=== PATIENT | male | born 1955 | race Caucasian/White ===

== ENCOUNTER 2020-10-09 08:16 | Outpatient (REF) | payer OTHER, SELFPAY ==
[2020-10-09 09:28] LABS: MANUAL DIFF FLAG NO
[2020-10-09 09:31] LABS: Basophils Absolute Auto 0.1 X10*3/uL (0.0-0.2); Eosinophils Absolute Auto 0.4 X10*3/uL (0.0-0.4); Eosinophils Percent Auto 4.5 % (0-4); Hematocrit 44.2 % (42-52); Hemoglobin 13.9 g/dl (14.0-18.0); Imm Gran Abs Auto 0.02 X10*3/uL (0.00-0.03); Imm Gran Pct Auto 0.2 % (0.0-0.4); Lymphocytes Absolute Auto 3.8 X10*3/uL (1.2-4.9); Lymphocytes Percent Auto 44.3 % (20-40); Mean Corpuscular HGB Conc 31.4 g/dl (31.0-36.0); Mean Corpuscular Hemoglobin 28.8 pg (27.0-33.0); Mean Corpuscular Volume 91.5 fL (80-98); Mean Platelet Volume 11.7 fL (9.4-12.4); Monocytes Absolute Auto 1.1 X10*3/uL (0.1-1.2); Monocytes Percent Auto 12.2 % (2-11); Neutrophils Absolute Auto 3.3 X10*3/uL (2.0-8.3); Neutrophils Percent Auto 37.8 % (45-73); Platelet Count 219 X10*3/uL (160-400); Red Blood Count 4.83 X10*6/uL (4.60-5.80); Red Cell Distribution Width 13.2 % (11.0-16.0); White Blood Count 8.7 X10*3/uL (4.8-10.8)
[2020-10-09 09:54] LABS: Anion Gap 13 (12-20); Blood Urea Nitrogen 15 mg/dL (9-16); Calcium 9.2 mg/dL (8.4-10.2); Carbon Dioxide 29 mmol/L (22-29); Chloride 103 mmol/L (96-108); Cholesterol 170 mg/dL; Estimated Glomerular Filt Rate > 60; Glucose Fasting 128 mg/dL (60-99); HDL Cholesterol 32 mg/dL; LDL Cholesterol Calculated 105 mg/dl; Potassium 4.3 mmol/l (3.3-5.1); Sodium 141 mmol/L (135-145); Triglycerides 168 mg/dL
== END 2020-10-09 08:17 | disposition home or self-care (01) ==
LOC: HO.LAB 08:16
PROVIDERS: PCP Nurse Practitioner Family; Visit Provider Nurse Practitioner Family
DX: I15.8 Other secondary hypertension (principal); E11.9 Type 2 diabetes mellitus without complications
CPT/HCPCS: 36415; 80048; 80061; 85025

== ENCOUNTER 2020-11-26 08:52 | Outpatient (REF) | payer OTHER, SELFPAY | END 2020-11-26 08:53 | disposition home or self-care (01) | LOC: HO.LAB 08:52 | PROVIDERS: Visit Provider Internal Medicine | DX: Z20.822 Contact with and (suspected) exposure to COVID-19 (principal) | CPT/HCPCS: 36415; C9803; U0003 ==

== ENCOUNTER → 2020-12-21 13:01 | Outpatient (BNVA) | payer OTHER, SELFPAY | PROVIDERS: PCP Nurse Practitioner Family; Visit Provider Internal Medicine Pulmonary Disease | DX: R06.00 Dyspnea, unspecified (principal); Z87.828 Personal history of other (healed) physical injury and trauma | CPT/HCPCS: 99202 ==

== ENCOUNTER 2020-12-21 14:05 | Outpatient (REF) | payer OTHER, SELFPAY ==
--- NOTE | 2020-12-21 16:07 | PFT_ITS ---
INDICATION: Dyspnea. SPIROMETRY: The FEV1 to FVC of 89% with an FEV1 of 1.77 L, which is 70% predicted and an FVC of 2.01 L, which is 60% predicted. No significant response to bronchodilators noted. Maximum voluntary ventilation only 40% predicted. LUNG VOLUMES: Total lung capacity 62% predicted with an expiratory reserve volume of 22% predicted. DIFFUSION CAPACITY: DLCO 68% predicted. COMPARISONS: None. NOTE: The patient did have a hard time performing the maneuvers, therefore that also has to be kept in consideration. INTERPRETATION: No obstructive ventilatory defect. No significant response to bronchodilators noted. There is severe decrease in maximum voluntary ventilation, likely secondary to deconditioning, although neuromuscular conditions cannot be ruled out. The patient does have a moderate restrictive ventilatory defect of unclear etiology. Again, parenchymal lung conditions and/or neuromuscular conditions should be considered. There is also a mild diffusion impairment secondary to the above. Clinical correlation warranted. MD JOSETTE Stokes/MODL / [id number]
== END 2020-12-21 14:06 | disposition home or self-care (01) ==
LOC: HO.RESP 14:05
PROVIDERS: PCP Nurse Practitioner Family; Visit Provider Internal Medicine Pulmonary Disease
DX: R06.00 Dyspnea, unspecified (principal)
CPT/HCPCS: 94060; 94727; 94729

== ENCOUNTER → 2021-01-09 09:52 | Outpatient (BNVA) | payer OTHER, SELFPAY | PROVIDERS: PCP Nurse Practitioner Family; Visit Provider Urology | DX: N40.1 Benign prostatic hyperplasia with lower urinary tract symptoms (principal); N13.8 Other obstructive and reflux uropathy; R33.9 Retention of urine, unspecified; R35.1 Nocturia | CPT/HCPCS: 51798; 81002; 99202 ==

== ENCOUNTER 2021-02-11 11:39 | Outpatient (REF) | payer OTHER, SELFPAY ==
--- NOTE | ~2021-02-11 | CT_ITS ---
EXAMINATION: CT CHEST WITHOUT CONTRAST CLINICAL INFORMATION: Dyspnea COMPARISON: None TECHNIQUE: Multidetector volumetric CT imaging of the chest was done. Axial MIP volume rendering provided. Sagittal and coronal reformatted images were obtained. This CT examination was performed using dose optimization techniques as appropriate, variously including the following: *Automated exposure control *Adjustment of mA and/or kV according to patient size (this includes techniques or standardized protocols for targeted exams where dose is matched to indication/reason for exam; i.e. extremities or head) *Use of iterative reconstruction technique DLP: 258 mGy-cm FINDINGS: LUNGS: The central airways are patent. Mild bronchial wall thickening noted. Faint groundglass opacities seen throughout the lungs with no dense consolidation. No pneumothorax. MEDIASTINUM: Normal heart size. Mild coronary artery calcification. No pericardial effusion. No mediastinal lymphadenopathy. Calcified lymph node in the AP window. PLEURA: There is no pleural effusion. No pleural mass or thickening. AXILLA: No lymphadenopathy. UPPER ABDOMEN: Low-attenuation of the liver suggestive of steatosis. No acute abnormality of the visualized upper abdomen. OSSEOUS STRUCTURES: No acute or suspicious osseous abnormality. Multilevel degenerative change of the spine. DISH. CT/CT chest wo con IMPRESSION: Faint groundglass appearance of the lung parenchyma may be secondary to hypoexpansion. Infectious or inflammatory process is possible. In the setting of bronchial wall thickening, asthma is also a consideration. No dense consolidation.
== END 2021-02-11 11:40 | disposition home or self-care (01) ==
LOC: HO.CT 11:39
PROVIDERS: Visit Provider Internal Medicine Pulmonary Disease
DX: R06.00 Dyspnea, unspecified (principal)
CPT/HCPCS: 71250

== ENCOUNTER → 2021-02-12 13:39 | Outpatient (BNVA) | payer OTHER, SELFPAY | PROVIDERS: PCP Nurse Practitioner Family; Visit Provider Internal Medicine Pulmonary Disease | DX: J45.40 Moderate persistent asthma, uncomplicated (principal) | CPT/HCPCS: 99212 ==

== ENCOUNTER → 2021-02-22 09:42 | Outpatient (BNVA) | payer OTHER, SELFPAY | PROVIDERS: PCP Nurse Practitioner Family; Visit Provider Urology | DX: N40.1 Benign prostatic hyperplasia with lower urinary tract symptoms (principal); N13.8 Other obstructive and reflux uropathy; R35.1 Nocturia | CPT/HCPCS: 99212 ==

== ENCOUNTER 2021-04-04 13:39 | Outpatient (REF) | payer OTHER, SELFPAY ==
--- NOTE | ~2021-04-04 | XR_ITS ---
EXAMINATION: XR CHEST 2 VIEWS CLINICAL INFORMATION: Asthma. COMPARISON: None. TECHNIQUE: Frontal and lateral views of the chest were obtained. FINDINGS: The heart, great vessels, pulmonary vasculature and mediastinum are normal. Lung volumes are low, with crowding of bronchovascular and pulmonary parenchymal markings. There is mild elevation of the right hemidiaphragm. The lungs show no focal infiltrate, effusion or pneumothorax. There is mild bronchiolar wall thickening. There is no acute osseous abnormality. There is multi-level thoracolumbar spondylosis, with an appearance suggesting possible DISH (diffuse idiopathic skeletal hyperostosis). XR/XR chest 2V IMPRESSION: 1. Lung volumes are low, with crowding of bronchovascular and pulmonary parenchymal markings. 2. No focal infiltrate or congestive heart failure is seen. 3. There is mild bronchiolar wall thickening, consistent with the provided history of asthma.
--- NOTE | ~2021-04-04 | XR_ITS ---
EXAMINATION: XR THORACIC SPINE CLINICAL INFORMATION: Pain in thoracic spine COMPARISON: None TECHNIQUE: 2 views of the thoracic spine were obtained. FINDINGS: There is normal thoracic kyphosis with moderate calcification of anterior longitudinal ligament no visible acute fracture, dislocation or lytic process seen. The paravertebral soft tissues are normal XR/XR thoracic spine 3V IMPRESSION: Moderate calcification of anterior longitudinal ligament suggestive of DISH. No acute fracture or lytic process seen.
== END 2021-04-04 13:40 | disposition home or self-care (01) ==
LOC: HO.XRAY 13:39
PROVIDERS: PCP Internal Medicine; Visit Provider Physician Assistant
DX: M54.6 Pain in thoracic spine (principal); J45.40 Moderate persistent asthma, uncomplicated
CPT/HCPCS: 71046; 72072

== ENCOUNTER → 2021-04-18 13:16 | Outpatient (BNVA) | payer OTHER, SELFPAY | PROVIDERS: PCP Internal Medicine; Visit Provider Internal Medicine Pulmonary Disease | DX: J45.42 Moderate persistent asthma with status asthmaticus (principal) | CPT/HCPCS: 99212 ==

== ENCOUNTER 2021-05-27 12:14 | Outpatient (REF) | payer OTHER, SELFPAY ==
--- NOTE | ~2021-05-27 | XR_ITS ---
EXAMINATION: XR CERVICAL SPINE CLINICAL INFORMATION: Cervical pain. COMPARISON: None. TECHNIQUE: 3 views of the cervical spine were obtained. FINDINGS: There is mild straightening of cervical lordosis. The vertebral heights and alignment is normal. There is loss of C6-C7 and C7-S2 disc heights with moderate ventral spondylosis at C4-C5, C5-C6, C6-C7 and C7-T1 disc levels. No visible acute fracture, dislocation or lytic process seen. The prevertebral soft tissues are normal. There is nuchal calcification posterior to C5 and C6 spinous process. XR/XR cervical spine 3V IMPRESSION: Degenerative disc changes C6-C7 and C7-T1 disc levels with ventral spondylosis. No acute fracture or dislocation seen.
== END 2021-05-27 12:15 | disposition home or self-care (01) ==
LOC: HO.XRAY 12:14
PROVIDERS: PCP Internal Medicine; Visit Provider Internal Medicine
DX: M54.2 Cervicalgia (principal)
CPT/HCPCS: 72040

== ENCOUNTER 2021-06-07 08:44 | Outpatient (REF) | payer OTHER, SELFPAY ==
[2021-06-07 10:33] LABS: Creatinine Urine 102.91 mg/dL; Microalbum/Creatinine Ratio Ur 20.4 ug/mg cr
[2021-06-07 10:47] LABS: Alanine Aminotransferase 57 U/L (0-40); Albumin Level 3.9 g/dL (3.5-5.0); Alkaline Phosphatase 113 U/L (39-117); Anion Gap 15 (12-20); Aspartate Amino Transferase 43 U/L (5-37); Bilirubin Total 0.6 mg/dL (0.0-1.0); Blood Urea Nitrogen 19 mg/dL (9-16); Calcium 8.9 mg/dL (8.4-10.2); Carbon Dioxide 23 mmol/L (22-29); Chloride 106 mmol/L (96-108); Cholesterol 173 mg/dL; Estimated Glomerular Filt Rate > 60; Glucose Fasting 128 mg/dL (60-99); HDL Cholesterol 30 mg/dL; LDL Cholesterol Calculated 105 mg/dl; Potassium 4.3 mmol/L (3.3-5.1); Sodium 140 mmol/L (135-145); Total Protein 7.3 g/dL (6.5-8.0); Triglycerides 192 mg/dL
[2021-06-12 19:06] LABS: Vitamin D 25-OH, D2 5 ng/mL; Vitamin D 25-OH, D3 31 ng/mL; Vitamin D 25-OH, Total 36 ng/mL (30-100)
== END 2021-06-07 08:45 | disposition home or self-care (01) ==
LOC: HO.LAB 08:44
PROVIDERS: PCP Internal Medicine; Visit Provider Internal Medicine
DX: E11.9 Type 2 diabetes mellitus without complications (principal); E55.9 Vitamin D deficiency, unspecified; E78.5 Hyperlipidemia, unspecified; M54.2 Cervicalgia
CPT/HCPCS: 36415; 80053; 80061; 82043; 82306

== ENCOUNTER 2021-08-09 14:00 | Outpatient (RCR) | payer OTHER, SELFPAY ==
--- NOTE | 2021-07-12 08:56 | MHC.PT.EP ---
[facility] [place] Office [place] Office [place] Office [address] [place] [address] [phone] F: [phone] F: [phone] F: [phone] F: [phone] Physical Therapy Plan of Care Date of Evaluation: Date of Surgery: N/A Diagnosis: Cervicalgia Assessment: Pt is a 66yo M who presents to PT with R pec and neck pain that has been ongoing since end october when he was D/C from a hospital. He presents today with current impairments in pain, limited ROM throughout cervical spine, soft tissue restrictions, and posture. He is limited functionally by turning his head, ADLs, general mobility, and sleeping. He is a good candidate for skilled PT services to address current impairments and facilitate return to PLOF. Frequency and Duration: The patient will be seen 2x/week for 4 weeks Short Term Goals: Pt will be I with HEP to promote self management of symptoms Pt will improve cervical flexion and ext by at least 5 degrees Cargo Operations Agent Goals: Pt will demonstrate full ROM all planes throughout cervical spine Pt will perform ADLs with pain < 5 /10 Treatment Plan: Modalities to reduce pain, spasms and effusion. Manual therapy to restore motion and function. Therapeutic exercise to improve strength and flexibility. Neuromuscular re-education for posture and balance. Therapeutic activities to return to functional activities of daily living. Electronically signed by: Xochilt Chiu, PT, DPT Please sign and return to therapist. Thank you for your referral.
--- NOTE | 2021-08-09 15:32 | MHC.PT.DC ---
[facility] [place] Office [place] Office [place] Office [address] [place] [address] [phone] F: [phone] F: [phone] F: [phone] F: [phone] Physical Therapy Discharge Report Diagnosis: Cervicalgia Date of Surgery: N/A Date of Evaluation: 07/11/21 Date of Discharge: Treatments to Date: 8 Cancellations to Date: No Shows to Date: Discharge Status: Improved Function Independent with HEP Discharge Summary: Pt has made good progress since SOC. He has reached STGs and has made good progress toward LTGs. He has improved cervical ROM throughout all planes and has had a decrease in pain. Pt has reached functional plateau with skilled PT services and is being D/C from PT at this time. Provided pt with updated, printed copy of HEP in Frisian and provided pt with RTB for HEP. Pt reports no further questions or concerns for PT at this time. Electronically signed by: Xochilt Chiu, PT, DPT Please sign and return to therapist. Thank you for your referral.
== END 2021-08-09 15:32 | disposition home or self-care (01) ==
LOC: HO.PT 14:00
PROVIDERS: PCP Internal Medicine; Visit Provider Internal Medicine
DX: M54.2 Cervicalgia (principal)
CPT/HCPCS: 97110; 97150; 97162; 97530

== ENCOUNTER → 2021-08-21 13:10 | Outpatient (BNVA) | payer OTHER, SELFPAY | PROVIDERS: PCP Internal Medicine; Visit Provider Internal Medicine Pulmonary Disease | DX: J45.42 Moderate persistent asthma with status asthmaticus (principal) | CPT/HCPCS: 99212 ==

== ENCOUNTER 2021-09-23 10:57 | Outpatient (REF) | payer OTHER, SELFPAY ==
--- NOTE | ~2021-09-23 | US_ITS ---
EXAMINATION: US PELVIS LIMITED (BLADDER) CLINICAL INFORMATION: Poor urinary stream. COMPARISON: None TECHNIQUE: Real-time imaging of the bladder. FINDINGS: BLADDER: Well distended and normal. Right ureteral jet is demonstrated; left is not. Prevoid bladder volume is 310 mL. Postvoid bladder volume is 54.6 mL. PROSTATE: The prostate gland is not seen. US/US bladder IMPRESSION: Small postvoid residual volume of 55 ml. Right ureteral jet seen. Prostate gland is not visualized.
== END 2021-09-23 10:58 | disposition home or self-care (01) ==
LOC: HO.US 10:57
PROVIDERS: PCP Internal Medicine; Visit Provider Urology
DX: R39.12 Poor urinary stream (principal); R33.9 Retention of urine, unspecified; N40.1 Benign prostatic hyperplasia with lower urinary tract symptoms
CPT/HCPCS: 76857

== ENCOUNTER → 2021-10-22 15:35 | Outpatient (BNVA) | payer OTHER, SELFPAY | PROVIDERS: PCP Internal Medicine; Visit Provider Urology ==

== ENCOUNTER → 2021-11-20 14:51 | Outpatient (BNVA) | payer OTHER, SELFPAY | PROVIDERS: PCP Internal Medicine; Referring Provider Internal Medicine; Visit Provider Internal Medicine | DX: R07.2 Precordial pain (principal); R06.02 Shortness of breath; E11.9 Type 2 diabetes mellitus without complications; I10 Essential (primary) hypertension | CPT/HCPCS: 93005; 99202 ==

== ENCOUNTER 2021-12-24 09:58 | Outpatient (REF) | payer OTHER, SELFPAY ==
[2021-12-24 11:52] LABS: Creatinine Urine 80.04 mg/dL; Microalbum/Creatinine Ratio Ur 53.7 ug/mg cr
[2021-12-24 11:54] LABS: Alanine Aminotransferase 64 U/L (0-40); Albumin Level 4.2 g/dL (3.5-5.0); Alkaline Phosphatase 138 U/L (39-117); Anion Gap 13 (12-20); Aspartate Amino Transferase 39 U/L (5-37); Bilirubin Total 0.4 mg/dL (0.0-1.0); Blood Urea Nitrogen 18 mg/dL (9-16); Calcium 10.1 mg/dL (8.4-10.2); Carbon Dioxide 31 mmol/L (22-29); Chloride 102 mmol/L (96-108); Cholesterol 210 mg/dL; Estimated Glomerular Filt Rate > 60; Glucose Fasting 216 mg/dL (60-99); HDL Cholesterol 31 mg/dL; LDL Cholesterol Calculated 124 mg/dl; Potassium 4.6 mmol/L (3.3-5.1); Sodium 141 mmol/L (135-145); Total Protein 7.9 g/dL (6.5-8.0); Triglycerides 278 mg/dL
[2021-12-24 12:14] LABS: Prostate Specific Antigen 0.86 ng/mL (<0.05-4.0)
== END 2021-12-24 09:59 | disposition home or self-care (01) ==
LOC: HO.LAB 09:58
PROVIDERS: Urology; PCP Internal Medicine; Visit Provider Internal Medicine
DX: E11.9 Type 2 diabetes mellitus without complications (principal); N40.1 Benign prostatic hyperplasia with lower urinary tract symptoms; N13.8 Other obstructive and reflux uropathy; R35.1 Nocturia; E78.5 Hyperlipidemia, unspecified; J45.42 Moderate persistent asthma with status asthmaticus
CPT/HCPCS: 36415; 80053; 80061; 82043; 84153

== ENCOUNTER → 2022-01-01 08:09 | Outpatient (REF) | payer OTHER, SELFPAY ==
--- NOTE | ~2022-01-01 | NM_ITS ---
Myocardial perfusion study Indication: Chest pain to evaluate for myocardial ischemia Technique: The patient was brought in for a Lexiscan perfusion study on 01/01/2022. Patient performed low-level exercise and was injected 0.4 mg of Lexiscan intravenously. Within a minute of injection, 30 mCi of sestamibi was given intravenously. Images were obtained using the SPECT gamma camera interlaced with the gating device. Images were obtained in supine position. Resting perfusion study was performed on 01/02/2022. Patient was administered 30 mCi of sestamibi intravenously at rest. Images were then obtained in supine position. Images obtained with and without CT attenuation. Total DLP 105 mGy-cm. Images were processed with the software and compared side to side in short axis, horizontal long axis and vertical long axis views. Findings: The stress perfusion study showed non attenuated images show mildly reduced uptake in the distal anterior and apex of the LV myocardium. Remainder of the LV myocardium is normally perfused. Attenuation corrected images show moderately reduced uptake in the distal anterior, apex of the LV myocardium.. The gated study shows normal LV systolic function with calculated LVEF of 68%. LV cavity is normal size. The gated study shows normal systolic wall thickening and contraction of segments. Resting study shows improved uptake in the distal anterior and apex of the LV myocardium on non attenuated as well as attenuated corrected images. Gating at rest reveals normal systolic wall motion with visually estimated ejection fraction at greater than 60 %. The findings are consistent with distal anterior and apical reversible defect consistent with ischemia in distal LAD territory.. NM/NM cardiolite stress test Impression: 1. Myocardial perfusion imaging study shows mild to moderate intensity distal anterior and apical ischemia 2. Gated LVEF is 68% 3. Transient ischemic dilatation not present EKG nondiagnostic for ischemia
--- NOTE | 2022-01-01 08:14 | CA_ITS ---
Acquisition Time: 2022-01-01 09:44:45 Total Exercise Time: 00:02:00 Test Indications: Dyspnea Medications: SEE H Protocol: LEXISCAN Max HR: 104 BPM 66% of Pred: 156 BPM Max BP: 124/072 mmHG Max Work Load: 1.0 METS Pharmacological stress test with Lexiscan injection, while sitting and kicking his legs, without anginal symptoms, with isolated PACs, with normotensive response to injection, with nondiagnostic EKG for ischemia. Nuclear images pending. Test reviewed with Dr Lloyd. Referred By: Raymon Lloyd Overread By: GLORIA CORLEY
== END ==
LOC: HO.CARD 08:09
PROVIDERS: PCP Internal Medicine; Visit Provider Internal Medicine
DX: R07.9 Chest pain, unspecified (principal); I20.9 Angina pectoris, unspecified
CPT/HCPCS: 78452; 93017; A9500; J0280; J2785

== ENCOUNTER → 2022-01-03 12:54 | Outpatient (REF) | payer OTHER, SELFPAY ==
--- NOTE | 2022-01-03 13:07 | CA_ITS ---
Transthoracic Echocardiogram Patient (Last, First, Middle): Raoul Garcia A Gender: Male Date of : 1955 Age: 66 Procedure Date: 01/03/2022 Procedure Type: Transthoracic Echocardiogram Location: OP Height: 157.48 cm Weight: 81.65 kg BSA: 1.83 m2 Heart Rate: bpm BP: 122 / 75 mmHg Link And Link Knitting Machine Operator: MYCHAL Referring MD: Raymon Lloyd MD Symptoms: R07.9 - Chest pain, unspecified Study Quality: Fair ECG Rhythm: Sinus Conclusions: - The left ventricular systolic function is normal. The calculated ejection fraction is 60% by biplane method. - There is evidence of regional wall motion abnormalities. - Mildly increased right ventricular cavity size. - No obvious valvular pathology seen on this study. Findings Left Ventricle Normal left ventricular cavity size. There is mildly increased left ventricular wall thickness. The left ventricular systolic function is normal. The calculated ejection fraction is 60% by biplane method. There is evidence of regional wall motion abnormalities. E/E prime ratio is between 8 and 15 consistent with indeterminate filling pressures. Evidence suggests grade I (mild) diastolic dysfunction. Wall Motion Rest Echo Findings The basal inferior segment is hypokinetic. The basal inferoseptal segment is akinetic. Right Ventricle Mildly increased right ventricular cavity size. There is normal right ventricular systolic function. Atria Both atria are normal in size. Aortic Valve There is a normal trileaflet aortic valve. There is no aortic valve stenosis. There is no aortic valve regurgitation. Mitral Valve The mitral valve appears normal. There is no mitral valve regurgitation. There is no mitral valve stenosis. Pulmonic Valve The pulmonic valve was not well visualized. Tricuspid Valve Normal tricuspid valve structure. There is trace tricuspid valve regurgitation. The pulmonary artery systolic pressure is normal. Great Vessels Top normal ascending aortic size at 3.7 cm. Venous The inferior vena cava was not well visualized. Pericardium/Pleural There is no evidence of pericardial effusion. Prior Study Comparison No prior study available for comparison. Recommendations, Care & Conclusions No obvious valvular pathology seen on this study. Measurements 2D Linear Measurements IVSd: 1.12 0.6-0.9/0.6-1.0 cm LVIDd: 4.62 3.9-5.3/4.2-5.9 cm LVIDd Index: 2.52 2.4-3.2/2.2-3.1 cm/m2 LVIDs: 3.59 2.0-3.6 cm LVPWd: 1.05 0.7-1.1 cm Ao Root: 4.00 2.1-3.5 cm LA Diam: 2.40 2.7-3.8/3.0-4.0 cm LAIDs Index: 1.31 1.5-2.3 cm/m2 LV Mass: 223.01 67-162/88-224 g LV Mass Index: 121.87 43-95/49-115 g/m2 LVOT Diam: 2.00 3.0+(-)1.3 cm 2D Systolic Function EF 4C: 64.90 >55% EF 2C: 60.50 >55% EF BiP: 59.70 >55% Mitral Valve MV Pk E: 0.71 MV PK A: 0.63 MV Decel Time: 226.00 E/A: 1.10 E'Lateral: 5.11 E'Medial: 4.90 E/E' Med: 14.40 E/E' Lat: 13.80 PHT: 66.00 MVA PHT: 3.33 Decel Hettinger: 3.13 Aortic Valve AoV Pk Troy: 1.13 AoV Mn Troy: 0.81 AoV VTI: 0.20 AoV Pk Grad: 5.00 Aov Mn Grad: 3.00 PRISCILA Cont.VTI: 2.66 LVOT LVOT Pk Troy: 0.91 LVOT Mn Troy: 0.65 LVOT VTI: 0.17 LVOT Pk Grad: 3.00 LVOT Mn Grad: 2.00 LVOT Diam: 2.00 LVOT Area: 3.14 Diastolic Function MV Pk E: 0.71 MV Pk A: 0.63 E/A: 1.10 E'Medial: 4.90 E/E' Med: 14.40 E' Laterial: 5.11 E/E' Lat: 13.80 Right Ventricle TAPSE (mm): 22.80 TVS' Troy: 14.40 Tricuspid Valve TR Pk Troy: 1.91 TR Pk Grad: 15.00 Great Vessels Aorta Ao Root-2D: 4.00 2.0-3.7 cm Ao Asc: 3.70 2.1-3.4 cm Ao Arch: 3.00 Updated in Other Vendor System with Status of Final Raymon Lloyd MD electronically signed on 01/05/2022 12:42:26 PM with status of Final
== END ==
LOC: HO.CARD 12:54
PROVIDERS: PCP Internal Medicine; Visit Provider Internal Medicine
DX: R07.9 Chest pain, unspecified (principal)
CPT/HCPCS: 93306

== ENCOUNTER → 2022-01-08 13:09 | Outpatient (BNVA) | payer MEDICARE, MEDICAID, SELFPAY | PROVIDERS: PCP Internal Medicine; Referring Provider Internal Medicine; Visit Provider Nurse Practitioner Family | DX: I15.8 Other secondary hypertension (principal); R94.39 Abnormal result of other cardiovascular function study; R93.1 Abnormal findings on diagnostic imaging of heart and coronary circulation; R07.2 Precordial pain; E78.5 Hyperlipidemia, unspecified; E11.9 Type 2 diabetes mellitus without complications | CPT/HCPCS: 99212 ==

== ENCOUNTER 2022-01-29 12:31 | Outpatient (REF) | payer MEDICARE, MEDICAID, SELFPAY ==
[2022-01-29 12:54] LABS: MANUAL DIFF FLAG NO
[2022-01-29 12:59] LABS: Basophils Absolute Auto 0.1 X10*3/uL (0.0-0.2); Basophils Percent Auto 1.1 % (0-2); Eosinophils Absolute Auto 0.3 X10*3/uL (0.0-0.4); Eosinophils Percent Auto 2.9 % (0-4); Hematocrit 44.4 % (42.0-52.0); Imm Gran Abs Auto 0.02 X10*3/uL (0.00-0.03); Imm Gran Pct Auto 0.2 % (0.0-0.4); Lymphocytes Absolute Auto 3.9 X10*3/uL (1.2-4.9); Lymphocytes Percent Auto 43.4 % (20-40); Mean Corpuscular HGB Conc 31.5 g/dl (31.0-36.0); Mean Corpuscular Hemoglobin 28.3 pg (27.0-33.0); Mean Corpuscular Volume 89.9 fL (80.0-98.0); Mean Platelet Volume 11.6 fL (9.4-12.4); Monocytes Absolute Auto 1.1 X10*3/uL (0.1-1.2); Neutrophils Absolute Auto 3.6 x10*3/uL (2.0-8.3); Neutrophils Percent Auto 40.4 % (45-73); Platelet Count 219 X10*3/uL (160-400); Red Blood Count 4.94 X10*6/uL (4.60-5.80); Red Cell Distribution Width 13.4 % (11.0-16.0); White Blood Count 8.9 X10*3/uL (4.8-10.8)
[2022-01-29 13:18] LABS: INTERNATIONAL NORM RATIO 1.3 (0.9-1.1); Prothrombin Time 15.1 SEC (9.9-13.0)
[2022-01-29 13:37] LABS: Anion Gap 15 (12-20); Blood Urea Nitrogen 19 mg/dL (9-16); Calcium 9.8 mg/dL (8.4-10.2); Carbon Dioxide 22 mmol/L (22-29); Chloride 108 mmol/L (96-108); Estimated Glomerular Filt Rate > 60; Glucose Random 115 mg/dL (60-115); Potassium 4.2 mmol/L (3.3-5.1); Sodium 141 mmol/L (135-145)
== END 2022-01-29 12:32 | disposition home or self-care (01) ==
LOC: HO.LAB 12:31
PROVIDERS: PCP Internal Medicine; Visit Provider Nurse Practitioner Family
DX: R07.9 Chest pain, unspecified (principal); R93.1 Abnormal findings on diagnostic imaging of heart and coronary circulation; R94.39 Abnormal result of other cardiovascular function study
CPT/HCPCS: 36415; 80048; 85025; 85610

== ENCOUNTER → 2022-02-19 12:37 | Outpatient (BNVA) | payer OTHER, SELFPAY | PROVIDERS: PCP Internal Medicine; Referring Provider Internal Medicine; Visit Provider Nurse Practitioner Family | DX: R94.39 Abnormal result of other cardiovascular function study (principal); R07.2 Precordial pain; R93.1 Abnormal findings on diagnostic imaging of heart and coronary circulation; I15.8 Other secondary hypertension; E78.5 Hyperlipidemia, unspecified; E11.9 Type 2 diabetes mellitus without complications; Z95.820 Peripheral vascular angioplasty status with implants and grafts; Z98.890 Other specified postprocedural states | CPT/HCPCS: 99212 ==

== ENCOUNTER → 2022-02-26 13:30 | Outpatient (BNVA) | payer MEDICARE, SELFPAY | PROVIDERS: PCP Internal Medicine; Visit Provider Internal Medicine Pulmonary Disease | DX: J45.42 Moderate persistent asthma with status asthmaticus (principal); Z79.899 Other long term (current) drug therapy | CPT/HCPCS: 99212 ==

== ENCOUNTER → 2022-04-08 14:41 | Outpatient (BNVA) | payer OTHER, SELFPAY | PROVIDERS: PCP Internal Medicine; Referring Provider Internal Medicine; Visit Provider Internal Medicine | DX: I25.10 Atherosclerotic heart disease of native coronary artery without angina pectoris (principal); I10 Essential (primary) hypertension; E11.8 Type 2 diabetes mellitus with unspecified complications | CPT/HCPCS: 99212 ==

== ENCOUNTER 2022-04-24 09:50 | Outpatient (REF) | payer OTHER, SELFPAY ==
[2022-04-24 10:51] LABS: Microalbum/Creatinine Ratio Ur 13.2 ug/mg cr
[2022-04-24 10:53] LABS: Alanine Aminotransferase 52 U/L (0-40); Alkaline Phosphatase 100 U/L (39-117); Anion Gap 13 (12-20); Aspartate Amino Transferase 34 U/L (5-37); Bilirubin Total 0.6 mg/dL (0.0-1.0); Blood Urea Nitrogen 17 mg/dL (9-16); Calcium 9.5 mg/dL (8.4-10.2); Carbon Dioxide 27 mmol/L (22-29); Chloride 104 mmol/L (96-108); Cholesterol 116 mg/dL; Estimated Glomerular Filt Rate > 60; Glucose Fasting 124 mg/dL (60-99); HDL Cholesterol 33 mg/dL; LDL Cholesterol Calculated 56 mg/dl; Potassium 4.3 mmol/L (3.3-5.1); Sodium 140 mmol/L (135-145); Total Protein 7.5 g/dL (6.5-8.0); Triglycerides 136 mg/dL
[2022-04-24 11:12] LABS: Prostate Specific Antigen 0.86 ng/mL (<0.05-4.0)
== END 2022-04-24 09:51 | disposition home or self-care (01) ==
LOC: HO.LAB 09:50
PROVIDERS: Urology; PCP Internal Medicine; Visit Provider Nurse Practitioner Family
DX: E11.8 Type 2 diabetes mellitus with unspecified complications (principal); E78.5 Hyperlipidemia, unspecified; N40.1 Benign prostatic hyperplasia with lower urinary tract symptoms; N13.8 Other obstructive and reflux uropathy; Z12.5 Encounter for screening for malignant neoplasm of prostate
CPT/HCPCS: 36415; 80053; 80061; 82043; 84153

== ENCOUNTER → 2022-04-25 13:01 | Outpatient (BNVA) | payer OTHER, SELFPAY | PROVIDERS: PCP Internal Medicine; Visit Provider Urology | DX: N40.1 Benign prostatic hyperplasia with lower urinary tract symptoms (principal); R33.8 Other retention of urine; R35.1 Nocturia; Z79.899 Other long term (current) drug therapy | CPT/HCPCS: Q3014 ==

== ENCOUNTER → 2022-07-22 12:49 | Outpatient (BNVA) | payer OTHER, SELFPAY | PROVIDERS: PCP Internal Medicine; Referring Provider Internal Medicine; Visit Provider Internal Medicine | DX: I25.10 Atherosclerotic heart disease of native coronary artery without angina pectoris (principal); E11.8 Type 2 diabetes mellitus with unspecified complications; I10 Essential (primary) hypertension; R21 Rash and other nonspecific skin eruption; Z79.84 Long term (current) use of oral hypoglycemic drugs; Z79.899 Other long term (current) drug therapy | CPT/HCPCS: 99212 ==

== ENCOUNTER → 2022-08-07 13:28 | Outpatient (BNVA) | payer OTHER, SELFPAY | PROVIDERS: PCP Internal Medicine; Referring Provider Internal Medicine; Visit Provider Internal Medicine | DX: I25.10 Atherosclerotic heart disease of native coronary artery without angina pectoris (principal); I10 Essential (primary) hypertension; E11.8 Type 2 diabetes mellitus with unspecified complications | CPT/HCPCS: 99212 ==

== ENCOUNTER → 2022-08-20 13:35 | Outpatient (BNVA) | payer OTHER, SELFPAY | PROVIDERS: PCP Internal Medicine; Visit Provider Internal Medicine Pulmonary Disease | DX: J45.42 Moderate persistent asthma with status asthmaticus (principal) | CPT/HCPCS: 99212 ==

== ENCOUNTER → 2023-02-17 13:41 | Outpatient (BNVA) | payer OTHER, SELFPAY | PROVIDERS: PCP Internal Medicine; Referring Provider Internal Medicine; Visit Provider Internal Medicine | DX: I25.10 Atherosclerotic heart disease of native coronary artery without angina pectoris (principal); I10 Essential (primary) hypertension; E11.8 Type 2 diabetes mellitus with unspecified complications | CPT/HCPCS: 93005; 99212 ==

== ENCOUNTER → 2023-05-01 10:46 | Outpatient (BNVA) | payer OTHER, SELFPAY | PROVIDERS: PCP Internal Medicine; Visit Provider Urology | DX: N40.1 Benign prostatic hyperplasia with lower urinary tract symptoms (principal); N13.8 Other obstructive and reflux uropathy | CPT/HCPCS: 51798; 99212 ==

== ENCOUNTER 2023-06-10 13:19 | Outpatient (AMB) | payer OTHER, SELFPAY ==
--- NOTE | 2023-06-10 13:29 | MHC.PC.OV ---
Vital Signs 06/10/23 13:33 06/10/23 14:25 Height 5 ft 2 in Weight 194 lb BMI 35.5 BP 146/98 H 140/80 H Blood Pressure Location Lt brachial Lt brachial Position Sitting Sitting Intake Visit Reasons: dm Intake Note: Patient here for a follow up DM Telecommunication Operator Required: No Accompanied by: Self / Same As Patient Allergies Penicillins Allergy (Verified 06/10/23 14:06) Hives Medication List - Last Reconciled 06/10/23 by Myriam Paulson MD albuterol sulfate 90 mcg/actuation (ProAir HFA) 1 puff PO QID PRN 30 days blood sugar diagnostic (CapsoVisionuch Ultra Test strips) test once daily blood-glucose meter (CapsoVisionuch Ultra2 Meter) test once daily calcium carbonate-vitamin D3 500 mg-5 mcg (200 unit) (Os-Yosef 500 + D3) 1 tab PO DAILY 60 days ciclopirox 0.77% 1 appl topical BID dapagliflozin propanediol (Farxiga) 10 mg PO DAILY 3 months dulaglutide (Trulicity) 1.5 mg (0.5 mL) subcut QWEEK 3 months fluticasone propionate 220 mcg/actuation (Flovent HFA) 2 puffs inhalation BID hydroxyzine HCl 10 mg PO TID PRN ketoconazole 200 mg PO DAILY lancets (Eqiancheng.comTouch UltraSoft 2 Lancet) test once daily metformin 850 mg PO BID 90 days montelukast 10 mg PO BEDTIME 90 days nystatin-triamcinolone appl topical nystatin-triamcinolone 100,000-0.1 unit/g-% 1 appl topical DAILY 30 days prednisone 40 mg (2 x 20 mg) PO DAILY ticagrelor 90 mg PO BID Tobacco use date assessed: 02/02/23 Fall risk assessment: No Falls in past year Last assessed Fall Risk: 06/10/23 Dental Screening Dental Screen Date: 06/10/23 Did you have a dental visit in the last 12 months?: No Did you have a dental problem in the last 6 months where you did not have access to dental care?: No Was dental information given to patient?: No HPI HPI Comments History of Present Illness Details This is a 68-year-old male that comes accompanied by [employer] BURNER for follow-up on his diabetes mellitus and asthma. A1c not on goal and he admits not been compliant with medications. Was prescribed metformin twice a day and only has half of a tablet once a day. I recommend to have 1 tablet twice a day. He does not want to increase Trulicity. Blood pressure stable. Lipid panel will be order and his LDL goal should be less than 70. He use rescue inhaler once a month. Has a right leg deformity in which the leg it is deviated outwards. Will be referred to Ortho. No chest pain or shortness of breath. 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 Father No problems noted. Social History Housing: Apartment Alcohol intake: former Patient Tobacco Use Status: Former Tobacco user Quit Date: 1994 e-Cigarette/Vaping Use: Never Used Second Hand Smoke Exposure: No service: No Current occupational status: disabled Cognitive needs: No (cane) Hearing needs: Yes Vision needs: Yes (glasses) Questionnaire Thrive Questionnaire Date Thrive assessed: 02/02/23 FLASH-7 AMB Questionnaire FLASH-7 Date FLASH - 7 assessed: 02/02/23 Source: Developed by Drs. Wali Theodore, Larissa Reeves, Don Campbell and colleagues, with an educational romel from [employer]. Review of Systems Const All systems reviewed & are unremarkable except as noted in HPI and below Eyes Reports no additional complaints, Denies change in vision and Denies other visual disturbances Card Denies chest pain at rest, Denies chest pain with activity, Denies edema, Denies irregular heart rhythm, Denies claudication, Denies dyspnea, Denies dyspnea on exertion, Denies orthopnea, Denies paroxysmal nocturnal dyspnea and Denies slow heart rate Resp Denies cough, Denies dyspnea and Denies dyspnea on exertion GI Denies abdominal pain, Denies change in bowel habits, Denies excessive flatus, Denies nausea and Denies vomiting Denies urinary hesitancy, Denies urinary incontinence and Denies urinary urgency Musc Denies abnormal gait, Denies atrophy, Denies deformity and Denies limited range of motion Skin/Breast Denies bleeding lesions, Denies changing lesions and Denies rash Neuro Denies abnormal gait and Denies lack of coordination Physical exam (Primary Care) Vital Signs: Last Vital Signs BP 140/80 H 06/10/23 14:25 BMI result Body Mass Index 35.5 Tobacco/Smoking Status: Tobacco use Status Tobacco use date assessed 02/02/23 06/10/23 13:31 Patient Tobacco Use Status Former Tobacco user 06/10/23 13:31 e-Cigarette/Vaping Use Never Used 06/10/23 13:31 Thrive Assessment: Date of Thrive Assessment Date Thrive assessed 02/02/23 06/10/23 13:31 Eyes General: appearance normal, both eyes and all related structures Eyelids: Yes eyelids normal Conjunctivae: conjunctivae normal Neck Neck: Yes normal visual inspection and Yes supple Resp Effort & Inspection: normal respiratory effort Auscultation: clear to auscultation bilaterally Cardio Jugular venous distension: no JVD Rate: regular rate Rhythm: regular rhythm Heart sounds: S1 normal heart sound present and S2 normal heart sound present Extrem General: Yes full ROM Results AMB Hemoglobin A1c AMB Hemoglobin A1c 10.2 % Last Edit by JODY Porter on 06/10/23 13:53 Results Reviewed Results Reviewed: Laboratory Last Values Hgb A1c (Clinic) 10.2 % (4.0-6.0) H 06/10/23 13:28 Assessment and Plan Assessment & Plan (1) Type 2 diabetes mellitus with unspecified complications: Code(s): E11.8 - Type 2 diabetes mellitus with unspecified complications Plan: Start been compliant with metformin and Trulicity. A1c goal is equal or less than 7%. (2) Deformity of right lower extremity: Code(s): M21.951 - Unspecified acquired deformity of right thigh Plan: Referred to Ortho (3) Asthma: Code(s): J45.909 - Unspecified asthma, uncomplicated Plan: Continue Flovent. Use rescue inhaler as needed. Orders: Orders Comprehensive [place]. Panel Fast Today E78.5 - Hyperlipidemia, unspecified Lipid Panel Today E78.5 - Hyperlipidemia, unspecified Vitamin D 25-OH Total Today E55.9 - Vitamin D deficiency, unspecified Microalbumin, Random (w Creat) Today E11.9 - Type 2 diabetes mellitus without complications XR tibia fibula RT 2V Today M21.951 - Unspecified acquired deformity of right thigh AMB Hemoglobin A1c Today E11.8 - Type 2 diabetes mellitus with unspecified complications Referrals Orthopedics Referral M21.951 - Unspecified acquired deformity of right thigh Medications: Refilled metformin 850 mg PO BID 90 days 180 tabs 1RF E11.8 - Type 2 diabetes mellitus with unspecified complications Discontinued prednisone Discontinued Reason: Patient Completed Course 40 mg (2 x 20 mg) PO DAILY 10 tabs 0RF R21 - Rash and other nonspecific skin eruption Coding Level of Care Code Est Pt Level 3 (49388) Diagnoses Type 2 diabetes mellitus with unspecified complications E11.8 Deformity of right lower extremity M21.951 Asthma J45.909 Time Spent (min) 19
[2023-06-10 13:33] VITALS: BP 146/98; BMI 35.5
[2023-06-10 14:25] VITALS: BP 140/80
== END 2023-06-10 14:25 | disposition home or self-care (01) ==
PROVIDERS: Visit Provider Internal Medicine
DX: E11.8 Type 2 diabetes mellitus with unspecified complications (principal); M21.951 Unspecified acquired deformity of right thigh; J45.909 Unspecified asthma, uncomplicated
CPT/HCPCS: 83036; 99213

== ENCOUNTER 2023-07-09 12:49 | Outpatient (AMB) | payer OTHER, SELFPAY ==
[2023-07-09 12:59] VITALS: BMI 35.5
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
== END 2023-07-09 14:50 | disposition home or self-care (01) ==
PROVIDERS: PCP Internal Medicine; Visit Provider Physician Assistant
DX: M21.6X1 Other acquired deformities of right foot (principal); M77.31 Calcaneal spur, right foot
CPT/HCPCS: 99203

== ENCOUNTER 2023-07-09 12:49 | Outpatient (REF) | payer OTHER, SELFPAY ==
--- NOTE | ~2023-07-09 | XR_ITS ---
EXAMINATION: XR FOOT, RIGHT CLINICAL INFORMATION: Pain and unspecified foot COMPARISON: None available. TECHNIQUE: AP, lateral, and oblique views of the right foot. FINDINGS: Mineralization is normal. There is no fracture or dislocation. The joint spaces are preserved. There is a plantar calcaneal spur. No focal soft tissue swelling is seen. XR/XR foot RT min 3V IMPRESSION: Plantar calcaneal spur. No acute abnormality.
== END 2023-07-09 12:50 | disposition home or self-care (01) ==
LOC: HO.HOSX 12:49
PROVIDERS: PCP Internal Medicine; Visit Provider Physician Assistant
DX: M21.6X1 Other acquired deformities of right foot (principal)
CPT/HCPCS: 73630; 99202

== ENCOUNTER 2023-08-20 13:37 | Outpatient (AMB) | payer OTHER, SELFPAY ==
[2023-08-20 13:45] VITALS: BP 104/62; PULSE 85; O2SAT 96; BMI 35.5
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
== END 2023-08-20 14:06 | disposition home or self-care (01) ==
PROVIDERS: PCP Internal Medicine; Visit Provider Internal Medicine Pulmonary Disease
DX: J45.909 Unspecified asthma, uncomplicated (principal)
CPT/HCPCS: 99213

== ENCOUNTER → 2023-08-20 13:37 | Outpatient (BNVA) | payer OTHER, SELFPAY | PROVIDERS: Visit Provider Internal Medicine Pulmonary Disease | DX: J45.909 Unspecified asthma, uncomplicated (principal); Z79.899 Other long term (current) drug therapy | CPT/HCPCS: 99212 ==

== ENCOUNTER 2023-09-23 14:13 | Outpatient (AMB) | payer OTHER, SELFPAY ==
[2023-09-23 14:22] VITALS: BP 122/74; PULSE 81; O2SAT 99; BMI 34.9
--- NOTE | 2023-09-23 14:22 | A.OFFPC_ITS ---
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: Estonian Allergies Penicillins Allergy (Verified 09/23/23 14:49) Hives Medication List - Last Reconciled 09/23/23 by RAGINI Waldrop amlodipine 5 mg PO DAILY 90 days atorvastatin 20 mg PO BEDTIME 90 days blood sugar diagnostic (Mesosphere Ultra Test strips) test once daily blood-glucose meter (Vinnyuch Ultra2 Meter) test once daily calcium carbonate-vitamin D3 500 mg-5 mcg (200 unit) (Os-Yosef 500 + D3) 1 tab PO DAILY 60 days ciclopirox 0.77% 1 appl topical BID 2 weeks [custome molded shoe inserts As directed] dapagliflozin propanediol (Farxiga) 10 mg PO DAILY 3 months dulaglutide (Trulicity) 1.5 mg (0.5 mL) subcut QWEEK 3 months hydroxyzine HCl 10 mg PO TID PRN ketoconazole 200 mg PO DAILY lancets (WebEventsTouch UltraSoft 2 Lancet) test once daily metformin 850 mg PO BID 90 days montelukast 10 mg PO BEDTIME 90 days nystatin-triamcinolone appl topical nystatin-triamcinolone 100,000-0.1 unit/g-% 1 appl topical DAILY 30 days Symbicort 160-4.5 mcg/actuation (budesonide-formoterol) 2 puffs inhalation BID 3 0 days NS tamsulosin 0.4 mg PO BEDTIME 90 days ticagrelor 90 mg PO BID Ventolin HFA 90 mcg/actuation (albuterol sulfate) 2 puffs inhalation Q6H PRN 30 days NS Tobacco use date assessed: 09/23/23 Fall risk assessment: No Falls in past year Last assessed Fall Risk: 09/23/23 HPI Rash HPI Details Patient is a 68-year-old male who presents today for an office visit due to ongoing rash on his body for very long time now. Patient of Dr. Marshall. He reports that rash is itchy, reports using 3 different creams at home with no much improvement. Denies changes in shampoo, body wash, new detergent, new medications. He has referral to see Dermatology-will follow-up on this. Also he reports cough with green sputum production for the past 1 week, denies shortness of breath or wheezing, reports using inhalers as prescribed with minimal improvement, has also asthma and diabetes. No fever or chills. Reports using NyQuil with no much improvement. Patient is a Estonian-speaking and SHA Gonzalez was helping with interpretation. COUNTS INCLUDE 234 BEDS AT THE [facility] Medical History Skin rash Microalbuminuria FLASH (generalized anxiety disorder) Hearing loss Dyslipidemia Chest pain Neck pain Enlarged prostate Respiration disorder [id number] syndrome Hypertension Diabetes Surgical History History of coronary angioplasty with insertion of stent Status post cardiac catheterization S/P angioplasty with stent Family History Mother No problems noted. Father No problems noted. Social History Housing: Apartment Alcohol intake: former Patient Tobacco Use Status: Former Tobacco user Quit Date: 1994 e-Cigarette/Vaping Use: Never Used Second Hand Smoke Exposure: No service: No Current occupational status: disabled Cognitive needs: No (cane) Hearing needs: Yes Vision needs: Yes (glasses) Questionnaire Thrive Questionnaire Date Thrive assessed: 02/02/23 AUDIT C Alcohol Use Questionnaire (AUDIT-C) 1. How often do you have a drink containing alcohol?: Never Total Score: 0 Score Reviewed/Action Taken: No FLASH-7 AMB Questionnaire FLASH-7 Date FLASH - 7 assessed: 02/02/23 Source: Developed by Drs. Wali Theodore, Larissa Reeves, Don Campbell and colleagues, with an educational romel from [employer]. Review of Systems Const Denies body aches, Denies chills, Denies fever(s) and Denies headache(s) ENT Denies dizziness, Denies otalgia, Denies headache(s), Denies nasal discharge, Denies sinus pain and Denies sore throat Card Denies chest pain, Denies edema, Denies lightheadedness and Denies dyspnea Resp Reports cough, Denies dyspnea and Denies wheezing GI Denies abdominal pain Denies dysuria Musc Denies myalgias Skin/Breast Reports rash Neuro Denies dizziness and Denies headache(s) Aller/Immun Denies wheezing Physical exam (Primary Care) Vital Signs: Last Vital Signs Pulse 81 09/23/23 14:22 BP 122/74 09/23/23 14:22 Pulse Ox 99 09/23/23 14:22 Oxygen Delivery Method Room Air 09/23/23 14:22 BMI result Body Mass Index 34.9 Tobacco/Smoking Status: Tobacco use Status Tobacco use date assessed 09/23/23 09/23/23 14:23 Patient Tobacco Use Status Former Tobacco user 09/23/23 14:23 e-Cigarette/Vaping Use Never Used 09/23/23 14:23 Thrive Assessment: Date of Thrive Assessment Date Thrive assessed 02/02/23 09/23/23 14:23 Const General: cooperative and no acute distress Orientation/consciousness: patient oriented x3 HENMT Head: Yes normocephalic and Yes atraumatic Mouth: oropharynx normal and moist mucous membranes Throat: Yes posterior oropharynx normal Eyes General: appearance normal, both eyes and all related structures Neck Neck: Yes normal visual inspection and Yes full ROM Resp Effort & Inspection: normal respiratory effort, able to speak in complete sentences and Actively coughing Quality: wet Auscultation: clear to auscultation bilaterally, no crackles, no rales, no rhonchi and no wheezes Cardio Rate: regular rate Rhythm: regular rhythm Heart sounds: S1 normal heart sound present and S2 normal heart sound present GI Auscultation: normal bowel sounds Skin Other: Bilateral arms, chest, back with increased pigmentation areas, no signs of infection noted, patient reports pruritus Neuro General: patient oriented x3 Gait exam (Neuro): Normal gait present Extrem General: Yes full ROM and No edema Assessment and Plan Assessment & Plan (1) Skin rash: Code(s): R21 - Rash and other nonspecific skin eruption Plan: Bilateral arms, chest, back with increased pigmentation areas, no signs of infection noted, patient reports pruritus Continue nystatin-triamcinolone cream as prescribed Will follow-up on dermatology referral (2) Moderate persistent asthma: Code(s): J45.40 - Moderate persistent asthma, uncomplicated Qualifiers: Asthma complication type: with status asthmaticus Qualified Code(s): J45.42 - Moderate persistent asthma with status asthmaticus Plan: Continue current inhalers as prescribed Start doxycycline b.i.d. for 5 days Notify office if no improvement after finishing antibiotic Medications: New doxycycline hyclate 100 mg PO BID 5 days 10 tabs 0RF J45.40 - Moderate persistent asthma, uncomplicated Refilled nystatin-triamcinolone 100,000-0.1 unit/g-% 1 appl topical DAILY 30 days 30 grams 1RF Coding Level of Care Code Est Pt Level 3 (62858) Diagnoses Skin rash R21 Moderate persistent asthma with status asthmaticus J45.42 Asthma complication type: with status asthmaticus
== END 2023-09-23 15:02 | disposition home or self-care (01) ==
PROVIDERS: PCP Internal Medicine; Visit Provider Nurse Practitioner Family
DX: R21 Rash and other nonspecific skin eruption (principal); J45.42 Moderate persistent asthma with status asthmaticus
CPT/HCPCS: 99213

== ENCOUNTER 2023-12-09 10:09 | Outpatient (AMB) | payer OTHER, SELFPAY ==
--- NOTE | 2023-12-09 10:22 | MHC.PC.OV ---
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 Accompanied by: Self / Same As Patient Allergies Penicillins Allergy (Verified 12/09/23 10:38) Hives Medication List - Last Reconciled 12/09/23 by Myriam Paulson MD albuterol sulfate 90 mcg/actuation (Ventolin HFA) 2 puffs inhalation Q6H PRN 30 days amlodipine 5 mg PO DAILY 90 days aspirin 81 mg PO DAILY 90 days atorvastatin 20 mg PO BEDTIME 90 days blood sugar diagnostic ([employer] Ultra Test strips) test once daily blood-glucose meter ([employer] Ultra2 Meter) test once daily calcium carbonate-vitamin D3 500 mg-5 mcg (200 unit) (Os-Yosef 500 + D3) 1 tab PO DAILY 60 days ciclopirox 0.77% 1 appl topical BID 2 weeks [custome molded shoe inserts As directed] dapagliflozin propanediol (Farxiga) 10 mg PO DAILY 3 months dulaglutide (Trulicity) 1.5 mg (0.5 mL) subcut QWEEK 3 months hydroxyzine HCl 10 mg PO TID PRN ketoconazole 200 mg PO DAILY lancets ([employer] UltraSoft 2 Lancet) test once daily losartan 25 mg PO DAILY 90 days metformin 850 mg PO BID 90 days montelukast 10 mg PO BEDTIME 90 days nystatin-triamcinolone 100,000-0.1 unit/g-% 1 appl topical DAILY 30 days sertraline 25 mg PO DAILY 90 days Symbicort 160-4.5 mcg/actuation (budesonide-formoterol) 2 puffs inhalation BID 30 days NS tamsulosin 0.4 mg PO BEDTIME 90 days ticagrelor 90 mg PO BID Tobacco use date assessed: 12/09/23 Fall risk assessment: No Falls in past year Last assessed Fall Risk: 12/09/23 Dental Screening Dental Screen Date: 12/09/23 Did you have a dental visit in the last 12 months?: No Did you have a dental problem in the last 6 months where you did not have access to dental care?: No Was dental information given to patient?: Patient declined HPI HPI Comments History of Present Illness Details This is a 68-year-old male with diabetes mellitus type 2 not control, hyperlipidemia, hypertension and anxiety that comes today for follow-up on his conditions. A1c elevated but he said he takes metformin once a day and he cuts it in half. I have explained multiple times that he has to take 1 tablet twice a day. He told me that that damage the kidneys and that he thinks is too much for him. I explained that uncontrolled diabetes mellitus can cause microvascular and macrovascular complications that could lead to heart attack, blindness, end-stage renal disease and . Blood pressure stable. Lipid panel has been ordered multiple times and he just done to his labs. Lipid panel will be reorder once again. His LDL goal should be less than 70. Anxiety has been stable with SSRIs. Complains of right foot pronation and needs assistance in placing his shoe and will benefit from shoe inserts. 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 Father No problems noted. Social History Housing: Apartment Alcohol intake: former Patient Tobacco Use Status: Former Tobacco user Quit Date: 1994 e-Cigarette/Vaping Use: Never Used Second Hand Smoke Exposure: No service: No Current occupational status: disabled Cognitive needs: No (cane) Hearing needs: Yes Vision needs: Yes (glasses) Questionnaire PHQ-9 Over the last 2 weeks, how often have you been bothered by any of the following problems? 1. Little interest or pleasure in doing things: not at all 2. Feeling down, depressed, or hopeless: not at all 3. Trouble falling or staying asleep, or sleeping too much: not at all 4. Feeling tired or having little energy: not at all 5. Poor appetite or overeating: not at all 6. Feeling bad about yourself - or that you are a failure or have let yourself or your family down: not at all 7. Trouble concentrating on things, such as reading the newspaper or watching television: not at all 8. Moving or speaking so slowly that other people could have noticed. Or the opposite - being so fidgety or restless that you have been moving around a lot more than usual: not at all 9. Thoughts that you would be better off or of hurting yourself in some way: not at all Total score: 0 Depression Screening Interpretation: Negative Depression Screening Done: Yes 47044 - PHQ-9 Billing: Yes Source: Developed by Drs. Wali Theodore, Larissa Reeves, Don Campbell and colleagues, with an educational romel from [employer]. Thrive Questionnaire Date Thrive assessed: 12/09/23 I am a: Patient What is your living situation today?: I have a steady place to live Within the past 12 months, did the food you bought not last and you didn't have the money to get more?: Never true Within the past 12 months, did you worry whether your food would run out before you got money to buy more?: Never true Do you have trouble paying for medicines?: No Do you have trouble getting transportation to medical appointments?: No Do you have trouble paying your heating and electricity bill?: No Do you have trouble taking care of your child, family member or friend?: No Do you have trouble with day-to-day activities such as bathing, preparing meals, shopping, managing finances, etc.?: No Are you currently unemployed and looking for a job?: No Are you interested in more education?: No Please select the resources that you would like help with: None Currently or been in a relationship where the following occur: no concerns reported THRIVE Score: 0 AUDIT C Alcohol Use Questionnaire (AUDIT-C) 1. How often do you have a drink containing alcohol?: Never Total Score: 0 FLASH-7 AMB Questionnaire FLASH-7 Date FLASH - 7 assessed: 12/09/23 Feeling nervous, anxious, or on edge: 0 = Not at all Not being able to stop or control worryin = Not at all Worrying too much about different things: 0 = Not at all Trouble relaxin = Not at all Being so restless that it is hard to sit still: 0 = Not at all Becoming easily annoyed or irritable: 0 = Not at all Feeling afraid as if something awful might happen: 0 = Not at all Total FLASH-7 score (0-4 normal; 5-9 mild; 10-14 moderate; 15-21 severe): 0 Source: Developed by Drs. Wali Theodore, Larissa Reeves, Don Campbell and colleagues, with an educational romel from [employer]. FLASH-7 Assessment Billing FLASH-7 Assessment Tool: FLASH-7 Assessment 86243 Review of Systems Const All systems reviewed & are unremarkable except as noted in HPI and below Eyes Reports no additional complaints, Denies change in vision and Denies other visual disturbances Card Denies chest pain at rest, Denies chest pain with activity, Denies edema, Denies irregular heart rhythm, Denies claudication, Denies dyspnea, Denies dyspnea on exertion, Denies orthopnea, Denies paroxysmal nocturnal dyspnea and Denies slow heart rate Resp Denies cough, Denies dyspnea and Denies dyspnea on exertion GI Denies abdominal pain, Denies change in bowel habits, Denies excessive flatus, Denies nausea and Denies vomiting Denies urinary hesitancy, Denies urinary incontinence and Denies urinary urgency Musc Denies abnormal gait, Denies atrophy, Denies deformity and Denies limited range of motion Skin/Breast Denies bleeding lesions, Denies changing lesions and Denies rash Neuro Denies abnormal gait, Denies behavioral changes and Denies lack of coordination Psych Denies behavioral changes Physical exam (Primary Care) Vital Signs: Last Vital Signs BP 120/70 12/09/23 10:26 BMI result Body Mass Index 34.9 Tobacco/Smoking Status: Tobacco use Status Tobacco use date assessed 12/09/23 12/09/23 10:30 Patient Tobacco Use Status Former Tobacco user 12/09/23 10:24 e-Cigarette/Vaping Use Never Used 12/09/23 10:24 PHQ-9: PHQ-9 Score PHQ-9: Total score 0 12/09/23 10:50 Depression Screening Interpretation: Negative Thrive Assessment: Date of Thrive Assessment Date Thrive assessed 12/09/23 12/09/23 10:24 Currently or been in a relationship where the following occur: no concerns reported Eyes General: appearance normal, both eyes and all related structures Eyelids: Yes eyelids normal Conjunctivae: conjunctivae normal Neck Neck: Yes normal visual inspection and Yes supple Resp Effort & Inspection: normal respiratory effort Auscultation: clear to auscultation bilaterally Cardio Jugular venous distension: no JVD Rate: regular rate Rhythm: regular rhythm Heart sounds: S1 normal heart sound present and S2 normal heart sound present Results AMB Hemoglobin A1c AMB Hemoglobin A1c 10.1 % Last Edit by JODY Porter on 12/09/23 10:33 Results Reviewed Results Reviewed: Laboratory Last Values Hgb A1c (Clinic) 10.1 % (4.0-6.0) H 12/09/23 10:21 Assessment and Plan Assessment & Plan (1) Type 2 diabetes mellitus with unspecified complications: Code(s): E11.8 - Type 2 diabetes mellitus with unspecified complications Plan: Be compliant with medications and please use done as instructed. Metformin should be 850 mg twice a day. Trulicity once a week. Farxiga once a day. A1c goal is equal or less than 7%. Patient declines insulin. (2) Essential hypertension: Code(s): I10 - Essential (primary) hypertension Plan: Continue amlodipine and losartan. Blood pressure goal is equal or less than 130/80. (3) FLASH (generalized anxiety disorder): Code(s): F41.1 - Generalized anxiety disorder Plan: Continue SSRIs. (4) Hyperlipidemia LDL goal <70: Code(s): E78.5 - Hyperlipidemia, unspecified Plan: Continue statins as prescribed. LDL goal is less than 70. Repeat lipid panel. Orders: Orders AMB Hemoglobin A1c Today E11.8 - Type 2 diabetes mellitus with unspecified complications Vitamin D 25-OH Total Today E55.9 - Vitamin D deficiency, unspecified Lipid Panel Today E78.5 - Hyperlipidemia, unspecified Microalbumin, Random (w Creat) Today E11.9 - Type 2 diabetes mellitus without complications Comprehensive [place]. Panel Fast Today E11.8 - Type 2 diabetes mellitus with unspecified complications Medications: Refilled dapagliflozin propanediol (Farxiga) 10 mg PO DAILY 3 months 90 tabs 0RF [custome molded shoe inserts] As directed 1 ea 0RF right foot pronation dulaglutide (Trulicity) 1.5 mg (0.5 mL) subcut QWEEK 3 months 6.5 mL 3RF Coding Level of Care Code Est Pt Level 4 (58972) Diagnoses Type 2 diabetes mellitus with unspecified complications E11.8 Essential hypertension I10 FLASH (generalized anxiety disorder) F41.1 Hyperlipidemia LDL goal <70 E78.5 Additional Codes FLASH-7 Assessment Billing - FLASH-7 Assessment Tool: FLASH-7 Assessment 20018 ([id number]) Time Spent (min) 25
[2023-12-09 10:26] VITALS: BP 120/70; BMI 34.9
== END 2023-12-09 11:08 | disposition home or self-care (01) ==
PROVIDERS: PCP Internal Medicine; Visit Provider Internal Medicine
DX: E11.69 Type 2 diabetes mellitus with other specified complication (principal); I10 Essential (primary) hypertension; F41.1 Generalized anxiety disorder; E78.5 Hyperlipidemia, unspecified
CPT/HCPCS: 83036; 99214

== ENCOUNTER 2024-03-18 13:35 | Outpatient (AMB) | payer OTHER, SELFPAY ==
[2024-03-18 13:52] VITALS: BP 122/68; PULSE 71; O2SAT 97; BMI 35.1
--- NOTE | 2024-03-18 13:52 | A.OFFVIS_ITS ---
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 Required: Yes Glass Lathe Operator Name: JOSE C [id number] Allergies Penicillins Allergy (Verified 03/18/24 14:09) Hives Medication List - Last Reconciled 03/18/24 by Kassandra Johnson NP albuterol sulfate 90 mcg/actuation (Ventolin HFA) 2 puffs inhalation Q6H PRN 30 days amlodipine 5 mg PO DAILY 90 days aspirin 81 mg PO DAILY 90 days atorvastatin 20 mg PO BEDTIME 90 days blood sugar diagnostic ([employer] Ultra Test strips) test once daily blood-glucose meter (Constant [employer] Ultra2 Meter) test once daily calcium carbonate-vitamin D3 500 mg-5 mcg (200 unit) (Os-Yosef 500 + D3) 1 tab PO DAILY 60 days ciclopirox 0.77% 1 appl topical BID 2 weeks [custome molded shoe inserts As directed] dapagliflozin propanediol (Farxiga) 10 mg PO DAILY 3 months dulaglutide (Trulicity) 1.5 mg (0.5 mL) subcut QWEEK 3 months hydroxyzine HCl 10 mg PO TID PRN ketoconazole 200 mg PO DAILY lancets (Constant Therapyuch UltraSoft 2 Lancet) test once daily linagliptin (Tradjenta) 5 mg PO DAILY 90 days losartan 25 mg PO DAILY 90 days metformin 850 mg PO BID 90 days montelukast 10 mg PO BEDTIME 90 days nystatin-triamcinolone 100,000-0.1 unit/g-% 1 appl topical DAILY 30 days sertraline 25 mg PO DAILY 90 days Symbicort 160-4.5 mcg/actuation (budesonide-formoterol) 2 puffs inhalation BID 30 days NS tamsulosin 0.4 mg PO BEDTIME 90 days HPI Comments Details: 69-year-old male with coronary artery disease, diabetes mellitus type 2, hyperlipidemia, hypertension and anxiety presents for a follow-up. Patient reports he has been doing well since last visit. He denies chest pains, shortness of breath, palpitations, or orthopnea. [facility] Medical History Skin rash Microalbuminuria FLASH (generalized anxiety disorder) Hearing loss Dyslipidemia Chest pain Neck pain Enlarged prostate Respiration disorder [id number] syndrome Hypertension Diabetes Surgical History History of coronary angioplasty with insertion of stent Status post cardiac catheterization S/P angioplasty with stent Family History Mother No problems noted. Father No problems noted. Social History Housing: Apartment Alcohol intake: former Patient Tobacco Use Status: Former Tobacco user Quit Date: 1994 e-Cigarette/Vaping Use: Never Used Second Hand Smoke Exposure: No service: No Current occupational status: disabled Cognitive needs: No (cane) Hearing needs: Yes Vision needs: Yes (glasses) Review of Systems Const Denies weakness ENT Denies dizziness Card Denies chest pain, Denies chest pain with activity, Denies syncope, Denies rapid heart rate, Denies pedal edema, Denies edema, Denies leg edema, Denies lightheadedness, Denies palpitations, Denies dyspnea, Denies dyspnea on exertion and Denies orthopnea Resp Denies cough, Denies dyspnea and Denies dyspnea on exertion GI Denies hematochezia and Denies change in stool character Musc Denies abnormal gait, Denies muscle cramps, Denies muscle weakness, Denies numbness, Denies radiating pain into limb and Denies tingling Neuro Denies abnormal gait, Denies dizziness, Denies syncope, Denies numbness, Denies tingling and Denies weakness Endo Denies palpitations Physical Exam Vital Signs: Last Vital Signs Pulse 71 03/18/24 13:52 BP 122/68 03/18/24 13:52 Pulse Ox 97 03/18/24 13:52 Oxygen Delivery Method Room Air 03/18/24 13:52 BMI result Body Mass Index 35.1 Office Procedures EKG Details: EKG today. Normal sinus rhythm. Rate 71 bpm. QRS 76ms. QTc 423 ms. VA 150 ms. [id number], Complete Assessment & Plan Assessment & Plan (1) Atherosclerotic cardiovascular disease: Code(s): I25.10 - Atherosclerotic heart disease of [place] coronary artery without angina pectoris Category: Medical Plan: Prior LAD stenting. No anginal symptoms. On ASA 81mg, Atorvastatin 20mg. Will recheck lipids. (2) Essential hypertension: Code(s): I10 - Essential (primary) hypertension Category: Medical Plan: Blood pressure within range today. On losartan 25mg daily and amlodipine 5mg daily. Orders: Orders Comprehensive [place]. Panel Fast 06/10/23 E78.5 - Hyperlipidemia, unspecified Lipid Panel 12/09/23 E78.5 - Hyperlipidemia, unspecified Coding Level of Care Code Est Pt Level 3 (37150) Diagnoses Atherosclerotic cardiovascular disease I25.10 Essential hypertension I10 CPT Codes EKG - CPT: 64104-[id number], Complete ([id number])
== END 2024-03-18 14:28 | disposition home or self-care (01) ==
PROVIDERS: PCP Internal Medicine; Visit Provider Nurse Practitioner
DX: I25.10 Atherosclerotic heart disease of native coronary artery without angina pectoris (principal); I10 Essential (primary) hypertension
CPT/HCPCS: 93010; 99213

== ENCOUNTER → 2024-03-18 13:35 | Outpatient (BNVA) | payer OTHER, SELFPAY | PROVIDERS: PCP Internal Medicine; Visit Provider Nurse Practitioner | DX: I25.10 Atherosclerotic heart disease of native coronary artery without angina pectoris (principal); I10 Essential (primary) hypertension; Z79.82 Long term (current) use of aspirin; Z79.899 Other long term (current) drug therapy | CPT/HCPCS: 93005; 99212 ==

== ENCOUNTER 2024-03-30 08:38 | Outpatient (REF) | payer OTHER, SELFPAY ==
[2024-03-30 09:46] LABS: Alanine Aminotransferase 60 U/L (0-40); Albumin Level 4.3 g/dL (3.5-5.0); Alkaline Phosphatase 96 U/L (39-117); Anion Gap 16 (12-20); Aspartate Amino Transferase 45 U/L (5-37); Bilirubin Total 0.5 mg/dL (0.0-1.0); Blood Urea Nitrogen 13 mg/dL (9-16); Carbon Dioxide 29 mmol/L (22-29); Chloride 103 mmol/L (96-108); Cholesterol 120 mg/dL (<200); Estimated Glomerular Filt Rate > 60; Glucose Fasting 131 mg/dL (60-99); HDL Cholesterol 32 mg/dL (>40); LDL Cholesterol Calculated 59 mg/dL (<100); Sodium 144 mmol/L (135-145); Triglycerides 149 mg/dL (<150)
[2024-03-30 10:03] LABS: Vitamin D 25-OH Total 40.7 ng/mL (>30)
[2024-03-30 10:14] LABS: Creatinine Urine 169.71 mg/dL; Microalbum/Creatinine Ratio Ur 27.6 ug/mg cr (<30)
== END 2024-03-30 08:39 | disposition home or self-care (01) ==
LOC: HO.LAB 08:38
PROVIDERS: PCP Internal Medicine; Visit Provider Internal Medicine
DX: E55.9 Vitamin D deficiency, unspecified (principal); E11.8 Type 2 diabetes mellitus with unspecified complications; E78.5 Hyperlipidemia, unspecified
CPT/HCPCS: 36415; 80053; 80061; 82043; 82306; 82570

== ENCOUNTER 2024-03-30 09:14 | Outpatient (AMB) | payer OTHER, SELFPAY ==
--- NOTE | 2024-03-30 09:24 | MHC.PC.OV ---
Vital Signs 03/30/24 09:25 Height 5 ft 2 in Weight 188 lb BMI 34.4 BP 120/70 Blood Pressure Location Lt brachial Position Sitting Intake Visit Reasons: PE Intake Note: Patient here for a physical exam Gum Mixer Required: No Accompanied by: Self / Same As Patient Allergies Penicillins Allergy (Verified 03/30/24 09:38) Hives Medication List - Last Reconciled 03/30/24 by Myriam Paulson MD albuterol sulfate 90 mcg/actuation (Ventolin HFA) 2 puffs inhalation Q6H PRN 30 days amlodipine 5 mg PO DAILY 90 days aspirin 81 mg PO DAILY 90 days atorvastatin 20 mg PO BEDTIME 90 days blood sugar diagnostic ([employer] Ultra Test strips) test once daily blood-glucose meter ([employer] Ultra2 Meter) test once daily calcium carbonate-vitamin D3 500 mg-5 mcg (200 unit) (Os-Yosef 500 + D3) 1 tab PO DAILY 60 days ciclopirox 0.77% 1 appl topical BID 2 weeks [custome molded shoe inserts As directed] dapagliflozin propanediol (Farxiga) 10 mg PO DAILY 3 months dulaglutide (Trulicity) 1.5 mg (0.5 mL) subcut QWEEK 3 months hydroxyzine HCl 10 mg PO TID PRN ketoconazole 200 mg PO DAILY lancets ([employer] UltraSoft 2 Lancet) test once daily linagliptin (Tradjenta) 5 mg PO DAILY 90 days losartan 25 mg PO DAILY 90 days metformin 850 mg PO BID 90 days montelukast 10 mg PO BEDTIME 90 days nystatin-triamcinolone 100,000-0.1 unit/g-% 1 appl topical DAILY 30 days sertraline 25 mg PO DAILY 90 days Symbicort 160-4.5 mcg/actuation (budesonide-formoterol) 2 puffs inhalation BID 30 days NS tamsulosin 0.4 mg PO BEDTIME 90 days Tobacco use date assessed: 12/09/23 Fall risk assessment: No Falls in past year Last assessed Fall Risk: 03/30/24 Dental Screening Dental Screen Date: 12/09/23 HPI HPI Comments History of Present Illness Details This is a 69-year-old male with diabetes mellitus type 2 that comes for his physical exam. A1c not on goal and this is because VNA place Trulicity but he has not had 1 since he came from [place] few months ago. I will do a VNA referral for Trulicity placement because he is afraid of needles and would not be able to do it. Last diabetic eye exam was about a year ago. He had colonoscopy less than 10 years ago and said that he was normal. Labs are still pending. Walks with a cane for gait stability due to chronic low back pain. No chest pain or shortness of breath. [facility] Medical History (Updated 03/30/24 @ 10:23 by Myriam Paulson MD) Type 2 diabetes mellitus with unspecified complications Skin rash Microalbuminuria FLASH (generalized anxiety disorder) Hearing loss Dyslipidemia Chest pain Neck pain Enlarged prostate Respiration disorder Thef-[id number] syndrome Hypertension Diabetes Surgical History (Updated 03/30/24 @ 10:25 by Myriam Paulson MD) History of lumbar surgery History of coronary angioplasty with insertion of stent Status post cardiac catheterization S/P angioplasty with stent Family History Mother No problems noted. Father No problems noted. Social History Housing: Apartment Alcohol intake: former Patient Tobacco Use Status: Former Tobacco user Quit Date: 1994 e-Cigarette/Vaping Use: Never Used Second Hand Smoke Exposure: No service: No Current occupational status: disabled Cognitive needs: No (cane) Hearing needs: Yes Vision needs: Yes (glasses) Questionnaire Thrive Questionnaire Date Thrive assessed: 12/09/23 FLASH-7 AMB Questionnaire FLASH-7 Date FLASH - 7 assessed: 12/09/23 Source: Developed by Drs. Wali Theodore, Larissa Reeves, Don Campbell and colleagues, with an educational romel from [employer]. Review of Systems Const All systems reviewed & are unremarkable except as noted in HPI and below Eyes Reports no additional complaints, Denies change in vision and Denies other visual disturbances Card Denies chest pain at rest, Denies chest pain with activity, Denies edema, Denies irregular heart rhythm, Denies claudication, Denies dyspnea, Denies dyspnea on exertion, Denies orthopnea, Denies paroxysmal nocturnal dyspnea and Denies slow heart rate Resp Denies cough, Denies dyspnea and Denies dyspnea on exertion GI Denies abdominal pain, Denies change in bowel habits, Denies excessive flatus, Denies nausea and Denies vomiting Denies urinary hesitancy, Denies urinary incontinence and Denies urinary urgency Physical exam (Primary Care) Vital Signs: Last Vital Signs BP 120/70 03/30/24 09:25 BMI result Body Mass Index 34.4 Tobacco/Smoking Status: Tobacco use Status Tobacco use date assessed 12/09/23 03/30/24 09:26 Patient Tobacco Use Status Former Tobacco user 03/30/24 09:26 e-Cigarette/Vaping Use Never Used 03/30/24 09:26 Thrive Assessment: Date of Thrive Assessment Date Thrive assessed 12/09/23 03/30/24 09:26 Const Orientation/consciousness: patient oriented x3 Eyes General: appearance normal, both eyes and all related structures Eyelids: Yes eyelids normal Conjunctivae: conjunctivae normal Neck Neck: Yes normal visual inspection and Yes supple Resp Effort & Inspection: normal respiratory effort Auscultation: clear to auscultation bilaterally Cardio Jugular venous distension: no JVD Rate: regular rate Rhythm: regular rhythm Heart sounds: S1 normal heart sound present and S2 normal heart sound present GI Inspection: Yes normal to inspection Palpation (GI): Soft to palpation and nontender Auscultation: normal bowel sounds Skin General skin exam: no rashes or lesions noted Neuro General: patient oriented x3 and no focal motor deficits Extrem General: Yes full ROM Results AMB Hemoglobin A1c AMB Hemoglobin A1c 9.5 % Last Edit by JODY Porter on 03/30/24 09:36 Results Reviewed Results Reviewed: Laboratory Last Values Hgb A1c (Clinic) 9.5 % (4.0-6.0) H 03/30/24 09:26 Assessment and Plan Assessment & Plan (1) Physical exam: Code(s): Z00.00 - Encounter for general adult medical examination without abnormal findings Plan: Repeat in a year. (2) Type 2 diabetes mellitus, without long-term current use of insulin: Code(s): E11.9 - Type 2 diabetes mellitus without complications Plan: Continue metformin. VNA referral for Trulicity placement. A1c goal is equal or less than 7%. 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
[2024-03-30 09:25] VITALS: BP 120/70; BMI 34.4
== END 2024-03-30 09:53 | disposition home or self-care (01) ==
PROVIDERS: PCP Internal Medicine; Visit Provider Internal Medicine
DX: Z00.00 Encounter for general adult medical examination without abnormal findings (principal); E11.9 Type 2 diabetes mellitus without complications; E11.8 Type 2 diabetes mellitus with unspecified complications
CPT/HCPCS: 83036; 99397

== ENCOUNTER 2024-04-07 11:52 | Outpatient (REF) | payer OTHER, SELFPAY ==
--- NOTE | ~2024-04-07 | US_ITS ---
EXAMINATION: US RETROPERITONEAL LIMITED (AORTA) CLINICAL INFORMATION: Personal history of nicotine dependence. COMPARISON: None available. TECHNIQUE: Freeman-scale, color Doppler and spectral Doppler evaluation of the abdominal aorta. Technically limited study secondary to body habitus. FINDINGS: There is atherosclerotic disease. The measurements of the aorta in maximum AP and transverse dimensions respectively are as follows: Proximal: 2.8 x 2.5 cm. Mid: 2.0 x 2.4 cm. Distal: 1.8 x 1.7 cm. PSV: 72.2 cm/s. The measurements of the common iliac arteries in maximum AP and TRV dimensions are as follows: Right Common Iliac Artery: 0.96 x 0.87 cm. Left Common Iliac Artery: 1.1 x 1.3 cm. US/US abdominal aortic aneurysm IMPRESSION: No abdominal aortic or iliac artery aneurysm.
== END 2024-04-07 11:53 | disposition home or self-care (01) ==
LOC: HO.HMGCX 11:52
PROVIDERS: PCP Internal Medicine; Visit Provider Internal Medicine
DX: Z13.6 Encounter for screening for cardiovascular disorders (principal); Z87.891 Personal history of nicotine dependence
CPT/HCPCS: 76706

== ENCOUNTER → 2024-04-11 23:59 | Outpatient (BNV) | payer OTHER, SELFPAY | PROVIDERS: PCP Internal Medicine; Visit Provider Internal Medicine | DX: E11.9 Type 2 diabetes mellitus without complications (principal); Z87.820 Personal history of traumatic brain injury | CPT/HCPCS: G0180 ==

== ENCOUNTER 2024-07-12 09:34 | Outpatient (AMB) | payer OTHER, SELFPAY ==
--- NOTE | 2024-07-12 10:04 | A.OFFVIS_ITS ---
Vital Signs 07/12/24 10:07 Height 5 ft 2 in Weight 193 lb 12.581 oz BMI 35.4 BP 132/62 Blood Pressure Location Lt brachial Position Sitting Pulse 86 Pulse Source Pulse Oximeter Intake Visit Reasons: DM/CONFIRMED Intake Note: New patient present today for Diabetes Mellitus Management. Last Diabetic Eye exam: More than 1 year ago Last Podiatry Visit: Patient is seen every 3 months Random Glucose: 136 mg/dl HgA1C: 8.3% Spun Paste Machine Operator Required: Yes Spun Paste Machine Operator Language: Disability Aide Name: Edwar [email or web address] Information Interpreted: non-clinical & clinical Accompanied by: Self / Same As Patient Allergies Penicillins Allergy (Verified 07/12/24 10:09) Hives HPI Comments Details: This is a 69-year-old male with a past medical history of type 2 diabetes, former smoker, CAD, anxiety, hypertension and asthma presenting for initial endocrinology consult for diabetic management. He was diagnosed with diabetes several years ago. He last saw his PCP on 03/30/2024. It is documented in that note that his A1c was not at goal because he was in vacation in [place], and he did not have VNA to administer Trulicity. He does not administer due to needle phobia. BG checked before eating every morning. Highest: 147 Lowest: unknown, but he denies readings under 70 He does not have the glucometer with him today or a log of BG. Hemoglobin a1c 8.3% today. POC 136. Current medication regimen: Tradjenta 5 mg daily, metformin 1000 mg twice daily, Farxiga 10 mg daily, Trulicity 1.5 mg weekly. Diet: Breakfast-bread, ham, cheese, eggs, regular coke Lunch-water, food varies, a lot of salad, tomato, corn Dinner-salad, similar to lunch, avocado, fish Snacks/desserts: no Hypoglycemia symptoms: none Hyperglycemia symptoms: none Eye exam: last year and no retinopathy per patient Microvascular complications: neuropathy, nephropathy (microalbumin noted in chart though not on recent labs) Macrovascular complications: CAD Hypertension: treated with amlodipine 5 mg daily and losartan 25 mg daily. Hyperlipidemia: treated with atorvastatin 20 mg daily. LDL at goal <100. ROS: Constitutional: No unexplained weight loss, fever, chills, fatigue or night sweats. Respiratory: No shortness of breath Cardiovascular: No chest pain Gastrointestinal: No anorexia, nausea, vomiting or diarrhea. No abdominal pain Neurologic: No headache, dizziness, syncope Endocrine: No cold or heat intolerance. No polyuria or polydipsia. Physical exam: Constitutional: Alert, in no distress. Eyes: Pupils are equal, round and reactive to light. Extraocular muscles intact. Neck: Supple, Full range of motion. No lymphadenopathy. No palpable thyroid masses. Respiratory: Clear to auscultation. Cardiovascular: S1 S2 regular. No murmurs. No carotid bruits. Gastrointestinal: Abdomen soft, non-tender, non-distended. Normal bowel sounds. No palpable masses. Right foot: Warm and well perfused. No clubbing, cyanosis or edema. Decreased vibratory sensation. Intact sensation to monofilament. No open wounds. Left foot: Warm and well perfused. No clubbing, cyanosis or edema. Decreased vibratory sensation. Intact sensation to monofilament. No open wounds. 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 Father No problems noted. Social History Housing: Apartment Alcohol intake: former Patient Tobacco Use Status: Former Tobacco user e-Cigarette/Vaping Use: Never Used Second Hand Smoke Exposure: No service: No Current occupational status: disabled Cognitive needs: No (cane) Hearing needs: Yes Vision needs: Yes (glasses) Physical Exam Vital Signs: Last Vital Signs Pulse 86 07/12/24 10:07 BP 132/62 07/12/24 10:07 BMI result Body Mass Index 35.4 Results AMB Hemoglobin A1c AMB Hemoglobin A1c 8.3 % Last Edit by JODY Martinez on 07/12/24 10:25 Results Reviewed Results Reviewed: Laboratory Last Values Glucose (Clinic) 136 mg/dL (60-115) H 07/12/24 10:15 Hgb A1c (Clinic) 8.3 % (4.0-6.0) H 07/12/24 10:21 Laboratory Tests 02/02/23 06/10/23 12/09/23 13:36 13:28 10:21 Creatinine Estimated GFR Hgb A1c (Clinic) 9.2 H 10.2 H 10.1 H AST ALT Alkaline Phosphatase Triglycerides Cholesterol LDL Cholesterol, Calc HDL Cholesterol Urine Creatinine Urine Microalbumin Microalb/Creat Ratio 03/30/24 03/30/24 03/30/24 08:48 09:04 09:26 Creatinine 0.99 Estimated GFR > 60 Hgb A1c (Clinic) 9.5 H AST 45 H ALT 60 H Alkaline Phosphatase 96 Triglycerides 149 Cholesterol 120 LDL Cholesterol, Calc 59 HDL Cholesterol 32 L Urine Creatinine 169.71 Urine Microalbumin 47.0 Microalb/Creat Ratio 27.6 Assessment & Plan Assessment & Plan (1) Type 2 diabetes mellitus, without long-term current use of insulin: Code(s): E11.9 - Type 2 diabetes mellitus without complications Category: Medical Plan In summary this is a 69-year-old male with suboptimally controlled type 2 diabetes presenting for initial endocrinology consult. Discussed pathophysiology of Type II Diabetes Mellitus with the patient in detail.? I explained the fci risks and complications associated with uncontrolled diabetes including nephropathy, neuropathy, peripheral vascular disease, retinopathy, increased risk of heart disease and stroke.? Discussed lifestyle modification with the patient. Recommended 30 minutes of moderately vigorous exercise 5 days per week to promote weight loss. Patient advised to schedule his eye exam. Referred to dietitian. Patient is needle phobic and strongly dislikes Trulicity injections and wants to switch to something else. Advised him to continue Trulicity for now increased to 3 mg once weekly to target A1c goal 7% or less.. Side effects reviewed. I will send a Ericbelsus to see if insurance covers this. If insurance covers it he can stop Trulicity and start Rybelsus 3 mg once daily a week after stopping Trulicity. Side effects administration reviewed. Discussed need for titration based on tolerability and response. Continue other diabetic medications. Patient declined CGM. He will continue to monitor with a fingerstick glucometer. Review treatment of hypo/hyperglycemia. Follow-up in 3 months for type 2 diabetes. Orders: Orders AMB Hemoglobin A1c Today E11.9 - Type 2 diabetes mellitus without complications Referrals Generator Switchboard Operator Nutrition Referral E11.9 - Type 2 diabetes mellitus without complications Medications: New dulaglutide (Trulicity) Replaces Trulicity 1.5 mg. 3 mg (0.5 mL) subcut QWEEK 2 mL 5RF semaglutide (Rybelsus) If insurance approves Rybelsus stop taking Trulicity and after 1 week start Rybelsus 1 tablet PO daily. Administer on an empty stomach, =30 minutes before the first food, beverage, or other oral medications of the day with =4 oz of plain water only. 3 mg PO DAILY 30 days 30 tabs 0RF Discontinued dulaglutide (Trulicity) Discontinued Reason: Doctor's Order 1.5 mg (0.5 mL) subcut QWEEK 3 months 6.5 mL 3RF Coding Level of Care Code New Pt Level 4 (18291) Complex EM visit Add On G2211 Diagnoses Type 2 diabetes mellitus, without long-term current use of insulin E11.9
[2024-07-12 10:07] VITALS: BP 132/62; PULSE 86; BMI 35.4
[2024-07-12 10:24] LABS: Glucose, Whole Blood 136 mg/dL (60-115)
== END 2024-07-12 10:58 | disposition home or self-care (01) ==
PROVIDERS: PCP Internal Medicine; Visit Provider Physician Assistant Medical
DX: E11.9 Type 2 diabetes mellitus without complications (principal)
CPT/HCPCS: 99204; G2211

== ENCOUNTER → 2024-07-12 09:34 | Outpatient (BNVA) | payer OTHER, SELFPAY | PROVIDERS: PCP Internal Medicine; Visit Provider Physician Assistant Medical | DX: E11.9 Type 2 diabetes mellitus without complications (principal); Z79.85 Long-term (current) use of injectable non-insulin antidiabetic drugs | CPT/HCPCS: 82947; 83036; 99202 ==

== ENCOUNTER 2024-12-30 08:39 | Outpatient (AMB) | payer OTHER, SELFPAY ==
--- OUTSIDE RECORDS SUMMARY | 2024-12-30 08:57 | XMS_ITS | Data Portability ---
Author Organization [employer] [facility], [place] - [facility] Address [address] [place] [phone] Care Team Providers Care Zipper Setter Lockstitch Name Role Phone HIM CCA OTHER Assessment Encounter Date Assessment Date Assessment LastModified by Organization Details LastModified Time 02/29/2024 02/29/2024 I provided real -time medical direction via phone for this encounter, and was available for additional phone based assistance as needed. I have reviewed and agree with the Assessment and Plan as documented by the Audio Visual Design Engineer. We discussed the diagnostic uncertainty of home visits and the risk associated with this. The patient given the opportunity to ask questions via psychiatric attendant Advised if develops CP/severe SOB/turning blue/uncontrolle d n/v/d or black/bloody emesis or stool/ AMS/ syncope/ hi fever unresponsive to APAP to call 911- verbalized understanding of instruction [email or web address] Not available 02/29/2024 11:53:36 Plan of Treatment Reminders Order Date Submit Date Provider Last Modified By Organization Details Last Modified Time Details Appointments None recorded. Lab rapid SARS CoV 2 Ag, QL IA, respiratory specimen 2023 024 [email or web address], [phone], 11:56:42 rapid flu (A+B) 2023 024 [email or web address] 0 [facility], [address] [place] [address], [phone], 11:56:45 Referral None recorded. Procedures None recorded. Surgeries None recorded. Imaging None recorded. Medication Orders azithromyci n 250 mg tablet 2023 024 [email or web address] 0 Not available 04/22/202 4 11:56:37 azithromyci n 250 mg tablet 2023 024 [facility], [address] [place] [address], [id number], 4 11:58:39 albuterol sulfate 2.5 mg/3 mL (0.083 %) solution for nebulizatio n 2023 024 [facility], [address] [place] [address], [id number], 4 11:58:39 Patient TargetsNo targets recorded. Patient InstructionsNo instructions recorded. Reason for Referral None Reported. Results Created Date Observation Date Name Description Value Unit Range Abnormal Flag Note LastModifiedBy Organization Detail LastModifiedTime 02/29/20 24 02/29/2024 rapid flu (A+B) Flu negati ve Not Available [facility] ed [address] [place] [address], [phone], 02/29/2024 11:53:45 02/29/20 24 02/29/2024 rapid SARS CoV 2 Ag, QL IA, respi rator y speci men rapid SARS CoV 2 Ag, QL IA, respiratory specimen negati ve Not Available [facility] ed [address] [place] [address], [phone], 02/29/2024 11:53:44 Result Notes None recorded. Medical Equipment None Reported. Allergies Allergen ID Allergen Name Allergen Category Reaction Reaction Severity Criticality Documentation Date Start Date Code Code System Note Provider Name and Address Organization Details Recorded Time 4958 Product containin g penicilli n (product) medicatio n Not available Not available Not available 02/29/2024 68169 8001 SNOMED Not Available [facility] - production 03:48:48 Medications Name Sig Start Date Stop Date Status Note LastModified by Organization Details LastModified Time metformin 500 mg tablet TAKE 1 TABLET BY MOUTH EVERY DAY FOR 90 DAYS active Not Available Not Available No t Available atorvastatin 20 mg tablet TAKE 1 TABLET BY MOUTH EVERYDAY AT BEDTIME active Not Available Not Available No t Available albuterol sulfate 2.5 mg/3 mL (0.083 %) solution for nebulization Inhale 3 mL 4 times a day by nebulizatio n route as needed. active Not Available Not Available No t Available azithromycin 250 mg tablet TAKE 1 TABLET (250 MG) BY ORAL ROUTE ONCE DAILY FOR 4 DAYS with food- to start 03/01/24 active Not Available Not Available No t Available prednisone 20 mg tablet active Not Available Not Available Not Available metformin 850 mg tablet active Not Available Not Available Not Available amlodipine 5 mg tablet TAKE 1 TABLET BY MOUTH EVERY DAY active Not Available Not Available No t Available aspirin 81 mg tablet,delay ed release TAKE 1 TABLET BY MOUTH EVERY DAY active Not Available Not Available No t Available doxycycline monohydrate 100 mg tablet active Not Available Not Available Not Available tamsulosin 0.4 mg capsule TOME 1 C PSULA POR V A ORAL AL ACOSTARSE active Not Available Not Available No t Available OneTouch Ultra Test strips USE 1 TEST STRIP ONCE A DAY active Not Available Not Available No t Available metformin 1,000 mg tablet TAKE 1 TABLET BY MOUTH EVERY DAY FOR 90 DAYS active Not Available Not Available No t Available losartan 25 mg tablet TAKE 1 TABLET BY MOUTH EVERY DAY active Not Available Not Available No t Available nystatin-tri amcinolone 100,000 unit/g-0.1 % topical cream APPLY TOPICALLY DAILY FOR 30 DAYS active Not Available Not Available No t Available sertraline 25 mg tablet TAKE 1 TABLET BY MOUTH EVERY DAY FOR 90 DAYS active Not Available Not Available No t Available montelukast 10 mg tablet TAKE 1 TABLET BY MOUTH AT BEDTIME FOR 90 DAYS active Not Available Not Available No t Available ammonium lactate 12 % topical cream APPLY THIN LAYER TO PLANTAR SURFACE OF FEET DAILY active Not Available Not Available N ot Available metoprolol succinate ER 25 mg tablet,exten ded release 24 hr TAKE 1 TABLET BY MOUTH EVERY DAY active Not Available Not Available No t Available albuterol sulfate HFA 90 mcg/actuatio n aerosol inhaler active Not Available Not Available Not Available hydroxyzine HCl 10 mg tablet active Not Available Not Available Not Available Oyster Shell Calcium-Brooklynn min D3 500 mg-5 mcg (200 unit) tablet TOME GRAYSON TABLETA TODOS LOS D PARA 60 WATERS active Not Available Not Available No t Available ciclopirox 0.77 % topical cream active Not Available Not Available Not Available Flovent HFA 220 mcg/actuatio n aerosol inhaler active Not Available Not Available Not Available Symbicort 160 mcg-4.5 mcg/actuatio n HFA aerosol inhaler INHALE 2 PUFFS BY MOUTH TWICE A DAY FOR 30 DAYS active Not Available Not Available No t Available Tradjenta 5 mg tablet active Not Available Not Available No t Available Brilinta 90 mg tablet TAKE 1 TABLET BY MOUTH TWICE A DAY active Not Available Not Available No t Available Farxiga 10 mg tablet TAKE 1 TABLET BY MOUTH EVERY DAY FOR 3 MONTHS active Not Available Not Available No t Available Trulicity 1.5 mg/0.5 mL subcutaneous pen injector INJECT 0.5ML SUBCUTANEOU SLY EVERY WEEK active Not Available Not Available No t Available OneTouch Ultra2 Meter active Not Available Not Available Not Available Pure Comfort Safety Lancets 30 gauge active Not Available Not Available Not Available Vitals Date Recorded Body height Heart rate Respiratory rate Oxygen saturation Oxygen saturation in Arterial blood by Pulse oximetry Body weight Body temperature Systolic blood pressure Diastolic blood pressure Provider Name and Address Organization Details Last Updated DateTime 4 157.48 cm 80 /min 18 /min 97 % 97 % 96271.4 96 g 98.1 [degF] 131 mm[Hg] 81 mm[Hg] Not Available [facility] - production 4 11:49:48 Date Recorded Respiratory rate Oxygen saturation Oxygen saturation in Arterial blood by Pulse oximetry Body temperature Body weight Heart rate Systolic blood pressure Diastolic blood pressure Provider Name and Address Organization Details Last Updated DateTime 2 12 /min 97 % 97 % 98 [degF] 11250.4 g 84 /min 131 mm[Hg] 81 mm[Hg] Not Available [facility] - production 2 13:17:16 Social History None recorded. Functional Status None recorded. Mental Status None recorded. Family History Nothing Reported. Medical History No medical history recorded. Past Encounters Encounter ID Performer Location Encounter Start Date Encounter Closed Date Diagnosis/Indication Diagnosis SNOMED-CT Code Diagnosis ICD10 Code Diagnosis Note [id number] Yoon Paulson MD Main - [address] [phone] 10/14/2022 13:17:12 10/16/2022 11:41:28 Viral upper respiratory tract infection 153162501 J06.9 67 year old male being evaluated for a week of cough in the setting of recent COVID exposure. Patient without difficulty breathing, or taking PO. Exam notable for normal vital signs, POC COVID negative. Reassuranc e offered, no further interventi on indicated. [id number] Joan Barnes MD Main - [facility] [address] [place] [address] 02/29/2024 11:49:45 02/29/2024 17:25:55 Upper respiratory infection 39045018 J06.9 medic left him his tubing for nebulizer- patient requested new rx-sent to pharmacy but is aware that the pharmacy may not be able to fill it in which case he will have to ask his PCP for his specialty pharmacy prescripti on-Unable to do through this service as we cannot do prior authorizat ions.Advis ed the need to use his MDI 4 times a day and his nebulizer 4 times a day. Due to thick sputum and duration of cough will also cover him with azithromyc in. Patient has no wheezing? s teroids or not indicated. He may continue the OTC Coricidin HBP-as it will not cause hypertensi on, his blood pressure is controlled and the guaifenesi n will help loosen the phlegmAdvi sed need to stay well-hydra elton and to follow-up with his PCP as soon as possible to see if he can move up his appointmen t which is next month. He verbalized understand ing of same Medic was able to speak with the pharmacist and his Tradjenta /losartan/ baby aspirin and calcium and vitamin D all have refills patient made aware of this Health Concerns Section Related Observation LastModified by Organization Detai ls LastModified Time None Recorded Concern Status LastModified by Organization Details LastModified Time None Recorded Advance Directives Directive None Recorded Payers Encounter Date Sequence Insurance Name Policy Number Policy Mcmahon Covered Member ID Mcmahon Member ID Guarantor Name 10/14/2022 1 [facility] - DOS PRIOR TO 2023 - DUAL ELIGIBLE (MEDICARE REPLACEMENT/AD VANTAGE - HMO) Raoul Rick [id number] Raoul Rick 02/29/2024 1 [facility] - DOS ON OR AFTER 2023 - DUAL ELIGIBLE - FDC OPTIONS AND ONE CARE (MEDICARE REPLACEMENT/AD VANTAGE - HMO) Raoul Rick [id number] Raoul Rick Notes Date Note Type Note Provider Name and Address Organization Details Recorded Time 10/14/2022 text/html HPI: Neighbor reports 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 Reports productive cough, sneezing, itchy throat, afebrile. Would like to be assessed and tested for viral panel. No home pulse ox. ..................... ..................... ..................... ..................... ..................... ..................... ............... CRC Nursing Assessment: Comments: CRC RN DID NOT NEED FURTHER INFO ..................... ..................... ..................... ..................... ..................... ..................... ............... Audio Visual Design Engineer Note: Dispatch to home of 67-year-old male patient complaining of a cough times one week. Neighbor is here who speaks Brazilian and can interpret. Patient states he has a non productive cough when asked . Patient also relates that his pcp tested positive with Covid yesterday. Lungs present equal and clear in all otero vitals are as noted. Spi2 on room air is 97% . patient is afebrile. Both Covid and flu tests are performed and present negative. I will [place] [facility] [place]. Paulson further instructions. Dr. Paulson agrees that just supportive care at this time plenty of fluids and Robitussin DM. Should the patient developed for the symptoms were not get better he should contact his PCP. ..................... ..................... ..................... ..................... ..................... ..................... ............... Disposition: Fulfilled Yoon Paulson MD [address] [place] [address],[address], [place], [address], [employer] 10/14/2022 13:19:56 02/29/2024 text/html HPI: Call transferred to [facility] from august Cardenas's [place]/ friend calling in to report member not feeling well since Sunday 02/25, c/o bad cold , asthma, productive cough, congestion, chest pains with sx worsening yesterday and today. Radhika reports member using inhalers as prescribed- flovent BID and albuterol PRN and OTC cold medication w/o effect, productive cough of green phlegm, SOB with exertion and lying flat, chest pain since Thursday AM that comes/goes worse with coughing. Denies fever/chills or known exposure to illness. Denies current SOB at time of call, though reports member is SOB with any exertion. Member refused going to the ED and requests for home visit. Advised [facility] referral can be submitted. Member is Chadian speaking. HANDY Garrido speaks Brazilian but will not be at mbr's home for visit. PMH includes but not limited to: DM2, asthma, HLD, Atherosclerotic heart disease of [place] coronary artery without angina pectoris, Presence of coronary, angioplasty implant and graft, anxiety, depression, unsteadiness, BPH,incontinence, h/o TBI, h/o fall, fatty liver, scoliosis,HTN ..................... ..................... ..................... ..................... ..................... ..................... ............... CRC Nurse Triage Notes (Tiffany Mcclure): Comments: CRC RN DID NOT NEED FURTHER INFO ..................... ..................... ..................... ..................... ..................... ..................... ............... Audio Visual Design Engineer Note [facility] Steven Tate[facility] Arrived to home where pt answered the door and was ambulating without difficulty. Pt is Chadian speaking only so office spec services were utilized. Pt reports for the past month has had cough with phlegm production and feeling as if symptoms are not responding to his inhalers and otc coriceden. Triage nurse had noted green colored phlegm and chest pains, however patient denies chest pain and clarifies that his phlegm has been cream colored. Pt also states that he has been without his medications tradjenta and losartan for the past month while he was travelling in [place] and visiting family. V/S taken and WNL. Pt afebrile. Pt does take daily tylenol as well as it being ingredient in coriceden so fever was not ruled out completely and covid and flu swabs were taken, and both negative. Lung sounds were clear. Reviewed patients medication regimen and he was unaware that his albuterol inhaler could be taken 4 times a day as written on prescription label instead of 2 times a day as he has been doing. Pt did state he has a nebulizer but doesn't use it and pulled out albuterol bullets that were miscolored in addition to having 13 years ago. Consulted with [facility] Dr. Barnes who prescribed azithromycin for suspected infection, in addition to sending script for albuterol nebs to pharmacy. Pt educated on how to use nebulizer since he had forgotten how to connect hoses and fill chamber. Reviewed red flags for ED. Patient education provided. [facility] Lab Orders: rapid SARS CoV 2 Ag, QL IA, respiratory specimen: Performed rapid flu (A+B): Performed ..................... ..................... ..................... ..................... ..................... ..................... ............... Disposition: FulfilledSEGMD: As above -Via office spec patient denies any known fevers, chills or sweats however he takes 1 dose of Tylenol daily for chronic pain plus his Coricidin HBP has 325 mg of Tylenol. Patient states FLORES is improved with his MDI. He denies orthopnea other than he coughs when lying flat Joan Barnes MD [address] [facility],[address], [place], [address], [employer] 02/29/2024 15:26:55
--- OUTSIDE RECORDS SUMMARY | 2024-12-30 08:57 | XMS_ITS | Clinical Summary ---
Author Organization Unknown Care Team Providers Care Research Clerk Name Role Phone PJ JUNG MD, ROGE Unavailable Unavailable CESARIO DAN, CARMITA Unavailable Unavailable Payers Payer Name Policy Type Policy Number Effective Date Expira tion Date [facility] [id number] MEDICAID [facility] [id number] MEDICARE - [place] - PD [id number] Problems Condition Name Condition Details Condition Category Status Onset Date Resolution Date Last Treatment Date Treating Clinician Comments TYPE 2 DIABETES MELLITUS WITHOUT COMPLICATION S Active 03-25 00:00: 00 PERSONAL HISTORY OF TRAUMATIC BRAIN INJURY Active 03-29 00:00: 00 GENERALIZED ANXIETY DISORDER Active 03-29 00:00: 00 ESSENTIAL (PRIMARY) HYPERTENSION Active 03-29 00:00: 00 Allergies, Adverse Reactions, Alerts Allergy Name Allergy Type Status Severity Reaction(s) Onset Date Inactive Date Treating Clinician Comments NKA Propensity to adverse reactions Active 2024-03 17:44:4 7 Medications Ordered Medication Name Filled Medication Name Start Date Stop Date Current Medication? Ordering Clinician Indication Dosage Frequency Signature (SIG) Comments Components Calcium 600 with Vitamin D3 600 mg (1,500 mg)-500 unit capsule 03-31 00:00: 00 11-18 23:59 :00 No [id number] 1 capsule 2 TIMES DAILY 1 capsule 2 TIMES DAILY (route: oral) Med Classific ation: Electroly te Balance-N utritiona l Products Farxiga 10 mg tablet 12-22 00:00: 00 07-19 23:59 :00 No [id number] 1 tablet QD 1 tablet QD (route: oral) Alternate Route: PO. Med Classific ation: Endocrine Flovent HFA 220 mcg/actuati on aerosol inhaler -14 00:00: 00 11-18 23:59 :00 No [id number] 2 puff BID EACH DAY 2 puff BID EACH DAY (route: inhalation ) Alternate Route: BY MOUTH. Med Classific ation: Respirato ry Therapy Agents lisinopril 5 mg tablet 03-31 00:00: 00 12-12 23:59 :00 No [id number] 1 tablet DAILY 1 tablet DAILY (route: oral) Med Classific ation: Cardiovas cular Therapy Agents metformin 1,000 mg tablet 03-31 00:00: 00 11-18 23:59 :00 No [id number] 1 tablet DAILY 1 tablet DAILY (route: oral) Med Classific ation: Endocrine montelukast 10 mg tablet 03-31 00:00: 00 Yes [id number] 1 tablet DAILY 1 tablet DAILY (route: oral) Med Classific ation: Respirato ry Therapy Agents nystatin 100,000 unit/gram topical cream 03-31 00:00: 00 07-17 23:59 :00 No [id number] Per instruc tions 3 TIMES DAILY Per instructio ns 3 TIMES DAILY (route: topical) Med Classific ation: Dermatolo gical terbinafine HCl 250 mg tablet 02-07 00:00: 00 05-23 23:59 :00 No [id number] 1 tablet DAILY 1 tablet DAILY (route: oral) Med Classific ation: Anti-Infe ctive Agents dulaglutide 1.5 mg/0.5 mL subcutaneou s pen injector 12-17 00:00: 00 03-31 23:59 :00 No [id number] 0.5 mL Q WEEK 0.5 mL Q WEEK (route: subcutaneo us) Alternate Route: 1 SYRINGE UNDER THE SKIN. Med Classific ation: Endocrine Farxiga 10 mg tablet 08-01 00:00: 00 11-18 23:59 :00 No [id number] 1 tablet DAILY 1 tablet DAILY (route: oral) Med Classific ation: Endocrine Advair HFA 230 mcg-21 mcg/actuati on aerosol inhaler 11-20 00:00: 00 05-21 23:59 :00 No [id number] 2 puff DAILY 2 puff DAILY (route: inhalation ) Med Classific ation: Respirato ry Therapy Agents atorvastati n 10 mg tablet 11-20 00:00: 00 07-17 23:59 :00 No [id number] 1 tablet BEDTIME 1 tablet BEDTIME (route: oral) Med Classific ation: Cardiovas cular Therapy Agents Calcium 600 mg calcium (1,500 mg) tablet 11-20 00:00: 00 11-13 00:00 :00 No [id number] 1 tablet DAILY 1 tablet DAILY (route: oral) Med Classific ation: Electroly te Balance-N utritiona l Products fluticasone prop.50 mcg spray,suspe n-sod.chlor fede 0.9% nasal spray kit 11-20 00:00: 00 05-21 23:59 :00 No [id number] 2 spray DAILY 2 spray DAILY (route: nasal) Med Classific ation: Respirato ry Therapy Agents melatonin 5 mg tablet 11-20 00:00: 00 07-17 23:59 :00 No [id number] 1 tablet BEDTIME 1 tablet BEDTIME (route: oral) Med Classific ation: Central Nervous System Agents metformin 500 mg tablet 11-20 00:00: 00 09-21 23:59 :00 No [id number] 1 tablet DAILY 1 tablet DAILY (route: oral) Med Classific ation: Endocrine ProAir RespiClick 90 mcg/actuati on breath activated 11-20 00:00: 00 Yes [id number] 2 puff EVERY 4 HOURS 2 puff EVERY 4 HOURS (route: inhalation ) Med Classific ation: Respirato ry Therapy Agents amlodipine 5 mg tablet 2-03 00:00: 00 Yes [id number] 1 tablet DAILY 1 tablet DAILY (route: oral) Med Classific ation: Cardiovas cular Therapy Agents Farxiga 10 mg tablet 2-03 00:00: 00 Yes [id number] 1 tablet DAILY 1 tablet DAILY (route: oral) Med Classific ation: Endocrine tamsulosin 0.4 mg capsule 3-17 00:00: 00 Yes [id number] 1 capsule BEDTIME 1 capsule BEDTIME (route: oral) Med Classific ation: Genitouri nary Therapy Oyster Shell Calcium-Vit mccarty D3 500 mg (1,250 mg)-200 unit tablet 11-15 00:00: 00 09-21 23:59 :00 No [id number] 1 tablet DAILY 1 tablet DAILY (route: oral) Med Classific ation: Electroly te Balance-N utritiona l Products cinnamon bark-chromi um picolinate- ALA 500 mg-100 mcg-150 mg capsule 12-04 00:00: 00 09-21 23:59 :00 No [id number] 1000 mg DAILY 1000 mg DAILY (route: oral) Med Classific ation: Alternati ve Therapy multivitami n tablet 12-04 00:00: 00 Yes [id number] 1 tablet DAILY 1 tablet DAILY (route: oral) Med Classific ation: Electroly te Balance-N utritiona l Products Vitamin C 500 mg tablet 12-04 00:00: 00 09-21 23:59 :00 No [id number] 1 tablet DAILY 1 tablet DAILY (route: oral) Med Classific ation: Electroly te Balance-N utritiona l Products Aspirin Low Dose 81 mg tablet,[place] yed release 01-21 00:00: 00 11-23 23:59 :00 No [id number] 1 tablet DAILY 1 tablet DAILY (route: oral) Med Classific ation: Hematolog ical Agents metoprolol succinate ER 25 mg tablet,exte nded release 24 hr 15 00:00: 00 Yes [id number] 1 tablet DAILY 1 tablet DAILY (route: oral) Med Classific ation: Cardiovas cular Therapy Agents atorvastati n 20 mg tablet 05-21 00:00: 00 Yes [id number] 1 tablet BEDTIME 1 tablet BEDTIME (route: oral) Med Classific ation: Cardiovas cular Therapy Agents losartan 25 mg tablet 05-21 00:00: 00 Yes [id number] 1 tablet DAILY 1 tablet DAILY (route: oral) Med Classific ation: Cardiovas cular Therapy Agents Symbicort 160 mcg-4.5 mcg/actuati on HFA aerosol inhaler 05-21 00:00: 00 Yes [id number] 2 puff 2 TIMES DAILY 2 puff 2 TIMES DAILY (route: inhalation ) Med Classific ation: Respirato ry Therapy Agents Brilinta 90 mg tablet 05-21 00:00: 00 03-25 23:59 :00 No [id number] 1 tablet 2 TIMES DAILY 1 tablet 2 TIMES DAILY (route: oral) Med Classific ation: Hematolog ical Agents Brilinta 90 mg tablet 07-30 00:00: 00 03-25 23:59 :00 No [id number] 90 mg 2 TIMES DAILY 90 mg 2 TIMES DAILY (route: oral) Med Classific ation: Hematolog ical Agents sertraline 25 mg tablet 2021-11 00:00: 00 09-21 23:59 :00 No [id number] 1 tablet DAILY 1 tablet DAILY (route: oral) Med Classific ation: Central Nervous System Agents hydroxyzine HCl 10 mg tablet 05-13 00:00: 00 05-17 23:59 :00 No 1 tablet 3 TIMES DAILY 1 tablet 3 TIMES DAILY (route: oral) Med Classific ation: Central Nervous System Agents prednisone 20 mg tablet 05-13 00:00: 00 05-17 23:59 :00 No 2 tablet DAILY 2 tablet DAILY (route: oral) Med Classific ation: Endocrine ciclopirox 0.77 % topical cream 07-15 00:00: 00 09-21 23:59 :00 No 1 inch 2 TIMES DAILY 1 inch 2 TIMES DAILY (route: topical) Med Classific ation: Dermatolo gical nystatin-tr iamcinolone 100,000 unit/g-0.1 % topical cream 07-15 00:00: 00 09-21 23:59 :00 No 1 cm DAILY 1 cm DAILY (route: topical) Med Classific ation: Dermatolo gical [place] 3-6-9 1,200 mg capsule 2022-11 0- 00:00: 00 09-21 23:59 :00 No 1 capsule DAILY 1 capsule DAILY (route: oral) Med Classific ation: Cardiovas cular Therapy Agents doxycycline hyclate 100 mg capsule 2022-11 00:00: 00 10-07 23:59 :00 No 1 capsule 2 TIMES DAILY 1 capsule 2 TIMES DAILY (route: oral) Med Classific ation: Anti-Infe ctive Agents ciclopirox 0.77 % topical cream 2-07 00:00: 00 12-30 23:59 :00 No Per instruc tions 2 TIMES DAILY Per instructio ns 2 TIMES DAILY (route: topical) Med Classific ation: Dermatolo gical Tradjenta 5 mg tablet 3-06 00:00: 00 03-31 23:59 :00 No 1 tablet DAILY 1 tablet DAILY (route: oral) Med Classific ation: Endocrine Trulicity 1.5 mg/0.5 mL subcutaneou s pen injector 03-31 00:00: 00 07-27 23:59 :00 No Per instruc tions WEEKLY Per instructio ns WEEKLY (route: subcutaneo us) Med Classific ation: Endocrine Trulicity 3 mg/0.5 mL subcutaneou s pen injector 18 00:00: 00 09-21 23:59 :00 No 3 mg WEEKLY 3 mg WEEKLY (route: subcutaneo us) Med Classific ation: Endocrine metformin 1,000 mg tablet 2023-11 00:00: 00 Yes 1 tablet 2 TIMES DAILY 1 tablet 2 TIMES DAILY (route: oral) Med Classific ation: Endocrine Rybelsus 7 mg tablet 2023-11 00:00: 00 Yes 1 tablet DAILY 1 tablet DAILY (route: oral) Med Classific ation: Endocrine sertraline 50 mg tablet 2023-11 00:00: 00 Yes 1 tablet DAILY 1 tablet DAILY (route: oral) Med Classific ation: Central Nervous System Agents Vital Signs Vital Name Observation Time Observation Value Commen ts Temperature 2024-12-28 11:20:00.000 98 [degF] Temperature 2024-12-21 11:03:00.000 97.6 [degF] Temperature 2024-12-14 09:29:00.000 97.6 [degF] Temperature 2024-12-07 09:04:00.000 97.8 [degF] Temperature 2024-11-30 09:21:00.000 97.9 [degF] Pulse 2024-12-28 11:20:00.000 78 /min Pulse 2024-12-21 11:03:00.000 74 /min Pulse 2024-12-14 09:29:00.000 78 /min Pulse 2024-12-07 09:04:00.000 78 /min Pulse 2024-11-30 09:21:00.000 78 /min O2 Saturation (%) 2024-12-21 11:04:00.000 97 % O2 Saturation (%) 2024-12-14 09:29:00.000 97 % O2 Saturation (%) 2024-12-07 09:04:00.000 97 % Respirations 2024-12-28 11:20:00.000 20 /min Respirations 2024-12-21 11:03:00.000 20 /min Respirations 2024-12-14 09:29:00.000 18 /min Respirations 2024-12-07 09:04:00.000 20 /min Respirations 2024-11-30 09:21:00.000 22 /min Systolic Blood Pressure 2024-12-28 11:20:00.000 136 mm [Hg] Systolic Blood Pressure 2024-12-21 11:03:00.000 128 mm [Hg] Systolic Blood Pressure 2024-12-14 09:29:00.000 134 mm [Hg] Systolic Blood Pressure 2024-12-07 09:04:00.000 124 mm [Hg] Systolic Blood Pressure 2024-11-30 09:21:00.000 134 mm [Hg] Diastolic Blood Pressure 2024-12-28 11:20:00.000 78 mm [Hg] Diastolic Blood Pressure 2024-12-21 11:03:00.000 74 mm [Hg] Diastolic Blood Pressure 2024-12-14 09:29:00.000 81 mm [Hg] Diastolic Blood Pressure 2024-12-07 09:04:00.000 75 mm [Hg] Diastolic Blood Pressure 2024-11-30 09:21:00.000 79 mm [Hg] Plan of Treatment Planned Activity Planned Date Details Comments Future Scheduled Test SKILLED NU RSE TO EVALUATE PATIENT, IDENTIFY PRIMARY AND CO-MORBID CONDITIONS CODED PER CODING GUIDELINES, AND DEVELOP PATIENT SPECIFIC PLAN OF CARE THAT INCLUDES PATIENT GOAL FOR HOME HEALTH. [code = SKILLED NURSE TO EVALUATE PATIENT, IDENTIFY PRIMARY AND CO-MORBID CONDITIONS CODED PER CODING GUIDELINES, AND DEVELOP PATIENT SPECIFIC PLAN OF CARE THAT INCLUDES PATIENT GOAL FOR HOME HEALTH.] Future Scheduled Test SKILLED NU RSE TO O/A OF PATIENTS MENTAL/BEHAVIORAL STATUS, ASSESS VITAL SIGNS EVERY VISIT ALLOW 2 PRNS FOR MEDICATION MANAGEMENT. [code = SKILLED NURSE TO O/A OF PATIENTS MENTAL/BEHAVIORAL STATUS, ASSESS VITAL SIGNS EVERY VISIT ALLOW 2 PRNS FOR MEDICATION MANAGEMENT.] Future Scheduled Test SKILLED NU RSE WILL MAINTAIN SITUATIONAL AWARENESS FOR SAFETY AND WILL NOTIFY CLINICAL HEAD CHARGER AND PHYSICIAN/PROVIDER WITH ANY CHANGE IN CONDITION. [code = SKILLED NURSE WILL MAINTAIN SITUATIONAL AWARENESS FOR SAFETY AND WILL NOTIFY CLINICAL HEAD CHARGER AND PHYSICIAN/PROVIDER WITH ANY CHANGE IN CONDITION.] Future Scheduled Test SKILLED NU RSE TO PRE-POUR MEDICATION PER MEDICATION LIST (FREQUENCY). [code = SKILLED NURSE TO PRE-POUR MEDICATION PER MEDICATION LIST (FREQUENCY).] Future Scheduled Test SKILLED NU RSE FOR O/A AND SKILLED TEACHING RELATED TO MANAGEMENT OF DEPRESSIVE SYMPTOMS AND/OR DEPRESSION. SN TO REPORT SIGNIFICANT CHANGE IN DEPRESSIVE SYMPTOMS TO CLINICAL PROVIDER FOR EARLY INTERVENTION. [code = SKILLED NURSE FOR O/A AND SKILLED TEACHING RELATED TO MANAGEMENT OF DEPRESSIVE SYMPTOMS AND/OR DEPRESSION. SN TO REPORT SIGNIFICANT CHANGE IN DEPRESSIVE SYMPTOMS TO CLINICAL PROVIDER FOR EARLY INTERVENTION.] Future Scheduled Test SKILLED NU RSE FOR O/A AND SKILLED TEACHING OF COPING SKILLS TO MANAGE ANXIETY AND MAINTAIN SAFETY. [code = SKILLED NURSE FOR O/A AND SKILLED TEACHING OF COPING SKILLS TO MANAGE ANXIETY AND MAINTAIN SAFETY.] Future Scheduled Test SKILLED NU RSE TO ASSESS PATIENTS PSYCHOSOCIAL STATUS TO IDENTIFY POTENTIAL ISSUES THAT MAY COMPLICATE THE PROVISION OF THE PLAN OF CARE INCLUDING THE PATIENTS ABILITY TO ACCESS COMMUNITY RESOURCES AND PSYCHOSOCIAL SUPPORT SERVICES. [code = SKILLED NURSE TO ASSESS PATIENTS PSYCHOSOCIAL STATUS TO IDENTIFY POTENTIAL ISSUES THAT MAY COMPLICATE THE PROVISION OF THE PLAN OF CARE INCLUDING THE PATIENTS ABILITY TO ACCESS COMMUNITY RESOURCES AND PSYCHOSOCIAL SUPPORT SERVICES.] Future Scheduled Test SKILLED NU RSE FOR O/A OF CLIENT'S CURRENT DEGREE OF HOPELESSNESS AND PROVIDE THERAPEUTIC INTERVENTIONS AND TEACHING DESIGNED TO ENHANCE THE CLIENT'S WELL BEING. [code = SKILLED NURSE FOR O/A OF CLIENT'S CURRENT DEGREE OF HOPELESSNESS AND PROVIDE THERAPEUTIC INTERVENTIONS AND TEACHING DESIGNED TO ENHANCE THE CLIENT'S WELL BEING.] Future Scheduled Test SKILLED NU RSE FOR O/A OF RESPIRATORY SYSTEM TO IDENTIFY CHANGES ASSOCIATED WITH EXACERBATION AND TO PROVIDE SKILLED TEACHING ON MANAGEMENT OFRESPIRATORY DISEASE PROCESS. [code = SKILLED NURSE FOR O/A OF RESPIRATORY SYSTEM TO IDENTIFY CHANGES ASSOCIATED WITH EXACERBATION AND TO PROVIDE SKILLED TEACHING ON MANAGEMENT OFRESPIRATORY DISEASE PROCESS.] Future Scheduled Test SKILLED NU RSE FOR O/A TO IDENTIFY CHANGES ASSOCIATED WITH (SPECIFY NEURO DEFICIT) AND PROVIDE INSTRUCTION RELATED TO SAFETY MEASURES TO PREVENT INJURY SECONDARY TO IMPAIRED NEUROLOGICAL STATUS. SKILLED NURSE TO REPORT SIGNIFICANT CHANGES OF NEUROLOGIC STATUS TO PHYSICIAN FOR EARLY INTERVENTION. [code = SKILLED NURSE FOR O/A TO IDENTIFY CHANGES ASSOCIATED WITH (SPECIFY NEURO DEFICIT) AND PROVIDE INSTRUCTION RELATED TO SAFETY MEASURES TO PREVENT INJURY SECONDARY TO IMPAIRED NEUROLOGICAL STATUS. SKILLED NURSE TO REPORT SIGNIFICANT CHANGES OF NEUROLOGIC STATUS TO PHYSICIAN FOR EARLY INTERVENTION.] Future Scheduled Test SKILLED NU RSE TO PERFORM AND RECORD BLOOD SUGAR READING, AND PRN FOR SIGNS AND SYMPTOMS OF HYPO/HYPERGLYCEMIA. [code = SKILLED NURSE TO PERFORM AND RECORD BLOOD SUGAR READING, AND PRN FOR SIGNS AND SYMPTOMS OF HYPO/HYPERGLYCEMIA.] Goal 2024-05-25 Patient Goal - I MPROVE MEDICATION COMPLIANCE Goal 2024-07-26 Patient Goal - I MPROVE MEDICATION COMPLIANCE Goal 2024-09-21 Patient Goal - I MPROVE MEDICATION COMPLIANCE Goal 2024-11-23 Patient Goal - I MPROVE MEDICATION COMPLIANCE Goal Patient Goal - I MPROVE MEDICATION COMPLIANCE Goal Provider Goal - A PLAN OF CARE WILL BE ESTABLISHED THAT MEETS PATIENT'S ALF NEEDS AND INCLUDES PATIENT GOAL FOR HOME HEALTH. Goal Provider Goal - ALTERED MENTAL/BEHAVIORAL STATUS WILL BE IDENTIFIED PROMPTLY AND INTERVENTION INITIATED QUICKLY TO MINIMIZE ASSOCIATED RISKS THROUGHOUT CERTIFICATION PERIOD. Goal Provider Goal - PATIENT WILL REMAIN SAFE IN THE COMMUNITY AND WILL BE FREE OF DANGER TO SELF AND OTHERS THROUGHOUT THE CERTIFICATION PERIOD. Goal Provider Goal - PATIENT WILL COMPLY WITH MEDICATION WHEN SKILLED NURSE PRE-POURS MEDICATION THROUGHOUT CERTIFICATION PERIOD. Goal Provider Goal - PATIENT WILL REMAIN SAFE WITHOUT DECOMPENSATION IN DEPRESSIVE CONDITION, WHILE MAINTAINING OPTIMAL LEVEL OF MENTAL HEALTH AND WELL BEING THROUGHOUT CERTIFICATION PERIOD. Goal Provider Goal - PATIENT WILL BE ABLE TO PERFORM DAILY FUNCTIONS AND HAVE OPTIMAL IMPROVEMENT IN LEVEL OF ANXIETY THROUGHOUT CERTIFICATION PERIOD. Goal Provider Goal - PSYCHOSOCIAL NEEDS WILL BE IDENTIFIED AND PLAN IMPLEMENTED TO MINIMIZE RISK THROUGHOUT CERTIFICATION PERIOD. Goal Provider Goal - PATIENT WILL VERBALIZE OWN ASSOCIATION OF FEELINGS OF HOPELESSNESS, AND 3 THERAPEUTIC TECHNIQUES TO DECREASE THESE FEELINGS BY THE END OF THIS CERTIFICATION. Goal Provider Goal - PATIENT/CAREGIVER WILL VERBALIZE/DEMONSTRATE MANAGEMENT OF RESPIRATORY DISEASE PROCESS. CHANGES IN RESPIRATORY STATUS WILL BE IDENTIFIED AND REPORTED TO PHYSICIAN FOR PROMPT INTERVENTION THROUGHOUT THE CERTIFICATION PERIOD. Goal Provider Goal - CHANGES IN NEUROLOGIC STATUS WILL BE IDENTIFIED AND REPORTED TO THE PHYSICIAN FOR PROMPT INTERVENTION OF ASSOCIATED RISK. PATIENT/CAREGIVER WILL VERBALIZE/DEMONSTRATE APPROPRIATE SAFETY MEASURES TO PREVENT INJURY BY THE END OF THE CERTIFICATION PERIOD. Goal Provider Goal - BLOOD SUGAR READING WILL BE OBTAINED ORDERED THROUGHOUT CERTIFICATION PERIOD. Encounters Start Date/Time End Date/Time Encounter Type Admission Type Attending [facility] Care Department Encounter ID Discharge Date Discharge Status Discharge Condition Discharge Reason Percent Goals Met 2024-03-29 00:00:00 2025-01-22 00:00:00 Outpatient RECERTIFIC CARMITA MÉNDEZ [facility] [id number] 35.00
--- OUTSIDE RECORDS SUMMARY | 2024-12-30 08:57 | XMS_ITS | Clinical Summary ---
Author Organization [facility] Address [address] [place] [phone] Phone Care Team Providers Care Title Processor Name Role Phone Myriam Paulson MD Primary Care Provider [phone] Allergies Active Allergy Reactions Criticality Noted Date Comments Penicillins Other 10/07/2024 Medications No known medications Active Problems No known active problems Encounters Date Type Department Care Team Description 10/19/2024 7:49 AM EST - 10/19/2024 10:29 AM EST [facility] Emergency [address] [place] [phone] Jayme Asencio DO Epistaxis (Primary Dx); Neck pain Discharge Disposition: Home or Self Care 10/07/2024 9:55 AM EST - 10/07/2024 1:25 PM [facility] Emergency [address] [place] [phone] Escobar Valenzuela MD Epistaxis (Primary Dx) Discharge Disposition: Home or Self Care from Last 3 Months Medical History Medical History Date Comments Diabetes mellitus (CMS/HCC) Hypertension HLD (hyperlipidemia) Anxiety Asthma Social History Tobacco Use Types Packs/Day Years Used Date Smoking Tobacco: Never Assessed Sex and Gender Information Value Date Recorded Sex Assigned at Not on file Legal Sex Male 4:18 AM EST Gender Identity Not on file Sexual Orientation Not on file Obstetrics History Last Filed Vital Signs Vital Sign Reading Time Taken Comments Blood Pressure 142/91 10/19/2024 10:04 AM EST Pulse 93 10/19/2024 10:04 AM EST Temperature 36.7 ??C (98.1 ??F) 10/19/2024 7:55 AM ES T Respiratory Rate 18 10/19/2024 10:04 AM EST Oxygen Saturation 96% 10/19/2024 10:04 AM EST Inhaled Oxygen Concentration - - Weight - - Height 157.5 cm (5' 2 ) 10/19/2024 7:55 AM EST Body Mass Index - - Plan of Treatment Health Maintenance Due Date Last Done Comments Diabetes: Annual GFR (Glomerular Filtration Rate) 1957 Diabetes: Annual Foot Exam 1967 Diabetes: Annual Retina Eye Exam 1967 DTaP,Tdap,and Td Vaccines (1 - Tdap) 01/18/1976 Zoster Vaccines (1 of 2) 2007 Hepatitis B Vaccines (2 of 3 - 19+ 3-dose series) 05/27/2010 04/29/2010 Pneumococcal Vaccine: 50+ Years (2 of 2 - PPSV23) 10/12/2015 08/17/2015 RSV Immunization Patients 60 + Years Old (1 - Risk 60-74 years 1-dose series) 2017 COVID-19 Vaccine (2 - 2023-2 5 season) 2024 10/18/2021 Influenza Vaccine (#1) 2024 , 07/31/2020 Abdominal Aortic Aneurysm (AAA) Screen 10/07/2024 Cholesterol Screening (Lipid Panel) 10/07/2024 Colorectal Cancer Screening: Colonoscopy 10/07/2024 Depression Screening 10/07/2024 Diabetes: Annual Urine Albumin-Creatinine Ratio (uACR) 10/07/2024 04/22/2023 Diabetes: Blood Sugar Contro l Test (HGBA1C) 10/07/2024 04/22/2023 Falls Risk Assessment 10/07/2024 Hepatitis C Screening 10/07/2024 Hypertension/CHF/CAD Annual BMP Blood Test 10/07/2024 Medicare Annual Wellness Visit 10/07/2024 Social Influencers of Health Screening 10/07/2024 HIB Vaccines Aged Out No longer eligi ble based on patient's age to complete this topic HPV Vaccines Aged Out No longer eligi ble based on patient's age to complete this topic Hepatitis A Vaccines Aged Out No long er eligible based on patient's age to complete this topic IPV Vaccines Aged Out No longer eligi ble based on patient's age to complete this topic MMR Vaccines Aged Out No longer eligi ble based on patient's age to complete this topic Meningococcal ACWY Vaccine Aged Out N o longer eligible based on patient's age to complete this topic Meningococcal B Vacine Aged Out No lo nger eligible based on patient's age to complete this topic RSV Immunization Patients Under 20 months Aged Out No longer eligible b ased on patient's age to complete this topic Varicella Vaccines Aged Out No longer eligible based on patient's age to complete this topic Procedures Procedure Name Priority Date/Time Associated Diagnosis Comments ECG OUTSIDE 10/19/2024 from Last 3 Months Results * ECG-Outside (10/19/2024) us Provider Onbase ECG ORDERABLES Final Result from Last 3 Months Insurance [employer] MEDICARE Member Subscriber Plan / Payer (Ef fective 2024-Present) Name:Raoul Garcia Relation to Subscriber:Self Name:Raoul Garcia Payer ID:[id number] Group ID:[id number] Type:Not on file Address: [place] [address] [address] [phone] Care Teams Title Processor Relationship Specialty Start Date End Date Myriam Paulson MD [address] [place] [address] , [address] [facility] SHA Sawant PCP - General Internal Medicine 10/19/24
--- OUTSIDE RECORDS SUMMARY | 2024-12-30 08:57 | XMS_ITS | Clinical Summary ---
Author Organization [facility] Address [address] [place] [address] Care Team Providers Care Blaster Helper Name Role Phone Unavailable Primary Care Provider Unavailabl e Source Comments PLEASE NOTE, if this patient is a minor, it may be UNLAWFUL to discuss sensitive information that is contained in these records (such as FAMILY PLANNING, MENTAL HEALTH or SUBSTANCE ABUSE) with the minor patient's parent or other person without the patient's specific authorization.[facility] Allergies Active Allergy Reactions Criticality Noted Date Comments Penicillins Rash 05/15/2022 Medications calcium carbonate/tay min D3 (CALCIUM 600 WITH VITAMIN D3 ORAL) Take by mouth Active dapagliflozin 10 mg tab Take by mouth Active fluticasone propionate (FLOVENT HFA) 220 mcg/actuation inhaler Inhale 1 Puff into the lungs 2 (two) times daily Active metFORMIN (GLUCOPHAGE) 500 mg tablet Take 500 mg by mouth 2 (two) times daily with a meal Active montelukast (SINGULAIR) 10 mg tablet Take 10 mg by mouth nightly at bedtime Active dulaglutide (TRULICITY SUBQ) Inject into the skin Active ketoconazole (NIZORAL) 200 mg tablet Take 200 mg by mouth once daily Active NYSTATIN, BULK, MISC by miscellaneous route Active albuterol sulfate (PROAIR DIGIHALER INHL) Inhale into the lungs Active ticagrelor (BRILINTA ORAL) Take by mouth Active Active Problems Problem Noted Date Diagnosed Date H/O heart artery stent 05/15/2022 Overview (05/15/2022): Was done 01/30/22 Diabetes ([facility]) 05/15/2022 High blood pressure 05/15/2022 Abnormal cholesterol test 05/15/2022 Asthma 05/15/2022 Social History Tobacco Use Types Packs/Day Years Used Date Smoking Tobacco: Never Assessed Social Connections Answer Date Recorded Connectedness 0 07/27/2024 Financial Resource Strain Answer Date R ecorded Financial Resource Strain 0 2021 Stress Answer Date Recorded Stress 0 05/15/2022 Physical Activity Answer Date Recorded Physical Activity 0 05/15/2022 Food Insecurity Answer Date Recorded Food 0 08/04/2024 Transportation Needs Answer Date Record ed Transportation 0 05/15/2022 Housing Stability Answer Date Recorded Housing 0 05/15/2022 Safety and Environment Answer Date Ramses rded Safety 0 05/15/2022 Utilities Answer Date Recorded Utilities 0 05/15/2022 Employment Answer Date Recorded Stress 0 07/27/2024 Sex and Gender Information Value Date Recorded Sex Assigned at Not on file Legal Sex Male 11:36 AM PDT Gender Identity Not on file Sexual Orientation Not on file Last Filed Vital Signs Vital Sign Reading Time Taken Comments Blood Pressure 140/78 05/15/2022 3:11 PM EDT Pulse 87 05/15/2022 3:11 PM EDT Temperature - - Respiratory Rate - - Oxygen Saturation - - Inhaled Oxygen Concentration - - Weight - - Height - - Body Mass Index - - Plan of Treatment Health Maintenance Due Date Last Done Comments Diabetes Foot Exam 1957 Diabetes HbA1c 1957 Diabetes Microalbumin (w/Creatinine) 1957 Hepatitis C Screening 1957 Lipid Screening 1957 Serum Creatinine 1957 Tobacco Screening 1957 Retinopathy Screening 1970 Medicare Annual Wellness Visit 1975 Imm-DTaP/Tdap/Td (1 - Tdap) 01/18/1976 Imm-Pneumococcal 65+ (1 of 2 - PCV) 01/18/1976 CT Colonography 2002 Colonoscopy 2002 Colorectal Cancer Screening 2002 FIT/gFOBT 2002 Fecal DNA 2002 Flexible Sigmoidoscopy 2002 Imm-Zoster, Recombinant (1 of 2) 2007 Abdominal Aortic Aneurysm Screening 2022 Falls Prevention 2022 Dental Examination 05/17/2023 05/15/2022 [id number] ( season) 2024 Imm-Influenza (#1) 2024 Alcohol and Drug Screen 11/09/2024 Depression Annual Screen 11/09/2024 Dental FMX/Pano 05/17/2027 05/15/2022 Procedures Procedure Name Priority Date/Time Associated Diagnosis Comments PANORAMIC RADIOGRAPHIC IMAGE Routine 05/15/2022 10:20 AM EDT Encounter for dental examination Full COMP ORAL EVALUATION - NEW/ESTABLISHED PATIENT Routine 05/15/2022 10:20 AM EDT Encounter for dental examination from Last 3 Months or Most Recently Relevant to Health Maintenance Insurance [facility] D[facility] MEDICAID Member Subscriber Plan / Payer (Ef fective 2022-Present) Name:Raoul Rojo Relation to Subscriber:Self Name:Raoul Rojo Payer ID:[id number] Group ID:Not on file Type:Medicaid Address: [facility] [id number] [place] [id number] [place]ICARE - [place] [facility] - DENTAL
--- OUTSIDE RECORDS SUMMARY | 2024-12-30 08:57 | XMS_ITS | Clinical Summary ---
Author Organization [facility] Facility Address [address] [address] Care Team Providers Care Director Supply Chain Name Role Phone Myriam Fernández MD Primary Care Provider [phone] Allergies No known active allergies Medications ciclopirox (LOPROX) 0.77 % cream Apply topically 2 Active Dulaglutide 1.5 MG/0.5ML solution pen-injector Inject 1.5 mg under the skin 1 Active montelukast (SINGULAIR) 10 MG tablet Take 10 mg by mouth 6 Active nystatin-triamci nolone (MYCOLOG II) ointment Apply topically 2 Active metFORMIN (GLUCOPHAGE) 500 MG tablet Take 500 mg by mouth in the morning and 500 mg in the evening. Take with meals. Active calcium citrate-vitamin D (CITRACAL+D) 315-200 MG-UNIT per tablet Take by mouth 1 (one) time each day Active Dapagliflozin Propanediol (Farxiga) 10 MG tablet Take by mouth Active nystatin (MYCOSTATIN) cream Apply topically 2 (two) times a day Active ticagrelor (BRILINTA) 90 MG tablet Take 90 mg by mouth in the morning and 90 mg in the evening. Active ketoconazole (NIZORAL) 200 MG tablet Take 200 mg by mouth 1 (one) time each day Active fluticasone HFA (FLOVENT HFA) 220 MCG/ACT inhaler Inhale 1 puff 2 (two) times a day Rinse mouth with water after use to reduce aftertaste and incidence of candidiasis. Do not swallow. Active albuterol HFA (PROVENTIL HFA;VENTOLIN HFA) 108 (90 Base) MCG/ACT inhaler Inhale 2 puffs every 6 (six) hours if needed for wheezing Active Active Problems Problem Noted Date Diagnosed Date Stage 1 chronic kidney disease 04/17/2022 Type 2 diabetes mellitus wit h diabetic chronic kidney disease 04/17/2022 Allergic rhinitis 04/14/2022 Asthma 04/14/2022 Depressive disorder 04/14/2022 Hypertensive disorder 04/14/2022 Literacy problems 04/14/2022 Liver enzymes outside reference range 04/14/2022 Obese class II 04/14/2022 Traumatic brain injury 04/14/2022 Type 2 diabetes mellitus 11/09/2020 Social History Tobacco Use Types Packs/Day Years Used Date Smoking Tobacco: Never Smokeless Tobacco: Never Tobacco Cessation:Counseling Given: Not Answered Sex and Gender Information Value Date Recorded Sex Assigned at Not on file Legal Sex Male 9:11 AM EDT Gender Identity Not on file Sexual Orientation Not on file Last Filed Vital Signs Vital Sign Reading Time Taken Comments Blood Pressure 115/60 04/22/2023 8:53 AM EDT Pulse 80 04/22/2023 8:53 AM EDT Temperature - - Respiratory Rate - - Oxygen Saturation 96% 04/17/2022 2:54 PM EDT Inhaled Oxygen Concentration - - Weight 88.3 kg (194 lb 9.6 oz) 04/22/2023 8:53 A M EDT Height - - Body Mass Index - - Plan of Treatment Health Maintenance Due Date Last Done Comments Pneumococcal Vaccine: 65+ Ye ars (1 of 2 - PCV) 1963 Colorectal Cancer Screening: Annual FOBT 2006 Colorectal Cancer Screening: Colonoscopy 2006 Colorectal Cancer Screening: Sigmoidoscopy 2006 Diabetes: Ophthalmology Exam 03/06/2022 Diabetes: Pedal Pulse Checked 03/06/2022 Diabetes: Sensory Foot Exam 03/06/2022 Diabetes: Visual Foot Exam 03/06/2022 Diabetes: Hemoglobin A1C 07/23/2023 04/22/2023 Influenza Vaccine (#1) 2024 Hepatitis B Vaccine Aged Out No longe r eligible based on patient's age to complete this topic Procedures Procedure Name Priority Date/Time Associated Diagnosis Comments HEMOGLOBIN A1C Routine 04/22/2023 9:23 AM EDT from Last 3 Months or Most Recently Relevant to Health Maintenance Results * (ABNORMAL) Hemoglobin A1c (04/22/2023 9:23 AM EDT) Hemoglobin A1C 9.3(H) (4.0-5.6) % [facility] Comment: MONITORING: In known diabetic patients, hemoglobin A1c targets should be discussed with health care provider. DIAGNOSTIC USE: ??The [place] Diabetes Association (ADA) and the World Health Organization (WHO) recommend the use of HbA1c to diagnose diabetes using a threshold of 6.5%. Patients who have an HbA1c between 5.7% and 6.4% are considered at increased risk for developing diabetes in the future. CAUTION: Falsely low HbA1c results may be observed in patients with hemolytic anemia, homozygous forms of abnormal hemoglobin (e.g. SS, CC, SC), , recent blood loss or hemoglobin F greater than 7%. Fructosamine may be used as an alternate test in these cases. REFERENCE: ADA: Standards of Medical Care in Diabetes 2020, The Journal of Clinical and Applied Research and Education Volume 43, Supplement 1 Testing performed or reported by [facility], a Service of [facility], [address] [place] [address] Kristian Gerber MD, Injection Molding Machine Tender [facility]# [id number] 04/22/2023 9:23 AM EDT 04/22/2023 9:28 AM EDT us Kristofer Hurt MD LAB BLOOD ORDERABLES Final Re sult [facility] from Last 3 Months or Most Recently Relevant to Health Maintenance Insurance ([id number]) [facility] ([id number]) Care Teams Director Supply Chain Relationship Specialty Start Date End Date Myriam Fernández MD [address] [place], [place] PCP - General Internal Medicine 03/04/22
--- OUTSIDE RECORDS SUMMARY | 2024-12-30 08:57 | XMS_ITS | Data Portability ---
Author Organization [place] - [facility], Allergy Address [address] [facility] [address] [place] [address] Care Team Providers Care Broaching Machine Set Up Operator Name Role Phone ROGE DAUGHERTY Primary Care Provider [phone] Assessment Encounter Date Assessment Date Assessment LastModified by Organization Details LastModified Time 11/03/2024 11/03/2024 Patient with history of asthma and diabetes seen with his friend/neighbor Radhika for an opinion regarding intermittent epistaxis for the last several weeks. He was seen in the emergency room 2 weeks ago and his last episode of bleeding was 5 days ago. He was on aspirin and Brilinta. They have been stopped. There is a septal deviation to the left side with crusting along the left anterior septum. We discussed the need to use saline solution 4 times daily K-Y jelly twice daily and use oxymetazoline on a cottonball if any acute bleeding. Procedure was able to interpret all the instructions for the patient and he was able to articulate things back to me pipe Not available 11/03/2024 14:09:24 Plan of Treatment Reminders Order Date Submit Date Provider Last Modified By Organization Details Last Modified Time Details Appointments None record ed. Lab None record ed. Referral None record ed. Procedures None record ed. Surgeries None record ed. Imaging None record ed. Medication Orders None record ed. Patient TargetsNo targets recorded. Patient Instructions Encounter Date Encounter Id Patient Instructions Last Modified By Organization Details Last Modified Time 11/03/2024 [id number] nosebleed information jschreibstein Not available 11/03/2024 14:10:14 Reason for Referral None Reported. Problems Name Problem SNOMED Code Status Onset Date Resolution Date Notes Provider Name and Address Organization Details Recorded Time Impacted cerumen of bilateral ears 55492116482 46437 Active 2021 Impacted cerumen, bilateral ; Note: Date Diagnosed : 04/03/2022 11:47 AM (H61.23) Not Available [facility] 4 03:10:57 Disorder of right Eustachia n tube 36742714684 18519 Active 2015 Other specified disorders of Eustachia n tube, right ear; Note: Date Diagnosed : 05/07/2016 1:05 PM (H69.81) Not Available [facility] 4 03:10:58 Allergic rhinitis 16457116 Active 2015 Allergic rhinitis, unspecifi ed; Note: Date Diagnosed : 05/07/2016 1:05 PM (J30.9) Not Available [facility] 4 03:10:58 Mixed conductiv e and sensorine ural hearing loss of right ear 96181222094 105 Active 2015 Mixed conductiv e and sensorine ural hearing loss, unilatera l, right ear, with unrestric elton hearing on the contralat eral side; Note: Date Diagnosed : 05/07/2016 1:05 PM (H90.71) Not Available [facility] 4 03:10:59 Sensorine ural hearing loss of bilateral ears 156641381 Active 2021 Sensorine ural hearing loss, bilateral ; Note: Date Diagnosed : 04/03/2022 12:23 PM (H90.3) Not Available [facility] 4 03:10:58 Sensorine ural hearing loss 40746541 Active 2015 Sensorine ural hearing loss, unilatera l, left ear, with unrestric elton hearing on the contralat eral side; Note: Date Diagnosed : 05/07/2016 1:05 PM (H90.42) Not Available [facility] 4 03:10:57 Bleeding from nose 332452523 Active 2023 NAVEEN GOLDEN MD [address] [place] [address], [place], [address] , [facility] - [facility] 4 14:10:01 Deviated nasal septum 842512422 Active 2023 NAVEEN GOLDEN MD [address] [address], [facility] [place], [address] , [facility] - [facility] 4 14:10:07 Problem Notes None recorded. Medical Equipment None Reported. Allergies Allergen ID Allergen Name Allergen Category Reaction Reaction Severity Criticality Documentation Date Start Date Code Code System Note Provider Name and Address Organization Details Recorded Time 393716 aspirin medicatio n other Not available Not available 03/22/2024 1191 RxNorm React ion: Unkno wn; Not Available [facility] 4 01:22:01 006389 penicilli n V potassium medicatio n other Not available Not available 03/22/202428215 5 RxNorm React ion: unkno wn, unspe ionfiraymon d;; Not Available [facility] 4 01:22:02 Medications Name Sig Start Date Stop Date Status Note LastModified by Organization Details LastModified Time metformin 500 mg tablet 04/03 completed Medication ID: [id number] Dur ation Value: 30 Brand Name: metformin Send Method: E-Prescrib ed Subs Allowed: subs OK Special Instructio n: TK 1 T PO BID WITH MORNING AND EVENING MEALS Medi cationGene ricName: metformin Not Available Not Available Not Available atorvastati n 20 mg tablet active Not Available Not Available Not Available albuterol sulfate 2.5 mg/3 mL (0.083 %) solution for nebulizatio n active Not Available Not Available Not Available atorvastati n 10 mg tablet 04/03 completed Medication ID: [id number] Dur ation Value: 30 Brand Name: atorvastat in Send Method: E-Prescrib ed Subs Allowed: subs OK Special Instructio n: TK 1 T PO QD Medicat ionGeneric Name: atorvastat in Not Available Not Available Not Available azithromyci n 250 mg tablet active Not Available Not Available Not Available FreeStyle Lancets 28 gauge 04/03 completed Medication ID: [id number] Dur ation Value: 30 Brand Name: FreeStyle Lancets Se nd Method: E-Prescrib ed Subs Allowed: subs OK Special Instructio n: USE BID Medica tionGeneri cName: FreeStyle Lancets Not Available Not Available Not Available metformin 850 mg tablet active Not Available Not Available Not Available amlodipine 5 mg tablet active Not Available Not Available Not Available aspirin 81 mg tablet,chilango yed release active Not Available Not Available Not Available triamcinolo ne acetonide 0.1 % topical cream 04/03 completed Medication ID: [id number] Dur ation Value: 15 Brand Name: triamcinol one acetonide Send Method: E-Prescrib ed Subs Allowed: subs OK Special Instructio n: FRED EXT AA BID FOR 14 DAYS PRN Medica tionGeshantel cName: triamcinol one acetonide Not Available Not Available Not Available tamsulosin 0.4 mg capsule active Not Available Not Available Not Available OneTouch Ultra Test strips active Not Available Not Available Not Available metformin 1,000 mg tablet active Not Available Not Available Not Available losartan 25 mg tablet active Not Available Not Available No t Available glucose 4 gram chewable tablet active Not Available Not Available Not Available sertraline 25 mg tablet active Not Available Not Available Not Available montelukast 10 mg tablet active Not Available Not Available Not Available lisinopril 5 mg tablet 04/03 completed Medication ID: [id number] Dur ation Value: 30 Brand Name: lisinopril Send Method: E-Prescrib ed Subs Allowed: subs OK Special Instructio n: TK 1 T PO D Medicati onGenericN xander: lisinopril Not Available Not Available Not Available metoprolol succinate ER 25 mg tablet,exte nded release 24 hr active Medication ID: [id number] Bra nd Name: metoprolol succinate Send Method: E-Prescrib ed Subs Allowed: subs OK Special Instructio n: TAKE 1 TABLET BY MOUTH EVERY DAY Medica tiMarco cName: metoprolol succinate Not Available Not Available Not Available albuterol sulfate HFA 90 mcg/actuati on aerosol inhaler active Not Available Not Available Not Available sertraline 50 mg tablet active Not Available Not Available Not Available ciclopirox 0.77 % topical cream active Not Available Not Available Not Available Calcium 500 + D 500 mg-5 mcg (200 unit) tablet active Not Available Not Available Not Available Flovent HFA 220 mcg/actuati on aerosol inhaler active Not Available Not Available Not Available Advair HFA 115 mcg-21 mcg/actuati on aerosol inhaler 04/03 completed Medication ID: [id number] Dur ation Value: 30 Brand Name: Advair HFA Send Method: E-Prescrib ed Subs Allowed: subs OK Special Instructio n: INHALE 2 PUFFS PO BID. BRUSH TEETH AFTER USE Medica tionGeneri cName: Advair HFA Not Available Not Available Not Available budesonide- formoterol HFA 160 mcg-4.5 mcg/actuati on aerosol inhaler active Not Available Not Available Not Available calcium 500 mg (as carbonate)- vitamin D3 3.125 mcg (125 unit) tablet active Not Available Not Available Not Available Calcium 600 + D(3) 600 mg-10 mcg (400 unit) tablet 04/03 completed Medication ID: [id number] Dur ation Value: 30 Brand Name: Calcium 600 + D(3) Send Method: E-Prescrib ed Subs Allowed: subs OK Special Instructio n: TK 1 T PO ONCE D Medicati onGenericN xander: Calcium 600 + D(3) Not Available Not Available Not Available Tradjenta 5 mg tablet active Not Available Not Available No t Available Brilinta 90 mg tablet 11/03 completed Medication ID: [id number] Bra nd Name: Brilinta S end Method: E-Prescrib ed Subs Allowed: subs OK Special Instructio n: TAKE 1 TABLET BY MOUTH TWO TIMES A DAY Medica tionGeneri cName: Brilinta Not Available Not Available Not Available Farxiga 10 mg tablet active Not Available Not Available No t Available Trulicity 1.5 mg/0.5 mL subcutaneou s pen injector active Not Available Not Available Not Available selenium sulfide 2.5 % lotion 04/03 completed Medication ID: [id number] Dur ation Value: 30 Brand Name: selenium sulfide Se nd Method: E-Prescrib ed Subs Allowed: subs OK Special Instructio n: FRED TOPICALLY BID FOR 20 MINUTES THEN RINSE Medi cationGene ricName: selenium sulfide Not Available Not Available Not Available Rybelsus 7 mg tablet active Not Available Not Available No t Available Rybelsus 3 mg tablet active Not Available Not Available No t Available Trulicity 3 mg/0.5 mL subcutaneou s pen injector active Not Available Not Available Not Available Comfort Touch Plus Pressure Activated Safety Lancets 30 gauge active Not Available Not Available Not Available Vitals Date Recorded Body height Body mass index (BMI) Body weight Provider Name and Address Organization Details Last Updated DateTime 11/03/2024 152.4 cm 32.2 kg/m2 33461.74 g Mike Alvarado [place] - [facility] 11/03/2024 13:47:41 Social History None recorded. Functional Status None recorded. Mental Status None recorded. Family History Nothing Reported. Medical History Condition Response Allergies/Hayfever Y Diabetes Y Asthma Y Past Encounters Encounter ID Performer Location Encounter Start Date Encounter Closed Date Diagnosis/Indication Diagnosis SNOMED-CT Code Diagnosis ICD10 Code Diagnosis Note [id number] NAVEEN GOLDEN MD [facility] [address] [address] 11/03/2024 13:06:20 11/03/2024 14:16:11 Bleeding from nose 717134440 R04.0 Long-term current use of antiplatelet drug 3124130577 07186 Z79.02 Deviated nasal septum 12 0286964 J34.2 Health Concerns Section Related Observation LastModified by Organization Detai ls LastModified Time None Recorded Concern Status LastModified by Organization Details LastModified Time None Recorded Advance Directives Directive None Recorded Payers Encounter Date Sequence Insurance Name Policy Number Policy Mcmahon Covered Member ID Mcmahon Member ID Guarantor Name 11/03/2024 1 [facility] - DOS ON OR AFTER 2023 - ONE [employer] (MEDICARE REPLACEMENT/AD VANTAGE - HMO) Raoul Rick [id number] Raoul Rick Notes Date Note Type Note Provider Name and Address Organization Details Recorded Time 11/03/2024 text/html Patient with history of asthma and diabetes seen with his friend/neighbor Radhika for an opinion regarding intermittent epistaxis for the last several weeks. He was seen in the emergency room 2 weeks ago and his last episode of bleeding was 5 days ago. He was on aspirin and Brilinta. They have been stopped. NAVEEN VALLE MD [address] [place] [address], [address], [place] - [facility] 11/03/2024 14:11:35
[2024-12-30 09:28] VITALS: BP 99/60; PULSE 81; O2SAT 95; BMI 34.2
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
== END 2024-12-30 11:02 | disposition home or self-care (01) ==
PROVIDERS: PCP Internal Medicine; Visit Provider Internal Medicine Pulmonary Disease
DX: J45.909 Unspecified asthma, uncomplicated (principal)
CPT/HCPCS: 99213

== ENCOUNTER → 2024-12-30 08:39 | Outpatient (BNVA) | payer OTHER, SELFPAY | PROVIDERS: PCP Internal Medicine; Visit Provider Internal Medicine Pulmonary Disease | DX: E11.9 Type 2 diabetes mellitus without complications (principal); J45.909 Unspecified asthma, uncomplicated; Z79.84 Long term (current) use of oral hypoglycemic drugs | CPT/HCPCS: 82947; 99212 ==

== ENCOUNTER 2024-12-30 10:27 | Outpatient (AMB) | payer OTHER, SELFPAY ==
--- NOTE | 2024-12-30 10:56 | MHC.OFFVIS ---
Vital Signs 12/30/24 10:59 Height 5 ft 2 in Weight 190 lb 11.198 oz BMI 34.9 BP 108/62 Blood Pressure Location Rt brachial Position Sitting Pulse 79 Pulse Source Pulse Oximeter Pulse Oximetry (%) 96 Oxygen Delivery Method Room Air Intake Visit Reasons: diabetes follow up Intake Note: Patient present today to follow up on Type 2 Diabetes Mellitus. Last Diabetic Eye exam: approx 4 months ago Last Podiatry Visit: November 2024 Random Glucose: 123 mg/dl HgA1C: 8.0% 12/29/2024, [facility] Chip Silo Tender Required: Yes Chip Silo Tender Language: Trolley Car Mechanic Services: Chip Silo Tender Offered & Declined Chip Silo Tender Name: Chip Silo Tender present with pt. Accompanied by: Other Relationship Allergies Penicillins Allergy (Verified 12/30/24 11:03) Hives HPI Comments Details: This is a 69-year-old male with a past medical history of type 2 diabetes, former smoker, CAD, anxiety, hypertension and asthma presenting for diabetic management. He declined clerk funeral detail. He is here today with his home health aide who is a retired nurse. She interpreted. He was diagnosed with diabetes several years ago. He does not have the glucometer with him today or a log of BG. They are only able to report on fasting sugars which are between 120-160. Hemoglobin a1cis 8.0% today down from 8.3%. Current medication regimen: Tradjenta 5 mg daily, metformin 1000 mg twice daily, Farxiga 10 mg daily, Rybelsus 7 mg. VNA comes once per week. Compliance issues: He is only taking metformin once per day. He does not want to increase the dose because he read it can cause problems with his kidneys. Past medication: Trulicity discontinued because he did not want to continue injections. Diet: He has cut back on soda, but he is still drinking it. His home health aide is trying to help with his diet and has advised his ex- to stop buying him so much sugary food. Patient is not interested in making changes to his diet or seeing the dietitian. Hypoglycemia symptoms: none Hyperglycemia symptoms: none Eye exam: Up-to-date. He saw his purchasing coordinator in November. Microvascular complications: neuropathy, nephropathy (microalbumin noted in chart) Macrovascular complications: CAD Hypertension: treated with amlodipine 5 mg daily and losartan 25 mg daily. Hyperlipidemia: treated with atorvastatin 20 mg daily. LDL at goal <100. ROS: Constitutional: No unexplained weight loss, fever, chills, fatigue or night sweats. Respiratory: No shortness of breath Cardiovascular: No chest pain Gastrointestinal: No anorexia, nausea, vomiting or diarrhea. No abdominal pain Neurologic: No headache, dizziness, syncope Endocrine: No cold or heat intolerance. No polyuria or polydipsia. Physical exam: Constitutional: Alert, in no distress. Eyes: Pupils are equal, round and reactive to light. Extraocular muscles intact. Neck: Supple, Full range of motion. No lymphadenopathy. No palpable thyroid masses. Respiratory: Clear to auscultation. Cardiovascular: S1 S2 regular. No murmurs. [facility] Medical History (Updated 03/30/24 @ 10:23 by Myriam Paulson MD) Type 2 diabetes mellitus with unspecified complications Skin rash Microalbuminuria FLASH (generalized anxiety disorder) Hearing loss Dyslipidemia Chest pain Neck pain Enlarged prostate Respiration disorder [id number] syndrome Hypertension Diabetes Surgical History History of lumbar surgery History of coronary angioplasty with insertion of stent Status post cardiac catheterization S/P angioplasty with stent Family History Mother No problems noted. Father No problems noted. Social History Housing: Apartment Alcohol intake: former Patient Tobacco Use Status: Former Tobacco user e-Cigarette/Vaping Use: Never Used Second Hand Smoke Exposure: No service: No Current occupational status: disabled Cognitive needs: No (cane) Hearing needs: Yes Vision needs: Yes (glasses) Physical Exam Vital Signs: Last Vital Signs Pulse 79 12/30/24 10:59 BP 108/62 12/30/24 10:59 Pulse Ox 96 12/30/24 10:59 Oxygen Delivery Method Room Air 12/30/24 10:59 BMI result Body Mass Index 34.9 Results Reviewed Results Reviewed: Laboratory Last Values Glucose (Clinic) 123 mg/dL (60-115) H 12/30/24 11:31 Laboratory Tests 02/02/23 06/10/23 12/09/23 13:36 13:28 10:21 Creatinine Estimated GFR Hgb A1c (Clinic) 9.2 H 10.2 H 10.1 H AST ALT Alkaline Phosphatase Triglycerides Cholesterol LDL Cholesterol, Calc HDL Cholesterol Urine Creatinine Urine Microalbumin Microalb/Creat Ratio 03/30/24 03/30/24 03/30/24 08:48 09:04 09:26 Creatinine 0.99 Estimated GFR > 60 Hgb A1c (Clinic) 9.5 H AST 45 H ALT 60 H Alkaline Phosphatase 96 Triglycerides 149 Cholesterol 120 LDL Cholesterol, Calc 59 HDL Cholesterol 32 L Urine Creatinine 169.71 Urine Microalbumin 47.0 Microalb/Creat Ratio 27.6 Fib4 value 1.49 External lab report 12/29/2024: AST 45 ALT 59 Platelets 264 Creatinine 1.07 GFR 76 LDL 52 Assessment & Plan Assessment & Plan (1) Type 2 diabetes mellitus, without long-term current use of insulin: Code(s): E11.9 - Type 2 diabetes mellitus without complications Category: Medical Plan In summary this is a 69-year-old male with suboptimally controlled type 2 diabetes. Discussed pathophysiology of Type II Diabetes Mellitus with the patient in detail.? I explained the residential risks and complications associated with uncontrolled diabetes including nephropathy, neuropathy, peripheral vascular disease, retinopathy, increased risk of heart disease and stroke.? Discussed lifestyle modification with the patient. Recommended 30 minutes of moderately vigorous exercise 5 days per week to promote weight loss. Declines referral to aircraft general repair mechanic and dietitian. He requested a CGM, but [facility] does not cover this unless a patient takes 3 or more insulin injections per day. He preferred the freestyle glucometer. I will submit this to the pharmacy with supplies. Advised patient to check his sugars in the morning and 1-2 hours after eating. He declines an increase in metformin today so I have changed it to an extended release formula so he can take a 1000 mg once daily. Increase Rybelsus to 14 mg daily. Side effects reviewed with the patient. Continue Tradjenta 5 mg and Farxiga 10 mg daily. Owing to diabetes and elevated LFTs check liver ultrasound with elastography for evaluation of hepatic steatosis. Help health aide confirms he has glucose tablets at home. Reviewed treatment of hypoglycemia. Follow up in 1 month for type 2 diabetes. Orders: Orders US abdomen lehman w elastography Today E11.9 - Type 2 diabetes mellitus without complications Medications: New semaglutide (Rybelsus) Replaces Rybelsus 7 mg. 14 mg PO DAILY 90 tabs 1RF metformin ER 1,000 mg (2 x 500 mg) PO DAILY 180 tabs 1RF Discontinued semaglutide (Rybelsus) Discontinued Reason: Doctor's Order 7 mg PO DAILY 90 tabs 0RF metformin Discontinued Reason: Doctor's Order 1,000 mg PO BID 90 days 180 tabs 0RF Patient Instructions: If you experience low blood sugar, treat this by eating a chewable fruit candy like skittles or jelly beans (about 8 pieces), 4 ounces (1/2 cup) of fruit juice (not diet), 1 tablespoon of honey or 4 glucose tablets. If your blood sugar is under 55, take double the amount of one of the above. Recheck your blood sugar in 15 minutes. Change to Metformin extended release 500 mg 2 tablets once daily. Increase Rybelsus to 14 mg daily. Continue Tradjenta 5 mg daily. Continue Farxiga 10 mg daily. Bring glucometer to next visit. Coding Level of Care Code Tele Est Pt Level 4 (61313) Complex EM visit Add On G2211 Diagnoses Type 2 diabetes mellitus, without long-term current use of insulin E11.9
[2024-12-30 10:59] VITALS: BP 108/62; PULSE 79; O2SAT 96; BMI 34.9
--- OUTSIDE RECORDS SUMMARY | 2024-12-30 11:23 | XMS_ITS | Clinical Summary ---
Author Organization Unknown Care Team Providers Care Apprentice Lineman Third Step Name Role Phone PJ JUNG MD, ROGE Unavailable Unavailable CESARIO DAN, CARMITA Unavailable Unavailable Payers Payer Name Policy Type Policy Number Effective Date Expira tion Date [facility] [id number] MEDICAID [facility] [id number] MEDICARE - [place] [id number] Problems Condition Name Condition Details Condition Category [...] 03-31 00:00: 00 11-18 23:59 :00 No [id number] 1 capsule 2 TIMES DAILY 1 capsule 2 TIMES DAILY (route: oral) Med Classific ation: Electroly te Balance-N utritiona l Products Farxiga 10 mg tablet 12-22 00:00: 00 07-19 23:59 :00 No [id number] 1 tablet QD 1 tablet QD (route: oral) Alternate Route: PO. Med Classific ation: Endocrine Flovent HFA 220 mcg/actuati on aerosol inhaler -14 00:00: 00 11-18 23:59 :00 No [id number] 2 puff BID EACH DAY 2 puff BID EACH DAY (route: inhalation ) Alternate Route: BY MOUTH. Med Classific ation: Respirato ry Therapy Agents lisinopril 5 mg tablet 03-31 00:00: 00 12-12 23:59 :00 No [id number] 1 tablet DAILY 1 tablet DAILY (route: oral) Med Classific ation: Cardiovas cular Therapy Agents metformin 1,000 mg tablet 03-31 00:00: 00 11-18 23:59 :00 No [id number] 1 tablet DAILY 1 tablet DAILY (route: oral) Med Classific ation: Endocrine montelukast 10 mg tablet 03-31 00:00: 00 Yes [id number] 1 tablet DAILY 1 tablet DAILY (route: oral) Med Classific ation: Respirato ry Therapy Agents nystatin 100,000 unit/gram topical cream 03-31 00:00: 00 07-17 23:59 :00 No [id number] Per instruc tions 3 TIMES DAILY Per instructio ns 3 TIMES DAILY (route: topical) Med Classific ation: Dermatolo gical terbinafine HCl 250 mg tablet 02-07 00:00: 00 05-23 23:59 :00 No [id number] 1 tablet DAILY 1 tablet DAILY (route: oral) Med Classific ation: Anti-Infe ctive Agents dulaglutide 1.5 mg/0.5 mL subcutaneou s pen injector 12-17 00:00: 00 03-31 23:59 :00 No [id number] 0.5 mL Q WEEK 0.5 mL Q WEEK (route: subcutaneo us) Alternate Route: 1 SYRINGE UNDER THE SKIN. Med Classific ation: Endocrine Farxiga 10 mg tablet 08-01 00:00: 00 11-18 23:59 :00 No [id number] 1 tablet DAILY 1 tablet DAILY (route: oral) Med Classific ation: Endocrine Advair HFA 230 mcg-21 mcg/actuati on aerosol inhaler 11-20 00:00: 00 05-21 23:59 :00 No [id number] 2 puff DAILY 2 puff DAILY (route: inhalation ) Med Classific ation: Respirato ry Therapy Agents atorvastati n 10 mg tablet 11-20 00:00: 00 07-17 23:59 :00 No [id number] 1 tablet BEDTIME 1 tablet BEDTIME (route: oral) Med Classific ation: Cardiovas cular Therapy Agents Calcium 600 mg calcium (1,500 mg) tablet 11-20 00:00: 00 11-13 00:00 :00 No [id number] 1 tablet DAILY 1 tablet DAILY (route: oral) Med Classific ation: Electroly te Balance-N utritiona l Products fluticasone prop.50 mcg spray,suspe n-sod.chlor fede 0.9% nasal spray kit 11-20 00:00: 00 05-21 23:59 :00 No [id number] 2 spray DAILY 2 spray DAILY (route: nasal) Med Classific ation: Respirato ry Therapy Agents melatonin 5 mg tablet 11-20 00:00: 00 07-17 23:59 :00 No [id number] 1 tablet BEDTIME 1 tablet BEDTIME (route: oral) Med Classific ation: Central Nervous System Agents metformin 500 mg tablet 11-20 00:00: 00 09-21 23:59 :00 No [id number] 1 tablet DAILY 1 tablet DAILY (route: oral) Med Classific ation: Endocrine ProAir RespiClick 90 mcg/actuati on breath activated 11-20 00:00: 00 Yes [id number] 2 puff EVERY 4 HOURS 2 puff EVERY 4 HOURS (route: inhalation ) Med Classific ation: Respirato ry Therapy Agents amlodipine 5 mg tablet 2-03 00:00: 00 Yes [id number] 1 tablet DAILY 1 tablet DAILY (route: oral) Med Classific ation: Cardiovas cular Therapy Agents Farxiga 10 mg tablet 2-03 00:00: 00 Yes [id number] 1 tablet DAILY 1 tablet DAILY (route: oral) Med Classific ation: Endocrine tamsulosin 0.4 mg capsule 3-17 00:00: 00 Yes [id number] 1 capsule BEDTIME 1 capsule BEDTIME (route: oral) Med Classific ation: Genitouri nary Therapy Oyster Shell Calcium-Vit mccarty D3 500 mg (1,250 mg)-200 unit tablet 11-15 00:00: 00 09-21 23:59 :00 No [id number] 1 tablet DAILY 1 tablet DAILY (route: oral) Med Classific ation: Electroly te Balance-N utritiona l Products cinnamon bark-chromi um picolinate- ALA 500 mg-100 mcg-150 mg capsule 12-04 00:00: 00 09-21 23:59 :00 No [id number] 1000 mg DAILY 1000 mg DAILY (route: oral) Med Classific ation: Alternati ve Therapy multivitami n tablet 12-04 00:00: 00 Yes [id number] 1 tablet DAILY 1 tablet DAILY (route: oral) Med Classific ation: Electroly te Balance-N utritiona l Products Vitamin C 500 mg tablet 12-04 00:00: 00 09-21 23:59 :00 No [id number] 1 tablet DAILY 1 tablet DAILY (route: oral) Med Classific ation: Electroly te Balance-N utritiona l Products Aspirin Low Dose 81 mg tablet,[place] yed release 01-21 00:00: 00 11-23 23:59 :00 No [id number] 1 tablet DAILY 1 tablet DAILY (route: oral) Med Classific ation: Hematolog ical Agents metoprolol succinate ER 25 mg tablet,exte nded release 24 hr 15 00:00: 00 Yes [id number] 1 tablet DAILY 1 tablet DAILY (route: oral) Med Classific ation: Cardiovas cular Therapy Agents atorvastati n 20 mg tablet 05-21 00:00: 00 Yes [id number] 1 tablet BEDTIME 1 tablet BEDTIME (route: oral) Med Classific ation: Cardiovas cular Therapy Agents losartan 25 mg tablet 05-21 00:00: 00 Yes [id number] 1 tablet DAILY 1 tablet DAILY (route: oral) Med Classific ation: Cardiovas cular Therapy Agents Symbicort 160 mcg-4.5 mcg/actuati on HFA aerosol inhaler 05-21 00:00: 00 Yes [id number] 2 puff 2 TIMES DAILY 2 puff 2 TIMES DAILY (route: inhalation ) Med Classific ation: Respirato ry Therapy Agents Brilinta 90 mg tablet 05-21 00:00: 00 03-25 23:59 :00 No [id number] 1 tablet 2 TIMES DAILY 1 tablet 2 TIMES DAILY (route: oral) Med Classific ation: Hematolog ical Agents Brilinta 90 mg tablet 07-30 00:00: 00 03-25 23:59 :00 No [id number] 90 mg 2 TIMES DAILY 90 mg 2 TIMES DAILY (route: oral) Med Classific ation: Hematolog ical Agents sertraline 25 mg tablet 2021-11 00:00: 00 09-21 23:59 :00 No [id number] 1 tablet DAILY 1 tablet DAILY (route: [...] (route: topical) Med Classific ation: Dermatolo gical [place] 3-6-9 1,200 mg capsule 2022-11 0- 00:00: [...] AWARENESS FOR SAFETY AND WILL NOTIFY CLINICAL PRICING ACTUARY AND PHYSICIAN/PROVIDER WITH ANY CHANGE IN CONDITION. [code = SKILLED NURSE WILL MAINTAIN SITUATIONAL AWARENESS FOR SAFETY AND WILL NOTIFY CLINICAL PRICING ACTUARY AND PHYSICIAN/PROVIDER WITH ANY CHANGE IN CONDITION.] [...] CARE WILL BE ESTABLISHED THAT MEETS PATIENT'S SHELTER NEEDS AND INCLUDES PATIENT GOAL FOR HOME [...] Date/Time Encounter Type Admission Type Attending [facility] Care Department Encounter ID Discharge Date Discharge Status Discharge Condition Discharge Reason Percent Goals Met 2024-03-29 00:00:00 2025-01-22 00:00:00 Outpatient RECERTIFIC CARMITA M[facility]Z [facility] [id number] 35.00
--- OUTSIDE RECORDS SUMMARY | 2024-12-30 11:23 | XMS_ITS | Clinical Summary ---
Author Organization Unknown Care Team Providers Care Steward/Stewardess Second Name Role Phone PJ JUNG MD, ROGE Unavailable Unavailable CESARIO DAN, CARMITA Unavailable Unavailable Payers Payer Name Policy Type Policy Number Effective Date Expira tion Date [facility] [place] [id number] MEDICAID [facility] [id number] MEDICARE - [place] [id number] Problems Condition Name Condition Details Condition Category [...] 03-31 00:00: 00 11-18 23:59 :00 No [id number] 1 capsule 2 TIMES DAILY 1 capsule 2 TIMES DAILY (route: oral) Med Classific ation: Electroly te Balance-N utritiona l Products Farxiga 10 mg tablet 12-22 00:00: 00 07-19 23:59 :00 No [id number] 1 tablet QD 1 tablet QD (route: oral) Alternate Route: PO. Med Classific ation: Endocrine Flovent HFA 220 mcg/actuati on aerosol inhaler -14 00:00: 00 11-18 23:59 :00 No [id number] 2 puff BID EACH DAY 2 puff BID EACH DAY (route: inhalation ) Alternate Route: BY MOUTH. Med Classific ation: Respirato ry Therapy Agents lisinopril 5 mg tablet 03-31 00:00: 00 12-12 23:59 :00 No [id number] 1 tablet DAILY 1 tablet DAILY (route: oral) Med Classific ation: Cardiovas cular Therapy Agents metformin 1,000 mg tablet 03-31 00:00: 00 11-18 23:59 :00 No [id number] 1 tablet DAILY 1 tablet DAILY (route: oral) Med Classific ation: Endocrine montelukast 10 mg tablet 03-31 00:00: 00 Yes [id number] 1 tablet DAILY 1 tablet DAILY (route: oral) Med Classific ation: Respirato ry Therapy Agents nystatin 100,000 unit/gram topical cream 03-31 00:00: 00 07-17 23:59 :00 No [id number] Per instruc tions 3 TIMES DAILY Per instructio ns 3 TIMES DAILY (route: topical) Med Classific ation: Dermatolo gical terbinafine HCl 250 mg tablet 02-07 00:00: 00 05-23 23:59 :00 No [id number] 1 tablet DAILY 1 tablet DAILY (route: oral) Med Classific ation: Anti-Infe ctive Agents dulaglutide 1.5 mg/0.5 mL subcutaneou s pen injector 12-17 00:00: 00 03-31 23:59 :00 No [id number] 0.5 mL Q WEEK 0.5 mL Q WEEK (route: subcutaneo us) Alternate Route: 1 SYRINGE UNDER THE SKIN. Med Classific ation: Endocrine Farxiga 10 mg tablet 08-01 00:00: 00 11-18 23:59 :00 No [id number] 1 tablet DAILY 1 tablet DAILY (route: oral) Med Classific ation: Endocrine Advair HFA 230 mcg-21 mcg/actuati on aerosol inhaler 11-20 00:00: 00 05-21 23:59 :00 No [id number] 2 puff DAILY 2 puff DAILY (route: inhalation ) Med Classific ation: Respirato ry Therapy Agents atorvastati n 10 mg tablet 11-20 00:00: 00 07-17 23:59 :00 No [id number] 1 tablet BEDTIME 1 tablet BEDTIME (route: oral) Med Classific ation: Cardiovas cular Therapy Agents Calcium 600 mg calcium (1,500 mg) tablet 11-20 00:00: 00 11-13 00:00 :00 No [id number] 1 tablet DAILY 1 tablet DAILY (route: oral) Med Classific ation: Electroly te Balance-N utritiona l Products fluticasone prop.50 mcg spray,suspe n-sod.chlor fede 0.9% nasal spray kit 11-20 00:00: 00 05-21 23:59 :00 No [id number] 2 spray DAILY 2 spray DAILY (route: nasal) Med Classific ation: Respirato ry Therapy Agents melatonin 5 mg tablet 11-20 00:00: 00 07-17 23:59 :00 No [id number] 1 tablet BEDTIME 1 tablet BEDTIME (route: oral) Med Classific ation: Central Nervous System Agents metformin 500 mg tablet 11-20 00:00: 00 09-21 23:59 :00 No [id number] 1 tablet DAILY 1 tablet DAILY (route: oral) Med Classific ation: Endocrine ProAir RespiClick 90 mcg/actuati on breath activated 11-20 00:00: 00 Yes [id number] 2 puff EVERY 4 HOURS 2 puff EVERY 4 HOURS (route: inhalation ) Med Classific ation: Respirato ry Therapy Agents amlodipine 5 mg tablet 2-03 00:00: 00 Yes [id number] 1 tablet DAILY 1 tablet DAILY (route: oral) Med Classific ation: Cardiovas cular Therapy Agents Farxiga 10 mg tablet 2-03 00:00: 00 Yes [id number] 1 tablet DAILY 1 tablet DAILY (route: oral) Med Classific ation: Endocrine tamsulosin 0.4 mg capsule 3-17 00:00: 00 Yes [id number] 1 capsule BEDTIME 1 capsule BEDTIME (route: oral) Med Classific ation: Genitouri nary Therapy Oyster Shell Calcium-Vit mccarty D3 500 mg (1,250 mg)-200 unit tablet 11-15 00:00: 00 09-21 23:59 :00 No [id number] 1 tablet DAILY 1 tablet DAILY (route: oral) Med Classific ation: Electroly te Balance-N utritiona l Products cinnamon bark-chromi um picolinate- ALA 500 mg-100 mcg-150 mg capsule 12-04 00:00: 00 09-21 23:59 :00 No [id number] 1000 mg DAILY 1000 mg DAILY (route: oral) Med Classific ation: Alternati ve Therapy multivitami n tablet 12-04 00:00: 00 Yes [id number] 1 tablet DAILY 1 tablet DAILY (route: oral) Med Classific ation: Electroly te Balance-N utritiona l Products Vitamin C 500 mg tablet 12-04 00:00: 00 09-21 23:59 :00 No [id number] 1 tablet DAILY 1 tablet DAILY (route: oral) Med Classific ation: Electroly te Balance-N utritiona l Products Aspirin Low Dose 81 mg tablet,chilango yed release 01-21 00:00: 00 11-23 23:59 :00 No [id number] 1 tablet DAILY 1 tablet DAILY (route: oral) Med Classific ation: Hematolog ical Agents metoprolol succinate ER 25 mg tablet,exte nded release 24 hr 15 00:00: 00 Yes [id number] 1 tablet DAILY 1 tablet DAILY (route: oral) Med Classific ation: Cardiovas cular Therapy Agents atorvastati n 20 mg tablet 05-21 00:00: 00 Yes [id number] 1 tablet BEDTIME 1 tablet BEDTIME (route: oral) Med Classific ation: Cardiovas cular Therapy Agents losartan 25 mg tablet 05-21 00:00: 00 Yes [id number] 1 tablet DAILY 1 tablet DAILY (route: oral) Med Classific ation: Cardiovas cular Therapy Agents Symbicort 160 mcg-4.5 mcg/actuati on HFA aerosol inhaler 05-21 00:00: 00 Yes [id number] 2 puff 2 TIMES DAILY 2 puff 2 TIMES DAILY (route: inhalation ) Med Classific ation: Respirato ry Therapy Agents Brilinta 90 mg tablet 05-21 00:00: 00 03-25 23:59 :00 No [id number] 1 tablet 2 TIMES DAILY 1 tablet 2 TIMES DAILY (route: oral) Med Classific ation: Hematolog ical Agents Brilinta 90 mg tablet 07-30 00:00: 00 03-25 23:59 :00 No [id number] 90 mg 2 TIMES DAILY 90 mg 2 TIMES DAILY (route: oral) Med Classific ation: Hematolog ical Agents sertraline 25 mg tablet 2021-11 00:00: 00 09-21 23:59 :00 No [id number] 1 tablet DAILY 1 tablet DAILY (route: [...] (route: topical) Med Classific ation: Dermatolo gical Poulan 3-6-9 1,200 mg capsule 2022-11 0- 00:00: [...] AWARENESS FOR SAFETY AND WILL NOTIFY CLINICAL SLOT AMBASSADOR AND PHYSICIAN/PROVIDER WITH ANY CHANGE IN CONDITION. [code = SKILLED NURSE WILL MAINTAIN SITUATIONAL AWARENESS FOR SAFETY AND WILL NOTIFY CLINICAL SLOT AMBASSADOR AND PHYSICIAN/PROVIDER WITH ANY CHANGE IN CONDITION.] [...] CARE WILL BE ESTABLISHED THAT MEETS PATIENT'S USP NEEDS AND INCLUDES PATIENT GOAL FOR HOME [...] End Date/Time Encounter Type Admission Type Attending [facility] Care Department Encounter ID Discharge Date Discharge Status Discharge Condition Discharge Reason Percent Goals Met 2024-03-29 00:00:00 2025-01-22 00:00:00 Outpatient RECERTIFIC CARMITA MÉNDEZ [facility] [id number] 35.00
--- OUTSIDE RECORDS SUMMARY | 2024-12-30 11:23 | XMS_ITS | Clinical Summary ---
Author Organization [facility] Address [address] [place] [address] Care Team Providers Care Rn Nicu Name Role Phone Unavailable Primary Care Provider [...] 05/15/2022 Overview (05/15/2022): Was done 01/30/22 Diabetes ([facility]) 05/15/2022 High blood pressure 05/15/2022 Abnormal cholesterol [...] Falls Prevention 2022 Dental Examination 05/17/2023 05/15/2022 [id number] ( season) 2024 Imm-Influenza (#1) 2024 Alcohol [...] Most Recently Relevant to Health Maintenance Insurance [facility] D[facility] MEDICAID Member Subscriber Plan / Payer (Ef fective 2022-Present) Name:Raoul Rojo Relation to Subscriber:Self Name:Raoul Rojo Payer ID:[id number] Group ID:Not on file Type:Medicaid Address: [facility] [id number] [place] [id number] MEDICARE - [place] [facility] - DENTAL
--- OUTSIDE RECORDS SUMMARY | 2024-12-30 11:23 | XMS_ITS | Clinical Summary ---
Author Organization [facility] Address [address] [place] [phone] Phone Care Team Providers Care Seismic Observer Name Role Phone Myriam Paulson MD Primary Care Provider [phone] Allergies Active Allergy Reactions Criticality Noted Date Comments Penicillins Other 10/07/2024 Medications No known medications Active Problems No known active problems Encounters Date Type Department Care Team Description 10/19/2024 7:49 AM EST - 10/19/2024 10:29 AM EST [facility] Emergency [address] [place] [phone] Jayme Asencio DO Epistaxis (Primary Dx); Neck pain Discharge Disposition: Home or Self Care 10/07/2024 9:55 AM EST - 10/07/2024 1:25 PM [facility] Emergency [address] [place] [phone] Escobar Valenzuela MD Epistaxis (Primary Dx) Discharge [...] ID:[id number] Group ID:[id number] Type:Not on file Address: [place] [address] [address] [id number] Care Teams Seismic Observer Relationship Specialty Start Date End Date Myriam Paulson MD [address] [place] [address] , [address] [facility] D/B/A: [facility] Sawant PCP - General Internal Medicine 10/19/24
--- OUTSIDE RECORDS SUMMARY | 2024-12-30 11:24 | XMS_ITS | Clinical Summary ---
Author Organization [facility] Facility Address [address] [address] Care Team Providers Care Wildland Fire Fighter Specialist Name Role Phone Myriam Fernández MD Primary Care Provider [phone] Allergies No known active allergies Medications ciclopirox [...] AM EDT) Hemoglobin A1C 9.3(H) (4.0-5.6) % [facility] Comment: MONITORING: In known diabetic patients, hemoglobin A1c targets should be discussed with health care provider. DIAGNOSTIC USE: ??The [place] Diabetes Association (ADA) and the World Health [...] Supplement 1 Testing performed or reported by [facility], a Service of [facility], [address] [place] [id number] Kristian Gerber MD, Unix Analyst [facility]# [id number] 04/22/2023 9:23 AM EDT 04/22/2023 9:28 AM EDT us Kristofer Hurt MD LAB BLOOD ORDERABLES Final Re sult [facility] from Last 3 Months or Most Recently Relevant to Health Maintenance Insurance ([id number]) [facility] ([id number]) Care Teams Wildland Fire Fighter Specialist Relationship Specialty Start Date End Date Myriam Fernández MD [address] [place], [place] PCP - General Internal Medicine 03/04/22
[2024-12-30 11:34] LABS: Glucose, Whole Blood 123 mg/dL (60-115)
== END 2024-12-30 11:56 | disposition home or self-care (01) ==
PROVIDERS: PCP Internal Medicine; Visit Provider Physician Assistant Medical
DX: E11.9 Type 2 diabetes mellitus without complications (principal)

== ENCOUNTER 2025-02-01 08:46 | Outpatient (REF) | payer OTHER, SELFPAY | END 2025-02-01 08:47 | disposition home or self-care (01) | LOC: HO.US 08:46 | PROVIDERS: PCP Internal Medicine; Visit Provider Physician Assistant Medical | DX: Z13.89 Encounter for screening for other disorder (principal) ==

== ENCOUNTER 2025-02-10 09:42 | Outpatient (AMB) | payer OTHER, SELFPAY ==
--- NOTE | 2025-02-10 09:44 | MHC.OFFVIS ---
Vital Signs 02/10/25 09:48 Height 5 ft 2 in Weight 183 lb 10.321 oz BMI 33.6 BP 100/58 L Blood Pressure Location Rt brachial Position Sitting Pulse 86 Pulse Source Pulse Oximeter Pulse Oximetry (%) 95 Oxygen Delivery Method Room Air Intake Visit Reasons: Type II diabetes Intake Note: Patient present today to follow up on Type 2 Diabetes Mellitus. Last Diabetic Eye exam: approx 6 months ago Last Podiatry Visit: November 2024 Random Glucose: mg/dl HgA1C: 8.0% 12/29/2024, [facility] Manager Of Internal Audit Required: Yes Manager Of Internal Audit Language: Attendant Coin [employer]ated [employer] Services: Manager Of Internal Audit Present Manager Of Internal Audit Name: Haresh [id number] Accompanied by: CLINICAL RESEARCH ANALYST Allergies Penicillins Allergy (Verified 02/10/25 09:48) Hives Medication List - Last Reconciled 02/10/25 by JAMEL Beltran albuterol sulfate 90 mcg/actuation (Ventolin HFA) 2 puffs inhalation Q6H PRN 30 days amlodipine 5 mg PO DAILY 90 days atorvastatin 20 mg PO ONCE 90 days blood sugar diagnostic (FreeStyle Lite Strips) As directed to check glucose 3x/day blood-glucose meter (FreeStyle Lite Meter kit) Use as directed to monitor blood glucose. calcium carbonate-vitamin D3 500 mg-5 mcg (200 unit) (Os-Yosef 500 + D3) 1 tab PO DAILY 60 days cholecalciferol (vitamin D3) 25 mcg PO DAILY ciclopirox 0.77% 1 appl topical BID 2 weeks [custome molded shoe inserts As directed] dapagliflozin propanediol (Farxiga) 10 mg PO DAILY 3 months lancets (FreeStyle Lancets) Use to monitor blood glucose 3x/day. linagliptin (Tradjenta) 5 mg PO DAILY 90 days losartan 25 mg PO DAILY 90 days metformin ER 1,000 mg (2 x 500 mg) PO DAILY montelukast 10 mg PO BEDTIME 90 days nystatin-triamcinolone 100,000-0.1 unit/g-% 1 appl topical DAILY 30 days semaglutide (Rybelsus) 14 mg PO DAILY sertraline 25 mg PO DAILY 90 days Symbicort 160-4.5 mcg/actuation (budesonide-formoterol) 2 puffs inhalation BID 30 days NS tamsulosin 0.4 mg PO BEDTIME 90 days HPI Comments Details: This is a 70-year-old male with a past medical history of type 2 diabetes, former smoker, CAD, anxiety, hypertension and asthma presenting for diabetic management. He declined director of digital platforms. He is here today with his CLINICAL RESEARCH ANALYST. He was diagnosed with diabetes several years ago. He does not have the glucometer with him today or a log of BG. Patient reports fasting sugars are 90-100. After meals blood sugar is usually 120-160. He had only 1 sugar over 180 after eating since increasing his dose of Rybelsus. Hemoglobin a1cis 8.0% 12/30/2024 down from 8.3%. Current medication regimen: Tradjenta 5 mg daily, metformin 1000 mg ER once daily, Farxiga 10 mg daily, Rybelsus 14 mg. VNA comes once per week. Compliance issues: none Past medication: Trulicity discontinued because he did not want to continue injections. Diet: He has cut back on soda, but he is still drinking it. His home health aide is trying to help with his diet and has advised his ex- to stop buying him so much sugary food. Patient is not interested in making changes to his diet or seeing the dietitian. Hypoglycemia symptoms: none Hyperglycemia symptoms: none Eye exam: Up-to-date. He saw his orthopaedic nurse in November. Microvascular complications: neuropathy, nephropathy (microalbumin) Macrovascular complications: CAD Hypertension: treated with amlodipine 5 mg daily and losartan 25 mg daily. Hyperlipidemia: treated with atorvastatin 20 mg daily. LDL at goal <100. ROS: Constitutional: No unexplained weight loss, fever, chills, fatigue or night sweats. Respiratory: No shortness of breath Cardiovascular: No chest pain Gastrointestinal: No anorexia, nausea, vomiting or diarrhea. No abdominal pain Neurologic: No headache, dizziness, syncope Endocrine: No cold or heat intolerance. No polyuria or polydipsia. Physical exam: Constitutional: Alert, in no distress. Eyes: Pupils are equal, round and reactive to light. Extraocular muscles intact. Neck: Supple, Full range of motion. No lymphadenopathy. No palpable thyroid masses. Respiratory: Clear to auscultation. Cardiovascular: S1 S2 regular. No murmurs. 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 Father No problems noted. Social History Housing: Apartment Alcohol intake: former Patient Tobacco Use Status: Former Tobacco user e-Cigarette/Vaping Use: Never Used Second Hand Smoke Exposure: No service: No Current occupational status: disabled Cognitive needs: No (cane) Hearing needs: Yes Vision needs: Yes (glasses) Physical Exam Vital Signs: BMI result Body Mass Index 33.6 Results Reviewed Results Reviewed: Laboratory Tests 02/02/23 06/10/23 12/09/23 13:36 13:28 10:21 Creatinine Estimated GFR Hgb A1c (Clinic) 9.2 H 10.2 H 10.1 H AST ALT Alkaline Phosphatase Triglycerides Cholesterol LDL Cholesterol, Calc HDL Cholesterol Urine Creatinine Urine Microalbumin Microalb/Creat Ratio 03/30/24 03/30/24 03/30/24 08:48 09:04 09:26 Creatinine 0.99 Estimated GFR > 60 Hgb A1c (Clinic) 9.5 H AST 45 H ALT 60 H Alkaline Phosphatase 96 Triglycerides 149 Cholesterol 120 LDL Cholesterol, Calc 59 HDL Cholesterol 32 L Urine Creatinine 169.71 Urine Microalbumin 47.0 Microalb/Creat Ratio 27.6 Fib4 value 1.49 External lab report 12/29/2024: AST 45 ALT 59 Platelets 264 Creatinine 1.07 GFR 76 LDL 52 Assessment & Plan Assessment & Plan (1) Type 2 diabetes mellitus, without long-term current use of insulin: Code(s): E11.9 - Type 2 diabetes mellitus without complications Category: Medical Qualifiers: Diabetes mellitus complication status: with neurologic complications Diabetes mellitus complication detail: with polyneuropathy Qualified Code(s): E11.42 - Type 2 diabetes mellitus with diabetic polyneuropathy Plan In summary this is a 69-year-old male with suboptimally controlled type 2 diabetes. Discussed pathophysiology of Type II Diabetes Mellitus with the patient in detail.? I explained the kiln maintenance risks and complications associated with uncontrolled diabetes including nephropathy, neuropathy, peripheral vascular disease, retinopathy, increased risk of heart disease and stroke.? Discussed lifestyle modification with the patient. Recommended 30 minutes of moderately vigorous exercise 5 days per week to promote weight loss. Declines referral to clinical staff educator and dietitian. He requested a CGM, but [facility] does not cover this unless a patient takes 3 or more insulin injections per day. Bring glucometer to next appointment. Continue metformin ER 1000 mg once daily. Continue Rybelsus to 14 mg daily. Continue Tradjenta 5 mg and Farxiga 10 mg daily. Owing to diabetes and elevated LFTs check liver ultrasound with elastography for evaluation of hepatic steatosis. He had to reschedule it, and it is now set up in March. We reviewed treatment of hypoglycemia, and he is given written instructions. He has glucose tablets at home. Follow up in 3 months for type 2 diabetes. He will have lab work done at the end of March. Orders: Orders Creatinine 03/29/25 E11.9 - Type 2 diabetes mellitus without complications Hemoglobin A1c 03/29/25 E11.9 - Type 2 diabetes mellitus without complications Microalbumin, Random (w Creat) 03/29/25 E11.9 - Type 2 diabetes mellitus without complications Medications: Refilled lancets (FreeStyle Lancets) Use to monitor blood glucose 3x/day. 100 ea 5RF E11.9 - Type 2 diabetes mellitus without complications Patient Instructions: If you experience low blood sugar, treat this by eating a chewable fruit candy like skittles or jelly beans (about 8 pieces), 4 ounces (1/2 cup) of fruit juice (not diet), 1 tablespoon of honey or 4 glucose tablets. If your blood sugar is under 50, take double the amount of one of the above. Recheck your blood sugar in 15 minutes. Continue Tradjenta 5 mg daily, metformin 1000 mg ER once daily, Farxiga 10 mg daily and Rybelsus 14 mg daily. Si tiene un nivel bajo de az?car en la harish, tr?telo comiendo un caramelo masticable de fruta lucio Skittles o Jelly Beans (aproximadamente 8 piezas), 113 ml (1/2 taza) de jugo de fruta (no de dieta), 1 cucharada de miel o 4 tabletas de glucosa. Si waters nivel de az?car en la harish es inferior a 50, tome el doble de la cantidad de juan de los medicamentos mencionados. Vuelva a medir waters nivel de az?car en la harish en 15 minutos. Contin?e con Tradjenta 5 mg al d?a, metformina 1000 mg de liberaci?n prolongada ajit vez al d?a, Farxiga 10 mg al d?a y Rybelsus 14 mg al d?a. Coding Level of Care Code Est Pt Level 4 (08600) Complex EM visit Add On G2211 Diagnoses Type 2 diabetes mellitus with diabetic polyneuropathy, without long-term current use of insulin E11.42 Diabetes mellitus complication status: with neurologic complications Diabetes mellitus complication detail: with polyneuropathy
[2025-02-10 09:48] VITALS: BP 100/58; PULSE 86; O2SAT 95; BMI 33.6
[2025-02-10 09:59] LABS: Glucose, Whole Blood 95 mg/dL (60-115)
--- OUTSIDE RECORDS SUMMARY | 2025-02-10 10:47 | XMS_ITS | Clinical Summary ---
Author Organization [facility] Address [address] [place] [address] Care Team Providers Care Passenger Relations Representative Name Role Phone Unavailable Primary Care Provider [...] 05/15/2022 Overview (05/15/2022): Was done 01/30/22 Diabetes ([facility]) 05/15/2022 High blood pressure 05/15/2022 Abnormal cholesterol test 05/15/2022 Asthma ([facility]) 05/15/2022 Social History Tobacco Use Types Packs/Day [...] Diabetes Foot Exam 1957 Diabetes HbA1c 1957 Hepatitis C Screening 1957 Lipid Screening 1957 Serum Creatinine 1957 Tobacco Screening 1957 Urine Albumin Creatinine Ratio Screening 1957 Retinopathy Screening 1970 Medicare Annual Wellness Visit 1975 Imm-DTaP/Tdap/Td (1 - Tdap) 01/18/1976 Imm-Pneumococcal 65+ (1 of 2 - PCV) 01/18/1976 CT Colonography 2002 Colonoscopy 2002 Colorectal Cancer Screening 2002 FIT/gFOBT 2002 Fecal DNA 2002 Flexible Sigmoidoscopy 2002 Imm-Zoster, Recombinant (1 of 2) 2007 Abdominal Aortic Aneurysm Screening 2022 Falls Prevention 2022 Dental Examination 05/17/2023 05/15/2022 [id number] (2023- season) 2024 Imm-Influenza (#1) 2024 Alcohol and [...] Most Recently Relevant to Health Maintenance Insurance [facility] D[facility] DENTAL MEDICAID Member Subscriber Plan / Payer (Ef fective 2022-Present) Name:Raoul Rojo Relation to Subscriber:Self Name:Jose PrabhjotRaoul seymour Payer ID:[id number] Group ID:Not on file Type:Medicaid Address: [address] [id number] [place] - [place] [facility] - [facility]AL
--- OUTSIDE RECORDS SUMMARY | 2025-02-10 10:48 | XMS_ITS | Data Portability ---
Author Organization [employer] [facility], [place] [facility] Address [address] [place] [phone] Care Team Providers Care Six Horse Hitch Driver Name Role Phone HIM CCA OTHER Assessment Encounter Date Assessment Date Assessment LastModified by Organization Details LastModified Time 02/29/2024 02/29/2024 I provided real -time medical direction via phone for this encounter, and was available for additional phone based assistance as needed. I have reviewed and agree with the Assessment and Plan as documented by the Arts And Crafts Teacher. We discussed the diagnostic uncertainty of home visits and the risk associated with this. The patient given the opportunity to ask questions via translator interpreter Advised if develops CP/severe SOB/turning blue/uncontrolle d n/v/d or black/bloody emesis or stool/ AMS/ syncope/ hi fever unresponsive to APAP to call 911- verbalized understanding of instruction [email or web address] Not available 02/29/2024 11:53:36 Plan of Treatment Reminders Order Date Submit Date Provider Last Modified By Organization Details Last Modified Time Details Appointments None recorded. Lab rapid SARS CoV 2 Ag, QL IA, respiratory specimen 2023 024 [email or web address] [address] [facility], [address] [place] [address], [phone] 4 11:56:42 rapid flu (A+B) 2023 024 [email or web address] [address] [facility], [address] [place] [address], [phone] 11:56:45 Referral None recorded. Procedures None recorded. Surgeries None recorded. Imaging None recorded. Medication Orders azithromyci n 250 mg tablet 2023 024 [email or web address] 0 Not available 11:56:37 azithromyci n 250 mg tablet 2023 024 [facility], [address], [id number], 4 11:58:39 albuterol sulfate 2.5 mg/3 mL (0.083 %) solution for nebulizatio n 2023 024 [facility], [address], [phone], 4 11:58:39 Patient TargetsNo targets recorded. Patient InstructionsNo instructions recorded. Reason for Referral None Reported. Results Created Date Observation Date Name Description Value Unit Range Abnormal Flag Note LastModifiedBy Organization Detail LastModifiedTime 02/29/2002/29/2024 rapid flu (A+B) Flu negati ve Not Available [facility] [address] [place] [address], [phone] 02/29/2024 11:53:45 02/29/20 24 02/29/2024 rapid SARS CoV 2 Ag, QL IA, respi rator y speci men rapid SARS CoV 2 Ag, QL IA, respiratory specimen negati ve Not Available [facility] [address] [place] [address], [phone] 02/29/2024 11:53:44 Result Notes None recorded. Medical Equipment None Reported. Allergies Allergen ID Allergen Name Allergen Category Reaction Reaction Severity Criticality Documentation Date Start Date Code Code System Note Provider Name and Address Organization Details Recorded Time 4958 Product containin g penicilli n (product) medicatio n Not available Not available Not available 02/29/2024 97905 8001 SNOMED Not Available [employer] - production [...] /min 18 /min 97 % 97 % 85542.4 96 g 98.1 [degF] 131 mm[Hg] 81 mm[Hg] Not Available [employer] - production 4 11:49:48 Date Recorded Respiratory rate Oxygen saturation Oxygen saturation in Arterial blood by Pulse oximetry Body temperature Body weight Heart rate Systolic blood pressure Diastolic blood pressure Provider Name and Address Organization Details Last Updated DateTime 2 12 /min 97 % 97 % 98 [degF] 89278.4 g 84 /min 131 mm[Hg] 81 mm[Hg] Not Available [employer] - SergeMD 2 13:17:16 Social History None recorded. Functional Status None recorded. Mental Status None recorded. Family History Nothing Reported. Medical History No medical history recorded. Past Encounters Encounter ID Performer Location Encounter Start Date Encounter Closed Date Diagnosis/Indication Diagnosis SNOMED-CT Code Diagnosis ICD10 Code Diagnosis Note [id number] Yoon Paulson MD Main - [facility] [address] [place] [phone] 10/14/2022 13:17:12 10/16/2022 11:41:28 Viral upper respiratory tract infection 401067381 J06.9 67 year old male being evaluated for a week of cough in the setting of recent COVID exposure. Patient without difficulty breathing, or taking PO. Exam notable for normal vital signs, POC COVID negative. Reassuranc e offered, no further interventi on indicated. [id number] Joan Barnes MD Main - [facility] [address] [place] [phone] 02/29/2024 11:49:45 02/29/2024 17:25:55 Upper respiratory infection 83553741 J06.9 medic left him his tubing for [...] Mcmahon Member ID Guarantor Name 10/14/2022 1 [facility] - DOS PRIOR TO 2023 - DUAL ELIGIBLE (MEDICARE REPLACEMENT/AD VANTAGE - HMO) Raoul Rcik [id number] Raoul Rick 02/29/2024 1 [facility] - DOS ON OR AFTER 2023 - DUAL ELIGIBLE - [facility] OPTIONS AND ONE CARE (MEDICARE REPLACEMENT/AD VANTAGE - HMO) Raoul Rick [id number] Raoul Rick Notes Date Note Type Note Provider Name and Address Organization Details Recorded Time 10/14/2022 text/html HPI: Neighbor reports member had positive COVID exposure from [employer], negative home test, symptomatic for URI. Reports productive cough, sneezing, itchy throat, afebrile. Would like to be assessed and tested for viral panel. No home pulse ox. ..................... ..................... ..................... ..................... ..................... ..................... ............... CRC Nursing Assessment: Comments: CRC RN DID NOT NEED FURTHER INFO ..................... ..................... ..................... ..................... ..................... ..................... ............... Arts And Crafts Teacher Note: Dispatch to home of 67-year-old male patient complaining of a cough times one week. Neighbor is here who speaks Cypriot and can interpret. Patient states he has a non productive cough when asked . Patient also relates that his pcp tested positive with Covid yesterday. Lungs present equal and clear in all otero vitals are as noted. Spi2 on room air is 97% . patient is afebrile. Both Covid and flu tests are performed and present negative. I will contact [facility] physician Dr. Paulson further instructions. Dr. Paulson agrees that just supportive care at this time plenty of fluids and Robitussin DM. Should the patient developed for the symptoms were not get better he should contact his PCP. ..................... ..................... ..................... ..................... ..................... ..................... ............... Disposition: Fulfilled Yoon Paulson MD [address], [place], [phone], [employer] 10/14/2022 13:19:56 02/29/2024 text/html HPI: Call transferred [...] ED and requests for home visit. Advised [facility] referral can be submitted. Member is Bolivian speaking. HANDY Garrido speaks Cypriot but will not be at mbr's home for visit. 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 ..................... ..................... ..................... ..................... ..................... ............... CRC Nurse Triage Notes (Tiffany Mcclure): Comments: CRC RN DID NOT NEED FURTHER INFO ..................... ..................... ..................... ..................... ..................... ..................... ............... Arts And Crafts Teacher Note From Steven Tate[facility]. Arrived to home where pt answered the door and was ambulating without difficulty. Pt is Bolivian speaking only so translator interpreter services were utilized. Pt reports for the [...] past month while he was travelling in [place] and visiting family. V/S taken and WNL. [...] to having 13 years ago. Consulted with [facility] Dr. Barnes who prescribed azithromycin for suspected infection, in addition to sending script for albuterol nebs to pharmacy. Pt educated on how to use nebulizer since he had forgotten how to connect hoses and fill chamber. Reviewed red flags for ED. Patient education provided. [facility] Lab Orders: rapid SARS CoV 2 Ag, QL IA, respiratory specimen: Performed rapid flu (A+B): Performed ..................... ..................... ..................... ..................... ..................... ..................... ............... Disposition: FulfilledSEGMD: As above -Via translator interpreter patient denies any known fevers, chills or sweats however he takes 1 dose of Tylenol daily for chronic pain plus his Coricidin HBP has 325 mg of Tylenol. Patient states FLORES is improved with his MDI. He denies orthopnea other than he coughs when lying flat Joan Barnes MD [address], [place], [address], [employer] 02/29/2024 15:26:55
--- OUTSIDE RECORDS SUMMARY | 2025-02-10 10:48 | XMS_ITS | Data Portability ---
Author Organization [place] - [facility], Allergy Address [address] [facility] [address] [place] [address] Care Team Providers Care Mechanical Engineer Name Role Phone ROGE DAUGHERTY Primary Care Provider Assessment Encounter Date Assessment Date Assessment LastModified [...] By Organization Details Last Modified Time 11/03/2024 [id number] nosebleed information [email or web address] Not available 11/03/2024 14:10:14 Reason for Referral None Reported. Problems Name Problem SNOMED Code Status Onset Date Resolution Date Notes Provider Name and Address Organization Details Recorded Time Impacted cerumen of bilateral ears 64607449619 83343 Active 2021 Impacted cerumen, bilateral ; Note: Date Diagnosed : 04/03/2022 11:47 AM (H61.23) Not Available [facility] 4 03:10:57 Disorder of right Eustachia n tube 06067271340 41931 Active 2015 Other specified disorders of Eustachia n tube, right ear; Note: Date Diagnosed : 05/07/2016 1:05 PM (H69.81) Not Available [facility] 4 03:10:58 Allergic rhinitis 96325038 Active 2015 Allergic rhinitis, unspecifi ed; Note: Date Diagnosed : 05/07/2016 1:05 PM (J30.9) Not Available [facility] 4 03:10:58 Mixed conductiv e and sensorine ural hearing loss of right ear 47832233653 105 Active 2015 Mixed conductiv e and sensorine ural hearing loss, unilatera l, right ear, with unrestric elton hearing on the contralat eral side; Note: Date Diagnosed : 05/07/2016 1:05 PM (H90.71) Not Available [facility] 4 03:10:59 Sensorine ural hearing loss of bilateral ears 116379626 Active 2021 Sensorine ural hearing loss, bilateral ; Note: Date Diagnosed : 04/03/2022 12:23 PM (H90.3) Not Available [facility] 4 03:10:58 Sensorine ural hearing loss 80278040 Active 2015 Sensorine ural hearing loss, unilatera l, left ear, with unrestric elton hearing on the contralat eral side; Note: Date Diagnosed : 05/07/2016 1:05 PM (H90.42) Not Available [facility] 4 03:10:57 Bleeding from nose 607766108 Active 2023 NAVEEN GOLDEN MD [address] [place] [address], [place], [address] , [facility] - [facility] 4 14:10:01 Deviated nasal septum 141319385 Active 2023 NAVEEN GOLDEN MD [address] [place] [address], [facility] [place], [address] , [facility] - [facility] 4 14:10:07 Problem Notes None recorded. Medical Equipment None Reported. Allergies Allergen ID Allergen Name Allergen Category Reaction Reaction Severity Criticality Documentation Date Start Date Code Code System Note Provider Name and Address Organization Details Recorded Time 414228 aspirin medicatio n other Not available Not available 03/22/2024 1191 RxNorm React ion: Unkno wn; Not Available [facility] 4 01:22:01 864426 penicilli n V potassium medicatio n other Not available Not available 03/22/202469529 5 RxNorm React ion: unkno wn, unspe ionfiraymon d;; Not Available [facility] 4 01:22:02 Medications Name Sig Start Date Stop Date Status Note LastModified by Organization Details LastModified Time metformin 500 mg tablet 04/03 completed Medication ID: [id number] Dur ation Value: 30 Brand Name: metformin [...] 10 mg tablet 04/03 completed Medication ID: [id number] Dur ation Value: 30 Brand Name: atorvastat in Send Method: E-Prescrib ed Subs Allowed: subs OK Special Instructio n: TK 1 T PO QD Medicat ionGeneric Name: atorvastat in Not Available Not Available Not Available azithromyci n 250 mg tablet active Not Available Not Available Not Available FreeStyle Lancets 28 gauge 04/03 completed Medication ID: [id number] Dur ation Value: 30 Brand Name: FreeStyle [...] % topical cream 04/03 completed Medication ID: [id number] Dur ation Value: 15 Brand Name: triamcinol [...] 5 mg tablet 04/03 completed Medication ID: [id number] Dur ation Value: 30 Brand Name: lisinopril Send Method: E-Prescrib ed Subs Allowed: subs OK Special Instructio n: TK 1 T PO D Medicati onGenericN xander: lisinopril Not Available Not Available Not Available metoprolol succinate ER 25 mg tablet,exte nded release 24 hr active Medication ID: [id number] Bra nd Name: metoprolol succinate Send Method: [...] on aerosol inhaler 04/03 completed Medication ID: [id number] Dur ation Value: 30 Brand Name: Advair [...] (400 unit) tablet 04/03 completed Medication ID: [id number] Dur ation Value: 30 Brand Name: Calcium 600 + D(3) Send Method: E-Prescrib ed Subs Allowed: subs OK Special Instructio n: TK 1 T PO ONCE D Medicati onGenericN xander: Calcium 600 + D(3) Not Available Not Available Not Available Tradjenta 5 mg tablet active Not Available Not Available No t Available Brilinta 90 mg tablet 11/03 completed Medication ID: [id number] Bra nd Name: Brilinta S end Method: [...] 2.5 % lotion 04/03 completed Medication ID: [id number] Dur ation Value: 30 Brand Name: selenium [...] Updated DateTime 11/03/2024 152.4 cm 32.2 kg/m2 29620.74 g Mike Alvarado [place] - [facility] 11/03/2024 13:47:41 Social History None recorded. Functional Status None recorded. Mental Status None recorded. Family History Nothing Reported. Medical History Condition Response Allergies/Hayfever Y Diabetes Y Asthma Y Past Encounters Encounter ID Performer Location Encounter Start Date Encounter Closed Date Diagnosis/Indication Diagnosis SNOMED-CT Code Diagnosis ICD10 Code Diagnosis Note [id number] NAVEEN GOLDEN MD [facility] [address] [address] 11/03/2024 13:06:20 11/03/2024 14:16:11 Bleeding from nose 930312590 R04.0 Long-term current use of antiplatelet drug 0695051296 65832 Z79.02 Deviated nasal septum 12 4503772 J34.2 Health Concerns Section Related Observation LastModified by Organization Detai ls LastModified Time None Recorded Concern Status LastModified by Organization Details LastModified Time None Recorded Advance Directives Directive None Recorded Payers Encounter Date Sequence Insurance Name Policy Number Policy Mcmahon Covered Member ID Mcmahon Member ID Guarantor Name 11/03/2024 1 [facility] - DOS ON OR AFTER 2023 - ONE CARE (MEDICARE REPLACEMENT/AD VANTAGE - HMO) Raoul Rick [id number] Raoul Rick Notes Date Note Type Note [...] They have been stopped. NAVEEN VALLE MD [address] [place] [address], [address], [place] - [facility] 11/03/2024 14:11:35
--- OUTSIDE RECORDS SUMMARY | 2025-02-10 10:48 | XMS_ITS | Clinical Summary ---
Author Organization [facility] Address [address] [place] [address] Phone Care Team Providers Care Hog Room Supervisor Name Role Phone Myriam Paulson MD Primary Care Provider [phone] Allergies Active Allergy Reactions Criticality Noted Date Comments Penicillins Other 10/07/2024 Medications No known medications Active Problems No known active problems Medical History Medical History Date Comments Diabetes [...] 2 - PPSV23) 10/12/2015 08/17/2015 RSV Immunization Adult Patients (1 - Risk 60-74 years 1-dose series) 2017 COVID-19 Vaccine (2 - 2023-2 5 season) 2024 10/18/2021 Abdominal Aortic Aneurysm (AAA) Screen 10/07/2024 Cholesterol Screening (Lipid Panel) 10/07/2024 Colorectal Cancer Screening: Colonoscopy 10/07/2024 Depression Screening 10/07/2024 Diabetes: Annual Urine Albumin-Creatinine Ratio (uACR) 10/07/2024 04/22/2023 Diabetes: Blood Sugar Contro l Test (HGBA1C) 10/07/2024 04/22/2023 Falls Risk Assessment 10/07/2024 Hepatitis C Screening 10/07/2024 Hypertension/CHF/CAD Annual BMP Blood Test 10/07/2024 Medicare Annual Wellness Visit 10/07/2024 Social Influencers of Health Screening 10/07/2024 Influenza Vaccine (Season Ended) 2025 08/14/2023, 07/31/2020 HIB Vaccines Aged Out No longer eligi [...] on patient's age to complete this topic Insurance [facility] MEDICARE Member Subscriber Plan / Payer (Ef fective 2024-Present) Name:Raoul Garcia Relation to Subscriber:Self Name:Raoul Garcia Payer ID:[id number] Group ID:[id number] Type:Not on file Address: [place] [address] [address] [phone] Care Teams Hog Room Supervisor Relationship Specialty Start Date End Date Myriam Paulson MD [address] [facility] , [address] [facility] Physician Associ D/B/A: [facility] SHA Sawant PCP - General Internal Medicine 10/19/24
--- OUTSIDE RECORDS SUMMARY | 2025-02-10 10:49 | XMS_ITS | Clinical Summary ---
Author Organization [facility] Facility Address [address] [address] Care Team Providers Care Hat Forming Machine Operator Name Role Phone Myriam Fernández MD Primary Care Provider [phone] Allergies No known active allergies Medications ciclopirox [...] Diabetes: Hemoglobin A1C 07/23/2023 04/22/2023 Influenza Vaccine (Season Ended) 2025 Hepatitis B Vaccine Aged Out No longe r eligible based on patient's age to complete this topic Procedures Procedure Name Priority Date/Time Associated Diagnosis Comments HEMOGLOBIN A1C Routine 04/22/2023 9:23 AM EDT from Last 3 Months or Most Recently Relevant to Health Maintenance Results * (ABNORMAL) Hemoglobin A1c (04/22/2023 9:23 AM EDT) Hemoglobin A1C 9.3(H) (4.0-5.6) % [facility] Comment: MONITORING: In known diabetic patients, hemoglobin A1c targets should be discussed with health care provider. DIAGNOSTIC USE: ??The [place] Diabetes Association (ADA) and the World Health [...] Supplement 1 Testing performed or reported by [facility], a Service of [facility], [address] [place] [address] Kristian Gerber MD, Flight Test Data Acquisition Technician [facility]# [id number] 04/22/2023 9:23 AM EDT 04/22/2023 9:28 AM EDT us Kristofer Hurt MD LAB BLOOD ORDERABLES Final Re sult [facility] from Last 3 Months or Most Recently Relevant to Health Maintenance Insurance ([id number]) [facility] ([id number]) Care Teams Hat Forming Machine Operator Relationship Specialty Start Date End Date Myriam Fernández MD [address] [place], [place] PCP - General Internal Medicine 03/04/22
== END 2025-02-10 10:24 | disposition home or self-care (01) ==
LOC: HO.ENCR 09:43
PROVIDERS: PCP Internal Medicine; Visit Provider Physician Assistant Medical
DX: E11.42 Type 2 diabetes mellitus with diabetic polyneuropathy (principal)

== ENCOUNTER → 2025-02-10 09:42 | Outpatient (BNVA) | payer OTHER, SELFPAY | PROVIDERS: PCP Internal Medicine; Visit Provider Physician Assistant Medical | DX: E11.42 Type 2 diabetes mellitus with diabetic polyneuropathy (principal); E11.21 Type 2 diabetes mellitus with diabetic nephropathy; E78.5 Hyperlipidemia, unspecified; I10 Essential (primary) hypertension | CPT/HCPCS: 82947; 99212 ==

== ENCOUNTER 2025-03-22 08:18 | Outpatient (REF) | payer OTHER, SELFPAY ==
--- NOTE | ~2025-03-22 | US_ITS ---
EXAMINATION: US ABDOMEN LIMITED WITH LIVER ELASTOGRAPHY HISTORY: E11.9 - eval for hepatic steatosis TECHNIQUE: Real-time grayscale ultrasound imaging of the right upper quadrant was performed and images were reviewed. COMPARISON: Correlation is made with images of the liver from an unenhanced scan a chest CT dated 02/11/2021. FINDINGS: Liver: The right lobe of the liver measures 15.5 cm in size. The left lobe of the liver measures 11.6 cm in size. The liver demonstrates increased echotexture, consistent with steatosis. There is a hypoechoic mass adjacent to the gallbladder measuring 4.0 x 3.2 x 3.3 cm. No intrahepatic biliary ductal dilatation is identified. There is normal hepatopedal flow in the portal vein. Ultrasound elastography of the liver was performed with 10 separate measurements of the liver parenchyma with the patient in the supine position. Measurements were obtained approximately 2 cm below Omari's capsule and perpendicular to the capsule. Images are of satisfactory quality. The median shear wave velocity is 1.33 m/s. The interquartile range/median (IQR/median) is 0.21. Gallbladder and biliary tree: The gallbladder is unremarkable, without evidence of calculi, wall thickening, or pericholecystic fluid. There is no sonographic Gilman sign. The common bile duct is normal in caliber measuring 3 mm. Right Kidney: The right kidney measures 10.8 cm in length and demonstrates a 1.5 x 1.0 x 1.5 cm cyst in the interpolar region and a 1.1 x 0.9 x 1.2 cm cyst at the lower pole. The right kidney is otherwise unremarkable, without evidence of solid masses, hydronephrosis, or calculi. Pancreas: The pancreas is obscured by bowel gas. Abdominal aorta and inferior vena cava: The visualized portions of the abdominal aorta and inferior vena cava are normal in caliber. There is no free fluid in the right upper quadrant. US/US abdomen lehman w elastography IMPRESSION: 1. Hepatomegaly and hepatic steatosis. 2. 4.0 x 3.2 x 3.3 cm hypoechoic mass adjacent to the gallbladder. Further evaluation with MRI of the liver is recommended. 3. Findings were delivered to JAMEL Louise by secure text message on 03/22/2025 at 9:40 AM. The median shear wave velocity in the liver is 1.33 m/s, corresponding to a median liver stiffness of 5.33 kPa. The IQR/median value is 0.21. This is indicative of a poor quality data set, and the estimated liver stiffness may be unreliable. Findings are indicative of a low elastography value which rules out advanced chronic liver disease in asymptomatic patients. REFERENCE: Society of Radiologists in Ultrasound Liver Stiffness Thresholds (2020): LIVER STIFFNESS THRESHOLDS: *Shear wave velocity less than 1.3 m/s (Liver Stiffness equal or less than 5 kPa): High probability of being normal. *Shear wave velocity less than 1.7 m/s (Liver Stiffness less than 9 kPa): In the absence of other known clinical signs, rules out compensated advanced chronic liver disease. *Shear wave velocity between 1.7-2.1 m/s (Liver Stiffness 9-13 kPa): Suggestive of compensated advanced chronic liver disease but need further test for confirmation. *Shear wave velocity between 2.1-2.4 m/s (Liver Stiffness 13-17 kPa): Rules in compensated advanced chronic liver disease. *Shear wave velocity greater than 2.4 m/s (Liver Stiffness over 17 kPa): Suggestive of clinically significant portal hypertension. QUALITY OF DATA SET: *IQR/Median value equal or less than 0.30 implies a quality data set. *IQR/Median value over 0.30 implies a poor quality data set. SIGNIFICANT CHANGE FROM PRIOR EXAM: Significant change if liver stiffness measurement is 10% or greater from prior exam. OTHER CONSIDERATIONS: The stage of liver fibrosis may be overestimated in the setting of acute hepatitis, liver inflammation, elevated liver function tests, hepatic vascular congestion, obstructive cholestasis, non-fasting state, and infiltrative diseases such as amyloidosis and lymphoma. In some patients with NAFLD, the liver stiffness thresholds for compensated advanced chronic liver disease may be lower. In causes other than viral hepatitis and NAFLD, liver stiffness thresholds are not well established. Electronically signed by: Wali Justice MD 03/22/2025 09:41 AM EDT
--- OUTSIDE RECORDS SUMMARY | 2025-03-22 08:26 | XMS_ITS | Clinical Summary ---
Author Organization [facility] Address [address] [place] [address] Care Team Providers Care Franchise Development Manager Name Role Phone Unavailable Primary Care Provider [...] (05/15/2022): Was done 01/30/22 Diabetes ([facility]) 05/15/2022 High blood pressure 05/15/2022 Abnormal cholesterol test 05/15/2022 Asthma ([facility]) 05/15/2022 Social History Tobacco Use Types Packs/Day [...] Falls Prevention 2022 Dental Examination 05/17/2023 05/15/2022 [id number] (2023- season) 2024 Imm-Influenza (#1) 2024 Alcohol [...] Most Recently Relevant to Health Maintenance Insurance [facility] MEDICAID Member Subscriber Plan / Payer (Ef fective 2022-Present) Name:Raoul Rojo Relation to Subscriber:Self Name:Jose PrabhjotRaoul seymour Payer ID:[id number] Group ID:Not on file Type:Medicaid Address: [address] [id number] MEDICARE - [place] [facility] - [facility]
--- OUTSIDE RECORDS SUMMARY | 2025-03-22 08:27 | XMS_ITS | Clinical Summary ---
Author Organization [facility] Address [address] [place] [address] Phone Care Team Providers Care Order Runner Name Role Phone Myriam Paulosn MD Primary Care Provider Allergies Active Allergy Reactions Criticality Noted Date Comments Penicillins Other 10/07/2024 Medications No known medications Active Problems No known active problems Medical History Medical History Date Comments Diabetes mellitus ([facility] V24, [facility] V28) Hypertension HLD (hyperlipidemia) Anxiety Asthma Social History [...] age to complete this topic Meningococcal B Vaccine Aged Out No l onger eligible based on patient's age to complete this topic RSV Immunization Patients Under 20 months Aged Out No longer eligible b ased on patient's age to complete this topic Varicella Vaccines Aged Out No longer eligible based on patient's age to complete this topic Insurance [facility] MEDICARE Member Subscriber Plan / Payer (Ef fective 2024-Present) Name:Raoul Garcia Relation to Subscriber:Self Name:Raoul Garcia Payer ID:[id number] Group ID:[id number] Type:Not on file Address: [facility] [address] [phone] Care Teams Order Runner Relationship Specialty Start Date End Date Myriam Paulson MD [address] [place] [address] , [address] [facility] Physician Associ D/B/A: [facility] SHA Sawant PCP - General Internal Medicine 10/19/24
--- OUTSIDE RECORDS SUMMARY | 2025-03-22 08:27 | XMS_ITS | Data Portability ---
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 I have reviewed and agree with the Assessment and Plan as documented by the Field Court Researcher. We discussed the diagnostic uncertainty of home visits and the risk associated with this. The patient given the opportunity to ask questions via buck presser Advised if develops CP/severe SOB/turning blue/uncontrolle d n/v/d or black/bloody emesis or stool/ AMS/ syncope/ hi fever unresponsive to APAP to call 911- verbalized understanding of instruction Not available 02/29/2024 11:53:36 Plan of Treatment Reminders Order Date Submit Date Provider Last Modified By Organization Details Last Modified Time Details Appointments None recorded. Lab rapid SARS CoV 2 Ag, QL IA, respiratory specimen [email or web address] [facility], [address] [place] [address], [id number] 4 11:56:42 rapid flu (A+B) [email or web address] [facility], [address] [place] [address], [phone] 4 11:56:45 Referral None recorded. Procedures None recorded. Surgeries None recorded. Imaging None recorded. Medication Orders azithromyci n 250 mg tablet 2023 024 [email or web address] 0 Not available 11:56:37 azithromyci n 250 mg tablet 2023 024 [facility], [address], [id number], 4 11:58:39 albuterol sulfate 2.5 mg/3 mL (0.083 %) solution for nebulizatio n 2023 024 [facility], [address], [id number], 4 11:58:39 Patient TargetsNo targets recorded. Patient InstructionsNo instructions recorded. Reason for Referral None Reported. Results Created Date Observation Date Name Description Value Unit Range Abnormal Flag Note LastModifiedBy Organization Detail LastModifiedTime 02/29/2002/29/2024 rapid flu (A+B) Flu negati ve Not Available [facility] ed [address] [place] [address], [phone] 02/29/2024 11:53:45 02/29/20 24 02/29/2024 rapid SARS CoV 2 Ag, QL IA, respi rator y speci men rapid SARS CoV 2 Ag, QL IA, respiratory specimen negati ve Not Available [facility] ed [address] [place] [address], [phone] 02/29/2024 11:53:44 Result Notes None recorded. Medical Equipment None Reported. Allergies Allergen ID Allergen Name Allergen Category Reaction Reaction Severity Criticality Documentation Date Start Date Code Code System Note Provider Name and Address Organization Details Recorded Time 4958 Product containin g penicilli n (product) medicatio n Not available Not available Not available 02/29/2024 66813 [id number] SNOMED Not Available [facility] - production [...] /min 18 /min 97 % 97 % 24267.4 96 g 98.1 [degF] 131 mm[Hg] 81 mm[Hg] Not Available [facility] - production 4 11:49:48 Date Recorded Respiratory rate Oxygen saturation Oxygen saturation in Arterial blood by Pulse oximetry Body temperature Body weight Heart rate Systolic blood pressure Diastolic blood pressure Provider Name and Address Organization Details Last Updated DateTime 2 12 /min 97 % 97 % 98 [degF] 43393.4 g 84 /min 131 mm[Hg] 81 mm[Hg] Not Available [facility] [employer] 2 13:17:16 Social History None recorded. Functional Status None recorded. Mental Status None recorded. Family History Nothing Reported. Medical History No medical history recorded. Past Encounters Encounter ID Performer Location Encounter Start Date Encounter Closed Date Diagnosis/Indication Diagnosis SNOMED-CT Code Diagnosis ICD10 Code Diagnosis Note [id number] Yoon Paulson MD Main - [facility] [address] [place] [phone] 10/14/2022 13:17:12 10/16/2022 11:41:28 Viral upper respiratory tract infection 841387569 J06.9 67 year old male being evaluated for a week of cough in the setting of recent COVID exposure. Patient without difficulty breathing, or taking PO. Exam notable for normal vital signs, POC COVID negative. Reassuranc e offered, no further interventi on indicated. [id number] Joan Barnes MD Main - [facility] [address] [place] [phone] 02/29/2024 11:49:45 02/29/2024 17:25:55 Upper respiratory infection 82351086 J06.9 medic left him his tubing for [...] Recorded Advance Directives Directive None Recorded Payers Insurance Date Sequence Insurance Name Policy Number Policy Mcmahon Covered Member ID Mcmahon Member ID Guarantor Name 02/29/2024 1 [facility] - DOS PRIOR TO 2023 - DUAL ELIGIBLE (MEDICARE REPLACEMENT/AD VANTAGE - HMO) Raoul Rick [id number] Raoul Rick 02/29/2024 1 [facility] OR AFTER 2023 - DUAL ELIGIBLE - [employer]CI OPTIONS AND ONE CARE (MEDICARE REPLACEMENT/AD VANTAGE - HMO) Raoul Rick [id number] Raoul Rick Notes Date Note Type Note Provider Name and Address Organization Details Recorded Time 10/14/2022 text/html HPI: Neighbor reports member had positive COVID exposure from [employer], negative home test, symptomatic for URI. Reports productive cough, sneezing, itchy throat, afebrile. Would like to be assessed and tested for viral panel. No home pulse ox. ..................... ..................... ..................... ..................... ..................... ..................... ............... CRC Nursing Assessment: Comments: CRC RN DID NOT NEED FURTHER INFO ..................... ..................... ..................... ..................... ..................... ..................... ............... Field Court Researcher Note: Dispatch to home of 67-year-old male patient complaining of a cough times one week. Neighbor is here who speaks Bermudian and can interpret. Patient states he has a non productive cough when asked . Patient also relates that his pcp tested positive with Covid yesterday. Lungs present equal and clear in all otero vitals are as noted. Spi2 on room air is 97% . patient is afebrile. Both Covid and flu tests are performed and present negative. I will [place] [facility] [place]. Paulson further instructions. Dr. Paulson agrees that just supportive care at this time plenty of fluids and Robitussin DM. Should the patient developed for the symptoms were not get better he should contact his PCP. ..................... ..................... ..................... ..................... ..................... ..................... ............... Disposition: Fulfilled Yoon Paulson MD [address] [facility],[address], [place], [phone], [employer] 10/14/2022 13:19:56 02/29/2024 text/html HPI: Call transferred [...] ED and requests for home visit. Advised [facility] referral can be submitted. Member is Uzbek speaking. HANDY Garrido speaks Bermudian but will not be at mbr's home for visit. PMH includes but not limited to: DM2, asthma, HLD, Atherosclerotic heart disease of [place] coronary artery without angina pectoris, Presence of coronary, angioplasty implant and graft, anxiety, depression, unsteadiness, BPH,incontinence, h/o TBI, h/o fall, fatty liver, scoliosis,HTN ..................... ..................... ..................... ..................... ..................... ..................... ............... CRC Nurse Triage Notes (Tiffany Mcclure): Comments: CRC RN DID NOT NEED FURTHER INFO ..................... ..................... ..................... ..................... ..................... ..................... ............... Field Court Researcher Note [facility] Steven [facility] Arrived to home where pt answered the door and was ambulating without difficulty. Pt is Uzbek speaking only so hand sole sewer services were utilized. Pt reports for the [...] past month while he was travelling in [place] and visiting family. V/S taken and WNL. [...] to having 13 years ago. [facility]ed with [facility] [place] Barnes who prescribed azithromycin for suspected infection, in addition to sending script for albuterol nebs to pharmacy. Pt educated on how to use nebulizer since he had forgotten how to connect hoses and fill chamber. Reviewed red flags for ED. Patient education provided. [facility] Orders: rapid SARS CoV 2 Ag, QL IA, respiratory specimen: Performed rapid flu (A+B): Performed ..................... ..................... ..................... ..................... ..................... ..................... ............... Disposition: FulfilledSEGMD: As above -Via hand sole sewer patient denies any known fevers, chills or sweats however he takes 1 dose of Tylenol daily for chronic pain plus his Coricidin HBP has 325 mg of Tylenol. Patient states FLORES is improved with his MDI. He denies orthopnea other than he coughs when lying flat Joan Barnes MD [address] [facility],[address], [place], [address], [employer] 02/29/2024 15:26:55
--- OUTSIDE RECORDS SUMMARY | 2025-03-22 08:27 | XMS_ITS | Clinical Summary ---
Author Organization Unknown Care Team Providers Care Lift Truck Mechanic Name Role Phone PJ JUNG MD, ROGE Unavailable Unavailable CESARIO DAN, CARMITA Unavailable Unavailable Payers Payer Name Policy Type Policy Number Effective Date Expira tion Date [facility] [id number] MEDICAID [facility] [id number] MEDICARE - NGS [place]/PR - PD [id number] Problems Condition Name Condition Details Condition Category [...] 03-31 00:00: 00 11-18 23:59 :00 No [id number] 1 capsule 2 TIMES DAILY 1 capsule 2 TIMES DAILY (route: oral) Med Classific ation: Electroly te Balance-N utritiona l Products Farxiga 10 mg tablet 12-22 00:00: 00 07-19 23:59 :00 No [id number] 1 tablet QD 1 tablet QD (route: oral) Alternate Route: PO. Med Classific ation: Endocrine Flovent HFA 220 mcg/actuati on aerosol inhaler -14 00:00: 00 11-18 23:59 :00 No [id number] 2 puff BID EACH DAY 2 puff BID EACH DAY (route: inhalation ) Alternate Route: BY MOUTH. Med Classific ation: Respirato ry Therapy Agents lisinopril 5 mg tablet 03-31 00:00: 00 12-12 23:59 :00 No [id number] 1 tablet DAILY 1 tablet DAILY (route: oral) Med Classific ation: Cardiovas cular Therapy Agents metformin 1,000 mg tablet 03-31 00:00: 00 11-18 23:59 :00 No [id number] 1 tablet DAILY 1 tablet DAILY (route: oral) Med Classific ation: Endocrine montelukast 10 mg tablet 03-31 00:00: 00 Yes [id number] 1 tablet DAILY 1 tablet DAILY (route: oral) Med Classific ation: Respirato ry Therapy Agents nystatin 100,000 unit/gram topical cream 03-31 00:00: 00 07-17 23:59 :00 No [id number] Per instruc tions 3 TIMES DAILY Per instructio ns 3 TIMES DAILY (route: topical) Med Classific ation: Dermatolo gical terbinafine HCl 250 mg tablet 02-07 00:00: 00 05-23 23:59 :00 No [id number] 1 tablet DAILY 1 tablet DAILY (route: oral) Med Classific ation: Anti-Infe ctive Agents dulaglutide 1.5 mg/0.5 mL subcutaneou s pen injector 12-17 00:00: 00 03-31 23:59 :00 No [id number] 0.5 mL Q WEEK 0.5 mL Q WEEK (route: subcutaneo us) Alternate Route: 1 SYRINGE UNDER THE SKIN. Med Classific ation: Endocrine Farxiga 10 mg tablet 08-01 00:00: 00 11-18 23:59 :00 No [id number] 1 tablet DAILY 1 tablet DAILY (route: oral) Med Classific ation: Endocrine Advair HFA 230 mcg-21 mcg/actuati on aerosol inhaler 11-20 00:00: 00 05-21 23:59 :00 No [id number] 2 puff DAILY 2 puff DAILY (route: inhalation ) Med Classific ation: Respirato ry Therapy Agents atorvastati n 10 mg tablet 11-20 00:00: 00 07-17 23:59 :00 No [id number] 1 tablet BEDTIME 1 tablet BEDTIME (route: oral) Med Classific ation: Cardiovas cular Therapy Agents Calcium 600 mg calcium (1,500 mg) tablet 11-20 00:00: 00 11-13 00:00 :00 No [id number] 1 tablet DAILY 1 tablet DAILY (route: oral) Med Classific ation: Electroly te Balance-N utritiona l Products fluticasone prop.50 mcg spray,suspe n-sod.chlor fede 0.9% nasal spray kit 11-20 00:00: 00 05-21 23:59 :00 No [id number] 2 spray DAILY 2 spray DAILY (route: nasal) Med Classific ation: Respirato ry Therapy Agents melatonin 5 mg tablet 11-20 00:00: 00 07-17 23:59 :00 No [id number] 1 tablet BEDTIME 1 tablet BEDTIME (route: oral) Med Classific ation: Central Nervous System Agents metformin 500 mg tablet 11-20 00:00: 00 09-21 23:59 :00 No [id number] 1 tablet DAILY 1 tablet DAILY (route: oral) Med Classific ation: Endocrine ProAir RespiClick 90 mcg/actuati on breath activated 11-20 00:00: 00 Yes [id number] 2 puff EVERY 4 HOURS 2 puff EVERY 4 HOURS (route: inhalation ) Med Classific ation: Respirato ry Therapy Agents amlodipine 5 mg tablet 2-03 00:00: 00 Yes [id number] 1 tablet DAILY 1 tablet DAILY (route: oral) Med Classific ation: Cardiovas cular Therapy Agents Farxiga 10 mg tablet 2-03 00:00: 00 Yes [id number] 1 tablet DAILY 1 tablet DAILY (route: oral) Med Classific ation: Endocrine tamsulosin 0.4 mg capsule 3-17 00:00: 00 Yes [id number] 1 capsule BEDTIME 1 capsule BEDTIME (route: oral) Med Classific ation: Genitouri nary Therapy Oyster Shell Calcium-Vit mccarty D3 500 mg (1,250 mg)-200 unit tablet 11-15 00:00: 00 09-21 23:59 :00 No [id number] 1 tablet DAILY 1 tablet DAILY (route: oral) Med Classific ation: Electroly te Balance-N utritiona l Products cinnamon bark-chromi um picolinate- ALA 500 mg-100 mcg-150 mg capsule 12-04 00:00: 00 09-21 23:59 :00 No [id number] 1000 mg DAILY 1000 mg DAILY (route: oral) Med Classific ation: Alternati ve Therapy multivitami n tablet 12-04 00:00: 00 Yes [id number] 1 tablet DAILY 1 tablet DAILY (route: oral) Med Classific ation: Electroly te Balance-N utritiona l Products Vitamin C 500 mg tablet 12-04 00:00: 00 09-21 23:59 :00 No [id number] 1 tablet DAILY 1 tablet DAILY (route: oral) Med Classific ation: Electroly te Balance-N utritiona l Products Aspirin Low Dose 81 mg tablet,chilango yed release 01-21 00:00: 00 11-23 23:59 :00 No [id number] 1 tablet DAILY 1 tablet DAILY (route: oral) Med Classific ation: Hematolog ical Agents metoprolol succinate ER 25 mg tablet,exte nded release 24 hr 15 00:00: 00 Yes [id number] 1 tablet DAILY 1 tablet DAILY (route: oral) Med Classific ation: Cardiovas cular Therapy Agents atorvastati n 20 mg tablet 05-21 00:00: 00 Yes [id number] 1 tablet BEDTIME 1 tablet BEDTIME (route: oral) Med Classific ation: Cardiovas cular Therapy Agents losartan 25 mg tablet 05-21 00:00: 00 Yes [id number] 1 tablet DAILY 1 tablet DAILY (route: oral) Med Classific ation: Cardiovas cular Therapy Agents Symbicort 160 mcg-4.5 mcg/actuati on HFA aerosol inhaler 05-21 00:00: 00 Yes [id number] 2 puff 2 TIMES DAILY 2 puff 2 TIMES DAILY (route: inhalation ) Med Classific ation: Respirato ry Therapy Agents Brilinta 90 mg tablet 05-21 00:00: 00 03-25 23:59 :00 No [id number] 1 tablet 2 TIMES DAILY 1 tablet 2 TIMES DAILY (route: oral) Med Classific ation: Hematolog ical Agents Brilinta 90 mg tablet 07-30 00:00: 00 03-25 23:59 :00 No [id number] 90 mg 2 TIMES DAILY 90 mg 2 TIMES DAILY (route: oral) Med Classific ation: Hematolog ical Agents sertraline 25 mg tablet 2021-11 00:00: 00 09-21 23:59 :00 No [id number] 1 tablet DAILY 1 tablet DAILY (route: [...] (route: topical) Med Classific ation: Dermatolo gical [place] 3-6-9 1,200 mg capsule 2022-11 0- 00:00: 00 09-21 23:59 :00 No 1 capsule DAILY 1 capsule DAILY (route: oral) Med Classific ation: Cardiovas cular Therapy Agents doxycycline hyclate 100 mg capsule 2022-11 00:00: 00 10-07 23:59 :00 No 1 capsule 2 TIMES DAILY 1 capsule 2 TIMES DAILY (route: oral) Med Classific ation: Anti-Infe ctive Agents ciclopirox 0.77 % topical cream 12-16 00:00: 00 12-30 23:59 :00 No Per instruc tions 2 TIMES DAILY Per instructio ns 2 TIMES DAILY (route: topical) Med Classific ation: Dermatolo gical Tradjenta 5 mg tablet 01-12 00:00: 00 03-31 23:59 :00 No 1 [...] Rybelsus 7 mg tablet 2023-11 00:00: 00 01-18 23:59 :00 No 1 tablet DAILY 1 tablet DAILY (route: oral) Med Classific ation: Endocrine sertraline 50 mg tablet 2023-11 00:00: 00 Yes 1 tablet DAILY 1 tablet DAILY (route: oral) Med Classific ation: Central Nervous System Agents Rybelsus 14 mg tablet 01-23 00:00: 00 Yes 1 tablet DAILY 1 tablet DAILY (route: oral) Med Classific ation: Endocrine Vital Signs Vital Name Observation Time Observation Value Commen ts Temperature 2025-03-15 12:02:00.000 98.3 [degF] Temperature 2025-03-08 12:48:00.000 97.9 [degF] Temperature 2025-03-01 11:42:00.000 97.9 [degF] Temperature 2025-02-22 11:27:00.000 97.8 [degF] Temperature 2025-02-15 10:45:00.000 98.2 [degF] Temperature 2025-02-08 11:21:00.000 97.9 [degF] Temperature 2025-02-01 11:45:00.000 97.9 [degF] Temperature 2025-01-25 11:52:00.000 97.9 [degF] Pulse 2025-03-15 12:02:00.000 74 /min Pulse 2025-03-08 12:48:00.000 79 /min Pulse 2025-03-01 11:42:00.000 76 /min Pulse 2025-02-22 11:27:00.000 78 /min Pulse 2025-02-15 10:45:00.000 76 /min Pulse 2025-02-08 11:21:00.000 78 /min Pulse 2025-02-01 11:45:00.000 79 /min Pulse 2025-01-25 11:52:00.000 75 /min O2 Saturation (%) 2025-03-15 12:03:00.000 97 % O2 Saturation (%) 2025-03-08 12:48:00.000 97 % O2 Saturation (%) 2025-03-01 11:45:00.000 98 % O2 Saturation (%) 2025-02-22 11:27:00.000 97 % O2 Saturation (%) 2025-02-15 10:45:00.000 97 % O2 Saturation (%) 2025-02-08 11:21:00.000 97 % O2 Saturation (%) 2025-02-01 11:46:00.000 98 % O2 Saturation (%) 2025-01-25 11:52:00.000 97 % Respirations 2025-03-15 12:02:00.000 20 /min Respirations 2025-03-08 12:48:00.000 18 /min Respirations 2025-03-01 11:42:00.000 20 /min Respirations 2025-02-22 11:27:00.000 20 /min Respirations 2025-02-15 10:45:00.000 20 /min Respirations 2025-02-08 11:21:00.000 20 /min Respirations 2025-02-01 11:45:00.000 18 /min Respirations 2025-01-25 11:52:00.000 20 /min Systolic Blood Pressure 2025-03-15 12:02:00.000 119 mm [Hg] Systolic Blood Pressure 2025-03-08 12:48:00.000 134 mm [Hg] Systolic Blood Pressure 2025-03-01 11:42:00.000 127 mm [Hg] Systolic Blood Pressure 2025-02-22 11:27:00.000 127 mm [Hg] Systolic Blood Pressure 2025-02-15 10:45:00.000 127 mm [Hg] Systolic Blood Pressure 2025-02-08 11:21:00.000 127 mm [Hg] Systolic Blood Pressure 2025-02-01 11:45:00.000 134 mm [Hg] Systolic Blood Pressure 2025-01-25 11:52:00.000 134 mm [Hg] Diastolic Blood Pressure 2025-03-15 12:02:00.000 75 mm [Hg] Diastolic Blood Pressure 2025-03-08 12:48:00.000 82 mm [Hg] Diastolic Blood Pressure 2025-03-01 11:42:00.000 77 mm [Hg] Diastolic Blood Pressure 2025-02-22 11:27:00.000 81 mm [Hg] Diastolic Blood Pressure 2025-02-15 10:45:00.000 76 mm [Hg] Diastolic Blood Pressure 2025-02-08 11:21:00.000 73 mm [Hg] Diastolic Blood Pressure 2025-02-01 11:45:00.000 76 mm [Hg] Diastolic Blood Pressure 2025-01-25 11:52:00.000 76 mm [Hg] Plan of Treatment Planned Activity [...] OF PATIENTS MENTAL/BEHAVIORAL STATUS, ASSESS VITAL SIGNS ALLOW 2 PRNS FOR MEDICATION MANAGEMENT. [code = SKILLED NURSE TO O/A OF PATIENTS MENTAL/BEHAVIORAL STATUS, ASSESS VITAL SIGNS ALLOW 2 PRNS FOR MEDICATION MANAGEMENT.] Future Scheduled Test SKILLED NU RSE WILL MAINTAIN SITUATIONAL AWARENESS FOR SAFETY AND WILL NOTIFY CLINICAL TOLL TEST WORKER AND PHYSICIAN/PROVIDER WITH ANY CHANGE IN CONDITION. [code = SKILLED NURSE WILL MAINTAIN SITUATIONAL AWARENESS FOR SAFETY AND WILL NOTIFY CLINICAL TOLL TEST WORKER AND PHYSICIAN/PROVIDER WITH ANY CHANGE IN CONDITION.] Future Scheduled Test SKILLED NU RSE TO REVIEW PATIENT MEDICATIONS. INSTRUCT PATIENT/CAREGIVER ON MONITORING OF EFFECTIVENESS, ADVERSE DRUG REACTIONS, SIDE EFFECTS OF ALL MEDICATIONS (PRESCRIPTION/-OTC), AND HOW AND WHEN TO REPORT PROBLEMS. [code = SKILLED NURSE TO REVIEW PATIENT MEDICATIONS. INSTRUCT PATIENT/CAREGIVER ON MONITORING OF EFFECTIVENESS, ADVERSE DRUG REACTIONS, SIDE EFFECTS OF ALL MEDICATIONS (PRESCRIPTION/-OTC), AND HOW AND WHEN TO REPORT PROBLEMS.] Future Scheduled Test SKILLED NU RSE TO PRE-POUR MEDICATION PER MEDICATION LIST EVERY VISIT [code = SKILLED NURSE TO PRE-POUR MEDICATION PER MEDICATION LIST EVERY VISIT ] Future Scheduled Test SKILLED NU RSE FOR [...] BEING.] Future Scheduled Test SKILLED NU RSE TO PROVIDE TEACHING ON SIGNS AND SYMPTOMS AND MANAGEMENT OF HYPERTENSION. [code = SKILLED NURSE TO PROVIDE TEACHING ON SIGNS AND SYMPTOMS AND MANAGEMENT OF HYPERTENSION.] Future Scheduled Test SKILLED NU RSE FOR O/A AND TEACHING OF ENDOCRINE SYSTEM TO IDENTIFY CHANGES ASSOCIATED WITH EXACERBATION OF (SPECIFY ENDOCRINE DIAGNOSIS) FOR EARLY INTERVENTION OF COMPLICATIONS. [code = SKILLED NURSE FOR O/A AND TEACHING OF ENDOCRINE SYSTEM TO IDENTIFY CHANGES ASSOCIATED WITH EXACERBATION OF (SPECIFY ENDOCRINE DIAGNOSIS) FOR EARLY INTERVENTION OF COMPLICATIONS.] Future Scheduled Test SKILLED NU RSE TO PERFORM AND RECORD BLOOD SUGAR READING, AND PRN FOR SIGNS AND SYMPTOMS OF HYPO/HYPERGLYCEMIA. [code = SKILLED NURSE TO PERFORM AND RECORD BLOOD SUGAR READING, AND PRN FOR SIGNS AND SYMPTOMS OF HYPO/HYPERGLYCEMIA.] Future Scheduled Test SKILLED NU RSE TO INSTRUCT PATIENT/CAREGIVER ON COPD TO INCLUDE TEACHING AND SELF-MANAGEMENT RELATED TO COPD DISEASE PROCESS, SIGNS AND SYMPTOMS, AND COMPLICATIONS. [code = SKILLED NURSE TO INSTRUCT PATIENT/CAREGIVER ON COPD TO INCLUDE TEACHING AND SELF-MANAGEMENT RELATED TO COPD DISEASE PROCESS, SIGNS AND SYMPTOMS, AND COMPLICATIONS.] Future Scheduled Test SKILLED NU RSE FOR O/A OF NEUROCOGNITIVE AND BEHAVIORAL STATUS [code = SKILLED NURSE FOR O/A OF NEUROCOGNITIVE AND BEHAVIORAL STATUS] Goal 2024-05-25 Patient Goal - I MPROVE MEDICATION COMPLIANCE Goal 2024-07-26 Patient Goal - I MPROVE MEDICATION COMPLIANCE Goal 2024-09-21 Patient Goal - I MPROVE MEDICATION COMPLIANCE Goal 2024-11-23 Patient Goal - I MPROVE MEDICATION COMPLIANCE Goal 2025-01-18 Patient Goal - I MPROVE MEDICATION COMPLIANCE Goal Patient Goal - I MPROVE MEDICATION COMPLIANCE Goal Provider Goal - A PLAN OF CARE WILL BE ESTABLISHED THAT MEETS PATIENT'S HALFWAY NEEDS AND INCLUDES PATIENT GOAL FOR HOME HEALTH. Goal Provider Goal - ALTERED MENTAL/BEHAVIORAL STATUS WILL BE IDENTIFIED PROMPTLY AND INTERVENTION INITIATED QUICKLY TO MINIMIZE ASSOCIATED RISKS THROUGHOUT CERTIFICATION PERIOD. Goal Provider Goal - PATIENT WILL REMAIN SAFE IN THE COMMUNITY AND WILL BE FREE OF DANGER TO SELF AND OTHERS THROUGHOUT THE CERTIFICATION PERIOD. Goal Provider Goal - PATIENT/CAREGIVER WILL VERBALIZE UNDERSTANDING OF EDUCATION PROVIDED ON MEDICATIONS BY THE END OF THE CERTIFICATION PERIOD. [...] CERTIFICATION. Goal Provider Goal - PATIENT/CAREGIVER WILL VERBALIZE SIGNS AND SYMPTOMS OF HYPERTENSION AND WILL BE ABLE TO DEMONSTRATE ABILITY TO MANAGE EXACERBATION BY END OF THE EPISODE. Goal Provider Goal - PATIENT/CAREGIVER WILL VERBALIZE SIGNS AND SYMPTOMS OF EXACERBATION OF (SPECIFY ENDOCRINE DIAGNOSIS) TO REPORT TO NURSE/PHYSICIAN THROUGHOUT THE CERTIFICATION PERIOD. Goal Provider Goal - BLOOD SUGAR READING WILL BE OBTAINED ORDERED THROUGHOUT CERTIFICATION PERIOD. Goal Provider Goal - PATIENT/CAREGIVER WILL VERBALIZE/DEMONSTRATE KNOWLEDGE AND MANAGEMENT OF COPD BY END OF EPISODE. Goal Provider Goal - PATIENT WILL BE ABLE TO PERFORM DAILY FUNCTIONS AND MAINTAIN OPTIMAL BEHAVIORAL/NEUROCOGNITIVE STATUS THROUGHOUT CERTIFICATION PERIOD. Encounters Start Date/Time End Date/Time Encounter Type Admission Type Attending [facility] Care Facility Care Department Encounter ID Discharge Date Discharge Status Discharge Condition Discharge Reason Percent Goals Met 2025-01-23 00:00:00 2025-03-23 00:00:00 Outpatient RECERTIFIC ATION CARMITA NASSAR [facility] [id number] 30.43
--- OUTSIDE RECORDS SUMMARY | 2025-03-22 08:27 | XMS_ITS | Clinical Summary ---
Author Organization Unknown Care Team Providers Care Senior Professional Services Consultant Name Role Phone PJ JUNG MD, ROGE Unavailable Unavailable CESARIO DAN, CARMITA Unavailable Unavailable Payers Payer Name Policy Type Policy Number Effective Date Expira tion Date [facility] [id number] MEDICAID [facility] [id number] MEDICARE - [place]/DC - PD [id number] Problems Condition Name Condition Details Condition Category [...] 03-31 00:00: 00 11-18 23:59 :00 No [id number] 1 capsule 2 TIMES DAILY 1 capsule 2 TIMES DAILY (route: oral) Med Classific ation: Electroly te Balance-N utritiona l Products Farxiga 10 mg tablet 12-22 00:00: 00 07-19 23:59 :00 No [id number] 1 tablet QD 1 tablet QD (route: oral) Alternate Route: PO. Med Classific ation: Endocrine Flovent HFA 220 mcg/actuati on aerosol inhaler -14 00:00: 00 11-18 23:59 :00 No [id number] 2 puff BID EACH DAY 2 puff BID EACH DAY (route: inhalation ) Alternate Route: BY MOUTH. Med Classific ation: Respirato ry Therapy Agents lisinopril 5 mg tablet 03-31 00:00: 00 12-12 23:59 :00 No [id number] 1 tablet DAILY 1 tablet DAILY (route: oral) Med Classific ation: Cardiovas cular Therapy Agents metformin 1,000 mg tablet 03-31 00:00: 00 11-18 23:59 :00 No [id number] 1 tablet DAILY 1 tablet DAILY (route: oral) Med Classific ation: Endocrine montelukast 10 mg tablet 03-31 00:00: 00 Yes [id number] 1 tablet DAILY 1 tablet DAILY (route: oral) Med Classific ation: Respirato ry Therapy Agents nystatin 100,000 unit/gram topical cream 03-31 00:00: 00 07-17 23:59 :00 No [id number] Per instruc tions 3 TIMES DAILY Per instructio ns 3 TIMES DAILY (route: topical) Med Classific ation: Dermatolo gical terbinafine HCl 250 mg tablet 02-07 00:00: 00 05-23 23:59 :00 No [id number] 1 tablet DAILY 1 tablet DAILY (route: oral) Med Classific ation: Anti-Infe ctive Agents dulaglutide 1.5 mg/0.5 mL subcutaneou s pen injector 12-17 00:00: 00 03-31 23:59 :00 No [id number] 0.5 mL Q WEEK 0.5 mL Q WEEK (route: subcutaneo us) Alternate Route: 1 SYRINGE UNDER THE SKIN. Med Classific ation: Endocrine Farxiga 10 mg tablet 08-01 00:00: 00 11-18 23:59 :00 No [id number] 1 tablet DAILY 1 tablet DAILY (route: oral) Med Classific ation: Endocrine Advair HFA 230 mcg-21 mcg/actuati on aerosol inhaler 11-20 00:00: 00 05-21 23:59 :00 No [id number] 2 puff DAILY 2 puff DAILY (route: inhalation ) Med Classific ation: Respirato ry Therapy Agents atorvastati n 10 mg tablet 11-20 00:00: 00 07-17 23:59 :00 No [id number] 1 tablet BEDTIME 1 tablet BEDTIME (route: oral) Med Classific ation: Cardiovas cular Therapy Agents Calcium 600 mg calcium (1,500 mg) tablet 11-20 00:00: 00 11-13 00:00 :00 No [id number] 1 tablet DAILY 1 tablet DAILY (route: oral) Med Classific ation: Electroly te Balance-N utritiona l Products fluticasone prop.50 mcg spray,suspe n-sod.chlor fede 0.9% nasal spray kit 11-20 00:00: 00 05-21 23:59 :00 No [id number] 2 spray DAILY 2 spray DAILY (route: nasal) Med Classific ation: Respirato ry Therapy Agents melatonin 5 mg tablet 11-20 00:00: 00 07-17 23:59 :00 No [id number] 1 tablet BEDTIME 1 tablet BEDTIME (route: oral) Med Classific ation: Central Nervous System Agents metformin 500 mg tablet 11-20 00:00: 00 09-21 23:59 :00 No [id number] 1 tablet DAILY 1 tablet DAILY (route: oral) Med Classific ation: Endocrine ProAir RespiClick 90 mcg/actuati on breath activated 11-20 00:00: 00 Yes [id number] 2 puff EVERY 4 HOURS 2 puff EVERY 4 HOURS (route: inhalation ) Med Classific ation: Respirato ry Therapy Agents amlodipine 5 mg tablet 2- 00:00: 00 Yes [id number] 1 tablet DAILY 1 tablet DAILY (route: oral) Med Classific ation: Cardiovas cular Therapy Agents Farxiga 10 mg tablet 2-03 00:00: 00 Yes [id number] 1 tablet DAILY 1 tablet DAILY (route: oral) Med Classific ation: Endocrine tamsulosin 0.4 mg capsule 3-17 00:00: 00 Yes [id number] 1 capsule BEDTIME 1 capsule BEDTIME (route: oral) Med Classific ation: Genitouri nary Therapy Oyster Shell Calcium-Vit mccarty D3 500 mg (1,250 mg)-200 unit tablet 11-15 00:00: 00 09-21 23:59 :00 No [id number] 1 tablet DAILY 1 tablet DAILY (route: oral) Med Classific ation: Electroly te Balance-N utritiona l Products cinnamon bark-chromi um picolinate- ALA 500 mg-100 mcg-150 mg capsule 12-04 00:00: 00 09-21 23:59 :00 No [id number] 1000 mg DAILY 1000 mg DAILY (route: oral) Med Classific ation: Alternati ve Therapy multivitami n tablet 12-04 00:00: 00 Yes [id number] 1 tablet DAILY 1 tablet DAILY (route: oral) Med Classific ation: Electroly te Balance-N utritiona l Products Vitamin C 500 mg tablet 12-04 00:00: 00 09-21 23:59 :00 No [id number] 1 tablet DAILY 1 tablet DAILY (route: oral) Med Classific ation: Electroly te Balance-N utritiona l Products Aspirin Low Dose 81 mg tablet,[place] yed release 01-21 00:00: 00 11-23 23:59 :00 No [id number] 1 tablet DAILY 1 tablet DAILY (route: oral) Med Classific ation: Hematolog ical Agents metoprolol succinate ER 25 mg tablet,exte nded release 24 hr 01-21 00:00: 00 Yes [id number] 1 tablet DAILY 1 tablet DAILY (route: oral) Med Classific ation: Cardiovas cular Therapy Agents atorvastati n 20 mg tablet 05-21 00:00: 00 Yes [id number] 1 tablet BEDTIME 1 tablet BEDTIME (route: oral) Med Classific ation: Cardiovas cular Therapy Agents losartan 25 mg tablet 05-21 00:00: 00 Yes [id number] 1 tablet DAILY 1 tablet DAILY (route: oral) Med Classific ation: Cardiovas cular Therapy Agents Symbicort 160 mcg-4.5 mcg/actuati on HFA aerosol inhaler 05-21 00:00: 00 Yes [id number] 2 puff 2 TIMES DAILY 2 puff 2 TIMES DAILY (route: inhalation ) Med Classific ation: Respirato ry Therapy Agents Brilinta 90 mg tablet 05-21 00:00: 00 03-25 23:59 :00 No [id number] 1 tablet 2 TIMES DAILY 1 tablet 2 TIMES DAILY (route: oral) Med Classific ation: Hematolog ical Agents Brilinta 90 mg tablet 07-30 00:00: 00 03-25 23:59 :00 No [id number] 90 mg 2 TIMES DAILY 90 mg 2 TIMES DAILY (route: oral) Med Classific ation: Hematolog ical Agents sertraline 25 mg tablet 2021-11 00:00: 00 09-21 23:59 :00 No [id number] 1 tablet DAILY 1 tablet DAILY (route: [...] 07-15 00:00: 00 09-21 23:59 :00 No [id number] 1 inch 2 TIMES DAILY 1 inch 2 TIMES DAILY (route: topical) Med Classific ation: Dermatolo gical nystatin-tr iamcinolone 100,000 unit/g-0.1 % topical cream 07-15 00:00: 00 09-21 23:59 :00 No [id number] 1 cm DAILY 1 cm DAILY (route: topical) Med Classific ation: Dermatolo gical [place] 3-6-9 1,200 mg capsule 2022-11 00:00: 00 09-21 23:59 :00 No [id number] 1 capsule DAILY 1 capsule DAILY (route: oral) Med Classific ation: Cardiovas cular Therapy Agents doxycycline hyclate 100 mg capsule 2022-11 00:00: 00 10-07 23:59 :00 No 1 capsule 2 TIMES DAILY 1 capsule 2 TIMES DAILY (route: oral) Med Classific ation: Anti-Infe ctive Agents ciclopirox 0.77 % topical cream 07 00:00: 00 12-30 23:59 :00 No [id number] Per instruc tions 2 TIMES DAILY Per instructio ns 2 TIMES DAILY (route: topical) Med Classific ation: Dermatolo gical Tradjenta 5 mg tablet 01-12 00:00: 00 03-31 23:59 :00 No [id number] 1 tablet DAILY 1 tablet DAILY (route: oral) Med Classific ation: Endocrine Trulicity 1.5 mg/0.5 mL subcutaneou s pen injector 03-31 00:00: 00 07-27 23:59 :00 No [id number] Per instruc tions WEEKLY Per instructio ns WEEKLY (route: subcutaneo us) Med Classific ation: Endocrine Trulicity 3 mg/0.5 mL subcutaneou s pen injector 07-27 00:00: 00 09-21 23:59 :00 No 3 [...] AWARENESS FOR SAFETY AND WILL NOTIFY CLINICAL STRATEGIC PLANNER AND PHYSICIAN/PROVIDER WITH ANY CHANGE IN CONDITION. [code = SKILLED NURSE WILL MAINTAIN SITUATIONAL AWARENESS FOR SAFETY AND WILL NOTIFY CLINICAL STRATEGIC PLANNER AND PHYSICIAN/PROVIDER WITH ANY CHANGE IN CONDITION.] [...] CARE WILL BE ESTABLISHED THAT MEETS PATIENT'S FCI NEEDS AND INCLUDES PATIENT GOAL FOR HOME [...] Date/Time Encounter Type Admission Type Attending [facility] Care [facility] Care Department Encounter ID Discharge Date Discharge Status Discharge Condition Discharge Reason Percent Goals Met 2025-01-23 00:00:00 2025-03-23 00:00:00 Outpatient RECERTIFIC ATION CARMITA NASSAR [facility] [id number] 30.43
--- OUTSIDE RECORDS SUMMARY | 2025-03-22 08:27 | XMS_ITS | Clinical Summary ---
Author Organization [facility] Personal Style Finder [facility] Facility Address [address] [address] Care Team Providers Care Marine Underwriter Name Role Phone Myriam Fernández MD Primary Care Provider [phone] Allergies No known active allergies Medications ciclopirox [...] Due Date Last Done Comments Pneumococcal Vaccine: 50+ Ye ars (1 of 2 - PCV) 01/18/1976 Colorectal Cancer Screening: Annual FOBT 2006 Colorectal [...] AM EDT) Hemoglobin A1C 9.3(H) (4.0-5.6) % [facility] Comment: MONITORING: In known diabetic patients, hemoglobin A1c targets should be discussed with health care provider. DIAGNOSTIC USE: ??The [place] Diabetes Association (ADA) and the World Health [...] Supplement 1 Testing performed or reported by [facility], a Service of [facility], [address] [place] [id number] Kristian Gerber MD, Transit Mixer Operator [facility]# [id number] 04/22/2023 9:23 AM EDT 04/22/2023 9:28 AM EDT us Kristofer Hurt MD LAB BLOOD ORDERABLES Final Re sult [facility] from Last 3 Months or Most Recently Relevant to Health Maintenance Insurance ([id number]) [facility] ([id number]) Care Teams Marine Underwriter Relationship Specialty Start Date End Date Myriam Fernández MD [address] [place], [place] PCP - General Internal Medicine 03/04/22
== END 2025-03-22 08:19 | disposition home or self-care (01) ==
LOC: HO.US 08:18
PROVIDERS: PCP Internal Medicine; Visit Provider Physician Assistant Medical
DX: E11.9 Type 2 diabetes mellitus without complications (principal)
CPT/HCPCS: 76705; 76981

== ENCOUNTER → 2025-03-22 08:21 | Outpatient (BNV) | payer OTHER, SELFPAY | PROVIDERS: PCP Internal Medicine; Visit Provider Radiology Diagnostic Radiology | DX: K82.8 Other specified diseases of gallbladder (principal); K76.0 Fatty (change of) liver, not elsewhere classified; R16.0 Hepatomegaly, not elsewhere classified | CPT/HCPCS: 76705; 76981 ==

== ENCOUNTER 2025-04-04 12:37 | Outpatient (AMB) | payer OTHER, SELFPAY ==
--- OUTSIDE RECORDS SUMMARY | 2025-04-04 12:41 | XMS_ITS | Clinical Summary ---
Author Organization [facility] Address [address] [place] [address] Care Team Providers Care Corrections Corporal Name Role Phone Unavailable Primary Care Provider [...] 05/15/2022 Overview (05/15/2022): Was done 01/30/22 Diabetes ([facility]) 05/15/2022 High blood pressure 05/15/2022 Abnormal cholesterol test 05/15/2022 Asthma ([facility]) 05/15/2022 Social History Tobacco Use Types Packs/Day [...] Falls Prevention 2022 Dental Examination 05/17/2023 05/15/2022 [id number] (2023- season) 2024 Imm-Influenza (#1) 2024 Alcohol [...] Most Recently Relevant to Health Maintenance Insurance [facility] MEDICAID Member Subscriber Plan / Payer (Ef fective 2022-Present) Name:Raoul Rojo Relation to Subscriber:Self Name:Jose PrabhjotRaoul seymour Payer ID:[id number] Group ID:Not on file Type:Medicaid Address: [address] [id number] [place]ARE - [place] [facility]
--- NOTE | 2025-04-04 12:42 | MHC.PC.OV ---
Vital Signs 04/04/25 12:49 Height 5 ft 2 in Weight 189 lb BMI 34.6 BP 134/86 Blood Pressure Location Lt brachial Position Sitting Intake Visit Reasons: annual exam Intake Note: Patient here for an annual physical exam Corporate Law Specialist Required: No Accompanied by: Self / Same As Patient Allergies Penicillins Allergy (Verified 04/04/25 12:57) Hives Medication List - Last Reconciled 04/04/25 by Myriam Paulson MD albuterol sulfate 90 mcg/actuation (Ventolin HFA) 2 puffs inhalation Q6H PRN 30 days amlodipine 5 mg PO DAILY 90 days atorvastatin 20 mg PO ONCE 90 days blood sugar diagnostic (FreeStyle Lite Strips) As directed to check glucose 3x/day blood-glucose meter (FreeStyle Lite Meter kit) Use as directed to monitor blood glucose. calcium carbonate-vitamin D3 500 mg-5 mcg (200 unit) (Os-Yosef 500 + D3) 1 tab PO DAILY 60 days cholecalciferol (vitamin D3) 25 mcg PO DAILY ciclopirox 0.77% 1 appl topical BID 2 weeks [custome molded shoe inserts As directed] dapagliflozin propanediol (Farxiga) 10 mg PO DAILY 3 months lancets (FreeStyle Lancets) Use to monitor blood glucose 3x/day. linagliptin (Tradjenta) 5 mg PO DAILY 90 days losartan 25 mg PO DAILY 90 days metformin ER 1,000 mg (2 x 500 mg) PO DAILY montelukast 10 mg PO BEDTIME 90 days nystatin-triamcinolone 100,000-0.1 unit/g-% 1 appl topical DAILY 30 days semaglutide (Rybelsus) 14 mg PO DAILY sertraline 25 mg PO DAILY 90 days Symbicort 160-4.5 mcg/actuation (budesonide-formoterol) 2 puffs inhalation BID 30 days NS tamsulosin 0.4 mg PO BEDTIME 90 days Tobacco use date assessed: 04/04/25 Fall risk assessment: 1 Fall in past year Last assessed Fall Risk: 04/04/25 Dental Screening Dental Screen Date: 04/04/25 Did you have a dental visit in the last 12 months?: No Did you have a dental problem in the last 6 months where you did not have access to dental care?: No Was dental information given to patient?: Patient declined HPI HPI Comments History of Present Illness Details The patient is a 70-year-old male presenting for his annual physical examination and review of his chronic medical conditions. His history includes Type 2 Diabetes Mellitus, for which he achieves partial glucose control as evidenced by a Hemoglobin A1c of 7.4. Despite improved control, he experiences dietary challenges and remains on a non-insulin regimen for diabetes management. For his cardiovascular conditions, the patient has a history of hypertension managed with amlodipine and hyperlipidemia treated with atorvastatin. In 2021, he experienced a coronary artery-related myocardial infarction, subsequently managed through catheterization. He has a reported history of asthma, managed with Symbicort and indicates discontinuation of another asthma medication. His additional medication history includes losartan, Farxiga, Trajenta, sertraline, tamsulosin, and calcium with vitamin D supplementation, aligning with his medical needs for hypertension, diabetes, depression, and benign prostatic hyperplasia. Complains of memory loss and will be referred to Neurology.. Significant past procedures include multiple colonoscopies, although he is unclear on the date it was last performed. Concerns regarding a liver mass have arisen, necessitating further imaging with an abdominal MRI planned. He reports a penicillin allergy and is due for a pneumococcal vaccination, which will be addressed during the current visit. - Pneumococcal vaccination pending; plan to administer during the visit. - Hepatitis B vaccination status not discussed. - Screening colonoscopy to follow-up on past procedures; date of last screening unreported by patient and declines any type of screening for colon cancer. - Abdominal MRI recommended following identification of a liver mass. 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 Father No problems noted. Social History Housing: Apartment Alcohol intake: former Patient Tobacco Use Status: Former Tobacco user e-Cigarette/Vaping Use: Never Used Second Hand Smoke Exposure: No service: No Current occupational status: disabled Cognitive needs: No (cane) Hearing needs: Yes Vision needs: Yes (glasses) Questionnaire PHQ-9 Over the last 2 weeks, how often have you been bothered by any of the following problems? 1. Little interest or pleasure in doing things: not at all 2. Feeling down, depressed, or hopeless: several days 3. Trouble falling or staying asleep, or sleeping too much: several days 4. Feeling tired or having little energy: several days 5. Poor appetite or overeating: not at all 6. Feeling bad about yourself - or that you are a failure or have let yourself or your family down: several days 7. Trouble concentrating on things, such as reading the newspaper or watching television: not at all 8. Moving or speaking so slowly that other people could have noticed. Or the opposite - being so fidgety or restless that you have been moving around a lot more than usual: not at all 9. Thoughts that you would be better off or of hurting yourself in some way: not at all Total score: 4 Depression Screening Interpretation: Positive Depression Screening Follow-up: Existing condition and Follow-up Visit Requested Depression Screening Done: Yes 84427 - PHQ-9 Billing: Yes Source: Developed by Drs. Wali Theodore, Larissa Reeves, Don Campbell and colleagues, with an educational romel from [employer]. Thrive Questionnaire Date Thrive assessed: 04/04/25 I am a: Patient What is your living situation today?: I have a steady place to live Within the past 12 months, did the food you bought not last and you didn't have the money to get more?: Never true Within the past 12 months, did you worry whether your food would run out before you got money to buy more?: Never true Do you have trouble paying for medicines?: No Do you have trouble getting transportation to medical appointments?: No Do you have trouble paying your heating and electricity bill?: No Do you have trouble taking care of your child, family member or friend?: No Do you have trouble with day-to-day activities such as bathing, preparing meals, shopping, managing finances, etc.?: No Are you currently unemployed and looking for a job?: Yes Are you interested in more education?: No Please select the resources that you would like help with: None Currently or been in a relationship where the following occur: No concerns reported THRIVE Score: 0 AUDIT C Alcohol Use Questionnaire (AUDIT-C) 1. How often do you have a drink containing alcohol?: Never Total Score: 0 Score Reviewed/Action Taken: No FLASH-7 AMB Questionnaire FLASH-7 Date FLASH - 7 assessed: 04/04/25 Feeling nervous, anxious, or on edge: 0 = Not at all Not being able to stop or control worryin = Not at all Worrying too much about different things: 0 = Not at all Trouble relaxin = Not at all Being so restless that it is hard to sit still: 0 = Not at all Becoming easily annoyed or irritable: 0 = Not at all Feeling afraid as if something awful might happen: 0 = Not at all Total FLASH-7 score (0-4 normal; 5-9 mild; 10-14 moderate; 15-21 severe): 0 Source: Developed by Drs. Wali Theodore, Larissa Reeves, Don Campbell and colleagues, with an educational romel from [employer]. FLASH-7 Assessment Billing FLASH-7 Assessment Tool: FLASH-7 Assessment 90253 Review of Systems Const All systems reviewed & are unremarkable except as noted in HPI and below Card Denies chest pain at rest, Denies chest pain with activity, Denies edema, Denies irregular heart rhythm, Denies claudication, Denies dyspnea, Denies dyspnea on exertion, Denies orthopnea, Denies paroxysmal nocturnal dyspnea and Denies slow heart rate Resp Denies cough, Denies dyspnea and Denies dyspnea on exertion GI Denies abdominal pain, Denies change in bowel habits, Denies excessive flatus, Denies nausea and Denies vomiting Neuro Denies behavioral changes and Denies lack of coordination Psych Denies behavioral changes Physical exam (Primary Care) Vital Signs: Last Vital Signs BP 134/86 04/04/25 12:49 BMI result Body Mass Index 34.6 BMI Assessment/Plan discussion: High BMI High, discussed plan: lifestyle, weight reduction, dietary and physical activity Tobacco/Smoking Status: Tobacco use Status Tobacco use date assessed 04/04/25 04/04/25 12:54 Patient Tobacco Use Status Former Tobacco user 04/04/25 12:45 e-Cigarette/Vaping Use Never Used 04/04/25 12:45 PHQ-9: PHQ-9 Score PHQ-9: Total score 4 04/04/25 12:59 Depression Screening Interpretation: Positive Depression Screening Follow-up: Existing condition and Follow-up Visit Requested Thrive Assessment: Date of Thrive Assessment Date Thrive assessed 04/04/25 04/04/25 12:45 Currently or been in a relationship where the following occur: No concerns reported Const Limitations: ambulation with cane HENMT Head: Yes normal to inspection, Yes normocephalic and Yes atraumatic Ears: external ears normal Eyes General: appearance normal, both eyes and all related structures Eyelids: Yes eyelids normal Conjunctivae: conjunctivae normal Neck Neck: Yes normal visual inspection and Yes supple Resp Effort & Inspection: normal respiratory effort Auscultation: clear to auscultation bilaterally Cardio Jugular venous distension: no JVD Rate: regular rate Rhythm: regular rhythm Heart sounds: S1 normal heart sound present and S2 normal heart sound present GI Inspection: Yes normal to inspection Palpation (GI): Soft to palpation and nontender Auscultation: normal bowel sounds Skin General skin exam: no rashes or lesions noted Neuro General: no focal motor deficits Extrem General: Yes full ROM Psych Appearance: grossly normal Results AMB Hemoglobin A1c AMB Hemoglobin A1c 7.4 % Last Edit by JODY Porter on 04/04/25 12:55 Immunizations pneumoc 20-christiano conj-dip cr(PF) 0.5 mL IM syringe Performing Provider: Myriam Paulson MD [facility] Administered by: JODY Porter on 04/04/25 13:14 Dose Route Admin Location Dispensed Lot Number Expiration Date [facility] Certified Driver Examiner 0.5 mL IM Left Deltoid 0.5 mL [id number] 12/10/25 [employer] VIS Given Date VIS Provided VIS Publication Date 04/04/25 Single Vaccine 23 Eligibility Eligibility Date Funding Source Not [facility] Eligible 04/04/25 Private Results Reviewed Results Reviewed: Laboratory Last Values Hgb A1c (Clinic) 7.4 % (4.0-6.0) H 04/04/25 12:42 Coding Level of Care Code Est Pt Level 3 (23031) Est Pt Prev Care >65y(22170) Diagnoses Physical exam Z00.00 Type 2 diabetes mellitus with diabetic polyneuropathy, without long-term current use of insulin E11.42 Diabetes mellitus complication detail: with polyneuropathy Diabetes mellitus complication status: with neurologic complications Memory loss R41.3 Liver mass R16.0 Additional Codes PHQ-9 - 32065 - PHQ-9 Billing: Yes ([id number]) FLASH-7 Assessment Billing - FLASH-7 Assessment Tool: FLASH-7 Assessment 26208 ([id number]) Time Spent (min) 34 Assessment & Plan Assessment & Plan (1) Physical exam: Code(s): Z00.00 - Encounter for general adult medical examination without abnormal findings Category: Medical (2) Type 2 diabetes mellitus, without long-term current use of insulin: Code(s): E11.9 - Type 2 diabetes mellitus without complications Category: Medical Qualifiers: Diabetes mellitus complication detail: with polyneuropathy Diabetes mellitus complication status: with neurologic complications Qualified Code(s): E11.42 - Type 2 diabetes mellitus with diabetic polyneuropathy (3) Memory loss: Code(s): R41.3 - Other amnesia Category: Medical (4) Liver mass: Code(s): R16.0 - Hepatomegaly, not elsewhere classified Category: Medical Plan The management of the patient's Type 2 Diabetes Mellitus involves reinforcement of dietary adherence and continuation of his current oral medications, Farxiga and Trajenta, which align with his A1c levels. For hypertension, amlodipine and losartan remain crucial, considering the patient?s cardiovascular history. Atorvastatin is continued for lipid management. The patient is to receive a pneumococcal vaccine for health maintenance. Asthma is managed with Symbicort. Attention is directed toward diagnostic evaluation for a liver mass through an MRI. Continuation of sertraline addresses depression needs. An updated review of colonoscopic procedures is necessary to ensure compliance with cancer screenings. Patient was informed and verbally consented to the use of an ambient scribe for clinic note documentation during this visit. I reviewed with the patient the status of his Type 2 Diabetes Mellitus, emphasizing the importance of diet in conjunction with current medication management including Farxiga and Trajenta. We discussed the individual's cardiovascular history, with emphasis on the necessity of continued use of amlodipine, losartan, and atorvastatin. The patient was informed about the imperative nature of imaging diagnostics for the liver mass, planning for MRI evaluation. The pneumococcal vaccine was outlined as part of his health maintenance, with consensus on administration during this visit. Asthma management using Symbicort continues, with attention to symptom changes. Mental health support via sertraline was acknowledged, alongside the need for ongoing follow-up. I reinforced the importance of preventive screenings, such as colonoscopy, which requires further scheduling adherence. The patient agreed with the outlined plans and expressed understanding and willingness to follow through on care recommendations. Orders: Orders AMB Hemoglobin A1c Today E11.42 - Type 2 diabetes mellitus with diabetic polyneuropathy Vitamin D 25-OH Total 4 Months E55.9 - Vitamin D deficiency, unspecified Comprehensive [place]. Panel Fast 4 Months E11.42 - Type 2 diabetes mellitus with diabetic polyneuropathy Lipid Panel 4 Months E78.5 - Hyperlipidemia, unspecified Microalbumin, Random (w Creat) 4 Months R80.9 - Proteinuria, unspecified Pneumococcal 20 Immunization Today Z23 - Encounter for immunization Referrals Neurology Referral R41.3 - Other amnesia Medications: New pneumoc 20-christiano conj-dip cr(PF) 0.5 mL IM ONCE 0.5 mL 0RF Z23 - Encounter for immunization Changed From lancets (FreeStyle Lancets) Use to monitor blood glucose 3x/day. 100 ea 5RF E11.9 - Type 2 diabetes mellitus without complications To lancets (FreeStyle Lancets) Use 1 lancet once a day 100 ea 5RF E11.9 - Type 2 diabetes mellitus without complications From blood sugar diagnostic (FreeStyle Lite Strips) As directed to check glucose 3x/day 100 ea 5RF E11.9 - Type 2 diabetes mellitus without complications To blood sugar diagnostic (FreeStyle Lite Strips) Use 1 test strip once a day 100 ea 5RF E11.9 - Type 2 diabetes mellitus without complications Patient Instructions: - Receive pneumococcal vaccination today. - Continue with current medications for diabetes, hypertension, and lipid management. - Follow dietary recommendations to aid in diabetes control. - Undergo scheduled MRI for further evaluation of the liver mass. - Resume taking Symbicort as prescribed for asthma. - Schedule next colonoscopy as advised. - Return for follow-up as recommended or if symptoms worsen.
[2025-04-04 12:49] VITALS: BP 134/86; BMI 34.6
== END 2025-04-04 13:17 | disposition home or self-care (01) ==
LOC: HO.HMCH 12:38
PROVIDERS: PCP Internal Medicine; Visit Provider Internal Medicine
DX: Z00.00 Encounter for general adult medical examination without abnormal findings (principal); E11.42 Type 2 diabetes mellitus with diabetic polyneuropathy; R41.3 Other amnesia; R16.0 Hepatomegaly, not elsewhere classified; Z23 Encounter for immunization

== ENCOUNTER → 2025-04-04 12:37 | Outpatient (BNVA) | payer OTHER, SELFPAY | PROVIDERS: PCP Internal Medicine; Visit Provider Internal Medicine | DX: Z00.01 Encounter for general adult medical examination with abnormal findings (principal); E11.42 Type 2 diabetes mellitus with diabetic polyneuropathy; J45.909 Unspecified asthma, uncomplicated; I10 Essential (primary) hypertension; F32.A Depression, unspecified; N40.0 Benign prostatic hyperplasia without lower urinary tract symptoms; R16.0 Hepatomegaly, not elsewhere classified; R41.3 Other amnesia; E55.9 Vitamin D deficiency, unspecified; E78.5 Hyperlipidemia, unspecified; R80.9 Proteinuria, unspecified; Z23 Encounter for immunization | CPT/HCPCS: 83036; 90471; 90677; 96127; 99212; 99397 ==

== ENCOUNTER → 2025-04-07 08:30 | Outpatient (BNV) | payer OTHER, SELFPAY | PROVIDERS: PCP Internal Medicine; Visit Provider Radiology Diagnostic Radiology | DX: K76.0 Fatty (change of) liver, not elsewhere classified (principal); K76.89 Other specified diseases of liver | CPT/HCPCS: 74183 ==

== ENCOUNTER 2025-04-07 08:32 | Outpatient (REF) | payer OTHER, SELFPAY ==
--- NOTE | ~2025-04-07 | MR_ITS ---
EXAMINATION: MR ABDOMEN WITHOUT THEN WITH IV CONTRAST HISTORY: R16.0 - Hepatomegaly, not elsewhere classified COMPARISON: Correlation is made with an abdominal ultrasound dated 03/22/2025. TECHNIQUE: Axial in and out of phase T1-weighted gradient echo, axial diffusion weighted, and axial and coronal HASTE T2 with fat saturation images were obtained through the abdomen. Subsequently, fat suppressed axial and coronal T1-weighted images were obtained after the intravenous administration of 9 mL Gadavist. FINDINGS: Liver: There is diffuse loss of signal intensity in the liver on opposed phase imaging, consistent with steatosis. Corresponding to the abnormality seen on ultrasound, there is a 3.6 cm mass in segment IV of the liver which is isointense on T2-weighted images and slightly hypointense on T1-weighted images to normal liver. There is a central T2 hyperintense scar. After the administration of intravenous gadolinium, there is intense homogeneous enhancement of the lesion in the arterial phase, except for the central scar. Delayed images demonstrate washout of the lesion and enhancement of the central scar. There is a pseudocapsule around the lesion, likely related to hepatic steatosis and compression of normal hepatic parenchyma. Findings are consistent with focal nodular hyperplasia. No additional liver mass is identified. The hepatic and portal veins are patent. There is no intra- or extrahepatic biliary dilatation. Gallbladder: No gallstones are identified. Spleen: The spleen is unremarkable. Pancreas: The pancreas is unremarkable. The pancreatic duct is normal in caliber. Adrenals: The adrenal glands are unremarkable. Kidneys: There are bilateral renal cysts measuring up to 1.5 cm on the right and 1.1 cm on the left.. There is no hydronephrosis. Lymph nodes: There is no retroperitoneal lymphadenopathy in the upper abdomen. Fluid: There is no ascites in the upper abdomen. Visualized bowel: The visualized bowels loops are unremarkable in appearance. Visualized bones: The visualized bones demonstrate normal marrow signal intensity. MR/MR abdomen wo/w con IMPRESSION: Hepatic steatosis. 3.6 cm mass in segment IV corresponding to the lesion noted on ultrasound, demonstrating imaging characteristics consistent with focal nodular hyperplasia, as described. Electronically signed by: Wali Justice MD 04/07/2025 10:10 AM EDT
--- OUTSIDE RECORDS SUMMARY | 2025-04-07 08:38 | XMS_ITS | Clinical Summary ---
Author Organization [facility] Address [address] [place] [address] Care Team Providers Care Winter Sports Manager Name Role Phone Unavailable Primary Care [...] Overview (05/15/2022): Was done 01/30/22 Diabetes ([facility]) 05/15/2022 High blood pressure 05/15/2022 Abnormal cholesterol test 05/15/2022 Asthma ([facility]) 05/15/2022 Social History Tobacco Use Types [...] Falls Prevention 2022 Dental Examination 05/17/2023 05/15/2022 Nnx-LDCIJ-30 (2023- season) 2024 Imm-Influenza (#1) 2024 Alcohol [...] Health Maintenance Insurance [facility] MEDICAID Member Subscriber Plan / Payer (Ef fective 2022-Present) Name:Raoul Rojo Relation to Subscriber:Self Name:Jose PrabhjotRaoul seymour Payer ID:[id number] Group ID:Not on file Type:Medicaid Address: [address] [id number] MEDICARE - [place] [facility] - DENTAL
[2025-04-07] MEDS: gadobutroL 10 ML VIAL IVPUSH (09:40)
== END 2025-04-07 08:33 | disposition home or self-care (01) ==
LOC: HO.MRI 08:32
PROVIDERS: PCP Internal Medicine; Visit Provider Physician Assistant Medical
DX: R16.0 Hepatomegaly, not elsewhere classified (principal)
CPT/HCPCS: 74183; A9585

== ENCOUNTER 2025-04-17 09:20 | Outpatient (AMB) | payer OTHER, SELFPAY ==
[2025-04-17 09:25] VITALS: BP 130/80; PULSE 84; BMI 34.3
--- NOTE | 2025-04-17 09:25 | MHC.OFFVIS ---
Vital Signs 04/17/25 09:25 Height 5 ft 2 in Weight 187 lb 6.287 oz BMI 34.3 BP 130/80 Blood Pressure Location Lt brachial Position Sitting Pulse 84 Intake Visit Reasons: r/s 03/20/25 atherosclerotic cardiovascular disease Intake Note: Follow-up ascvd with ekg no cardiac issues Intermediate Project Manager Required: Yes Intermediate Project Manager Services: Intermediate Project Manager Present Intermediate Project Manager Name: rosalva Sears Sagger Preparer: Sagger Preparer Present Accompanied by: Family/Other Allergies Penicillins Allergy (Verified 04/04/25 12:57) Hives Medication List - Last Reconciled 04/17/25 by Raymon Lloyd MD amlodipine 5 mg PO DAILY 90 days atorvastatin 20 mg PO ONCE 90 days blood sugar diagnostic (FreeStyle Lite Strips) Use 1 test strip once a day blood-glucose meter (FreeStyle Lite Meter kit) Use as directed to monitor blood glucose. calcium carbonate-vitamin D3 500 mg-5 mcg (200 unit) (Os-Yosef 500 + D3) 1 tab PO DAILY 60 days cholecalciferol (vitamin D3) 25 mcg PO DAILY ciclopirox 0.77% 1 appl topical BID 2 weeks [custome molded shoe inserts As directed] dapagliflozin propanediol (Farxiga) 10 mg PO DAILY 3 months lancets (FreeStyle Lancets) Use 1 lancet once a day linagliptin (Tradjenta) 5 mg PO DAILY 90 days losartan 25 mg PO DAILY 90 days metformin ER 1,000 mg (2 x 500 mg) PO DAILY montelukast 10 mg PO BEDTIME 90 days nystatin-triamcinolone 100,000-0.1 unit/g-% 1 appl topical DAILY 30 days semaglutide (Rybelsus) 14 mg PO DAILY sertraline 25 mg PO DAILY 90 days Symbicort 160-4.5 mcg/actuation (budesonide-formoterol) 2 puffs inhalation BID 30 days NS tamsulosin 0.4 mg PO BEDTIME 90 days HPI Comments Details: Raoul returns for follow-up regarding coronary artery disease. To recall, in the past, he was seen for chest discomfort. Underwent noninvasive workup with an echocardiogram and stress test and that led to a cardiac catheterization. Underwent LAD stenting. He is not taking any aspirin as he states that he had bruising as well as nosebleeds. Otherwise, within limits of his activity, he is on having any chest pain or any other cardiac symptoms. Discussed with patient using placement interviewer. 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 Father No problems noted. Social History Housing: Apartment Alcohol intake: former Patient Tobacco Use Status: Former Tobacco user e-Cigarette/Vaping Use: Never Used Second Hand Smoke Exposure: No service: No Current occupational status: disabled Cognitive needs: No (cane) Hearing needs: Yes Vision needs: Yes (glasses) Review of Systems Const Denies chills, Denies fatigue, Denies fever(s), Denies frequent falls, Denies weakness, Denies weight gain and Denies weight loss ENT Denies dizziness Card Denies chest pain, Denies leg edema, Denies lightheadedness, Denies palpitations, Denies dyspnea, Denies dyspnea on exertion, Denies orthopnea and Denies other (loss of consciousness) Resp Denies cough, Denies dyspnea and Denies dyspnea on exertion GI Denies hematochezia and Denies change in stool character Musc Denies abnormal gait, Denies muscle weakness, Denies numbness, Denies radiating pain into limb and Denies tingling Neuro Denies abnormal gait, Denies dizziness, Denies frequent falls, Denies numbness, Denies tingling and Denies weakness Endo Denies fatigue and Denies palpitations Physical Exam Vital Signs: Last Vital Signs Pulse 84 04/17/25 09:25 BP 130/80 04/17/25 09:25 BMI result Body Mass Index 34.3 Const General: comfortable and no acute distress Orientation/consciousness: patient oriented x3 HEENT Other: Unremarkable Head: Yes normal to inspection Neck Neck: Yes normal visual inspection Chest Chest palpation & inspection: normal inspection of the chest Resp Auscultation: clear to auscultation bilaterally Cardio Palpation: normal PMI Heart sounds: S1 normal heart sound present, S2 normal heart sound present, no gallops, no murmurs and no rubs GI Palpation (GI): Soft to palpation Back/Spine/Pelvis Other: unremarkable Skin General skin exam: no rashes or lesions noted Neuro General: patient oriented x3 Extrem General: Yes normal to inspection Psych Mental Status: mental status grossly normal Office Procedures EKG Details: EKG with underlying sinus rhythm at 84/Min; minimal criteria for LVH; possible normal variant; [place] [address]-[id number], Complete Assessment & Plan Assessment & Plan (1) Atherosclerotic cardiovascular disease: Code(s): I25.10 - Atherosclerotic heart disease of [place] coronary artery without angina pectoris Category: Medical Plan: Cardiac catheterization 2021- 90% mid LAD stenosis. Second diagonal ostial 70% stenosis. Mild disease in RCA. Left main and circumflex were normal. Status post drug-eluting stent to the mid LAD. No anginal symptoms. He is off aspirin completely on advised him to give it another try. If there is bleeding issue, we will need to go back and see ENT. If not daily at least try alternate days. However, not sure if he will. With regard to lipids, LDL 59 mg/dL. Continue statins. (2) Type 2 diabetes mellitus with unspecified complications: Code(s): E11.8 - Type 2 diabetes mellitus with unspecified complications Category: Medical Plan: Listed to be on Farxiga, linagliptin, metformin, semaglutide, metformin. Last hemoglobin A1c is 7.4%. (3) Essential hypertension: Code(s): I10 - Essential (primary) hypertension Category: Medical Plan: On Amlodipine, losartan. Normal blood pressure today. Plan Discussion Notes I discussed with the patient the need to resume aspirin therapy due to the coronary stent, despite prior nose bleeding episodes. I explained the risk of stent thrombosis versus bleeding risks and suggested an alternate-day aspirin trial to minimize bleeding episodes. The patient was instructed to watch for any signs of recurrent bleeding and to contact us if this occurs. We agreed to review his condition in one year or sooner if problems arise. Patient was informed and verbally consented to the use of an ambient scribe for clinic note documentation during this visit. Patient Instructions: - Start taking aspirin every other day to balance heart protection with bleeding risk. - Watch for signs of bleeding from your nose or mouth. - Contact us if any new or unusual symptoms occur. - Keep the next appointment scheduled for one year or call sooner if necessary. - Try to follow your heart-healthy lifestyle regularly. Coding Level of Care Code Est Pt Level 4 (68000) Complex EM visit Add On G2211 Diagnoses Atherosclerotic cardiovascular disease I25.10 Type 2 diabetes mellitus with unspecified complications E11.8 Essential hypertension I10 CPT Codes EKG - CPT: 18140-[id number], Complete ([id number])
--- OUTSIDE RECORDS SUMMARY | 2025-04-17 09:51 | XMS_ITS | Clinical Summary ---
Author Organization [facility] Address [address] [place] [address] Care Team Providers Care Human Resources Psychologist Name Role Phone Unavailable Primary Care Provider [...] 05/15/2022 Overview (05/15/2022): Was done 01/30/22 Diabetes ([facility]) 05/15/2022 High blood pressure 05/15/2022 Abnormal cholesterol test 05/15/2022 Asthma ([facility]) 05/15/2022 Social History Tobacco Use Types Packs/Day [...] Falls Prevention 2022 Dental Examination 05/17/2023 05/15/2022 [id number] ( season) 2024 Alcohol and Drug Screen 11/09/2024 Depression Annual Screen 11/09/2024 Imm-Influenza (Season Ended) 2025 Dental FMX/Pano 05/17/2027 05/15/2022 Procedures Procedure Name Priority Date/Time Associated Diagnosis Comments PANORAMIC RADIOGRAPHIC IMAGE Routine 05/15/2022 10:20 AM EDT Encounter for dental examination Full COMP ORAL EVALUATION - NEW/ESTABLISHED PATIENT Routine 05/15/2022 10:20 AM EDT Encounter for dental examination from Last 3 Months or Most Recently Relevant to Health Maintenance Insurance [facility] DENTAL MEDICAID Member Subscriber Plan / Payer (Ef fective 2022-Present) Name:Raoul Rojo Relation to Subscriber:Self Name:Jose PrabhojtRaoul seymour Payer ID:[id number] Group ID:Not on file Type:Medicaid Address: [address] [id number] [place] - [place] [facility] - [facility]ENTAL
== END 2025-04-17 09:54 | disposition home or self-care (01) ==
LOC: HO.HCS 09:21
PROVIDERS: PCP Internal Medicine; Visit Provider Internal Medicine
DX: I25.10 Atherosclerotic heart disease of native coronary artery without angina pectoris (principal); E11.8 Type 2 diabetes mellitus with unspecified complications; I10 Essential (primary) hypertension
CPT/HCPCS: 93010; 99214; G2211

== ENCOUNTER → 2025-04-17 09:20 | Outpatient (BNVA) | payer OTHER, SELFPAY | PROVIDERS: PCP Internal Medicine; Visit Provider Internal Medicine | DX: I25.10 Atherosclerotic heart disease of native coronary artery without angina pectoris (principal); E11.8 Type 2 diabetes mellitus with unspecified complications; I10 Essential (primary) hypertension | CPT/HCPCS: 93005; 99212 ==

== ENCOUNTER 2025-05-19 09:01 | Outpatient (AMB) | payer OTHER, SELFPAY ==
--- NOTE | 2025-05-19 09:08 | A.OFFVIS_ITS ---
Vital Signs 05/19/25 09:14 Height 5 ft 2 in Weight 180 lb 15.992 oz BMI 33.1 BP 92/62 Blood Pressure Location Rt brachial Position Sitting Pulse 90 Pulse Source Pulse Oximeter Pulse Oximetry (%) 95 Oxygen Delivery Method Room Air Intake Visit Reasons: T2DM Intake Note: Patient present today to follow up on Type 2 Diabetes Mellitus. Last Diabetic Eye exam: approx 8 months ago Last Podiatry Visit: November 2024 Random Glucose: 150 mg/dl HgA1C: 7.4% 04/04/2025 Major Account Manager Required: Yes Major Account Manager Language: Legal Archivist Services: Major Account Manager Present Major Account Manager Name: Isatu [id number] Information Interpreted: non-clinical & clinical Accompanied by: Self / Same As Patient Allergies Penicillins Allergy (Verified 05/19/25 09:16) Hives HPI Comments Details: This is a 70-year-old male with a past medical history of type 2 diabetes, former smoker, CAD, anxiety, hypertension and asthma presenting for diabetic management. Video lumber chain offbearer used. He was diagnosed with diabetes several years ago. He does not have the glucometer with him today or a log of BG. Patient reports fasting sugars are 120-150. After meals blood sugar is usually 120-160. Hemoglobin a1c 7.4% 04/04/2025. Current medication regimen: Tradjenta 5 mg daily, metformin 1000 mg ER once daily, Farxiga 10 mg daily, Rybelsus 14 mg. Compliance issues: none Past medication: Trulicity discontinued because he did not want to continue injections. Diet: He has cut back on soda, but he is still drinking it. He only has a small amount. He continues to reduce this. He is drinking zero sugar strawberry and apple juice instead. Hypoglycemia symptoms: none Hyperglycemia symptoms: none Eye exam: Up-to-date. He saw his investment sales assistant in November. Microvascular complications: neuropathy, nephropathy (microalbumin) Macrovascular complications: CAD Hypertension: treated with amlodipine 5 mg daily and losartan 25 mg daily. His blood pressure is soft today, but he is fasting and had nothing to drink. Denies dizziness. Hyperlipidemia: treated with atorvastatin 20 mg daily. He had a liver ultrasound on 03/22/2024 which demonstrated hepatomegaly and hepatic steatosis as well as a 4 cm mass adjacent to the gallbladder. He had an MRI of the abdomen with and without contrast on 04/07/2025 which demonstrated imaging characteristics consistent with focal nodular hyperplasia. These results were previously reviewed with the patient over the phone. ROS: Constitutional: No unexplained weight loss, fever, chills, fatigue or night sweats. Respiratory: No shortness of breath Cardiovascular: No chest pain Gastrointestinal: No anorexia, nausea, vomiting or diarrhea. No abdominal pain Neurologic: No headache, dizziness, syncope Endocrine: No cold or heat intolerance. No polyuria or polydipsia. Physical exam: Constitutional: Alert, in no distress. Eyes: Pupils are equal, round and reactive to light. Extraocular muscles intact. Neck: Supple, Full range of motion. No lymphadenopathy. No palpable thyroid masses. Respiratory: Clear to auscultation. Cardiovascular: S1 S2 regular. No murmurs. 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 Father No problems noted. Social History Housing: Apartment Alcohol intake: former Patient Tobacco Use Status: Former Tobacco user e-Cigarette/Vaping Use: Never Used Second Hand Smoke Exposure: No service: No Current occupational status: disabled Cognitive needs: No (cane) Hearing needs: Yes Vision needs: Yes (glasses) Results Reviewed Results Reviewed: Laboratory Tests 12/09/23 03/30/24 03/30/24 10:21 08:48 09:04 Creatinine 0.99 Estimated GFR > 60 Hgb A1c (Clinic) 10.1 H AST 45 H ALT 60 H Triglycerides 149 Cholesterol 120 LDL Cholesterol, Calc 59 HDL Cholesterol 32 L Urine Creatinine 169.71 Urine Microalbumin 47.0 Microalb/Creat Ratio 27.6 03/30/24 07/12/24 04/04/25 09:26 10:21 12:42 Creatinine Estimated GFR Hgb A1c (Clinic) 9.5 H 8.3 H 7.4 H AST ALT Triglycerides Cholesterol LDL Cholesterol, Calc HDL Cholesterol Urine Creatinine Urine Microalbumin Microalb/Creat Ratio Assessment & Plan Assessment & Plan (1) Type 2 diabetes mellitus, without long-term current use of insulin: Code(s): E11.9 - Type 2 diabetes mellitus without complications Category: Medical Qualifiers: Diabetes mellitus complication status: with neurologic complications Diabetes mellitus complication detail: with polyneuropathy Qualified Code(s): E11.42 - Type 2 diabetes mellitus with diabetic polyneuropathy Plan In summary this is a 69-year-old male with suboptimally controlled type 2 diabetes. Discussed pathophysiology of Type II Diabetes Mellitus with the patient in detail.? I explained the terminal gauger risks and complications associated with uncontrolled diabetes including nephropathy, neuropathy, peripheral vascular disease, retinopathy, increased risk of heart disease and stroke.? Discussed lifestyle modification with the patient. Recommended 30 minutes of moderately vigorous exercise 5 days per week to promote weight loss. Declines referral to temperature control inspector and dietitian. He requested a CGM, but [facility] does not cover this. Bring glucometer to next appointment. Continue metformin ER 1000 mg once daily. Continue Rybelsus to 14 mg daily. Continue Tradjenta 5 mg and Farxiga 10 mg daily. I recommended increasing metformin if his hemoglobin A1c is not at goal at his follow up visit in June. We reviewed treatment of hypoglycemia, and he is given written instructions. Glucose tablets prescribed. He will have lab work done today. He will follow up at the end of June for type 2 diabetes management. Orders: Orders Creatinine Today E11.9 - Type 2 diabetes mellitus without complications Aspartate Amino Transferase Today E11.42 - Type 2 diabetes mellitus with diabetic polyneuropathy Lipid Panel Today E78.5 - Hyperlipidemia, unspecified Alanine Aminotransferase Today R79.89 - Other specified abnormal findings of blood chemistry Microalbumin, Random (w Creat) Today E11.9 - Type 2 diabetes mellitus without complications Medications: New glucose (Dex4 Glucose) until blood sugar is >70 (hasta que el nivel de azucar en harish sea superior a 70) 16 grams (4 x 4 gram) PO Q15M PRN 10 tabs 3RF hypoglycemia (hipoglucemia) Patient Instructions: Please have your blood work done. If you experience low blood sugar (under 70), treat this by eating a chewable fruit candy like skittles or jelly beans (about 8 pieces), 4 ounces (1/2 cup) of fruit juice (not diet), 1 tablespoon of honey or 4 glucose tablets. If your blood sugar is under 55, take double the amount of one of the above. Recheck your blood sugar in 15 minutes. Continue metformin ER 1000 mg once daily. Continue Rybelsus to 14 mg daily. Continue Tradjenta 5 mg and Farxiga 10 mg daily. Por favor, h?gase un an?lisis de harish. Si tiene un nivel bajo de az?car en la harish (menos de 70), tr?telo comiendo un caramelo masticable de fruta lucio Skittles o Jelly Beans (aproximadamente 8 piezas), 113 ml (1/2 taza) de jugo de fruta (no de dieta), 1 cucharada de miel o 4 tabletas de glucosa. Si waters nivel de az?car en la harish es taqueria de 55, tome el doble de la cantidad de juan de los anteriores. Vuelva a medir waters nivel de az?car en la harish en 15 minutos. Contin?e con metformina de liberaci?n prolongada 1000 mg ajit vez al d?a. Contin?e con Rybelsus hasta 14 mg al d?a. Contin?e con Tradjenta 5 mg y Farxiga 10 mg al d?a. Coding Level of Care Code Est Pt Level 5 (47630) Complex EM visit Add On G2211 Diagnoses Type 2 diabetes mellitus with diabetic polyneuropathy, without long-term current use of insulin E11.42 Diabetes mellitus complication status: with neurologic complications Diabetes mellitus complication detail: with polyneuropathy Time Spent (min) 45 Comment Chart review, direct patient care, completing documentation
[2025-05-19 09:14] VITALS: BP 92/62; PULSE 90; O2SAT 95; BMI 33.1
--- OUTSIDE RECORDS SUMMARY | 2025-05-19 09:16 | XMS_ITS | Clinical Summary ---
Author Organization [facility] Address [address] [place] [address] Care Team Providers Care Armored Car Guard Name Role Phone Unavailable Primary Care Provider [...] 05/15/2022 Overview (05/15/2022): Was done 01/30/22 Diabetes ([facility]) 05/15/2022 High blood pressure 05/15/2022 Abnormal cholesterol test 05/15/2022 Asthma ([facility]) 05/15/2022 Social History Tobacco Use Types Packs/Day [...] Last Done Comments Diabetes Foot Exam 1957 Hemoglobin A1c 1957 Hepatitis C Screening 1957 Lipid Screening 1957 Serum Creatinine 1957 Tobacco Screening 1957 Urine Albumin Creatinine Ratio Screening 1957 Retinopathy Screening 1970 Medicare Annual Wellness Visit 1975 Imm-DTaP/Tdap/Td (1 - Tdap) 01/18/1976 Imm-Pneumococcal 50+ (1 of 2 - PCV) 01/18/1976 CT Colonography 2002 Colonoscopy 2002 Colorectal Cancer Screening 2002 FIT/gFOBT 2002 Fecal DNA 2002 Flexible Sigmoidoscopy 2002 Imm-Zoster, Recombinant (1 of 2) 2007 Abdominal Aortic Aneurysm Screening 2022 Falls Prevention 2022 Dental Examination 05/17/2023 05/15/2022 [id number] ( season) 2024 Alcohol and Drug Screen 11/09/2024 Depression Annual Screen 11/09/2024 Imm-Influenza (#1) 2025 Dental FMX/Pano 05/17/2027 05/15/2022 Procedures Procedure Name Priority Date/Time Associated Diagnosis Comments PANORAMIC RADIOGRAPHIC IMAGE Routine 05/15/2022 10:20 AM EDT Encounter for dental examination Full COMP ORAL EVALUATION - NEW/ESTABLISHED PATIENT Routine 05/15/2022 10:20 AM EDT Encounter for dental examination from Last 3 Months or Most Recently Relevant to Health Maintenance Insurance [facility] DENT[facility] D[facility] MEDICAID Member Subscriber Plan / Payer (Ef fective 2022-Present) Name:Raoul Rojo Relation to Subscriber:Self Name:Jose PrabhjotRaoul seymour Payer ID:[id number] Group ID:Not on file Type:Medicaid Address: [address] [id number] [place] - [place] [facility] - [facility]AL
--- OUTSIDE RECORDS SUMMARY | 2025-05-19 09:16 | XMS_ITS | Data Portability ---
Author Organization [employer] [facility], [facility] Address [address] [place] [address] Care Team Providers Care Correctional Classification Counselor Name Role Phone HIM CCA OTHER Assessment Encounter Date Assessment Date Assessment LastModified by Organization Details LastModified Time 02/29/2024 02/29/2024 I provided real -time medical direction via phone for this encounter, and was available for additional phone based assistance as needed. I have reviewed and agree with the Assessment and Plan as documented by the Steam Turbine Operator. We discussed the diagnostic uncertainty of home visits and the risk associated with this. The patient given the opportunity to ask questions via metal gauge maker Advised if develops CP/severe SOB/turning blue/uncontrolle d n/v/d or black/bloody emesis or stool/ AMS/ syncope/ hi fever unresponsive to APAP to call 911- verbalized understanding of instruction [email or web address] Not available 02/29/2024 11:53:36 Plan of Treatment Reminders Order Date Submit Date Provider Last Modified By Organization Details Last Modified Time Details Appointments None recorded. Lab rapid SARS CoV 2 Ag, QL IA, respiratory specimen 2023 024 [email or web address], [phone] 11:56:42 rapid flu (A+B) 2023 024 [email or web address], [phone] 11:56:45 Referral None recorded. Procedures None recorded. Surgeries None recorded. Imaging None recorded. Medication Orders azithromyci n 250 mg tablet 2023 024 [email or web address] 0 Not available 11:56:37 azithromyci n 250 mg tablet 2023 024 [facility], [address], [id number], 4 11:58:39 albuterol sulfate 2.5 mg/3 mL (0.083 %) solution for nebulizatio n 2023 024 [facility], [address], [id number], 4 11:58:39 Patient TargetsNo targets recorded. Patient InstructionsNo instructions recorded. Reason for Referral None Reported. Results Created Date Observation Date Name Description Value Unit Range Abnormal Flag Note LastModifiedBy Organization Detail LastModifiedTime 02/29/20 24 02/29/2024 rapid flu (A+B) Flu negati ve Not Available [facility] ed [address] [place] [address], [phone] 02/29/2024 11:53:45 02/29/20 24 02/29/2024 rapid SARS CoV 2 Ag, QL IA, respi rator y speci men rapid SARS CoV 2 Ag, QL IA, respiratory specimen negati ve Not Available [facility] ed [address] [place] [address], [phone] 02/29/2024 11:53:44 Result Notes None recorded. Medical Equipment None Reported. Allergies Allergen ID Allergen Name Allergen Category Reaction Reaction Severity Criticality Documentation Date Start Date Code Code System Note Provider Name and Address Organization Details Recorded Time 4958 Product containin g penicilli n (product) medicatio n Not available Not available Not available 02/29/2024 58108 8001 SNOMED Not Available [facility] - production [...] Pulse oximetry Body weight Body temperature Systolic And Diastolic Provider Name and Address Organization Details Last Updated DateTime 4 157.48 cm 80 /min 18 /min 97 % 97 % 50298.4 96 g 98.1 [degF] 131/81 mm[Hg] Not Available [employer] - production 4 11:49:48 Date Recorded Respiratory rate Oxygen saturation Oxygen saturation in Arterial blood by Pulse oximetry Body temperature Body weight Heart rate Systolic And Diastolic Provider Name and Address Organization Details Last Updated DateTime 2 12 /min 97 % 97 % 98 [degF] 10570.4 g 84 /min 131/81 mm[Hg] Not Available [facility] - production 2 13:17:16 Social History None recorded. Functional Status None recorded. Mental Status None recorded. Family History Nothing Reported. Medical History No medical history recorded. Past Encounters Encounter ID Performer Location Encounter Start Date Encounter Closed Date Diagnosis/Indication Diagnosis SNOMED-CT Code Diagnosis ICD10 Code Diagnosis Note [id number] Yoon Paulson MD Main - [facility] [address] [place] [phone] 10/14/2022 13:17:12 10/16/2022 11:41:28 Viral upper respiratory tract infection 584386183 J06.9 67 year old male being evaluated for a week of cough in the setting of recent COVID exposure. Patient without difficulty breathing, or taking PO. Exam notable for normal vital signs, POC COVID negative. Reassuranc e offered, no further interventi on indicated. [id number] Joan Barnes MD Main - [facility] [address] [place] [phone] 02/29/2024 11:49:45 02/29/2024 17:25:55 Upper respiratory infection 81645476 J06.9 medic left him his tubing for [...] him with azithromyc in. Patient has no wheezing steroids or not indicated. He may continue the [...] Mcmahon Member ID Guarantor Name 02/29/2024 1 [facility] - DOS PRIOR TO 2023 - DUAL ELIGIBLE (MEDICARE REPLACEMENT/AD VANTAGE - HMO) Raoul Rick [id number] Raoul Rick 02/29/2024 1 [facility] - DOS ON OR AFTER 2023 - DUAL ELIGIBLE - ASSISTED OPTIONS AND ONE CARE (MEDICARE REPLACEMENT/AD VANTAGE - HMO) Raoul Rick [id number] Raoul Rick Notes Date Note Type Note Provider Name and Address Organization Details Recorded Time 10/14/2022 text/html HPI: Neighbor reports member had positive COVID exposure from [facility], negative home test, symptomatic for URI. Reports productive cough, sneezing, itchy throat, afebrile. Would like to be assessed and tested for viral panel. No home pulse ox. ..................... ..................... ..................... ..................... ..................... ..................... ............... CRC Nursing Assessment: Comments: CRC RN DID NOT NEED FURTHER INFO ..................... ..................... ..................... ..................... ..................... ..................... ............... Steam Turbine Operator Note: Dispatch to home of 67-year-old male patient complaining of a cough times one week. Neighbor is here who speaks [place] and can interpret. Patient states he has a non productive cough when asked . Patient also relates that his pcp tested positive with Covid yesterday. Lungs present equal and clear in all otero vitals are as noted. Spi2 on room air is 97% . patient is afebrile. Both Covid and flu tests are performed and present negative. I [place] [facility] [place] Paulson further instructions. Dr. Paulson agrees that just supportive care at this time plenty of fluids and Robitussin DM. Should the patient developed for the symptoms were not get better he should contact his PCP. ..................... ..................... ..................... ..................... ..................... ..................... ............... Disposition: Fulfilled Yoon Paulson MD [address] [facility],[address], [place], [phone], [employer] 10/14/2022 13:19:56 02/29/2024 text/html HPI: Call transferred [...] ED and requests for home visit. Advised [facility] referral can be submitted. Member is Ethiopian speaking. HANDY Garrido speaks [place] but will not be at mbr's home for visit. 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 ..................... ..................... ..................... ..................... ..................... ............... CRC Nurse Triage Notes (Tiffany Mcclure): Comments: CRC RN DID NOT NEED FURTHER INFO ..................... ..................... ..................... ..................... ..................... ..................... ............... Steam Turbine Operator Note From Steven Tate: [facility] visit for male patient with multiple complaints. Arrived to home where pt answered the door and was ambulating without difficulty. Pt is Ethiopian speaking only so manager valuation services were utilized. Pt reports for the [...] past month while he was travelling in [place] and visiting family. V/S taken and WNL. [...] to having 13 years ago. [place] [facility] [place] who prescribed azithromycin for suspected infection, in addition to sending script for albuterol nebs to pharmacy. Pt educated on how to use nebulizer since he had forgotten how to connect hoses and fill chamber. Reviewed red flags for ED. Patient education provided. [facility] [place] Orders: rapid SARS CoV 2 Ag, QL IA, respiratory specimen: Performed rapid flu (A+B): Performed ..................... ..................... ..................... ..................... ..................... ..................... ............... Disposition: FulfilledSEGMD: As above -Via manager valuation patient denies any known fevers, chills or sweats however he takes 1 dose of Tylenol daily for chronic pain plus his Coricidin HBP has 325 mg of Tylenol. Patient states FLORES is improved with his MDI. He denies orthopnea other than he coughs when lying flat Joan Barnes MD [address] [place] [address],[address], [place], [phone], [employer] 02/29/2024 15:26:55
--- OUTSIDE RECORDS SUMMARY | 2025-05-19 09:16 | XMS_ITS | Clinical Summary ---
Author Organization [facility] [employer] [facility] Facility Address [address] [address] Care Team Providers Care Environmental Change Analyst Name Role Phone Myriam Fernández MD Primary Care Provider [phone] Allergies No known active allergies Medications ciclopirox [...] Hemoglobin A1C 07/23/2023 04/22/2023 Influenza Vaccine (#1) 2025 Hepatitis B Vaccine Aged Out No longe r eligible based on patient's age to complete this topic Procedures Procedure Name Priority Date/Time Associated Diagnosis Comments HEMOGLOBIN A1C Routine 04/22/2023 9:23 AM EDT from Last 3 Months or Most Recently Relevant to Health Maintenance Results * (ABNORMAL) Hemoglobin A1c (04/22/2023 9:23 AM EDT) Hemoglobin A1C 9.3(H) (4.0-5.6) % [facility] Comment: MONITORING: In known diabetic patients, hemoglobin A1c targets should be discussed with health care provider. DIAGNOSTIC USE: The [place] Diabetes Association (ADA) and the World Health [...] Supplement 1 Testing performed or reported by [facility], a Service of [facility], [address] [place] [id number] Kristian Gerber MD, Title One Reading Teacher [facility]# [id number] 04/22/2023 9:23 AM EDT 04/22/2023 9:28 AM EDT us Kristofer Hurt MD LAB BLOOD ORDERABLES Final Re sult [facility] from Last 3 Months or Most Recently Relevant to Health Maintenance [place] [address] ([id number]) ([id number]) Care Teams Environmental Change Analyst Relationship Specialty Start Date End Date Myriam Fernández MD [address] [place], [place] PCP - General Internal Medicine 03/04/22
--- OUTSIDE RECORDS SUMMARY | 2025-05-19 09:16 | XMS_ITS | Clinical Summary ---
Author Organization [facility] Address [address] [place] [address] Phone Care Team Providers Care Roustabout Head Name Role Phone Myriam Paulson MD Primary Care Provider [phone] Allergies Active Allergy Reactions Criticality Noted Date Comments Penicillins Other 10/07/2024 Medications No known medications Active Problems No known active problems Medical History Medical History Date Comments Diabetes mellitus ([facility] V24, [facility] V28) Hypertension HLD (hyperlipidemia) Anxiety Asthma Social [...] 93 10/19/2024 10:04 AM EST Temperature 36.7 C (98.1 F) 10/19/2024 7:55 AM EST Respiratory Rate 18 10/19/2024 10:04 AM EST [...] Influencers of Health Screening 10/07/2024 Influenza Vaccine (#1) 2025 3, 07/31/2020 HIB Vaccines Aged Out No longer [...] patient's age to complete this topic Insurance [facility] MEDIC[facility] Member Subscriber Plan / Payer (Ef fective 2024-Present) Name:Raoul Garcia Relation to Subscriber:Self Name:Raoul Garcia Payer ID:[id number] Group ID:[id number] Type:Not on file Address: [place] [address] [address] [phone] Care Teams Roustabout Head Relationship Specialty Start Date End Date Myriam Paulson MD [address] [facility] , [address] [facility]ician Associ D/B/A: [facility] SHA Sawant PCP - General Internal Medicine 10/19/24
[2025-05-19 09:36] LABS: Glucose, Whole Blood 150 mg/dL (60-115)
== END 2025-05-19 10:02 | disposition home or self-care (01) ==
LOC: HO.ENCR 09:02
PROVIDERS: PCP Internal Medicine; Visit Provider Physician Assistant Medical
DX: E11.42 Type 2 diabetes mellitus with diabetic polyneuropathy (principal)

== ENCOUNTER → 2025-05-19 09:01 | Outpatient (BNVA) | payer OTHER, SELFPAY | PROVIDERS: PCP Internal Medicine; Visit Provider Physician Assistant Medical | DX: E11.42 Type 2 diabetes mellitus with diabetic polyneuropathy (principal); E78.5 Hyperlipidemia, unspecified; R79.89 Other specified abnormal findings of blood chemistry | CPT/HCPCS: 82947; 99212 ==

== ENCOUNTER → 2025-05-29 23:59 | Outpatient (BNV) | payer OTHER, SELFPAY | PROVIDERS: PCP Internal Medicine; Visit Provider Internal Medicine | DX: E11.9 Type 2 diabetes mellitus without complications (principal); Z87.820 Personal history of traumatic brain injury; F41.1 Generalized anxiety disorder | CPT/HCPCS: G0179 ==

== ENCOUNTER 2025-06-27 09:09 | Outpatient (AMB) | payer OTHER, SELFPAY ==
--- NOTE | 2025-06-27 09:13 | MHC.OFFVIS ---
Intake Visit Reasons: renal cysts Intake Note: Patient is present for Renal Cyst follow up Urology Med: Tamsulosin Antibiotic Allergy: Penicillin Blood Thinner: Aspirin MRI done 04/07/2025 PVR: 58 mls Sales Professional Bilingual Required: No Accompanied by: Self / Same As Patient Allergies Penicillins Allergy (Verified 06/27/25 09:14) Hives HPI Comments Details: Raoul is a pleasant Welsh-speaking male. He is a patient of Dr. aPulson. 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 Father No problems noted. Social History Housing: Apartment Alcohol intake: former Patient Tobacco Use Status: Former Tobacco user e-Cigarette/Vaping Use: Never Used Second Hand Smoke Exposure: No service: No Current occupational status: disabled Cognitive needs: No (cane) Hearing needs: Yes Vision needs: Yes (glasses) Review of Systems Const Denies chills and Denies fever(s) Card Reports no additional complaints and Denies syncope Resp Denies cough GI Denies abdominal pain and Denies heartburn Reports as per HPI and Denies change in libido Neuro Denies syncope Psych Denies change in libido Endo Denies change in libido Physical Exam Const General: cooperative, healthy appearing, comfortable and no acute distress Orientation/consciousness: patient oriented x3 HEENT Face and sinus: Yes normal facial exam Mouth: moist mucous membranes Neck Neck: Yes normal visual inspection, Yes full ROM and Yes trachea midline Chest Chest palpation & inspection: normal inspection of the chest Resp Effort & Inspection: normal respiratory effort, able to speak in complete sentences and no respiratory distress GI Inspection: Yes normal to inspection Back/Spine/Pelvis Cervical Spine: normal cervical lordosis Thoracic/Lumbar Spine: thoracic and lumbar spine normal to inspection Skin General skin exam: no rashes or lesions noted Neuro General: patient oriented x3, gait normal, tone normal and moves all extremities Extrem General: Yes normal to inspection and Yes capillary refill normal Assessment & Plan Assessment & Plan (1) Nocturia more than twice per night: Comment: Twelve month review Code(s): R35.1 - Nocturia Category: Medical (2) BPH w urinary obs/LUTS: Code(s): N40.1 - Benign prostatic hyperplasia with lower urinary tract symptoms; N13.8 - Other obstructive and reflux uropathy Category: Medical (3) Renal cysts, acquired, bilateral: Code(s): N28.1 - Cyst of kidney, acquired Category: Medical Plan P.r.n. follow-up Patient Instructions: This note is constructed using voice recognition software. While every effort has been made to ensure accuracy forensic sergeant errors may have been included. Imaging studies, laboratory and physical exam results were discussed and reviewed in detail. No major barriers to patient understanding were identified. An opportunity to ask questions regarding the treatment plan was provided. All questions were answered. The patient expressed understanding and agreement with the above treatment plan. The patient is aware they should contact our office by phone for worsening of their current condition or the appearance of new urologic symptoms. Compliance is encouraged with any medications and followup testing that is ordered. It is a privilege to participate in the urologic care of your patient. If you have any questions or concerns regarding treatment for the above conditions, or other urologic issues, please do not hesitate to contact me. The office telephone contact is [phone]. Sincerely, Dr Johnnie Salinas MD, [facility] - Urology Compassionate Specialist Care for the Genitourinary System Coding Level of Care Code New Pt Level 3 (56656) Diagnoses Nocturia more than twice per night R35.1 BPH w urinary obs/LUTS N40.1; N13.8 Renal cysts, acquired, bilateral N28.1
--- OUTSIDE RECORDS SUMMARY | 2025-06-27 10:06 | XMS_ITS | Clinical Summary ---
Author Organization [facility] Address [address] [place] [address] Phone Care Team Providers Care Pattern Perforating Machine Operator Name Role Phone Myriam Paulson MD Primary Care Provider Allergies Active Allergy Reactions Criticality Noted Date Comments Penicillins Other 10/07/2024 Medications No known medications Active Problems No known active problems Medical History Medical History Date Comments Diabetes mellitus ([facility] V24, [facility] V28) Hypertension HLD (hyperlipidemia) Anxiety Asthma [...] Panel) 10/07/2024 Colorectal Cancer Screening: Colonoscopy 10/07/2024 Diabetes: Annual Urine Albumin-Creatinine Ratio (uACR) 10/07/2024 04/22/2023 Diabetes: Blood Sugar Contro l Test (HGBA1C) 10/07/2024 04/22/2023 Falls Risk Assessment 10/07/2024 Hepatitis C Screening 10/07/2024 Hypertension/CHF/CAD Annual BMP Blood Test 10/07/2024 Medicare Annual Wellness Visit 10/07/2024 Social Influencers of Health Screening 10/07/2024 Depression Screening 11/09/2024 Influenza Vaccine (#1) 2025 3, 07/31/2020 HIB [...] patient's age to complete this topic Insurance [facility] MEDICARE Member Subscriber Plan / Payer (Ef fective 2024-Present) Name:Raoul Garcia Relation to Subscriber:Self Name:Raoul Garcia Payer ID:[id number] Group ID:[id number] Type:Not on file Address: [place] [address] [address] [phone] Care Teams Pattern Perforating Machine Operator Relationship Specialty Start Date End Date Myriam Paulson MD [address] [facility] , [address] [facility] Physician Associ D/B/A: [facility] SHA Sawant PCP - General Internal Medicine 10/19/24
--- OUTSIDE RECORDS SUMMARY | 2025-06-27 10:06 | XMS_ITS | Clinical Summary ---
Author Organization [facility] [employer] [facility] Facility Address [address] [address] Care Team Providers Care Water Purification Chemist Name Role Phone Myriam Fernández MD Primary Care Provider [phone] Allergies No known active allergies Medications ciclopirox [...] AM EDT) Hemoglobin A1C 9.3(H) (4.0-5.6) % [facility] Comment: MONITORING: In known diabetic patients, hemoglobin A1c targets should be discussed with health care provider. DIAGNOSTIC USE: The [place] Diabetes Association (ADA) and the World Health [...] Supplement 1 Testing performed or reported by [facility], a Service of [facility], [address] [place] [address] Kristian Gerber MD, Site Head [facility]# [id number] 04/22/2023 9:23 AM EDT 04/22/2023 9:28 AM EDT us Kristofer Hurt MD LAB BLOOD ORDERABLES Final Re sult [facility] from Last 3 Months or Most Recently Relevant to Health Maintenance [place] [address] [place] [address] ([id number]) * Guarantor: Raoul Rojo Account Type Relation to Patient Date of Phone Billing Address Personal/Family Self 1955 [id number] [place] [address] ([id number]) Care Teams Water Purification Chemist Relationship Specialty Start Date End Date Myriam Fernández MD [address] [place], [place] PCP - General Internal Medicine 03/04/22
--- OUTSIDE RECORDS SUMMARY | 2025-06-27 10:06 | XMS_ITS | Clinical Summary ---
Author Organization [facility] Address [address] [place] [address] Care Team Providers Care Station Cashier Name Role Phone Unavailable Primary Care Provider [...] 05/15/2022 Overview (05/15/2022): Was done 01/30/22 Diabetes ([facility]) 05/15/2022 High blood pressure 05/15/2022 Abnormal cholesterol test 05/15/2022 Asthma ([facility]) 05/15/2022 Social History Tobacco Use [...] Mass Index - - Plan of Treatment Not on file Insurance [facility] S[facility] NET DENTAL MEDICAID Member Subscriber Plan / Payer (Ef fective 2022-Present) Name:Raoul Rojo Relation to Subscriber:Self Name:Raoul Rojo Payer ID:[id number] Group ID:Not on file Type:Medicaid Address: [address] [id number] MEDICARE - [place] [facility]
== END 2025-06-27 10:01 | disposition home or self-care (01) ==
LOC: HO.HUSH 09:10
PROVIDERS: PCP Internal Medicine; Visit Provider Urology
DX: N13.8 Other obstructive and reflux uropathy (principal); N40.1 Benign prostatic hyperplasia with lower urinary tract symptoms; R35.1 Nocturia; N28.1 Cyst of kidney, acquired; Z13.9 Encounter for screening, unspecified
CPT/HCPCS: 99213

== ENCOUNTER → 2025-06-27 09:09 | Outpatient (BNVA) | payer OTHER, SELFPAY | PROVIDERS: PCP Internal Medicine; Visit Provider Urology | DX: R35.1 Nocturia (principal); N40.1 Benign prostatic hyperplasia with lower urinary tract symptoms; N28.1 Cyst of kidney, acquired; N13.8 Other obstructive and reflux uropathy | CPT/HCPCS: 51798; 81003; 99212 ==

== ENCOUNTER → 2025-07-24 23:59 | Outpatient (BNV) | payer OTHER, SELFPAY | PROVIDERS: PCP Internal Medicine; Visit Provider Internal Medicine | DX: E11.9 Type 2 diabetes mellitus without complications (principal); Z87.820 Personal history of traumatic brain injury; F41.1 Generalized anxiety disorder; I10 Essential (primary) hypertension | CPT/HCPCS: G0179 ==

== ENCOUNTER 2025-08-04 09:26 | Outpatient (AMB) | payer OTHER, SELFPAY ==
--- NOTE | 2025-08-04 09:30 | MHC.OFFVIS ---
Vital Signs 08/04/25 09:46 Height 5 ft 2 in Weight 182 lb 15.739 oz BMI 33.5 BP 126/74 Blood Pressure Location Rt brachial Position Sitting Pulse 94 Pulse Source Pulse Oximeter Pulse Oximetry (%) 94 Oxygen Delivery Method Room Air Intake Visit Reasons: T2DM Intake Note: Patient present today to follow up on Type 2 Diabetes Mellitus. Last Diabetic Eye exam: DUE, patient will be calling to make an appt at [facility] Last Podiatry Visit: November 2024 Random Glucose: 103 mg/dL HgA1C: 7.8%, 08/04/2025 Industrial Pipefitter Journeyman Required: Yes Industrial Pipefitter Journeyman Language: Neurophysiologist Services: Industrial Pipefitter Journeyman Present Industrial Pipefitter Journeyman Name: #[id number] Accompanied by: MANNEQUIN SANDER AND FINISHER Allergies Penicillins Allergy (Verified 08/04/25 09:44) Hives Medication List - Last Reconciled 08/04/25 by JAMEL Beltran amlodipine 5 mg PO DAILY 90 days atorvastatin 20 mg PO ONCE 90 days blood sugar diagnostic (FreeStyle Lite Strips) Use 1 test strip once a day blood-glucose meter (FreeStyle Lite Meter kit) Use as directed to monitor blood glucose. calcium carbonate-vitamin D3 500 mg-5 mcg (200 unit) 1 tab PO DAILY 60 days cholecalciferol (vitamin D3) 25 mcg PO DAILY ciclopirox 0.77% 1 appl topical BID 2 weeks [custome molded shoe inserts As directed] dapagliflozin propanediol (Farxiga) 10 mg PO DAILY 3 months glucose (Dex4 Glucose) 16 grams (4 x 4 gram) PO Q15M PRN lancets (FreeStyle Lancets) Use 1 lancet once a day linagliptin (Tradjenta) 5 mg PO DAILY 90 days losartan 25 mg PO DAILY 90 days metformin ER 1,000 mg (2 x 500 mg) PO DAILY montelukast 10 mg PO BEDTIME 90 days nystatin-triamcinolone 100,000-0.1 unit/g-% 1 appl topical DAILY 30 days semaglutide (Rybelsus) 14 mg PO DAILY sertraline 25 mg PO DAILY 90 days Symbicort 160-4.5 mcg/actuation (budesonide-formoterol) 2 puffs inhalation BID 30 days NS tamsulosin 0.4 mg PO BEDTIME 90 days HPI Comments Details: This is a 70-year-old male with a past medical history of type 2 diabetes, former smoker, CAD, anxiety, hypertension and asthma presenting for diabetic management. Video medical interpreter used. He is accompanied by his MANNEQUIN SANDER AND FINISHER. He was diagnosed with diabetes several years ago. He does not have the glucometer with him today or a log of BG. Hemoglobin a1c 08/04/25: 7.8% Current medication regimen: Tradjenta 5 mg daily, metformin 500 mg ER BID, Farxiga 10 mg daily, Rybelsus 14 mg. Compliance issues: none Past medication: Trulicity discontinued because he did not want to continue injections. Diet: He has cut back on soda, but he is still drinking Coca-Cola. Hypoglycemia symptoms: none Hyperglycemia symptoms: none Eye exam: Patient provided with the phone number to schedule this. Followed by Podiatry. Microvascular complications: neuropathy, nephropathy (microalbumin) Macrovascular complications: CAD Hypertension: treated with amlodipine 5 mg daily and losartan 25 mg daily. Hyperlipidemia: treated with atorvastatin 20 mg daily. ROS: Constitutional: No unexplained weight loss, fever, chills, fatigue or night sweats. Respiratory: No shortness of breath Cardiovascular: No chest pain Gastrointestinal: No anorexia, nausea, vomiting or diarrhea. No abdominal pain Neurologic: No headache, dizziness, syncope Endocrine: No cold or heat intolerance. No polyuria or polydipsia. Physical exam: Constitutional: Alert, in no distress. Eyes: Pupils are equal, round and reactive to light. Extraocular muscles intact. Neck: Supple, Full range of motion. No lymphadenopathy. No palpable thyroid masses. Respiratory: Clear to auscultation. Cardiovascular: S1 S2 regular. No murmurs. 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 Father No problems noted. Social History Housing: Apartment Alcohol intake: former Patient Tobacco Use Status: Former Tobacco user e-Cigarette/Vaping Use: Never Used Second Hand Smoke Exposure: No service: No Current occupational status: disabled Cognitive needs: No (cane) Hearing needs: Yes Vision needs: Yes (glasses) Physical Exam Vital Signs: Last Vital Signs Pulse 94 08/04/25 09:46 BP 126/74 08/04/25 09:46 Pulse Ox 94 08/04/25 09:46 Oxygen Delivery Method Room Air 08/04/25 09:46 BMI result Body Mass Index 33.5 Results AMB Hemoglobin A1c AMB Hemoglobin A1c 7.8 % Last Edit by JODY Shirley on 08/04/25 10:08 Results Reviewed Results Reviewed: Laboratory Last Values Glucose (Clinic) 103 mg/dL (60-115) 08/04/25 09:53 Laboratory Tests 12/09/23 03/30/24 03/30/24 10:21 08:48 09:04 Creatinine 0.99 Estimated GFR > 60 Hgb A1c (Clinic) 10.1 H AST 45 H ALT 60 H Triglycerides 149 Cholesterol 120 LDL Cholesterol, Calc 59 HDL Cholesterol 32 L Urine Creatinine 169.71 Urine Microalbumin 47.0 Microalb/Creat Ratio 27.6 03/30/24 07/12/24 04/04/25 09:26 10:21 12:42 Creatinine Estimated GFR Hgb A1c (Clinic) 9.5 H 8.3 H 7.4 H AST ALT Triglycerides Cholesterol LDL Cholesterol, Calc HDL Cholesterol Urine Creatinine Urine Microalbumin Microalb/Creat Ratio Assessment & Plan Assessment & Plan (1) Type 2 diabetes mellitus, without long-term current use of insulin: Code(s): E11.9 - Type 2 diabetes mellitus without complications Category: Medical Qualifiers: Diabetes mellitus complication detail: with polyneuropathy Diabetes mellitus complication status: with neurologic complications Qualified Code(s): E11.42 - Type 2 diabetes mellitus with diabetic polyneuropathy Plan In summary this is a 70-year-old male with suboptimally controlled type 2 diabetes. Discussed pathophysiology of Type II Diabetes Mellitus with the patient in detail.? I explained the alf risks and complications associated with uncontrolled diabetes including nephropathy, neuropathy, peripheral vascular disease, retinopathy, increased risk of heart disease and stroke.? Discussed lifestyle modification with the patient. Recommended 30 minutes of moderately vigorous exercise 5 days per week to promote weight loss. He requested a CGM, but [facility] does not cover this for patients not taking insulin. Bring glucometer to next appointment. I recommended modifying his medication plan. He can increase metformin once his lab work is done today to check renal function because he is overdue. He does not want to do this. He is concerned about side effects on his medications. He also does not want to start any injectable medications including insulin. We therefore discussed lifestyle modifications in detail, and he is agreeable to seeing the dietitian. He will continue metformin extended release 500 mg twice daily, Rybelsus to 14 mg daily, Tradjenta 5 mg and Farxiga 10 mg daily. We reviewed treatment of hypoglycemia. Follow up in 3 months. Orders: Orders AMB Hemoglobin A1c Today E11.42 - Type 2 diabetes mellitus with diabetic polyneuropathy Referrals Director Machine Nutrition Referral E11.65 - Type 2 diabetes mellitus with hyperglycemia Coding Level of Care Code Est Pt Level 4 (65149) Complex EM visit Add On G2211 Diagnoses Type 2 diabetes mellitus with diabetic polyneuropathy, without long-term current use of insulin E11.42 Diabetes mellitus complication detail: with polyneuropathy Diabetes mellitus complication status: with neurologic complications
[2025-08-04 09:46] VITALS: BP 126/74; PULSE 94; O2SAT 94; BMI 33.5
[2025-08-04 09:58] LABS: Glucose, Whole Blood 103 mg/dL (60-115)
== END 2025-08-04 10:39 | disposition home or self-care (01) ==
LOC: HO.ENCR 09:27
PROVIDERS: PCP Internal Medicine; Visit Provider Physician Assistant Medical
DX: E11.42 Type 2 diabetes mellitus with diabetic polyneuropathy (principal)

== ENCOUNTER → 2025-08-04 09:26 | Outpatient (BNVA) | payer OTHER, SELFPAY | PROVIDERS: PCP Internal Medicine; Visit Provider Physician Assistant Medical | DX: E11.42 Type 2 diabetes mellitus with diabetic polyneuropathy (principal); Z79.84 Long term (current) use of oral hypoglycemic drugs | CPT/HCPCS: 82947; 83036; 99212 ==

== ENCOUNTER 2025-08-04 10:46 | Outpatient (REF) | payer OTHER, SELFPAY ==
--- OUTSIDE RECORDS SUMMARY | 2025-08-04 12:24 | XMS_ITS | Clinical Summary ---
Author Organization [facility] Lat[facility] Facility Address [address] [address] Care Team Providers Care Shuttle Van Driver Name Role Phone Myriam Fernández MD Primary Care Provider [phone] Allergies No known active allergies Medications ciclopirox [...] AM EDT) Hemoglobin A1C 9.3(H) (4.0-5.6) % [facility] Comment: MONITORING: In known diabetic patients, hemoglobin A1c targets should be discussed with health care provider. DIAGNOSTIC USE: The [place] Diabetes Association (ADA) and the World Health [...] Supplement 1 Testing performed or reported by [facility], a Service of [facility], [address] [place] [id number] Kristian Gerber MD, Child Welfare Social Worker [facility]# [id number] 04/22/2023 9:23 AM EDT 04/22/2023 9:28 AM EDT us Kristofer Hurt MD LAB BLOOD ORDERABLES Final Re sult [facility] from Last 3 Months or Most Recently Relevant to Health Maintenance [place] [address] ([id number]) ([id number]) Care Teams Shuttle Van Driver Relationship Specialty Start Date End Date Myriam Fernández MD [address] [place], [place] PCP - General Internal Medicine 03/04/22
--- OUTSIDE RECORDS SUMMARY | 2025-08-04 12:24 | XMS_ITS | Clinical Summary ---
Author Organization [facility] Address [address] [place] [address] Phone Care Team Providers Care Real Estate Site Analyst Name Role Phone Myriam Paulson MD Primary Care Provider [phone] Allergies Active Allergy Reactions Criticality Noted Date Comments Penicillins Other 10/07/2024 Medications No known medications Active Problems No known active problems Medical History Medical History Date Comments Diabetes mellitus ([facility] V24, [facility] V28) Hypertension HLD (hyperlipidemia) Anxiety [...] - Risk 60-74 years 1-dose series) 2017 Abdominal Aortic Aneurysm (AAA) Screen 10/07/2024 Cholesterol Screening (Lipid Panel) 10/07/2024 Colorectal Cancer Screening: Colonoscopy 10/07/2024 Diabetes: Annual Urine Albumin-Creatinine Ratio (uACR) 10/07/2024 04/22/2023 Diabetes: Blood Sugar Contro l Test (HGBA1C) 10/07/2024 04/22/2023 Falls Risk Assessment 10/07/2024 Hepatitis C Screening 10/07/2024 Hypertension/CHF/CAD Annual BMP Blood Test 10/07/2024 Medicare Annual Wellness Visit 10/07/2024 Social Influencers of Health Screening 10/07/2024 Depression Screening 11/09/2024 COVID-19 Vaccine (2 - 2024-2 6 season) 2025 10/18/2021 Influenza Vaccine (#1) 2025 3, 07/31/2020 HIB [...] patient's age to complete this topic Insurance [facility] MEDICARE Member Subscriber Plan / Payer (Ef fective 2024-Present) Name:Raoul Garcia Relation to Subscriber:Self Name:Raoul Garcia Payer ID:[id number] Group ID:[id number] Type:Not on file Address: [place] [address] [address] [id number] Care Teams Real Estate Site Analyst Relationship Specialty Start Date End Date Myriam Paulson MD [address] [facility] , [address] [facility] Physician Associ D/B/A: [facility] Sawant PCP - General Internal Medicine 10/19/24
--- OUTSIDE RECORDS SUMMARY | 2025-08-04 12:24 | XMS_ITS | Clinical Summary ---
Author Organization [facility] Address [address] [place] [address] Care Team Providers Care Smoke Chaser Name Role Phone Unavailable Primary Care Provider [...] 05/15/2022 Overview (05/15/2022): Was done 01/30/22 Diabetes ([facility]) 05/15/2022 High blood pressure 05/15/2022 Abnormal cholesterol test 05/15/2022 Asthma ([facility]) 05/15/2022 Social History Tobacco Use [...] Plan of Treatment Not on file Insurance [facility] S[facility] NET DENTAL MEDICAID Member Subscriber Plan / Payer (Ef fective 2022-Present) Name:Roaul Rojo Relation to Subscriber:Self Name:Raoul Rojo Payer ID:[id number] Group ID:Not on file Type:Medicaid Address: [address] [id number] MEDICARE - [place] [facility] - DENTAL
[2025-08-04 13:38] LABS: Microalbum/Creatinine Ratio Ur 33.1 ug/mg cr (<30)
[2025-08-04 14:08] LABS: Alanine Aminotransferase 49 U/L (0-40); Albumin Level 4.3 g/dL (3.5-5.0); Alkaline Phosphatase 93 U/L (39-117); Anion Gap 13 (12-20); Aspartate Amino Transferase 38 U/L (5-37); Blood Urea Nitrogen 17 mg/dL (9-16); Calcium 9.3 mg/dL (8.4-10.2); Carbon Dioxide 27 mmol/L (22-29); Chloride 106 mmol/L (96-108); Cholesterol 97 mg/dL (<200); Estimated Glomerular Filt Rate > 60; HDL Cholesterol 22 mg/dL (>40); Potassium 3.4 mmol/L (3.3-5.1); Sodium 143 mmol/L (135-145); Total Protein 8.0 g/dL (6.5-8.0); Triglycerides 108 mg/dL (<150)
--- OUTSIDE RECORDS SUMMARY | 2025-09-18 20:00 | XMS_ITS | Clinical Summary ---
Author Organization Unknown Care Team Providers Care Collection Support Specialist Name Role Phone PJ JUNG MD, ROGE Unavailable Unavailable CESARIO DAN, CARMITA Unavailable Unavailable Payers Payer Name Policy Type Policy Number Effective Date Expira tion Date [facility] [id number] MEDICAID [facility] [id number] MEDICARE - [place]/PR - PD [id number] Problems Condition Name Condition Details Condition Category Status Onset Date Resolution Date Last Treatment Date Treating Clinician Comments TYPE 2 DIABETES MELLITUS WITHOUT COMPLICATION S Active 03-25 00:00: 00 PERSONAL HISTORY OF TRAUMATIC BRAIN INJURY Active 03-29 00:00: 00 GENERALIZED ANXIETY DISORDER Active 03-29 00:00: 00 ESSENTIAL (PRIMARY) HYPERTENSION Active 03-29 00:00: 00 DEPRESSION, UNSPECIFIED Active 03-22 00:00: 00 Allergies, Adverse Reactions, Alerts Allergy [...] 03-31 00:00: 00 11-18 23:59 :00 No [id number] 1 capsule 2 TIMES DAILY 1 capsule 2 TIMES DAILY (route: oral) Med Classific ation: Electroly te Balance-N utritiona l Products Farxiga 10 mg tablet 12-22 00:00: 00 07-19 23:59 :00 No [id number] 1 tablet QD 1 tablet QD (route: oral) Alternate Route: PO. Med Classific ation: Endocrine Flovent HFA 220 mcg/actuati on aerosol inhaler 2019-0 2-14 00:00: 00 11-18 23:59 :00 No [id number] 2 puff BID EACH DAY 2 puff BID EACH DAY (route: inhalation ) Alternate Route: BY MOUTH. Med Classific ation: Respirato ry Therapy Agents lisinopril 5 mg tablet 03-31 00:00: 00 12-12 23:59 :00 No [id number] 1 tablet DAILY 1 tablet DAILY (route: oral) Med Classific ation: Cardiovas cular Therapy Agents metformin 1,000 mg tablet 03-31 00:00: 00 11-18 23:59 :00 No [id number] 1 tablet DAILY 1 tablet DAILY (route: oral) Med Classific ation: Endocrine montelukast 10 mg tablet 03-31 00:00: 00 Yes [id number] 1 tablet DAILY 1 tablet DAILY (route: oral) Med Classific ation: Respirato ry Therapy Agents nystatin 100,000 unit/gram topical cream 03-31 00:00: 00 07-17 23:59 :00 No [id number] Per instruc tions 3 TIMES DAILY Per instructio ns 3 TIMES DAILY (route: topical) Med Classific ation: Dermatolo gical terbinafine HCl 250 mg tablet 02-07 00:00: 00 05-23 23:59 :00 No [id number] 1 tablet DAILY 1 tablet DAILY (route: oral) Med Classific ation: Anti-Infe ctive Agents dulaglutide 1.5 mg/0.5 mL subcutaneou s pen injector 12-17 00:00: 00 03-31 23:59 :00 No [id number] 0.5 mL Q WEEK 0.5 mL Q WEEK (route: subcutaneo us) Alternate Route: 1 SYRINGE UNDER THE SKIN. Med Classific ation: Endocrine Farxiga 10 mg tablet 08-01 00:00: 00 11-18 23:59 :00 No [id number] 1 tablet DAILY 1 tablet DAILY (route: oral) Med Classific ation: Endocrine Advair HFA 230 mcg-21 mcg/actuati on aerosol inhaler 11-20 00:00: 00 05-21 23:59 :00 No [id number] 2 puff DAILY 2 puff DAILY (route: inhalation ) Med Classific ation: Respirato ry Therapy Agents atorvastati n 10 mg tablet 11-20 00:00: 00 07-17 23:59 :00 No [id number] 1 tablet BEDTIME 1 tablet BEDTIME (route: oral) Med Classific ation: Cardiovas cular Therapy Agents Calcium 600 mg calcium (1,500 mg) tablet 11-20 00:00: 00 11-13 00:00 :00 No [id number] 1 tablet DAILY 1 tablet DAILY (route: oral) Med Classific ation: Electroly te Balance-N utritiona l Products fluticasone prop.50 mcg spray,suspe n-sod.chlor fede 0.9% nasal spray kit 11-20 00:00: 00 05-21 23:59 :00 No [id number] 2 spray DAILY 2 spray DAILY (route: nasal) Med Classific ation: Respirato ry Therapy Agents melatonin 5 mg tablet 11-20 00:00: 00 07-17 23:59 :00 No [id number] 1 tablet BEDTIME 1 tablet BEDTIME (route: oral) Med Classific ation: Central Nervous System Agents metformin 500 mg tablet 11-20 00:00: 00 09-21 23:59 :00 No [id number] 1 tablet DAILY 1 tablet DAILY (route: oral) Med Classific ation: Endocrine ProAir RespiClick 90 mcg/actuati on breath activated 11-20 00:00: 00 Yes [id number] 2 puff EVERY 4 HOURS 2 puff EVERY 4 HOURS (route: inhalation ) Med Classific ation: Respirato ry Therapy Agents amlodipine 5 mg tablet 2- 00:00: 00 Yes [id number] 1 tablet DAILY 1 tablet DAILY (route: oral) Med Classific ation: Cardiovas cular Therapy Agents Farxiga 10 mg tablet 2-03 00:00: 00 Yes [id number] 1 tablet DAILY 1 tablet DAILY (route: oral) Med Classific ation: Endocrine tamsulosin 0.4 mg capsule 01-23 00:00: 00 Yes [id number] 1 capsule BEDTIME 1 capsule BEDTIME (route: oral) Med Classific ation: Genitouri nary Therapy Oyster Shell Calcium-Vit mccarty D3 500 mg (1,250 mg)-200 unit tablet 11-15 00:00: 00 09-21 23:59 :00 No [id number] 1 tablet DAILY 1 tablet DAILY (route: oral) Med Classific ation: Electroly te Balance-N utritiona l Products cinnamon bark-chromi um picolinate- ALA 500 mg-100 mcg-150 mg capsule 12-04 00:00: 00 09-21 23:59 :00 No [id number] 1000 mg DAILY 1000 mg DAILY (route: oral) Med Classific ation: Alternati ve Therapy multivitami n tablet 12-04 00:00: 00 Yes [id number] 1 tablet DAILY 1 tablet DAILY (route: oral) Med Classific ation: Electroly te Balance-N utritiona l Products Vitamin C 500 mg tablet 12-04 00:00: 00 09-21 23:59 :00 No [id number] 1 tablet DAILY 1 tablet DAILY (route: oral) Med Classific ation: Electroly te Balance-N utritiona l Products Aspirin Low Dose 81 mg tablet,[place] yed release 01-21 00:00: 00 11-23 23:59 :00 No [id number] 1 tablet DAILY 1 tablet DAILY (route: oral) Med Classific ation: Hematolog ical Agents metoprolol succinate ER 25 mg tablet,exte nded release 24 hr 01-21 00:00: 00 Yes [id number] 1 tablet DAILY 1 tablet DAILY (route: oral) Med Classific ation: Cardiovas cular Therapy Agents atorvastati n 20 mg tablet 05-21 00:00: 00 Yes [id number] 1 tablet BEDTIME 1 tablet BEDTIME (route: oral) Med Classific ation: Cardiovas cular Therapy Agents losartan 25 mg tablet 05-21 00:00: 00 Yes [id number] 1 tablet DAILY 1 tablet DAILY (route: oral) Med Classific ation: Cardiovas cular Therapy Agents Symbicort 160 mcg-4.5 mcg/actuati on HFA aerosol inhaler 05-21 00:00: 00 Yes [id number] 2 puff 2 TIMES DAILY 2 puff 2 TIMES DAILY (route: inhalation ) Med Classific ation: Respirato ry Therapy Agents Brilinta 90 mg tablet 05-21 00:00: 00 03-25 23:59 :00 No [id number] 1 tablet 2 TIMES DAILY 1 tablet 2 TIMES DAILY (route: oral) Med Classific ation: Hematolog ical Agents Brilinta 90 mg tablet 07-30 00:00: 00 03-25 23:59 :00 No [id number] 90 mg 2 TIMES DAILY 90 mg 2 TIMES DAILY (route: oral) Med Classific ation: Hematolog ical Agents sertraline 25 mg tablet 2021-11 00:00: 00 09-21 23:59 :00 No [id number] 1 tablet DAILY 1 tablet DAILY (route: oral) Med Classific ation: Central Nervous System Agents hydroxyzine HCl 10 mg tablet 05-13 00:00: 00 05-17 23:59 :00 No [id number] 1 tablet 3 TIMES DAILY 1 tablet 3 TIMES DAILY (route: oral) Med Classific ation: Central Nervous System Agents prednisone 20 mg tablet 05-13 00:00: 00 05-17 23:59 :00 No [id number] 2 tablet DAILY 2 tablet DAILY (route: oral) Med Classific ation: Endocrine ciclopirox 0.77 % topical cream 07-15 00:00: 00 09-21 23:59 :00 No [id number] 1 inch 2 TIMES DAILY 1 inch 2 TIMES DAILY (route: topical) Med Classific ation: Dermatolo gical nystatin-tr iamcinolone 100,000 unit/g-0.1 % topical cream 07-15 00:00: 00 09-21 23:59 :00 No [id number] 1 cm DAILY 1 cm DAILY (route: topical) Med Classific ation: Dermatolo gical [place] 3-6-9 1,200 mg capsule 2022-11 00:00: 00 09-21 23:59 :00 No [id number] 1 capsule DAILY 1 capsule DAILY (route: oral) Med Classific ation: Cardiovas cular Therapy Agents doxycycline hyclate 100 mg capsule 2022-11 00:00: 00 10-07 23:59 :00 No [id number] 1 capsule 2 TIMES DAILY 1 capsule 2 TIMES DAILY (route: oral) Med Classific ation: Anti-Infe ctive Agents ciclopirox 0.77 % topical cream 2-07 00:00: 00 12-30 23:59 :00 No [id number] Per instruc tions 2 TIMES DAILY Per instructio ns 2 TIMES DAILY (route: topical) Med Classific ation: Dermatolo gical Tradjenta 5 mg tablet 06 00:00: 00 03-31 23:59 :00 No [id number] 1 tablet DAILY 1 tablet DAILY (route: oral) Med Classific ation: Endocrine Trulicity 1.5 mg/0.5 mL subcutaneou s pen injector 23 00:00: 00 07-27 23:59 :00 No [id number] Per instruc tions WEEKLY Per instructio ns WEEKLY (route: subcutaneo us) Med Classific ation: Endocrine Trulicity 3 mg/0.5 mL subcutaneou s pen injector 18 00:00: 00 09-21 23:59 :00 No [id number] 3 mg WEEKLY 3 mg WEEKLY (route: subcutaneo us) Med Classific ation: Endocrine metformin 1,000 mg tablet 2023-11 00:00: 00 Yes [id number] 1 tablet 2 TIMES DAILY 1 tablet 2 TIMES DAILY (route: oral) Med Classific ation: Endocrine Rybelsus 7 mg tablet 2023-11 00:00: 00 01-18 23:59 :00 No [id number] 1 tablet DAILY 1 tablet DAILY (route: oral) Med Classific ation: Endocrine sertraline 50 mg tablet 2023-11 00:00: 00 Yes [id number] 1 tablet DAILY 1 tablet DAILY (route: oral) Med Classific ation: Central Nervous System Agents Rybelsus 14 mg tablet 01-23 00:00: 00 Yes [id number] 1 tablet DAILY 1 tablet DAILY (route: oral) Med Classific ation: Endocrine Vital Signs Vital Name Observation Time Observation Value Commen ts Temperature 2025-08-02 11:15:00.000 97.9 [degF] Temperature 2025-07-26 11:17:00.000 97.9 [degF] Pulse 2025-08-02 11:15:00.000 76 /min Pulse 2025-07-26 11:17:00.000 75 /min O2 Saturation (%) 2025-08-02 11:16:00.000 98 % O2 Saturation (%) 2025-07-26 11:17:00.000 97 % Respirations 2025-08-02 11:15:00.000 20 /min Respirations 2025-07-26 11:17:00.000 20 /min Systolic Blood Pressure 2025-08-02 11:15:00.000 128 mm [Hg] Systolic Blood Pressure 2025-07-26 11:17:00.000 132 mm [Hg] Diastolic Blood Pressure 2025-08-02 11:15:00.000 77 mm [Hg] Diastolic Blood Pressure 2025-07-26 11:17:00.000 82 mm [Hg] Plan of Treatment Planned Activity [...] MANAGEMENT.] Future Scheduled Test SKILLED NU RSE TO [...] FOR O/A OF NEUROCOGNITIVE AND BEHAVIORAL STATUS] Future Scheduled Test SKILLED NU RSE TO ASSESS PATIENT S PSYCHOSOCIAL STATUS TO IDENTIFY POTENTIAL ISSUES THAT MAY COMPLICATE THE PROVISION OF THE PLAN OF CARE INCLUDING THE PATIENT S ABILITY TO ACCESS COMMUNITY RESOURCES AND PSYCHOSOCIAL SUPPORT SERVICES. [code = SKILLED NURSE TO ASSESS PATIENT S PSYCHOSOCIAL STATUS TO IDENTIFY POTENTIAL ISSUES THAT MAY COMPLICATE THE PROVISION OF THE PLAN OF CARE INCLUDING THE PATIENT S ABILITY TO ACCESS COMMUNITY RESOURCES AND PSYCHOSOCIAL [...] COMPLICATIONS.] Future Scheduled Test SKILLED NU RSE WILL MAINTAIN SITUATIONAL AWARENESS FOR SAFETY AND WILL NOTIFY CLINICAL FLAT OPTICAL ELEMENT MAKER AND PHYSICIAN/PROVIDER WITH ANY CHANGE IN CONDITION. [code = SKILLED NURSE WILL MAINTAIN SITUATIONAL AWARENESS FOR SAFETY AND WILL NOTIFY CLINICAL FLAT OPTICAL ELEMENT MAKER AND PHYSICIAN/PROVIDER WITH ANY CHANGE IN CONDITION.] Goal 2024-05-25 Patient Goal - I MPROVE MEDICATION COMPLIANCE Goal 2025-03-22 Patient Goal - I MPROVE MEDICATION COMPLIANCE Goal 2025-01-18 Patient Goal - I MPROVE MEDICATION COMPLIANCE Goal 2024-11-23 Patient Goal - I MPROVE MEDICATION COMPLIANCE Goal 2024-09-21 Patient Goal - I MPROVE MEDICATION COMPLIANCE Goal 2024-07-26 Patient Goal - I MPROVE MEDICATION COMPLIANCE Goal Patient Goal - I MPROVE MEDICATION COMPLIANCE Goal 2025-07-19 Patient Goal - I MPROVE MEDICATION COMPLIANCE Goal 2025-05-18 Patient Goal - I MPROVE MEDICATION COMPLIANCE Goal Provider Goal - A PLAN OF CARE WILL BE ESTABLISHED THAT MEETS PATIENT'S HALF-WAY NEEDS AND INCLUDES PATIENT GOAL FOR HOME [...] MAINTAIN OPTIMAL BEHAVIORAL/NEUROCOGNITIVE STATUS THROUGHOUT CERTIFICATION PERIOD. Goal Provider Goal - [...] SELF AND OTHERS THROUGHOUT THE CERTIFICATION PERIOD. Encounters Start Date/Time End Date/Time Encounter Type Admission Type Attending [facility] Care Facility Care Department Encounter ID Discharge Date Discharge Status Discharge Condition Discharge Reason Percent Goals Met 2025-07-22 00:00:00 2025-09-19 00:00:00 Outpatient RECERTIFIC ATION CARMITA NASSAR [facility] [id number] 31.25
--- OUTSIDE RECORDS SUMMARY | 2025-09-18 20:00 | XMS_ITS | Clinical Summary ---
Author Organization Unknown Care Team Providers Care Bread Slicer Machine Name Role Phone PJ JUNG MD, ROGE Unavailable Unavailable CESARIO DAN, CARMITA Unavailable Unavailable Payers Payer Name Policy Type Policy Number Effective Date Expira tion Date [facility] [place] [id number] MEDICAID [facility] [id number] MEDICARE - [place] [id number] Problems Condition Name Condition Details Condition Category [...] 03-31 00:00: 00 11-18 23:59 :00 No [id number] 1 capsule 2 TIMES DAILY 1 capsule 2 TIMES DAILY (route: oral) Med Classific ation: Electroly te Balance-N utritiona l Products Farxiga 10 mg tablet 12-22 00:00: 00 07-19 23:59 :00 No [id number] 1 tablet QD 1 tablet QD (route: oral) Alternate Route: PO. Med Classific ation: Endocrine Flovent HFA 220 mcg/actuati on aerosol inhaler 2019-0 2-14 00:00: 00 11-18 23:59 :00 No [id number] 2 puff BID EACH DAY 2 puff BID EACH DAY (route: inhalation ) Alternate Route: BY MOUTH. Med Classific ation: Respirato ry Therapy Agents lisinopril 5 mg tablet 03-31 00:00: 00 12-12 23:59 :00 No [id number] 1 tablet DAILY 1 tablet DAILY (route: oral) Med Classific ation: Cardiovas cular Therapy Agents metformin 1,000 mg tablet 03-31 00:00: 00 11-18 23:59 :00 No [id number] 1 tablet DAILY 1 tablet DAILY (route: oral) Med Classific ation: Endocrine montelukast 10 mg tablet 03-31 00:00: 00 Yes [id number] 1 tablet DAILY 1 tablet DAILY (route: oral) Med Classific ation: Respirato ry Therapy Agents nystatin 100,000 unit/gram topical cream 03-31 00:00: 00 07-17 23:59 :00 No [id number] Per instruc tions 3 TIMES DAILY Per instructio ns 3 TIMES DAILY (route: topical) Med Classific ation: Dermatolo gical terbinafine HCl 250 mg tablet 02-07 00:00: 00 05-23 23:59 :00 No [id number] 1 tablet DAILY 1 tablet DAILY (route: oral) Med Classific ation: Anti-Infe ctive Agents dulaglutide 1.5 mg/0.5 mL subcutaneou s pen injector 12-17 00:00: 00 03-31 23:59 :00 No [id number] 0.5 mL Q WEEK 0.5 mL Q WEEK (route: subcutaneo us) Alternate Route: 1 SYRINGE UNDER THE SKIN. Med Classific ation: Endocrine Farxiga 10 mg tablet 08-01 00:00: 00 11-18 23:59 :00 No [id number] 1 tablet DAILY 1 tablet DAILY (route: oral) Med Classific ation: Endocrine Advair HFA 230 mcg-21 mcg/actuati on aerosol inhaler 11-20 00:00: 00 05-21 23:59 :00 No [id number] 2 puff DAILY 2 puff DAILY (route: inhalation ) Med Classific ation: Respirato ry Therapy Agents atorvastati n 10 mg tablet 11-20 00:00: 00 07-17 23:59 :00 No [id number] 1 tablet BEDTIME 1 tablet BEDTIME (route: oral) Med Classific ation: Cardiovas cular Therapy Agents Calcium 600 mg calcium (1,500 mg) tablet 11-20 00:00: 00 11-13 00:00 :00 No [id number] 1 tablet DAILY 1 tablet DAILY (route: oral) Med Classific ation: Electroly te Balance-N utritiona l Products fluticasone prop.50 mcg spray,suspe n-sod.chlor fede 0.9% nasal spray kit 11-20 00:00: 00 05-21 23:59 :00 No [id number] 2 spray DAILY 2 spray DAILY (route: nasal) Med Classific ation: Respirato ry Therapy Agents melatonin 5 mg tablet 11-20 00:00: 00 07-17 23:59 :00 No [id number] 1 tablet BEDTIME 1 tablet BEDTIME (route: oral) Med Classific ation: Central Nervous System Agents metformin 500 mg tablet 11-20 00:00: 00 09-21 23:59 :00 No [id number] 1 tablet DAILY 1 tablet DAILY (route: oral) Med Classific ation: Endocrine ProAir RespiClick 90 mcg/actuati on breath activated 11-20 00:00: 00 Yes [id number] 2 puff EVERY 4 HOURS 2 puff EVERY 4 HOURS (route: inhalation ) Med Classific ation: Respirato ry Therapy Agents amlodipine 5 mg tablet 2- 00:00: 00 Yes [id number] 1 tablet DAILY 1 tablet DAILY (route: oral) Med Classific ation: Cardiovas cular Therapy Agents Farxiga 10 mg tablet 2-03 00:00: 00 Yes [id number] 1 tablet DAILY 1 tablet DAILY (route: oral) Med Classific ation: Endocrine tamsulosin 0.4 mg capsule 01-23 00:00: 00 Yes [id number] 1 capsule BEDTIME 1 capsule BEDTIME (route: oral) Med Classific ation: Genitouri nary Therapy Oyster Shell Calcium-Vit mccarty D3 500 mg (1,250 mg)-200 unit tablet 11-15 00:00: 00 09-21 23:59 :00 No [id number] 1 tablet DAILY 1 tablet DAILY (route: oral) Med Classific ation: Electroly te Balance-N utritiona l Products cinnamon bark-chromi um picolinate- ALA 500 mg-100 mcg-150 mg capsule 12-04 00:00: 00 09-21 23:59 :00 No [id number] 1000 mg DAILY 1000 mg DAILY (route: oral) Med Classific ation: Alternati ve Therapy multivitami n tablet 12-04 00:00: 00 Yes [id number] 1 tablet DAILY 1 tablet DAILY (route: oral) Med Classific ation: Electroly te Balance-N utritiona l Products Vitamin C 500 mg tablet 12-04 00:00: 00 09-21 23:59 :00 No [id number] 1 tablet DAILY 1 tablet DAILY (route: oral) Med Classific ation: Electroly te Balance-N utritiona l Products Aspirin Low Dose 81 mg tablet,chilango yed release 01-21 00:00: 00 11-23 23:59 :00 No [id number] 1 tablet DAILY 1 tablet DAILY (route: oral) Med Classific ation: Hematolog ical Agents metoprolol succinate ER 25 mg tablet,exte nded release 24 hr 01-21 00:00: 00 Yes [id number] 1 tablet DAILY 1 tablet DAILY (route: oral) Med Classific ation: Cardiovas cular Therapy Agents atorvastati n 20 mg tablet 05-21 00:00: 00 Yes [id number] 1 tablet BEDTIME 1 tablet BEDTIME (route: oral) Med Classific ation: Cardiovas cular Therapy Agents losartan 25 mg tablet 05-21 00:00: 00 Yes [id number] 1 tablet DAILY 1 tablet DAILY (route: oral) Med Classific ation: Cardiovas cular Therapy Agents Symbicort 160 mcg-4.5 mcg/actuati on HFA aerosol inhaler 05-21 00:00: 00 Yes [id number] 2 puff 2 TIMES DAILY 2 puff 2 TIMES DAILY (route: inhalation ) Med Classific ation: Respirato ry Therapy Agents Brilinta 90 mg tablet 05-21 00:00: 00 03-25 23:59 :00 No [id number] 1 tablet 2 TIMES DAILY 1 tablet 2 TIMES DAILY (route: oral) Med Classific ation: Hematolog ical Agents Brilinta 90 mg tablet 07-30 00:00: 00 03-25 23:59 :00 No [id number] 90 mg 2 TIMES DAILY 90 mg 2 TIMES DAILY (route: oral) Med Classific ation: Hematolog ical Agents sertraline 25 mg tablet 2021-11 00:00: 00 09-21 23:59 :00 No [id number] 1 tablet DAILY 1 tablet DAILY (route: oral) Med Classific ation: Central Nervous System Agents hydroxyzine HCl 10 mg tablet 05-13 00:00: 00 05-17 23:59 :00 No [id number] 1 tablet 3 TIMES DAILY 1 tablet 3 TIMES DAILY (route: oral) Med Classific ation: Central Nervous System Agents prednisone 20 mg tablet 05-13 00:00: 00 05-17 23:59 :00 No [id number] 2 tablet DAILY 2 tablet DAILY (route: oral) Med Classific ation: Endocrine ciclopirox 0.77 % topical cream 07-15 00:00: 00 09-21 23:59 :00 No [id number] 1 inch 2 TIMES DAILY 1 inch 2 TIMES DAILY (route: topical) Med Classific ation: Dermatolo gical nystatin-tr iamcinolone 100,000 unit/g-0.1 % topical cream 07-15 00:00: 00 09-21 23:59 :00 No [id number] 1 cm DAILY 1 cm DAILY (route: topical) Med Classific ation: Dermatolo gical Childs 3-6-9 1,200 mg capsule 2022-11 00:00: 00 09-21 23:59 :00 No [id number] 1 capsule DAILY 1 capsule DAILY (route: oral) Med Classific ation: Cardiovas cular Therapy Agents doxycycline hyclate 100 mg capsule 2022-11 00:00: 00 10-07 23:59 :00 No [id number] 1 capsule 2 TIMES DAILY 1 capsule 2 TIMES DAILY (route: oral) Med Classific ation: Anti-Infe ctive Agents ciclopirox 0.77 % topical cream 2-07 00:00: 00 12-30 23:59 :00 No [id number] Per instruc tions 2 TIMES DAILY Per instructio ns 2 TIMES DAILY (route: topical) Med Classific ation: Dermatolo gical Tradjenta 5 mg tablet 06 00:00: 00 03-31 23:59 :00 No [id number] 1 tablet DAILY 1 tablet DAILY (route: oral) Med Classific ation: Endocrine Trulicity 1.5 mg/0.5 mL subcutaneou s pen injector 23 00:00: 00 07-27 23:59 :00 No [id number] Per instruc tions WEEKLY Per instructio ns WEEKLY (route: subcutaneo us) Med Classific ation: Endocrine Trulicity 3 mg/0.5 mL subcutaneou s pen injector 18 00:00: 00 09-21 23:59 :00 No [id number] 3 mg WEEKLY 3 mg WEEKLY (route: subcutaneo us) Med Classific ation: Endocrine metformin 1,000 mg tablet 2023-11 00:00: 00 Yes [id number] 1 tablet 2 TIMES DAILY 1 tablet 2 TIMES DAILY (route: oral) Med Classific ation: Endocrine Rybelsus 7 mg tablet 2023-11 00:00: 00 01-18 23:59 :00 No [id number] 1 tablet DAILY 1 tablet DAILY (route: oral) Med Classific ation: Endocrine sertraline 50 mg tablet 2023-11 00:00: 00 Yes [id number] 1 tablet DAILY 1 tablet DAILY (route: oral) Med Classific ation: Central Nervous System Agents Rybelsus 14 mg tablet 01-23 00:00: 00 Yes [id number] 1 tablet DAILY 1 tablet DAILY (route: [...] AWARENESS FOR SAFETY AND WILL NOTIFY CLINICAL RETAIL AIDE AND PHYSICIAN/PROVIDER WITH ANY CHANGE IN CONDITION. [code = SKILLED NURSE WILL MAINTAIN SITUATIONAL AWARENESS FOR SAFETY AND WILL NOTIFY CLINICAL RETAIL AIDE AND PHYSICIAN/PROVIDER WITH ANY CHANGE IN CONDITION.] [...] CARE WILL BE ESTABLISHED THAT MEETS PATIENT'S RETIREMENT NEEDS AND INCLUDES PATIENT GOAL FOR HOME [...] End Date/Time Encounter Type Admission Type Attending [facility] Care Facility Care Department Encounter ID Discharge Date Discharge Status Discharge Condition Discharge Reason Percent Goals Met 2025-07-22 00:00:00 2025-09-19 00:00:00 Outpatient RECERTIFIC ATION CARMITA NASSAR [facility] [place] [id number] 31.25
== END 2025-08-04 10:47 | disposition home or self-care (01) ==
LOC: HO.10HDL 10:46
PROVIDERS: Visit Provider Internal Medicine
DX: E78.5 Hyperlipidemia, unspecified (principal); E55.9 Vitamin D deficiency, unspecified; E11.42 Type 2 diabetes mellitus with diabetic polyneuropathy; R80.9 Proteinuria, unspecified
CPT/HCPCS: 36415; 80053; 80061; 82043; 82306; 82570

== ENCOUNTER 2025-08-08 12:55 | Outpatient (AMB) | payer OTHER, SELFPAY ==
--- NOTE | 2025-08-08 13:04 | MHC.PC.OV ---
Vital Signs 08/08/25 13:07 Height 5 ft 2 in Weight 182 lb 2 oz BMI 33.3 BP 128/66 Blood Pressure Location Lt brachial Position Sitting Pulse 82 Pulse Source Pulse Oximeter Temp 97.1 F Temp Source Temporal Artery Scan Pulse Oximetry (%) 92 Oxygen Delivery Method Room Air Intake Visit Reasons: dm Intake Note: Patient is here to follow up on DM. Food And Beverage Operations Manager Required: Yes Food And Beverage Operations Manager Language: Maltese Information Interpreted: non-clinical & clinical Logging Crew Foreman: Present Accompanied by: BUFFING LINE SET UP WORKER Allergies Penicillins Allergy (Verified 08/08/25 13:15) Hives Medication List - Last Reconciled 08/08/25 by Myriam Paulson MD amlodipine 5 mg PO DAILY 90 days atorvastatin 20 mg PO ONCE 90 days blood sugar diagnostic (FreeStyle Lite Strips) Use 1 test strip once a day blood-glucose meter (FreeStyle Lite Meter kit) Use as directed to monitor blood glucose. calcium carbonate-vitamin D3 500 mg-5 mcg (200 unit) 1 tab PO DAILY 60 days cholecalciferol (vitamin D3) 25 mcg PO DAILY ciclopirox 0.77% 1 appl topical BID 2 weeks [custome molded shoe inserts As directed] dapagliflozin propanediol (Farxiga) 10 mg PO DAILY 3 months glucose (Dex4 Glucose) 16 grams (4 x 4 gram) PO Q15M PRN lancets (FreeStyle Lancets) Use 1 lancet once a day linagliptin (Tradjenta) 5 mg PO DAILY 90 days losartan 25 mg PO DAILY 90 days metformin ER 1,000 mg (2 x 500 mg) PO DAILY montelukast 10 mg PO BEDTIME 90 days nystatin-triamcinolone 100,000-0.1 unit/g-% 1 appl topical DAILY 30 days semaglutide (Rybelsus) 14 mg PO DAILY sertraline 25 mg PO DAILY 90 days Symbicort 160-4.5 mcg/actuation (budesonide-formoterol) 2 puffs inhalation BID 30 days NS tamsulosin 0.4 mg PO BEDTIME 90 days Tobacco use date assessed: 04/04/25 Fall risk assessment: No Falls in past year Last assessed Fall Risk: 08/08/25 Dental Screening Dental Screen Date: 04/04/25 HPI HPI Comments History of Present Illness Details The patient is a 70-year-old male presenting with a follow-up on chronic conditions including hypertension, diabetes mellitus, and hyperlipidemia. Hypertension is well-controlled with a recent blood pressure reading of 128/66 mmHg, managed with amlodipine. Diabetes mellitus is managed with Farxiga, Trajenta, and metformin, with the last HbA1c recorded at 7.8%, slightly above the target of 7%. Hyperlipidemia is managed with atorvastatin, and cholesterol levels are reported to be good. The patient has a history of depression and anxiety, managed with sertraline, and reports no current fatigue. An MRI of the abdomen was performed due to constipation, revealing focal nodular hyperplasia. 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 Father No problems noted. Social History Housing: Apartment Alcohol intake: former Patient Tobacco Use Status: Former Tobacco user e-Cigarette/Vaping Use: Never Used Second Hand Smoke Exposure: Yes service: No Current occupational status: disabled Cognitive needs: No (cane) Hearing needs: Yes Vision needs: Yes (glasses) Questionnaire Thrive Questionnaire Date Thrive assessed: 04/04/25 I am a: Patient What is your living situation today?: I have a steady place to live Within the past 12 months, did the food you bought not last and you didn't have the money to get more?: Never true Within the past 12 months, did you worry whether your food would run out before you got money to buy more?: Never true Do you have trouble paying for medicines?: No Do you have trouble getting transportation to medical appointments?: No Do you have trouble paying your heating and electricity bill?: No Do you have trouble taking care of your child, family member or friend?: No Do you have trouble with day-to-day activities such as bathing, preparing meals, shopping, managing finances, etc.?: No Are you currently unemployed and looking for a job?: Yes Are you interested in more education?: No Please select the resources that you would like help with: None Currently or been in a relationship where the following occur: No concerns reported THRIVE Score: 0 FLASH-7 AMB Questionnaire FLASH-7 Date FLASH - 7 assessed: 04/04/25 Source: Developed by Drs. Wali Theodore, Larissa Reeves, Don Campbell and colleagues, with an educational romel from [employer]. Review of Systems Const All systems reviewed & are unremarkable except as noted in HPI and below Card Denies chest pain at rest, Denies chest pain with activity, Denies edema, Denies irregular heart rhythm, Denies claudication, Denies dyspnea, Denies dyspnea on exertion, Denies orthopnea, Denies paroxysmal nocturnal dyspnea and Denies slow heart rate Resp Denies cough, Denies dyspnea and Denies dyspnea on exertion GI Denies abdominal pain, Denies change in bowel habits, Denies excessive flatus, Denies nausea and Denies vomiting Physical exam (Primary Care) Vital Signs: Last Vital Signs Temp 97.1 F 08/08/25 13:07 Pulse 82 08/08/25 13:07 BP 128/66 08/08/25 13:07 Pulse Ox 92 08/08/25 13:07 Oxygen Delivery Method Room Air 08/08/25 13:07 BMI result Body Mass Index 33.3 BMI Assessment/Plan discussion: High BMI High, discussed plan: lifestyle, weight reduction, dietary and physical activity Tobacco/Smoking Status: Tobacco use Status Tobacco use date assessed 04/04/25 08/08/25 13:11 Patient Tobacco Use Status Former Tobacco user 08/08/25 13:11 e-Cigarette/Vaping Use Never Used 08/08/25 13:11 Thrive Assessment: Date of Thrive Assessment Date Thrive assessed 04/04/25 08/08/25 13:11 Currently or been in a relationship where the following occur: No concerns reported Resp Effort & Inspection: normal respiratory effort Auscultation: clear to auscultation bilaterally Cardio Jugular venous distension: no JVD Rate: regular rate Rhythm: regular rhythm Heart sounds: S1 normal heart sound present and S2 normal heart sound present Extrem General: Yes full ROM Coding Level of Care Code Est Pt Level 4 (03445) Complex EM visit Add On G2211 Diagnoses Essential hypertension I10 Hyperlipidemia LDL goal <70 E78.5 Type 2 diabetes mellitus with diabetic polyneuropathy, without long-term current use of insulin E11.42 Diabetes mellitus complication status: with neurologic complications Diabetes mellitus complication detail: with polyneuropathy FLASH (generalized anxiety disorder) F41.1 Time Spent (min) 21 Assessment & Plan Assessment & Plan (1) Essential hypertension: Code(s): I10 - Essential (primary) hypertension Category: Medical (2) Hyperlipidemia LDL goal <70: Code(s): E78.5 - Hyperlipidemia, unspecified Category: Medical (3) Type 2 diabetes mellitus, without long-term current use of insulin: Code(s): E11.9 - Type 2 diabetes mellitus without complications Category: Medical Qualifiers: Diabetes mellitus complication status: with neurologic complications Diabetes mellitus complication detail: with polyneuropathy Qualified Code(s): E11.42 - Type 2 diabetes mellitus with diabetic polyneuropathy (4) FLASH (generalized anxiety disorder): Code(s): F41.1 - Generalized anxiety disorder Category: Medical Plan Plan 1. Hypertension Hypertension is well-controlled with a blood pressure reading of 128/66 mmHg, managed with amlodipine. 2. Diabetes Mellitus Diabetes mellitus is managed with Farxiga, Trajenta, and metformin, with the last HbA1c recorded at 7.8%, slightly above the target of 7%. 3. Hyperlipidemia Hyperlipidemia is managed with atorvastatin, and cholesterol levels are reported to be good. 4. Depression Depression is managed with sertraline, and the patient reports no current fatigue. 5. Focal Nodular Hyperplasia An MRI of the abdomen was performed due to constipation, revealing focal nodular hyperplasia. Orders: Orders Lipid Panel 7 Months E78.5 - Hyperlipidemia, unspecified Microalbumin, Random (w Creat) 7 Months R80.9 - Proteinuria, unspecified Vitamin D 25-OH Total 7 Months E55.9 - Vitamin D deficiency, unspecified Vitamin B12 and Folate 7 Months E53.8 - Deficiency of other specified B group vitamins Comprehensive [place]. Panel Fast 7 Months I10 - Essential (primary) hypertension Medications: Refilled sertraline 25 mg PO DAILY 90 tabs 10RF 90 days metformin ER 1,000 mg (2 x 500 mg) PO DAILY 180 tabs 1RF linagliptin (Tradjenta) 5 mg PO DAILY 90 tabs 4RF 90 days Symbicort 160-4.5 mcg/actuation (budesonide-formoterol) 2 puffs inhalation BID 1 ea 5RF 30 days NS semaglutide (Rybelsus) Replaces Rybelsus 7 mg. 14 mg PO DAILY 90 tabs 0RF losartan 25 mg PO DAILY 90 tabs 4RF 90 days atorvastatin 20 mg PO ONCE 90 tabs 3RF 90 days amlodipine 5 mg PO DAILY 90 tabs 1RF 90 days
[2025-08-08 13:07] VITALS: BP 128/66; PULSE 82; TEMP 36.2; O2SAT 92; BMI 33.3
--- OUTSIDE RECORDS SUMMARY | 2025-08-08 14:03 | XMS_ITS | Clinical Summary ---
Author Organization [facility] Address [address] [place] [address] Care Team Providers Care Control Clerk Food And Beverage Name Role Phone Unavailable Primary Care Provider [...] 05/15/2022 Overview (05/15/2022): Was done 01/30/22 Diabetes 05/15/2022 High blood pressure 05/15/2022 Abnormal cholesterol [...] Plan of Treatment Not on file Insurance [facility] MEDICAID Member Subscriber Plan / Payer (Ef fective 2022-Present) Name:Raoul Rojo Relation to Subscriber:Self Name:Raoul Rojo Payer ID:[id number] Group ID:Not on file Type:Medicaid Address: [address] [id number] MEDICARE - [place] [facility] - DENTAL
--- OUTSIDE RECORDS SUMMARY | 2025-08-08 14:03 | XMS_ITS | Clinical Summary ---
Author Organization [facility] Address [address] [place] [address] Phone Care Team Providers Care Wildlife Veterinarian Name Role Phone Myriam Paulson MD Primary Care Provider [phone] Allergies Active Allergy Reactions Criticality Noted Date Comments Penicillins Other 10/07/2024 Medications No known medications Active Problems No known active problems Medical History Medical History Date Comments Diabetes mellitus ([facility] V24, [facility] V28) Hypertension HLD (hyperlipidemia) Anxiety Asthma Social [...] patient's age to complete this topic Insurance [facility] MEDICARE Member Subscriber Plan / Payer (Ef fective 2024-Present) Name:Raoul Garcia Relation to Subscriber:Self Name:Raoul Garcia Payer ID:[id number] Group ID:[id number] Type:Not on file Address: [place] [address] [address] [id number] Care Teams Wildlife Veterinarian Relationship Specialty Start Date End Date Myriam Paulson MD [address] [facility] , [address] [facility] Physician Associ D/B/A: [facility] Sawant PCP - General Internal Medicine 10/19/24
--- OUTSIDE RECORDS SUMMARY | 2025-08-08 14:04 | XMS_ITS | Clinical Summary ---
Author Organization [facility] Facility Address [address] [address] Care Team Providers Care Tank Farm Gauger Name Role Phone Myriam Fernández MD Primary Care Provider [phone] Allergies No known active allergies Medications ciclopirox [...] AM EDT) Hemoglobin A1C 9.3(H) (4.0-5.6) % [facility] Comment: MONITORING: In known diabetic patients, hemoglobin A1c targets should be discussed with health care provider. DIAGNOSTIC USE: The [place] Diabetes Association (ADA) and the World Health [...] Supplement 1 Testing performed or reported by [facility], a Service of [facility], [address] [place] [id number] Kristian Gerber MD, Cad Designer Drafter [facility]# [id number] 04/22/2023 9:23 AM EDT 04/22/2023 9:28 AM EDT us Kristofer Hurt MD LAB BLOOD ORDERABLES Final Re sult [facility] from Last 3 Months or Most Recently Relevant to Health Maintenance [place] [address] ([id number]) ([id number]) Care Teams Tank Farm Gauger Relationship Specialty Start Date End Date Myriam Fernández MD [address] [place], [place] PCP - General Internal Medicine 03/04/22
--- OUTSIDE RECORDS SUMMARY | 2025-09-18 20:00 | XMS_ITS | Clinical Summary ---
Author Organization Unknown Care Team Providers Care Gummed Tape Press Operator Name Role Phone PJ JUNG MD, ROGE Unavailable Unavailable CESARIO DAN, CARMITA Unavailable Unavailable Payers Payer Name Policy Type Policy Number Effective Date Expira tion Date [facility] [place] [id number] MEDICAID [facility] [id number] MEDICARE - [place] - [place] [id number] Problems Condition Name Condition Details Condition Category [...] 03-31 00:00: 00 11-18 23:59 :00 No [id number] 1 capsule 2 TIMES DAILY 1 capsule 2 TIMES DAILY (route: oral) Med Classific ation: Electroly te Balance-N utritiona l Products Farxiga 10 mg tablet 12-22 00:00: 00 07-19 23:59 :00 No [id number] 1 tablet QD 1 tablet QD (route: oral) Alternate Route: PO. Med Classific ation: Endocrine Flovent HFA 220 mcg/actuati on aerosol inhaler 2019-0 2-14 00:00: 00 11-18 23:59 :00 No [id number] 2 puff BID EACH DAY 2 puff BID EACH DAY (route: inhalation ) Alternate Route: BY MOUTH. Med Classific ation: Respirato ry Therapy Agents lisinopril 5 mg tablet 03-31 00:00: 00 12-12 23:59 :00 No [id number] 1 tablet DAILY 1 tablet DAILY (route: oral) Med Classific ation: Cardiovas cular Therapy Agents metformin 1,000 mg tablet 03-31 00:00: 00 11-18 23:59 :00 No [id number] 1 tablet DAILY 1 tablet DAILY (route: oral) Med Classific ation: Endocrine montelukast 10 mg tablet 03-31 00:00: 00 Yes [id number] 1 tablet DAILY 1 tablet DAILY (route: oral) Med Classific ation: Respirato ry Therapy Agents nystatin 100,000 unit/gram topical cream 03-31 00:00: 00 07-17 23:59 :00 No [id number] Per instruc tions 3 TIMES DAILY Per instructio ns 3 TIMES DAILY (route: topical) Med Classific ation: Dermatolo gical terbinafine HCl 250 mg tablet 02-07 00:00: 00 05-23 23:59 :00 No [id number] 1 tablet DAILY 1 tablet DAILY (route: oral) Med Classific ation: Anti-Infe ctive Agents dulaglutide 1.5 mg/0.5 mL subcutaneou s pen injector 12-17 00:00: 00 03-31 23:59 :00 No [id number] 0.5 mL Q WEEK 0.5 mL Q WEEK (route: subcutaneo us) Alternate Route: 1 SYRINGE UNDER THE SKIN. Med Classific ation: Endocrine Farxiga 10 mg tablet 08-01 00:00: 00 11-18 23:59 :00 No [id number] 1 tablet DAILY 1 tablet DAILY (route: oral) Med Classific ation: Endocrine Advair HFA 230 mcg-21 mcg/actuati on aerosol inhaler 11-20 00:00: 00 05-21 23:59 :00 No [id number] 2 puff DAILY 2 puff DAILY (route: inhalation ) Med Classific ation: Respirato ry Therapy Agents atorvastati n 10 mg tablet 11-20 00:00: 00 07-17 23:59 :00 No [id number] 1 tablet BEDTIME 1 tablet BEDTIME (route: oral) Med Classific ation: Cardiovas cular Therapy Agents Calcium 600 mg calcium (1,500 mg) tablet 11-20 00:00: 00 11-13 00:00 :00 No [id number] 1 tablet DAILY 1 tablet DAILY (route: oral) Med Classific ation: Electroly te Balance-N utritiona l Products fluticasone prop.50 mcg spray,suspe n-sod.chlor fede 0.9% nasal spray kit 11-20 00:00: 00 05-21 23:59 :00 No [id number] 2 spray DAILY 2 spray DAILY (route: nasal) Med Classific ation: Respirato ry Therapy Agents melatonin 5 mg tablet 11-20 00:00: 00 07-17 23:59 :00 No [id number] 1 tablet BEDTIME 1 tablet BEDTIME (route: oral) Med Classific ation: Central Nervous System Agents metformin 500 mg tablet 11-20 00:00: 00 09-21 23:59 :00 No [id number] 1 tablet DAILY 1 tablet DAILY (route: oral) Med Classific ation: Endocrine ProAir RespiClick 90 mcg/actuati on breath activated 11-20 00:00: 00 Yes [id number] 2 puff EVERY 4 HOURS 2 puff EVERY 4 HOURS (route: inhalation ) Med Classific ation: Respirato ry Therapy Agents amlodipine 5 mg tablet 2- 00:00: 00 Yes [id number] 1 tablet DAILY 1 tablet DAILY (route: oral) Med Classific ation: Cardiovas cular Therapy Agents Farxiga 10 mg tablet 2-03 00:00: 00 Yes [id number] 1 tablet DAILY 1 tablet DAILY (route: oral) Med Classific ation: Endocrine tamsulosin 0.4 mg capsule 01-23 00:00: 00 Yes [id number] 1 capsule BEDTIME 1 capsule BEDTIME (route: oral) Med Classific ation: Genitouri nary Therapy Oyster Shell Calcium-Vit mccarty D3 500 mg (1,250 mg)-200 unit tablet 11-15 00:00: 00 09-21 23:59 :00 No [id number] 1 tablet DAILY 1 tablet DAILY (route: oral) Med Classific ation: Electroly te Balance-N utritiona l Products cinnamon bark-chromi um picolinate- ALA 500 mg-100 mcg-150 mg capsule 12-04 00:00: 00 09-21 23:59 :00 No [id number] 1000 mg DAILY 1000 mg DAILY (route: oral) Med Classific ation: Alternati ve Therapy multivitami n tablet 12-04 00:00: 00 Yes [id number] 1 tablet DAILY 1 tablet DAILY (route: oral) Med Classific ation: Electroly te Balance-N utritiona l Products Vitamin C 500 mg tablet 12-04 00:00: 00 09-21 23:59 :00 No [id number] 1 tablet DAILY 1 tablet DAILY (route: oral) Med Classific ation: Electroly te Balance-N utritiona l Products Aspirin Low Dose 81 mg tablet,chilango yed release 01-21 00:00: 00 11-23 23:59 :00 No [id number] 1 tablet DAILY 1 tablet DAILY (route: oral) Med Classific ation: Hematolog ical Agents metoprolol succinate ER 25 mg tablet,exte nded release 24 hr 01-21 00:00: 00 Yes [id number] 1 tablet DAILY 1 tablet DAILY (route: oral) Med Classific ation: Cardiovas cular Therapy Agents atorvastati n 20 mg tablet 05-21 00:00: 00 Yes [id number] 1 tablet BEDTIME 1 tablet BEDTIME (route: oral) Med Classific ation: Cardiovas cular Therapy Agents losartan 25 mg tablet 05-21 00:00: 00 Yes [id number] 1 tablet DAILY 1 tablet DAILY (route: oral) Med Classific ation: Cardiovas cular Therapy Agents Symbicort 160 mcg-4.5 mcg/actuati on HFA aerosol inhaler 05-21 00:00: 00 Yes [id number] 2 puff 2 TIMES DAILY 2 puff 2 TIMES DAILY (route: inhalation ) Med Classific ation: Respirato ry Therapy Agents Brilinta 90 mg tablet 05-21 00:00: 00 03-25 23:59 :00 No [id number] 1 tablet 2 TIMES DAILY 1 tablet 2 TIMES DAILY (route: oral) Med Classific ation: Hematolog ical Agents Brilinta 90 mg tablet 07-30 00:00: 00 03-25 23:59 :00 No [id number] 90 mg 2 TIMES DAILY 90 mg 2 TIMES DAILY (route: oral) Med Classific ation: Hematolog ical Agents sertraline 25 mg tablet 2021-11 00:00: 00 09-21 23:59 :00 No [id number] 1 tablet DAILY 1 tablet DAILY (route: oral) Med Classific ation: Central Nervous System Agents hydroxyzine HCl 10 mg tablet 05-13 00:00: 00 05-17 23:59 :00 No [id number] 1 tablet 3 TIMES DAILY 1 tablet 3 TIMES DAILY (route: oral) Med Classific ation: Central Nervous System Agents prednisone 20 mg tablet 05-13 00:00: 00 05-17 23:59 :00 No [id number] 2 tablet DAILY 2 tablet DAILY (route: oral) Med Classific ation: Endocrine ciclopirox 0.77 % topical cream 07-15 00:00: 00 09-21 23:59 :00 No [id number] 1 inch 2 TIMES DAILY 1 inch 2 TIMES DAILY (route: topical) Med Classific ation: Dermatolo gical nystatin-tr iamcinolone 100,000 unit/g-0.1 % topical cream 07-15 00:00: 00 09-21 23:59 :00 No [id number] 1 cm DAILY 1 cm DAILY (route: topical) Med Classific ation: Dermatolo gical [place] 3-6-9 1,200 mg capsule 2022-11 00:00: 00 09-21 23:59 :00 No [id number] 1 capsule DAILY 1 capsule DAILY (route: oral) Med Classific ation: Cardiovas cular Therapy Agents doxycycline hyclate 100 mg capsule 2022-11 00:00: 00 10-07 23:59 :00 No [id number] 1 capsule 2 TIMES DAILY 1 capsule 2 TIMES DAILY (route: oral) Med Classific ation: Anti-Infe ctive Agents ciclopirox 0.77 % topical cream 2-07 00:00: 00 12-30 23:59 :00 No [id number] Per instruc tions 2 TIMES DAILY Per instructio ns 2 TIMES DAILY (route: topical) Med Classific ation: Dermatolo gical Tradjenta 5 mg tablet 06 00:00: 00 03-31 23:59 :00 No [id number] 1 tablet DAILY 1 tablet DAILY (route: oral) Med Classific ation: Endocrine Trulicity 1.5 mg/0.5 mL subcutaneou s pen injector 23 00:00: 00 07-27 23:59 :00 No [id number] Per instruc tions WEEKLY Per instructio ns WEEKLY (route: subcutaneo us) Med Classific ation: Endocrine Trulicity 3 mg/0.5 mL subcutaneou s pen injector 18 00:00: 00 09-21 23:59 :00 No [id number] 3 mg WEEKLY 3 mg WEEKLY (route: subcutaneo us) Med Classific ation: Endocrine metformin 1,000 mg tablet 2023-11 00:00: 00 Yes [id number] 1 tablet 2 TIMES DAILY 1 tablet 2 TIMES DAILY (route: oral) Med Classific ation: Endocrine Rybelsus 7 mg tablet 2023-11 00:00: 00 01-18 23:59 :00 No [id number] 1 tablet DAILY 1 tablet DAILY (route: oral) Med Classific ation: Endocrine sertraline 50 mg tablet 2023-11 00:00: 00 Yes [id number] 1 tablet DAILY 1 tablet DAILY (route: oral) Med Classific ation: Central Nervous System Agents Rybelsus 14 mg tablet 01-23 00:00: 00 Yes [id number] 1 tablet DAILY 1 tablet DAILY (route: [...] AWARENESS FOR SAFETY AND WILL NOTIFY CLINICAL PSYCHOLOGIST INDUSTRIAL ORGANIZATIONAL AND PHYSICIAN/PROVIDER WITH ANY CHANGE IN CONDITION. [code = SKILLED NURSE WILL MAINTAIN SITUATIONAL AWARENESS FOR SAFETY AND WILL NOTIFY CLINICAL PSYCHOLOGIST INDUSTRIAL ORGANIZATIONAL AND PHYSICIAN/PROVIDER WITH ANY CHANGE IN CONDITION.] Goal 2025-05-18 Patient Goal - I MPROVE [...] Goal - I MPROVE MEDICATION COMPLIANCE Goal 2024-05-25 Patient Goal - I MPROVE [...] End Date/Time Encounter Type Admission Type Attending [facility] Care Facility Care Department Encounter ID Discharge Date Discharge Status Discharge Condition Discharge Reason Percent Goals Met 2025-07-22 00:00:00 2025-09-19 00:00:00 Outpatient RECERTIFIC ATION CARMITA NASSAR [facility] [id number] 31.25
== END 2025-08-08 13:26 | disposition home or self-care (01) ==
LOC: HO.HMCH 12:55
PROVIDERS: PCP Internal Medicine; Visit Provider Internal Medicine
DX: I10 Essential (primary) hypertension (principal); E78.5 Hyperlipidemia, unspecified; E11.42 Type 2 diabetes mellitus with diabetic polyneuropathy; F41.1 Generalized anxiety disorder

== ENCOUNTER → 2025-08-08 12:55 | Outpatient (BNVA) | payer OTHER, SELFPAY | PROVIDERS: PCP Internal Medicine; Visit Provider Internal Medicine | DX: I10 Essential (primary) hypertension (principal); E78.5 Hyperlipidemia, unspecified; F32.A Depression, unspecified; E11.42 Type 2 diabetes mellitus with diabetic polyneuropathy; F41.1 Generalized anxiety disorder; R80.9 Proteinuria, unspecified; E55.9 Vitamin D deficiency, unspecified; E53.8 Deficiency of other specified B group vitamins | CPT/HCPCS: 99212 ==

== ENCOUNTER 2025-08-17 10:00 | Outpatient (REF) | payer OTHER, SELFPAY ==
[2025-08-17 17:48] LABS: MANUAL DIFF FLAG NO
[2025-08-17 18:08] LABS: Hematocrit 43.1 % (42.0-52.0); Hemoglobin 13.4 g/dl (14.0-18.0); Imm Gran Abs Auto 0.03 X10*3/uL (0.00-0.03); Imm Gran Pct Auto 0.3 % (0.0-0.4); Lymphocytes Absolute Auto 3.7 X10*3/uL (1.2-4.9); Mean Corpuscular HGB Conc 31.1 g/dl (31.0-36.0); Mean Corpuscular Hemoglobin 27.3 pg (27.0-33.0); Mean Corpuscular Volume 87.8 fL (80.0-98.0); NRBC Abs Auto 0.000 X10*3/uL (0.0-0.012); NRBC Pct Auto 0.0 /100WBC (0.0-0.2); Platelet Count 271 X10*3/uL (160-400); Red Blood Count 4.91 X10*6/uL (4.60-5.80); White Blood Count 10.1 X10*3/uL (4.8-10.8)
[2025-08-17 18:53] LABS: Alanine Aminotransferase 44 U/L (0-40); Albumin Level 4.1 g/dL (3.5-5.0); Alkaline Phosphatase 89 U/L (39-117); Anion Gap 17 (12-20); Aspartate Amino Transferase 39 U/L (5-37); Blood Urea Nitrogen 19 mg/dL (9-16); Calcium 9.4 mg/dL (8.4-10.2); Carbon Dioxide 24 mmol/L (22-29); Chloride 105 mmol/L (96-108); Estimated Glomerular Filt Rate > 60; Potassium 3.7 mmol/L (3.3-5.1); Sodium 142 mmol/L (135-145); Total Protein 7.6 g/dL (6.5-8.0)
[2025-08-17 18:59] LABS: Folate 12.3 ng/mL (> or = 4.0); Vitamin B12 615 pg/mL (200-900)
== END 2025-08-17 10:01 | disposition home or self-care (01) ==
LOC: HO.HKASLDS 10:00
PROVIDERS: PCP Internal Medicine; Visit Provider Psychiatry & Neurology Neurology
DX: G31.84 Mild cognitive impairment of uncertain or unknown etiology (principal); M54.2 Cervicalgia; E11.9 Type 2 diabetes mellitus without complications; I10 Essential (primary) hypertension; Z87.891 Personal history of nicotine dependence; Z79.899 Other long term (current) drug therapy
CPT/HCPCS: 36415; 80053; 82607; 82746; 83090; 84443; 85025; 85652; 99202

== ENCOUNTER 2025-08-17 10:00 | Outpatient (AMB) | payer OTHER, SELFPAY ==
--- NOTE | 2025-08-17 10:08 | MHC.OFFVIS ---
Vital Signs 08/17/25 10:09 Height 5 ft 2 in Weight 183 lb 4 oz BMI 33.5 BP 98/70 Blood Pressure Location Rt brachial Position Sitting Pulse 77 Pulse Source Pulse Oximeter Pulse Oximetry (%) 96 Oxygen Delivery Method Room Air Intake Visit Reasons: INP-Other Amnesia Intake Note: Amnesia Hole Filler Required: Yes Accompanied by: SENIOR CARE PROVIDER Allergies Penicillins Allergy (Verified 08/17/25 10:18) Hives Medication List - Last Reconciled 08/17/25 by Britt Hendrix MD amlodipine 5 mg PO DAILY 90 days atorvastatin 20 mg PO ONCE 90 days blood sugar diagnostic (FreeStyle Lite Strips) Use 1 test strip once a day blood-glucose meter (FreeStyle Lite Meter kit) Use as directed to monitor blood glucose. calcium carbonate-vitamin D3 500 mg-5 mcg (200 unit) 1 tab PO DAILY 60 days cholecalciferol (vitamin D3) 25 mcg PO DAILY ciclopirox 0.77% 1 appl topical BID 2 weeks [custome molded shoe inserts As directed] dapagliflozin propanediol (Farxiga) 10 mg PO DAILY 3 months glucose (Dex4 Glucose) 16 grams (4 x 4 gram) PO Q15M PRN lancets (FreeStyle Lancets) Use 1 lancet once a day linagliptin (Tradjenta) 5 mg PO DAILY 90 days losartan 25 mg PO DAILY 90 days metformin ER 1,000 mg (2 x 500 mg) PO DAILY montelukast 10 mg PO BEDTIME 90 days nystatin-triamcinolone 100,000-0.1 unit/g-% 1 appl topical DAILY 30 days semaglutide (Rybelsus) 14 mg PO DAILY sertraline 25 mg PO DAILY 90 days Symbicort 160-4.5 mcg/actuation (budesonide-formoterol) 2 puffs inhalation BID 30 days NS tamsulosin 0.4 mg PO BEDTIME 90 days HPI Comments Details: 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 He reports short term recall issues.He misplaces things, forgets to take medications, forget conversations, repeats himself often.He drives short distances. He has trouble with word recall . He has no trouble with using remote , telephone. 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 Father No problems noted. Social History Housing: Apartment Alcohol intake: former Patient Tobacco Use Status: Former Tobacco user e-Cigarette/Vaping Use: Never Used Second Hand Smoke Exposure: Yes service: No Current occupational status: disabled Cognitive needs: No (cane) Hearing needs: Yes Vision needs: Yes (glasses) Physical Exam Vital Signs: Last Vital Signs Pulse 77 08/17/25 10:09 BP 98/70 08/17/25 10:09 Pulse Ox 96 08/17/25 10:09 Oxygen Delivery Method Room Air 08/17/25 10:09 BMI result Body Mass Index 33.5 Const General: cooperative, healthy appearing and comfortable Nutritional Appearance: obese Orientation/consciousness: patient oriented x3 Eyes Pupils: Equal, round and reactive pupils present Neck Neck: Yes no meningeal signs Neuro Other: Right eye - no abduction Right face weakness Right UE and LE weakness 4-5 with increased tone Gait - with cane and circumducts right leg General: patient oriented x3, tone normal, moves all extremities, no meningeal signs and no focal motor deficits Cranial nerves: Yes Equal, round and reactive pupils present, Yes Symmetric palate elevation present and Yes Ability to bilaterally elevate shoulders present Cognition (Neuro): abnormal cognition Gait exam (Neuro): Antalgic gait present and Assisted gait required Deep tendon reflexes (DTR's): Right triceps reflex intensity grade: 1+, Left triceps reflex intensity grade: 1+, Rt Biceps (C5, C6): 1+, Left biceps reflex intensity grade: 1+, Right brachioradialis reflex intensity grade: 1+, Left brachioradialis reflex intensity grade: 1+, Right patellar reflex intensity grade: 2+ and Left patellar reflex intensity grade: 1+ Coordination: [id number]-vl-ldlg test normal Orientation What is the (year) (season) (date) (day) (month)?: year, season, date, day and month Where are we (state) (county) (town or city) (hospital) (floor)?: state, town or city, hospital/clinic and floor Registration Name of 3 unrelated objects clearly and slowly, then ask patient to repeat all 3 of them. (1st repeat determines score. Make sure they can repeat all three): object 1, object 2 and object 3 Attention & Calculation (CHOOSE ONE) Spell WORLD backwards (DLROW): 1 letter Recall Ask patient to repeat the 3 items from question #3.: object 1, object 2 and object 3 Language Show patient a wristwatch & ask what it is. Repeat for pencil.: watch and pencil Ask the patient to repeat the phrase 'No ifs, ands, or buts' after you.: correct Ask the patient to 'take a piece of paper with their right hand' 'fold paper in half' 'place paper on floor': take paper in right hand and fold paper in half Print the sentence 'CLOSE YOUR EYES' on a piece. If patient actually closes eyes then score.: followed written direction Give patient a blank piece of paper & ask to write a sentence. Score if it contains a noun & verb.: sentence contains subject and verb Ask patient to copy figure of intersecting pentagons exactly. Score if all 10 angles & 2 intersects are included.: all 10 angles present & 2 are intersected Score Score: 24 Assessment & Plan Assessment & Plan (1) Mild cognitive impairment: Comment: likely vascular Code(s): G31.84 - Mild cognitive impairment of uncertain or unknown etiology Category: Medical (2) Cervicalgia: Code(s): M54.2 - Cervicalgia Category: Medical Plan CT brain to evaluate for white matter disease , atrophy .He reports metal screws in his Right leg and Right UE - will hold off on MRI Labs- TSH B 12 ESR CBC cMP Discussed risk factor modification to help with cognitive decline - smoking cessation. good blood pressure and diabetes control PT for neck pain Consider sleep evaluation Orders: Orders TSH reflex Free T4 Today G31.84 - Mild cognitive impairment of uncertain or unknown etiology Vitamin B12 and Folate Today G31.84 - Mild cognitive impairment of uncertain or unknown etiology Complete Blood Count Auto Diff Today G31.84 - Mild cognitive impairment of uncertain or unknown etiology Comprehensive Met. Panel Today G31.84 - Mild cognitive impairment of uncertain or unknown etiology CT head/brain wo IV con Today G31.84 - Mild cognitive impairment of uncertain or unknown etiology Erythrocyte Sedimentation Rate Today G31.84 - Mild cognitive impairment of uncertain or unknown etiology Homocysteine Today G31.84 - Mild cognitive impairment of uncertain or unknown etiology PT Evaluation and Treatment Today M54.2 - Cervicalgia Coding Level of Care Code New Pt Level 4 (08429) Complex EM visit Add On G2211 Diagnoses Mild cognitive impairment G31.84 Cervicalgia M54.2
[2025-08-17 10:09] VITALS: BP 98/70; PULSE 77; O2SAT 96; BMI 33.5
== END 2025-08-17 11:45 | disposition home or self-care (01) ==
LOC: HO.HSMS 10:01
PROVIDERS: PCP Internal Medicine; Visit Provider Psychiatry & Neurology Neurology
DX: G31.84 Mild cognitive impairment of uncertain or unknown etiology (principal); M54.2 Cervicalgia
CPT/HCPCS: 99204; G2211

== ENCOUNTER 2025-10-11 10:01 | Outpatient (AMB) | payer OTHER, SELFPAY ==
[2025-10-11 10:19] VITALS: BMI 32.9
--- NOTE | 2025-10-11 10:19 | A.OFFVIS_ITS ---
VS Expanded 10/11/25 10:19 10/11/25 10:50 Height 5 ft 2 in 5 ft 2 in Weight 180 lb 180 lb BMI 32.9 32.9 Intake Visit Reasons: T2DM Allergies Penicillins Allergy (Verified 08/17/25 10:18) Leonor Nutrition Presentation Details: Pt presents for MNT for T2DM Patient presents with PROSTHETIC TECHNICIAN who makes the meals and grocery shopping Patient wears dentures Breakfast 10:00 2 whole wheat toast with ham and cheese and milk or 0 soda 2pm soup rice and chicken Coke Zero Snack: Pastries Food frequency Fruits: 0-1 a day Fish 0 to once per week Vegetables: 1 per week Dairy to it day Alcohol or smoking: Denies BS Monitoring Most Recent Diabetes Results: Microalb/Creat Ratio, (<30) 33.1 ug/mg cr H 08/04/25 Cholesterol, (<200) 97 mg/dL 08/04/25 HDL Cholesterol, (>40) 22 mg/dL L 08/04/25 Triglycerides, (<150) 108 mg/dL 08/04/25 Creatinine, (0.5-1.4) 0.94 mg/dL 08/17/25 BUN, (9-16) 19 mg/dL H 08/17/25 Sodium, (135-145) 142 mmol/L 08/17/25 Potassium, (3.3-5.1) 3.7 mmol/L 08/17/25 Chloride, (96-108) 105 mmol/L 08/17/25 Carbon Dioxide, (22-29) 24 mmol/L 08/17/25 Calcium, (8.4-10.2) 9.4 mg/dL 08/17/25 AST, (5-37) 39 U/L H 08/17/25 ALT, (0-40) 44 U/L H 08/17/25 Total Protein, (6.5-8.0) 7.6 g/dL 08/17/25 Albumin, (3.5-5.0) 4.1 g/dL 08/17/25 NPS-Qlzltaq-Ls.Jeor Equation Height: 5 ft 2 in Weight: 180 lb Resting Metabolic Rate: 1470.34 Calculated Activity Level: Sedentary Calories Needed to Maintain Weight: 1764.41 Diagnosis Nutrition problem #1: food nutri know defi As related to (etiology) #1: lack of nutrit education As evidenced by (sign/symptom) #1: knowledge deficit of diet [facility] Medical History (Updated 08/17/25 @ 11:05 by Britt Hendrix MD) Cervicalgia Mild cognitive impairment Renal cysts, acquired, bilateral Hepatic steatosis Liver mass Type 2 diabetes mellitus with unspecified complications Skin rash Microalbuminuria FLASH (generalized anxiety disorder) Hearing loss Dyslipidemia Chest pain Neck pain Enlarged prostate 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 Father No problems noted. Social History Housing: Apartment Alcohol intake: former Patient Tobacco Use Status: Former Tobacco user e-Cigarette/Vaping Use: Never Used Second Hand Smoke Exposure: Yes service: No Current occupational status: disabled Cognitive needs: No (cane) Hearing needs: Yes Vision needs: Yes (glasses) Assessment & Plan Assessment & Plan (1) Type 2 diabetes mellitus, without long-term current use of insulin: Code(s): E11.9 - Type 2 diabetes mellitus without complications Category: Medical Qualifiers: Diabetes mellitus complication status: with neurologic complications Diabetes mellitus complication detail: with polyneuropathy Qualified Code(s): E11.42 - Type 2 diabetes mellitus with diabetic polyneuropathy Plan: current wt: 82kg ( 11/02 ) est kcal needs as per MSJ: 1700 est protein needs as per 1 g/kg BW: 80 est fluid needs as per 30 ml/kg BW: 2400 Recommended fiber > 12 g /day and gradually increase up to 25-28 g /day or as tolerated Nutrition topics discussed : Reviewed (R), Pt verbalized understanding (V) , not applicable (N/A) R, : Healthy Plate Method Concept: R, V, N/A: Carbohydrates: food sources of carbohydrates, relationship of carbohydrates to blood glucose, fatty liver GI health. Recommended total amount of carbohydrates per meals and snack. Differences between simple carbohydrates and complex carbohydrates R, : Lean protein foods including vegan , vegetarian sources of protein. Benefits of protein (including but not limited to healing, nutritional value , benefits in weight loss, glucose control R, V, N/A: Fats : Source of fats, benefits of fats. Difference between saturated and unsaturated fats. Saturated fats and its contribution to inflammation R, V, N/A: Fiber: food sources and role of fiber in the diet (including but not limited to its role as a prebiotic, benefits in constipation, role in IBS , role in glucose control and cholesterol level) R, : Hydration: role of hydration and prevention of dehydration or over hydration. Foods and water content. R, V, N/A: Vitamins and Minerals in foods and supplements R, : Interpreting food labels, including serving size, macronutrients, vitamins, minerals, allergens, ingredient list , % daily value Patient Instructions: Follow healthy plate method at dinner Have half a sandwich as a bedtime snack: See ideas working on reducing on sugars and including lean protein food Choose beverages with no sugar added see list of options Coding Level of Care Code Nutr Indiv Intake (90202) Diagnoses Type 2 diabetes mellitus with diabetic polyneuropathy, without long-term current use of insulin E11.42 Diabetes mellitus complication status: with neurologic complications Diabetes mellitus complication detail: with polyneuropathy Time Spent (min) 30
--- OUTSIDE RECORDS SUMMARY | 2025-10-11 11:19 | XMS_ITS | Clinical Summary ---
Author Organization [facility] Address [address] [place] [address] Phone Care Team Providers Care Moving Worker Name Role Phone Myriam Paulson MD Primary Care Provider [phone] Allergies Active Allergy Reactions Criticality Noted Date Comments Penicillins Other 10/07/2024 Medications No known medications Active Problems No known active problems Medical History Medical History Date Comments Diabetes mellitus ([facility] V24, [facility] V28) Hypertension HLD (hyperlipidemia) Anxiety Asthma [...] Health Maintenance Due Date Last Done Comments Colorectal Cancer Screening: Colonoscopy 1957 Diabetes: Annual GFR (Glomerular Filtration Rate) 1957 Diabetes: Annual Foot Exam 1967 Diabetes: Annual Retina Eye Exam 1967 DTaP,Tdap,and Td Vaccines (1 - Tdap) 01/18/1976 RSV Immunization Adult Patients (1 - Risk 50-74 years 1-dose series) 2007 Zoster Vaccines (1 of 2) 2007 Hepatitis B Vaccines (2 of 3 - 19+ 3-dose series) 05/27/2010 04/29/2010 Pneumococcal Vaccine: 50+ Years (2 of 2 - PPSV23, PCV20, or PCV21) 10/12/2015 08/17/2015 Abdominal Aortic Aneurysm (AAA) Screen 10/07/2024 Cholesterol Screening (Lipid Panel) 10/07/2024 Diabetes: Annual Urine Albumin-Creatinine Ratio (uACR) [...] patient's age to complete this topic Insurance [facility] MEDICARE Member Subscriber Plan / Payer (Ef fective 2024-Present) Name:Raoul Garcia Relation to Subscriber:Self Name:Raoul Garcia Payer ID:[id number] Group ID:[id number] Type:Not on file Address: [place] [address] [address] [id number] Care Teams Moving Worker Relationship Specialty Start Date End Date Myriam Paulson MD [address] [place] [address] , [address] [facility] D[facility]B/A: [facility] SHA Sawant PCP - General Internal Medicine 10/19/24
[2025-10-11 13:00] VITALS: BMI 32.9
== END 2025-10-11 11:01 | disposition home or self-care (01) ==
LOC: HO.ENCR 10:02
PROVIDERS: PCP Internal Medicine; Visit Provider Dietitian, Registered
DX: E11.42 Type 2 diabetes mellitus with diabetic polyneuropathy (principal)

== ENCOUNTER → 2025-10-11 10:01 | Outpatient (BNVA) | payer OTHER, SELFPAY | PROVIDERS: PCP Internal Medicine; Visit Provider Dietitian, Registered | DX: E11.42 Type 2 diabetes mellitus with diabetic polyneuropathy (principal) | CPT/HCPCS: 97802 ==

== ENCOUNTER 2025-11-01 09:36 | Outpatient (REF) | payer OTHER, SELFPAY ==
--- OUTSIDE RECORDS SUMMARY | 2025-10-25 11:30 | XMS_ITS | Encounter Summary ---
Author Organization [facility] Address [address] [place] [address] Care Team Providers Care Occasional Babysitter Name Role Phone Myriam Paulson MD Primary Care Provider [phone] Reason for Referral * Home Health (Routine) - Closed Specialty Diagnoses / Procedures Referred By Aleksandra william Referred To Contact Home Health Services Diagnoses Acute bilateral low back pain without sciatica Abdelrahman Rollins MD [address] [place] [phone] Phone: tel: fax: [address], [address] [place] [address] Phone: tel: fax: Referral ID Status Reason Start Date Expiration Date V isits Requested Visits Authorized [id number] Closed Consult and Treat 10/27/2025 10/27/2026 1 1 * Imaging (Routine) - Pending Review Specialty Diagnoses / Procedures Referred By Aleksandra william Referred To Contact Radiology Diagnoses Liver mass Procedures MR Abdomen wo and w Contrast Abdelrahman Rollins MD [address] [place] [phone] Phone: tel: fax: [address] [address] Phone: tel: Referral ID Status Reason Start Date Expiration Date V isits Requested Visits Authorized [id number] Pending Review 10/27/2025 10/27/2026 1 1 Reason for Visit * Reason Comments Abdominal Pain Chest Pain * Auth/Cert (Routine) Specialty Diagnoses / Procedures Referred By Contac t Referred To Contact Diagnoses Acute hypoxic respiratory failure (CMS/HCC V24, CMS/HCC V28) Procedures / Romeo Valencia MD [address] [place] [address] Phone: tel: fax: [facility] Emergency [address] [place] [address] Phone: tel: Referral ID Status Reason Start Date Expiration Date Visits Re quested Visits Authorized [id number] 1 1 Encounter Details Date Type Department Care Team (Latest Contact Info) Description 10/25/2025 11:30 AM EST - 10/27/2025 6:30 PM EST Hospital Encounter [facility] Urology Unit [address] [place] [address] Todd Elizalde MD [address] [place], [place] [id number] Romeo Valencia MD [address] [place] [address] Abdelrahman Rollins MD [address] [place] [address] Hypoxia (Primary Dx); Pneumonia due to infectious organism, unspecified laterality, unspecified part of lung; Liver mass; Acute bilateral low back pain without sciatica Discharge Disposition: Home-Health Care Svc Social History Tobacco Use Types Packs/Day Years Used Date Smoking Tobacco: Former Cigarettes 1 31 1 995 - 1967 Smokeless Tobacco: Never Tobacco Cessation:Counseling Given: Not Answered Housing Instability Answer Date Recorde d Are you worried that in the next 2 months you may not have stable housing? No 10/25/2025 Food Access & Nutrition Answer Date Rec orded Do you have access to a vari ety of food including fruits and vegetables? Yes 10/25/2025 Health Literacy Answer Date Recorded How often do you need to hav e someone help you when you read instructions, pamphlets, or other written material from your doctor or pharmacy? Never 10/25/2025 Caregiver: How often do you need to have someone help you when you read instructions, pamphlets, or other written material from your doctor or pharmacy? Not on file 10/25/2025 Financial Risk Answer Date Recorded How hard is it for you to pa y for the very basics like food, housing, medical care, and air conditioning / heating? Somewhat hard 10/25/2025 Transportation Answer Date Recorded Has the lack of transportati on kept you from meetings, work, or from getting things needed for daily living? No Has the lack of transportati on kept you from medical appointments or from getting medications? No 10/25/2025 Social Isolation Answer Date Recorded How often do you feel lonely or isolated from th ose around you? Never 10/25/2025 Food Risk Answer Date Recorded Within the past 12 months we worried whether our food would run out before we got money to buy more. Never true 10/25/2025 Within the past 12 months th e food we bought just didn't last and we didn't have money to get more. Never true 10/25/2025 Dependent Care Answer Date Recorded Do you need help finding or paying for care for your loved ones. For example, child adolescent psychiatrist or elderly care for an older adult? No 10/25/2025 Education Answer Date Recorded Do you think completing more education or training, like finishing a GED, going to college, or learning a trade, would be helpful for you? No 10/25/2025 Employment and Income Answer Date Recor ded During the last four weeks, have you been actively looking for work? No 10/25/2025 Living Situation Answer Date Recorded What is your living situation? Unrecognized valu e 10/25/2025 Interpersonal Safety Answer Date Record ed Physical Abuse Unrecognized value 10/25/2025 Verbal Abuse Unrecognized value 10/25/2025 Sex and Gender Information Value Date Recorded Sex Assigned at Male 10/25/2025 7:26 PM EST Legal Sex Male 4:18 AM EST Gender Identity Male 10/25/2025 7:26 PM EST Sexual Orientation Not on file documented as of this encounter Last Filed Vital Signs Vital Sign Reading Time Taken Comments Blood Pressure 113/80 10/27/2025 2:44 PM EST Pulse 86 10/27/2025 2:44 PM EST Temperature 36.6 C (97.9 F) 10/27/2025 2:44 PM EST Respiratory Rate 16 10/27/2025 2:44 PM EST Oxygen Saturation 92% 10/27/2025 2:44 PM EST Inhaled Oxygen Concentration - - Weight 80.9 kg (178 lb 6.4 oz) 10/25/2025 5:00 P M EST Height 160 cm (5' 3 ) 10/25/2025 5:00 PM EST Body Mass Index 31.6 10/25/2025 5:00 PM EST documented in this encounter Functional Status * Calculated C-SSRS Risk Score (Lifetime/Recent) Answer Date of Assessment Author No Risk Indicated 10/25/2025 11:27 AM EST Mervat Barkley RN * [place] Suicide Severity Rating Scale (Screener/Recent Self-Report) Question Answer Date of Assessment Author 1. Wish to be (Past 1 Month) No 025 11:27 AM Mervat Grajeda RN 2. Non-Specific Active Suici juana Thoughts (Past 1 Month) No 10/25/2025 11:27 AM Lupis Grajeda RN 6. Suicidal Behavior (Lifetime) No 11:27 AM Mervat Grajeda RN documented as of this encounter Discharge Summaries * Abdelrahman Rollins MD - 10/27/2025 5:57 PM EST Images from the original note were not included. ANH DISCHARGE SUMMARY Patient Information Raoul Garcia : 1955 [70 y.o.] Admitting Provider Abdelrahman Rollins MD Discharge Provider Ford Mcdaniel MD, Abdelrahman Rollins, * Primary Care Physician Myriam Paulson MD Admission Date 10/25/2025 Discharge Date 10/27/2025 Summary of Hospital Problems Primary Discharge Diagnosis: Acute on chronic back pain Liver mass Elevated AFP Secondary Discharge Diagnosis: Anxiety Asthma Diabetes mellitus CAD status post PCI Hyperlipidemia Hypertension BPH Discharge Destination: Home, health services Code Status at Discharge: Full code Hospital Course Summary As taken from the history and physical: Michael?? Jose is a 70-year-old Bhutanese-speaking male with a past medical history of hyperlipidemia, hypertension, CAD, type 2 diabetes, asthma, anxiety and BPH who presents to the ED due to with shortness of breath for 2 days. blue print control clerk Roberto assisted with H&P. He is seen with [facility] CENTER SPECIALIST atbedside. He reports pain in his chest neck and back. He denies recent fall or injury. He reports jeremy rtness of breath without wheezing or cough. He reports slight improvement in symptoms when using his inhaler. He denies sore throat, congestion, fevers or chills. He does endorse headache dizziness and lightheadedness. He denies abdominal pain nausea vomiting and diarrhea. He denies urinary symptoms. He walks with a walker at baseline. He has CONTACT CENTER SPECIALIST assistance 27 hours a week. Both patient and CONTACT CENTER SPECIALIST says he requires more assistance. Neck and back pain chronic both chronic. IN ED he was found to be hypoxic at 91% room air, tachypneic at 28 and tachycardic at 108 now on 3 L of O2. Normotensive at 114/76 and afebrile. Initial labs remarkable for leukocytosis of 12.6. Prolactin of 0.48, CRP of 21.74, and sed rate of 76. CHEM profile shows anion gap of 14 and glucose of 15 9. BNP of 70 and negative troponins. Lactate of 1.2. Coagulation studies show prothrombin time 18.6, INR 1.5 and a PTT of 30.4. Chest x-ray shows Hypoventilatory examination with diffuse interstitial markings and atelectasis versus infiltrate at the lung bases. No significant pleural effusion. Degenerative osseous changes. EKG showing sinus rhythm with premature atrial complexes. He was given ceftriaxone 2 g in ED. The patient was then admitted to medicine for further evaluation and treatment. The following issues were addressed: Patient 70-year-old Bhutanese-speaking male with a past medical history as above who presented to hospital with complaints of generalized pain, some cough, incidentally mentions some shortness of breath and there was some episode of transient hypoxia therefore the patient was started on empiric antibiotic for suspected pneumonia, he was then admitted to medicine for further evaluation and treatment. Problem list: Rule out pneumonia Transient hypoxia Back pain Liver mass Elevated AFP Hypertension Hyperlipidemia Asthma Type 2 diabetes mellitus BPH # Patient had a CT angiogram of the chest due to transient hypoxia, it did not show any significantinfiltrates, there is no evidence of p pulmonary embolism nor infiltrate, the patient denies any significant shortness of breath, he is off oxygen with normal O2 saturation on room air, he has elevated informatory markers but I do not think this is related to any respiratory infection, antibiotics were discontinued the patient was observed over 24 hours remaining stable without respiratory complaints. # Patient main complaint is back pain, he had a fall recently and his pain worsened, he has a history of back surgery and chronic back pain but has exacerbated since that fall several weeks ago, he has no focal weakness or numbness, he has full control of his sphincters, he has no fever or chills, x- ray of the lumbar spine shows degenerative issues without acute fracture, the patient was seen by PT who recommended home PT, his pain management was optimized and the patient symptoms are much improved. She will continue follow- up as an outpatient. # A liver mass was incidentally found in his liver, patient states he has some workup in the past for this, I called [facility] imaging and they send the report of an MRI of the liver and an ultrasound with elastography from March 2025, it documented a 4 cm mass in the liver which according to MRI appears to be consistent with focal nodular hyperplasia, I did alpha-fetoprotein which is extremely elevated, I discussed these findings with Dr. Jason Price, we were able to obtain some imagesand he believes the MRI report was consistent with the images, however appears that the lesion has enlarged and his alpha-fetoprotein is over 700 as well as elevated inflammatory markers which may ortry a poor diagnosis and hepatocellular carcinoma, with this in mind it is important to rule out hepatocellular carcinoma, discussed with Dr. Funk from interventional radiology, he recommended to pursue dynamic MRI prior to considering biopsy given that this may be diagnostic, a request for abdominal MRI with liver mass protocol has been sent to MRI, they will contact the patient with an appointme nt, patient will need close follow-up in the outpatient setting, # Blood pressure is well-controlled, continue losartan. # Continue statin, no changes. # No evidence of asthma exacerbation, continue as needed albuterol. # Type 2 diabetes mellitus, glucose glucose is intermittently above the goal, will use insulin insulin scale, holding his metformin, Rybelsus, Tradjenta, Farxiga. Insulin sliding scale in house, resume chronic medications upon discharge. Providers consulted: Procedures done: XR Lumbar Spine 2-3 Views Final Result FINDINGS/IMPRESSION: No acute fracture or traumatic malalignment. Mild degenerative changes of the spine. -------- FINAL REPORT -------- Dictated By: Ed Feldman Dictated Date: 10/26/2025 15:51 ET Assigned Physician: Ed Feldman Reviewed and Electronically Signed By: Ed Feldman Signed Date: 10/26/2025 15:51 ET Workstation ID: [id number] Transcribed By: Self Edit Transcribed Date: 10/26/2025 15:[address] Angio Chest wo and/or w Contrast Final Result Addendum (preliminary) 2 of 2 Addendum: MRI performed at [facility] 04/07/25 has been up loaded into the [facility] PACS. Some of the images are able to be reviewed. Some images are unable to be reviewed. Specifically the precontrast series is not able to be viewed. Likely due to technical factors I cannot measure the mass in the left lobe of the liver on the previous MRI in our PACS system. (Caliper yields only pixels and not millimeters or centimeters). Given the early enhancing lesion with washout it is reasonable to consider tissue diagnosis in the presence of elevated alpha-fetoprotein. Focal nodular hyperplasia could give this appearance. If imaging is undertaken for follow-up, consider hepatobiliary contrast agent (Eovist). -------- ADDENDUM -------- Dictated By: Gigi Price Dictated Date: 10/27/2025 16:03 ET Assigned Physician: Gigi Price Reviewed and Electronically Signed By: Gigi Price Signed Date: 10/27/2025 16:20 ET Workstation ID: [id number] Transcribed By: Self Edit Transcribed Date: 10/27/2025 16:03 ET Final 1. There is no evidence for pulmonary embolism. 2. Mass in the liver measuring 5 cm, recommend multiphasic MRI. -------- FINAL REPORT -------- Dictated By: Ed Feldman Dictated Date: 10/25/2025 15:15 ET Assigned Physician: Ed Feldman Reviewed and Electronically Signed By: Ed Feldman Signed Date: 10/25/2025 15:32 ET Workstation ID: [id number] Transcribed By: Self Edit Transcribed Date: 10/25/2025 15:15 ET XR Chest 2 Views Final Result FINDINGS/IMPRESSION: Hypoventilatory examination with diffuse interstitial markings and atelectasisversus infiltrate at the lung bases. No significant pleural effusion. Degenerative osseous changes. -------- FINAL REPORT -------- Dictated By: Ed Feldman Dictated Date: 10/25/2025 12:02 ET Assigned Physician: Ed Feldman Reviewed and Electronically Signed By: Ed Feldman Signed Date: 10/25/2025 12:15 ET Workstation ID: [id number] Transcribed By: Self Edit Transcribed Date: 10/25/2025 12:02 ET MR Abdomen wo and w Contrast (Results Pending) Condition upon discharge She is back pain is significant proved, he has been ambulatory, he did well with PT, he denies any chest pain or shortness of breath, no cough, no urinary symptoms, having regular bowel movements, nomental status changes, she was informed of the findings concerning for liver malignancy and he is agreeable to continue follow-up as an outpatient. Denies any other complaints at this time. Visit Vitals BP 113/80 (BP Location: Right arm, Patient Position: Lying) Pulse 86 Temp 36.6 ??C (97.9 ??F) Resp 16 Temp (24hrs), Av.7 ??C (98 ??F), Min:36.4 ??C (97.6 ??F), Max:36.8 ??C (98.3 ??F) Gen: Patient elderly male, NAD CV -RRR no MGR, no JVD. Lungs -CTAB, no creased work of breathing, Abd - Soft, non-tender, non-distended. Bowel sounds are present Back. Patient has tenderness in the lumbar spine to palpation as well as paravertebral muscles, no obvious skin lesions. Extremities - No LE edema Neuro - AO x3, speech is clear, face symmetric, no focal weakness or numbness . Body mass index is 31.6 kg/m??. No results found for: PTWT , PTHT 60 Minutes were spent in patient care including [id number] time, chart review, discussion with providers, documentation, parts order and stock clerk. High complexity medical decision making. Follow-Up Instructions and Recommendations Wes Mustafa [address] [place] [address] , [address] [facility] [phone] Wes Mustafa [address] [place] [address] , [address] [facility] [phone] Primary care provider (PCP) Myriam Paulson MD [address] [place] [address] , [address] [facility]A: [facility] [place] [phone] Follow-up: Contact the MRI department at [facility] to obtain the information about your appointmentfor liver MRI. Discharge Procedure Orders MR Abdomen wo and w Contrast Standing Status: Future Standing Exp. Date: 10/27/26 Order Comments: Please use hepatobiliary contrast agent Eovist as recommended by Dr. Gigi Price Order Specific Question Answer Comments What is the patient's sedation requirement? No Sedation In what REGION should this be scheduled? [facility] [[id number]] In what Radha LOCATION should this be scheduled? [facility] [[id number]] Release to patient Immediate [1] Ambulatory referral to Home Health Standing Status: Future Referral Priority: Routine Referral Type: Home Health Referral Reason: Consult and Treat Referral Location: [facility] (HOME HEALTH) Requested Specialty: Home Health Services Number of Visits Requested: 1 Primary care provider (PCP) Order Specific Question Answer Comments Follow-Up Within: 7 Follow-Up in: Days Follow-up: Order Specific Question Answer Comments Instructions for follow-up: Contact the MRI department at [facility] to obtain the information about your appointment for liver MRI. There are no outpatient Patient Instructions on file for this admission. Discharge Medications Your medication list START taking these medications Instructions Last Dose Given Next Dose Due acetaminophen 500 mg tablet Commonly known as: TYLENOL Take 2 tablets (1,000 mg total) by mouth every 8 (eight) hours for 7 days. lidocaine 4 % patch Start taking on: October 28, 2025 Apply 2 patches topically 1 (one) time each day. ondansetron ODT 4 mg disintegrating tablet Commonly known as: ZOFRAN-ODT Take 1 tablet (4 mg total) by mouth every 8 (eight) hours if needed for vomiting or nausea for up to 7 days. traMADoL 50 mg tablet Commonly known as: ULTRAM Take 1 tablet (50 mg total) by mouth every 6 (six) hours if needed for severe pain for up to 7 days. Max Daily Amount: 200 mg CONTINUE taking these medications Instructions Last Dose Given Next Dose Due albuterol 2.5 mg /3 mL (0.083 %) nebulizer solution Take 3 mL (2.5 mg total) by nebulization if needed for wheezing or shortness of breath. amLODIPine 5 mg tablet Commonly known as: NORVASC Take 1 tablet (5 mg total) by mouth 1 (one) time each day. atorvastatin 20 mg tablet Commonly known as: LIPITOR Take 1 tablet (20 mg total) by mouth at bedtime. calcium carbonate-vitamin D 500 mg-5 mcg (200 unit) per tablet Take 1 tablet by mouth 1 (one) time each day. dapagliflozin propanediol 10 mg tablet Commonly known as: FARXIGA Take 1 tablet (10 mg total) by mouth 1 (one) time each day. FreeStyle Lite Meter monitoring kit Generic drug: glucose monitoring kit FreeStyle Lite Strips test strip losartan 25 mg tablet Commonly known as: COZAAR Take 1 tablet (25 mg total) by mouth 1 (one) time each day. metFORMIN 1,000 mg tablet Commonly known as: GLUCOPHAGE Take 0.5 tablets (500 mg total) by mouth 2 (two) times a day with meals. montelukast 10 mg tablet Commonly known as: SINGULAIR Take 1 tablet (10 mg total) by mouth at bedtime. Rybelsus 7 mg tablet Generic drug: semaglutide Take 1 tablet (7 mg total) by mouth 1 (one) time each day. sertraline 50 mg tablet Commonly known as: ZOLOFT Take 1 tablet (50 mg total) by mouth 1 (one) time each day. tamsulosin 0.4 mg 24 hr capsule Commonly known as: FLOMAX Take 1 capsule (0.4 mg total) by mouth 1 (one) time each day. Tradjenta 5 mg tablet Generic drug: linaGLIPtin Take 1 tablet (5 mg total) by mouth 1 (one) time each day. Where to Get Your Medications These medications were sent to [facility] [address] [facility] [address] [facility] [address], [facility] [address] acetaminophen 500 mg tablet lidocaine 4 % patch ondansetron ODT 4 mg disintegrating tablet traMADoL 50 mg tablet documented in this encounter Discharge Instructions * Discharge Instructions* Abdelrahman Rollins MD - 10/27/2025 5:50 PM EST Follow-up with PCP within a week from discharge You will need to have a new MRI of your liver to evaluate the liver mass suspicious of liver cancer, you had prior imaging which was reassuring, however, based on current imaging appears that the lesion has enlarged and there is an abnormal blood test which suggest the possibility of liver cancer. Contact the MRI department at [facility] to confirm your appointment, talk to your PCP to continue follow-up on this issue. You may need a liver biopsy for final diagnosis if imaging is not conclusive. Continue chronic medications without changes. Remember to remove any medicated patches from your body prior to have an MRI. documented in this encounter Medications at Time of Discharge acetaminophen (TYLENOL) 500 mg tablet Take 2 tablets (1,000 mg total) by mouth every 8 (eight) hours for 7 days. 42 each 5 11/03/20 25 albuterol 2.5 mg /3 mL (0.083 %) nebulizer solution Take 3 mL (2.5 mg total) by nebulization if needed for wheezing or shortness of breath. amLODIPine (NORVASC) 5 mg tablet Take 1 tablet (5 mg total) by mouth 1 (one) time each day. 1 atorvastatin (LIPITOR) 20 mg tablet Take 1 tablet (20 mg total) by mouth at bedtime. 2 blood sugar diagnostic (FreeStyle Lite Strips) test strip 5 calcium carbonate-vitamin D 500 mg-5 mcg (200 unit) per tablet Take 1 tablet by mouth 1 (one) time each day. 5 dapagliflozin propanediol (FARXIGA) 10 mg tablet Take 1 tablet (10 mg total) by mouth 1 (one) time each day. 1 FreeStyle Lite Meter monitoring kit 5 lidocaine 4 % patch Apply 2 patches topically 1 (one) time each day. 60 each 5 11/27/19 26 losartan (COZAAR) 25 mg tablet Take 1 tablet (25 mg total) by mouth 1 (one) time each day. 5 metFORMIN (GLUCOPHAGE) 1,000 mg tablet Take 0.5 tablets (500 mg total) by mouth 2 (two) times a day with meals. montelukast (SINGULAIR) 10 mg tablet Take 1 tablet (10 mg total) by mouth at bedtime. 6 ondansetron ODT (ZOFRAN-ODT) 4 mg disintegrating tabletIndications:L iver mass Take 1 tablet (4 mg total) by mouth every 8 (eight) hours if needed for vomiting or nausea for up to 7 days. 20 tablet 5 11/03/20 25 Rybelsus 7 mg tablet Take 1 tablet (7 mg total) by mouth 1 (one) time each day. sertraline (ZOLOFT) 50 mg tablet Take 1 tablet (50 mg total) by mouth 1 (one) time each day. tamsulosin (FLOMAX) 0.4 mg 24 hr capsule Take 1 capsule (0.4 mg total) by mouth 1 (one) time each day. 2 Tradjenta 5 mg tablet Take 1 tablet (5 mg total) by mouth 1 (one) time each day. 5 traMADoL (ULTRAM) 50 mg tabletIndications:A cute bilateral low back pain without sciatica Take 1 tablet (50 mg total) by mouth every 6 (six) hours if needed for severe pain for up to 7 days. Max Daily Amount: 200 mg 15 tablet 5 11/03/20 25 documented as of this encounter Ordered Prescriptions Prescription Sig Dispense Quantity Refills Last Filled Start Date End Date traMADoL (ULTRAM) 50 mg tabletIndications:Ac [place] bilateral low back pain without sciatica Take 1 tablet (50 mg total) by mouth every 6 (six) hours if needed for severe pain for up to 7 days. Max Daily Amount: 200 mg 15 tablet 10/27/2025 5 lidocaine 4 % patch Apply 2 patches topically 1 (one) time each day. 60 each 10/28/2025 6 ondansetron ODT (ZOFRAN-ODT) 4 mg disintegrating tabletIndications:Li walt mass Take 1 tablet (4 mg total) by mouth every 8 (eight) hours if needed for vomiting or nausea for up to 7 days. 20 tablet 10/27/2025 5 acetaminophen (TYLENOL) 500 mg tablet Take 2 tablets (1,000 mg total) by mouth every 8 (eight) hours for 7 days. 42 each 10/27/2025 5 documented in this encounter Discharge Disposition Disposition Code Departure Means Destination Comment s Home-Health Care [facility] documented in this encounter Progress Notes * Brinda Bean RN - 10/27/2025 6:32 PM EST Education provided with regards to scripts/meds and f/u appointments utilizing lamination builder.Patient acknowledged. * Shruthi Richardson PT - 10/27/2025 2:18 PM EST [facility] Physical Therapy Treatment PT Discharge Recommendations: Home PT Staff Recommendations for safe patient handlin person CG, SBA with SPC and amb over 400ft Precautions Medical Precautions: Fall Risk Safety Interventions: Call doe within reach, ID band on, Bed alarm, Side rails up x1 RUE Weight Bearing Status: Full LUE Weight Bearing Status: Full RLE Weight Bearing Status: Full LLE Weight Bearing Status: Full History of Present Illness: Patient is a 70 y.o. male admitted to [facility] on 10/25/2025 with: Problem List[1] Fall prevention education provided including use of call light in hospital, use of appropriate assistive device, safe mobility techniques, and safety measures at home. Continue PT as per POC. Subjective I need to walk Objective 10/27/25 1145 PT Last Visit PT Received On 10/27/25 General Family/Caregiver Present No PT Time Calculation PT Start Time 1145 PT Stop Time 1215 PT Time Calculation (min) 30 min Precautions Medical Precautions Fall Risk Safety Interventions Call doe within reach;ID band on;Bed alarm;Side rails up x1 RUE Weight Bearing Status Full LUE Weight Bearing Status Full RLE Weight Bearing Status Full LLE Weight Bearing Status Full Oxygen Therapy Oxygen Therapy None (Room air) Pain Assessment Pain Assessment 0-10 Pain Score 5 - Moderate pain Pain Type Chronic pain Pain Location Back Pain Orientation Mid Cognition Overall Cognitive Status WFL Arousal/Alertness Appropriate responses to stimuli Orientation Level Oriented X4 Following Commands Follows one step commands with repetition;Follows one step commands with increased time Safety Judgment Good awareness of safety precautions Activity Tolerance Endurance Tolerates 20 - 30 min activity with multiple rests Static Sitting Balance Static Sitting-Level of Assistance Supervision Static Standing Balance Static Standing-Level of Assistance Standby assistance Bed Mobility Rolling Right Assistance Contact guard Lying to Sitting Assistance Minimum assistance Bed Mobility Comments c/o inc back pain liklely from bed wanted to get up to chair and walk Transfers Sit to Stand Assistance Contact guard Chair/Bed to Chair/Bed Transfer Assistance Standby assistance Bed to/from Chair Transfer Technique Ambulating Ambulation Walking Assistance Standby assistance Device Single point cane Pattern WFL Distance Ambulated (ft) 400 Comments around unit pt did well no LOB noted , step through gait RUE Assessment RUE Assessment Within Functional Limits LUE Assessment LUE Assessment Within Functional Limits RLE Assessment RLE Assessment Within Functional Limits LLE Assessment LLE Assessment Within Functional Limits Procedures Procedures Therapeutic Activity;Gait Training Gait Training Gait Training Time Entry 15 Therapeutic Activity Therapeutic Activity Time Entry 15 PT Assessment PT Assessment Results Decreased endurance;Impaired balance;Decreased strength Prognosis Good Evaluation/Treatment Tolerance Patient tolerated treatment well Medical Staff Made Aware Yes Plan Treatment/Interventions Functional transfer training;LE strengthening/ROM;Bed mobility;Gait training PT Plan Skilled PT PT Frequency 2-5 days per week PT Duration of Sessions 15-30 min per session PT Treatments per day 1 time per day PT Discharge Recommendations Home PT Procedure/Treatment: Procedures Procedures: Therapeutic Activity, Gait Training Gait Training Gait Training Time Entry: 15 Therapeutic Activity Therapeutic Activity Time Entry: 15 Patient left sitting up in chair. RN notified of pt. status, location, response to treatment, and therapy recommendations. Physical Therapy Assessment/Plan PT Assessment PT Assessment Results: Decreased endurance, Impaired balance, Decreased strength Prognosis: Good Evaluation/Treatment Tolerance: Patient tolerated treatment well Comments: back pain likely from bed Medical Staff Made Aware: Yes Plan Treatment/Interventions: Functional transfer training, LE strengthening/ROM, Bed mobility, Gait training PT Plan: Skilled PT PT Frequency: 2-5 days per week PT Duration of Sessions: 15-30 min per session PT Treatments per day: 1 time per day PT Discharge Recommendations: Home PT Equipment Recommended: Cane PT - Evaluation Status: Complete Physical Therapy Goals/Education Encounter Problems Encounter Problems (Active) Template: Physical Therapy Problem: PT Short Term Goals Dates: Start: 10/26/25 Goal: Pt will ambulate up to 150ft with SPC with Supervision Dates: Start: 10/26/25 Expected End: 11/02/25 Encounter Problems (Resolved) There are no resolved problems. Education Documentation Home Exercise Program, taught by Shruthi Richardson PT at 10/27/2025 3:17 PM. Learner: Patient Readiness: Eager Method: Explanation, Demonstration Response: Verbalizes Understanding, Demonstrated Understanding Mobility Training, taught by Shruthi Richardson PT at 10/27/2025 3:17 PM. Learner: Patient Readiness: Eager Method: Explanation, Demonstration Response: Verbalizes Understanding, Demonstrated Understanding Education Comments No comments found. Shruthi Richardson PT [1] Patient Active Problem List Diagnosis Acute hypoxic respiratory failure (CMS/HCC V24, CMS/HCC V28) Liver mass Hypoxia * Martín Linton RN - 10/27/2025 10:54 AM EST Goals: Identify possible barriers to meeting goals/advancing plan of care: iv antibiotics, pt re-eval, care ongoing Stability of the patient: Moderately Stable - Low risk of patient condition declining or worsening End of Shift Summary: Problem: Falls: Fall Risk (Adult IP BH) Goal: (Goal) Patient will experience maximum safety and reduce risk for falls. Outcome: Progressing Goal: Patient will not fall or injure themselves during hospitalization. Outcome: Progressing Problem: Cognitive: Patel Easton Fall Risk Goal: Last Known Fall Outcome: Progressing Goal: Mobility requiring assistance of person or device Outcome: Progressing Goal: Dizziness Outcome: Progressing Goal: Medications Outcome: Progressing Goal: Mental Status/LOC/Awareness Outcome: Progressing Goal: Toileting Needs Outcome: Progressing Goal: Volume and Electrolyte Status Outcome: Progressing Goal: Communication/Sensory Outcome: Progressing Goal: Behavior Outcome: Progressing * Staci Milian RN - 10/26/2025 6:46 PM EST Goals: Stability of the patient: Moderately Stable - Low risk of patient condition declining or worsening End of Shift Summary: Patient ambulating in room with minimal assistance; new pain med regimen started. Family visiting throughout day. * Suzanne Johnson RN - 10/26/2025 2:46 PM EST 10/26/25 3015 Initial Transition Plan Initial Transition Plan Home Health Care (? [facility] active with weekly med prefills- ref sent.) Discharge Planning Living Arrangements Alone Type of Residence Private residence Assistive Devices Walker;Cane;Other (Comment) (nebulizer) Support Systems Other (Comment) (CONTACT CENTER SPECIALIST 4.5 hrs Thu-Thursday) Medication Coverage Has Med Coverage Under Insurance Plan Yes Medication Affordability No concerns related to payment for meds Anticipated Discharge Needs Discipline following for SNF placement Strategic Advisor Informed Choice Informed Choice Given? Yes Transportation Transportation at discharge Other (comment) (Will need Lyft) ICC met with pt at bedside via SS barber or beauty shop manager Boogie [phone]. Demographics confirmed. Not a . Has DME listed above and reports [facility] active for med management- unclear of name- attempted outreach to [facility] no answer, per Martínez Harvey- referral sent and PT rec Home PT-request to add PT- pt agreeable with resuming with this agency. Has CONTACT CENTER SPECIALIST who is support. Pt will need ride home. No Home O2. [facility] following. * Shruthi Richardson PT - 10/26/2025 2:28 PM EST [facility] Physical Therapy Evaluation & Treatment PT Discharge Recommendations: Home PT Staff Recommendations for safe patient handlin person CG/SBA with SPC for 80 ft AM-PAC 6 Clicks Scoring Form: Unable: 1 A Lot: 2 A Little: 3 None: 4 How much difficulty does the patient currently have? Turning over in bed (including adjustment of bedclothes, sheets, and blankets) [] [] [] [x] Sitting down on and standing up from a chair with arms (wheelchair, bedside commode etc [] [] [x] [] Moving from lying on back to sitting on the side of the bed [] [] [x] [] How much help from another person does the patient currently need? Moving to and from a bed to a chair ( including a wheelchair) [] [] [x] [] To walk in hospital room [] [] [x] [] Climbing 3-5 steps with a railing [] [] [x] [] Score: 24 score indicates the pt is appropriate for discharge home with therapy recommendation above Precautions Medical Precautions: Fall Risk Safety Interventions: Call doe within reach, ID band on, Bed alarm, Side rails up x1 RUE Weight Bearing Status: Full LUE Weight Bearing Status: Full RLE Weight Bearing Status: Full LLE Weight Bearing Status: Full Fall prevention education provided including use of call light in hospital, use of appropriate assistive device, safe mobility techniques, and safety measures at home. PT Received On: 10/26/25 PT Start Time: 1245 PT Stop Time: 1315 PT Time Calculation (min): 30 min General Family/Caregiver Present: No Precautions Medical Precautions: Fall Risk Safety Interventions: Call doe within reach, ID band on, Bed alarm, Side rails up x1 RUE Weight Bearing Status: Full LUE Weight Bearing Status: Full RLE Weight Bearing Status: Full LLE Weight Bearing Status: Full Cognition Overall Cognitive Status: Within Functional Limits Arousal/Alertness: Appropriate responses to stimuli Orientation Level: Oriented X4 Following Commands: Follows one step commands with repetition, Follows one step commands with increased time Safety Judgment: Good awareness of safety precautions Hearing: Intact Vision: Intact Speech: Intact Integumentary: NT History of Present Illness: Patient is a 70 y.o. male admitted to [facility] on 10/25/2025. Problem List[1] Medical History[2] Surgical History[3] Social History Home Living Environment: Home Living Type of Home: Apartment Lives With: Alone, Other (Comment) (has CONTACT CENTER SPECIALIST 4hrs/day) Home Adaptive Equipment: Cane Home Layout: One level Prior Function Level of [place]: Independent with mobility and functional transfers Ambulation Status: Household ambulator Receives Help From: board attendant Indoor Mobility Assistance: Independent Prior Device Use: Cane Which is your dominant hand?: Right General Assessment Boil Off Machine Operator Cloth Services Is an barber or beauty shop manager used? : Yes Information Interpreted: Assessment Boil Off Machine Operator Cloth Provider Service: ANM Boil Off Machine Operator Cloth Name or Number: Sowmya [phone] Type of Resource Used: Video remote barber or beauty shop manager Length of Time Boil Off Machine Operator Cloth Services Utilized (min): 30 Minutes Communication Needs: Boil Off Machine Operator Cloth (Legal) 10/26/25 1245 PT Last Visit PT Received On 10/26/25 General Family/Caregiver Present No PT Time Calculation PT Start Time 1245 PT Stop Time 1315 PT Time Calculation (min) 30 min Precautions Medical Precautions Fall Risk Safety Interventions Call doe within reach;ID band on;Bed alarm;Side rails up x1 RUE Weight Bearing Status Full LUE Weight Bearing Status Full RLE Weight Bearing Status Full LLE Weight Bearing Status Full Oxygen Therapy Oxygen Therapy None (Room air) Pain Assessment Pain Assessment 0-10 Pain Score 5 - Moderate pain Pain Type Chronic pain Pain Location Back Pain Orientation Lower Cognition Overall Cognitive Status WFL Arousal/Alertness Appropriate responses to stimuli Orientation Level Oriented X4 Following Commands Follows one step commands with repetition;Follows one step commands with increased time Safety Judgment Good awareness of safety precautions Home Living Type of Home Apartment Lives With Alone;Other (Comment) (has CONTACT CENTER SPECIALIST 4hrs/day) Home Adaptive Equipment Cane Home Layout One level Prior Function Level of [place] Independent with mobility and functional transfers Ambulation Status Household ambulator Receives Help From board attendant Indoor Mobility Assistance Independent Prior Device Use Cane Activity Tolerance Endurance Tolerates 10 - 20 min exercise with multiple rests Sensation Light Touch No apparent deficits Coordination Coordination Functional Static Sitting Balance Static Sitting-Level of Assistance Supervision Static Standing Balance Static Standing-Level of Assistance Standby assistance Bed Mobility Rolling Left and Right Assistance Standby assistance Lying to Sitting Assistance Contact guard Transfers Sit to Stand Assistance Contact guard Sit to Stand Deficit Steadying;Verbal cueing;Supervision/safety awareness Chair/Bed to Chair/Bed Transfer Assistance Contact guard Chair/Bed to Chair/Bed Transfer Deficit Steadying;Verbal cueing;Supervision/safety awareness;Increased time to complete Ambulation Walking Assistance Contact guard Walking Deficit Steadying;Verbal cueing;Supervision/safety awareness Device No device Distance Ambulated (ft) 80 Comments pt normally uses a SPC and i didnt have one readily and he wanted to get up to chair so i told him id be his cane and he could use me for support but he didnt need much , he amb with step through gait and RLE is ER about 20 deg but that is his baseline per pt when asked RUE Assessment RUE Assessment Within Functional Limits LUE Assessment LUE Assessment Within Functional Limits RLE Assessment RLE Assessment Within Functional Limits LLE Assessment LLE Assessment Within Functional Limits PT Assessment PT Assessment Results Decreased endurance;Impaired balance;Decreased strength Prognosis Good Evaluation/Treatment Tolerance Patient limited by pain Comments back pain likely from bed Medical Staff Made Aware Yes Plan Treatment/Interventions Functional transfer training;LE strengthening/ROM;Bed mobility;Gait training PT Plan Skilled PT PT Frequency 2-5 days per week PT Duration of Sessions 15-30 min per session PT Treatments per day 1 time per day PT Discharge Recommendations Home PT Equipment Recommended Cane PT - Evaluation Status Complete PT Evaluation Time Entry PT Evaluation (Moderate) Time Entry 30 Treatment performed during evaluation: None performed ADDITIONAL COMMENTS: Chart reviewed. RN clears pt for session. Pt agrees to participate and presented in bed upon PT arrival. All lines in place. Gait belt utilized throughout treatment to maximize safety. Medical precautions observed appropriately. Initiated education on the importance of PT, bed mobility safety, Transfer Safety, Ambulation Safety , Therapy Plan of Care, Home Safety, Energy Conservations strategies, and importance of OOB activity . Pt verbalized understanding. EXIT STATUS: Session ended with patient in chair, tray table and call light within reach, and RN made aware. Physical Therapy Assessment/Plan Raoul Garcia is a 70 y.o. male admitted to [facility] on 10/25/2025 for Hypoxia [R09.02] Liver mass [R16.0] Pneumonia due to infectious organism, unspecified laterality, unspecified part of lung [J18.9] Acute hypoxic respiratory failure (CMS/HCC V24, CMS/HCC V28) [J96.01] . Pt presents with decreased BLE strength, balance deficits, decreased activity tolerance, and far below functional baseline. Pt performed bed mobility Contact guard, Bedrail and HOB elevated, Transfers with Contact guard, None and ambulates Contact guard with None 80 ft . Pt will benefit from skilled acute PT during hospital stay to improve the deficits listed above and optimize function. PT recommends Home PT when medicallystable for safe discharge and to optimize functional mobility and independence. Goals Encounter Problems Encounter Problems (Active) Template: Physical Therapy Problem: PT Short Term Goals Dates: Start: 10/26/25 Goal: Pt will ambulate up to 150ft with SPC with Supervision Dates: Start: 10/26/25 Expected End: 11/02/25 Encounter Problems (Resolved) There are no resolved problems. Education Documentation Home Exercise Program, taught by Shruthi Richardson PT at 10/26/2025 2:27 PM. Learner: Patient Readiness: Eager Method: Explanation, Demonstration Response: Verbalizes Understanding, Demonstrated Understanding, Needs Reinforcement Comment: pt was perseverating on his lunch and that his sandwich was pure sugar and he was diabetic, RN aware Mobility Training, taught by Shruthi Richardson PT at 10/26/2025 2:27 PM. Learner: Patient Readiness: Eager Method: Explanation, Demonstration Response: Verbalizes Understanding, Demonstrated Understanding, Needs Reinforcement Comment: pt was perseverating on his lunch and that his sandwich was pure sugar and he was diabetic, RN aware Education Comments No comments found. Shruthi Richardson PT [1] Patient Active Problem List Diagnosis Acute hypoxic respiratory failure (CMS/HCC V24, CMS/HCC V28) Liver mass [2] Past Medical History: Diagnosis Date Anxiety Asthma Diabetes mellitus (CMS/HCC V24, CMS/HCC V28) HLD (hyperlipidemia) Hypertension [3] History reviewed. No pertinent surgical history. * Abdelrahman Rollins MD - 10/26/2025 9:34 AM EST Raoul Garcia 10/25/2025 1955 70 y.o. [id number] Abdelrahman Rollins, * INTERVAL HISTORY: No events reported overnight PAST MEDICAL HISTORY: Anxiety, asthma, type 2 diabetes, hyperlipidemia, hypertension, BPH, coronarydisease status post PCI, ED TRIAGE REPORT: Abd pain and chest pain since last night. Also c/o dry cough for the past few days. 130/90, hr 104, rr 17, 95% room air, poc 145 Pmh htn, hld, DM ASSESSMENT/PLAN: Patient 70-year-old Bhutanese-speaking male with a past medical history as above whopresented to hospital with complaints of generalized pain, some cough, incidentally mentions some shortness of breath and there was some episode of transient hypoxia therefore the patient was startedon empiric antibiotic for suspected pneumonia, he was then admitted to medicine for further evaluation and treatment. Problem list: Rule out pneumonia Transient hypoxia Back pain Liver mass Hypertension Hyperlipidemia Asthma Type 2 diabetes mellitus BPH # Patient had a CT angiogram of the chest due to transient hypoxia, he did not show any significantinfiltrates, there is no evidence of pulm or Tomasz embolism, the patient denies any significant shortness of breath, he is off oxygen with normal O2 saturation on room air, he has elevated informatorymarkers but I do not think this is related to any respiratory infection, I will discontinue antibiotics and monitor clinically. # Patient main complaint is back pain, he had a fall recently and his pain worsened, he has a history of back surgery and chronic back pain but has exacerbated since that fall several weeks ago, he has no focal weakness or numbness, he has full control of his sphincters, he has no fever or chills, x- ray of the lumbar spine shows degenerative issues without acute fracture, will continue pain management, will get PT evaluation, patient may benefit of short- term rehab. # A liver mass was incidentally found in his liver, patient states he has some workup in the past for this, I called [facility] imaging and they send the report of an MRI of the liver and an ultrasound with elastography from March 2025, it documented a 4 cm mass in the liver which according to MRI appears to be consistent with focal nodular hyperplasia, I did alpha-fetoprotein which is extremely elevated, I will discuss the findings with radiology to see if patient would benefit of repeating dynamic MRI of the liver or if the patient may need a liver biopsy to rule out hepatocarcinoma. # Blood pressure is well-controlled, continue losartan. # Continue statin, no changes. # No evidence of asthma exacerbation, continue as needed albuterol. # Type 2 diabetes mellitus, glucose glucose is intermittently above the goal, will use insulin insulin scale, holding his metformin, Rybelsus, Tradjenta, Farxiga. Can use insulin sliding scale for the time being, diabetic diet. Disposition: Continue to monitor on floor, hold antibiotics, PT evaluation, pain management. RESULTS: CBC. Results from last 7 days Lab Units 10/26/25 0615 10/25/25 1124 WBC AUTO K/mcL 10.8 12.6* HEMOGLOBIN g/dL 12.4* 13.8 HEMATOCRIT % 39.8* 43.4 MCV FL 89.0 87.7 PLATELETS K/mcL 231 228 LYMPHS PCT AUTO % -- 28.2 MONO PCT AUTO % -- 12.0 EOS PCT AUTO % -- 0.8 Coag Results from last 7 days Lab Units 10/25/25 1423 INR 1.5 APTT sec 30.4 Anti-Xa Hematology No lab exists for component: LACTATEDEHYD BMP Results from last 7 days Lab Units 10/26/25 0615 10/25/25 1124 SODIUM mmol/L 140 140 POTASSIUM mmol/L 3.9 4.4 CHLORIDE mmol/L 103 100 CO2 mmol/L 24 26 ANION GAP 13* 14* BUN mg/dL 26* 25 CREATININE mg/dL 1.01 1.21 CALCIUM mg/dL 8.5 9.5 MAGNESIUM mg/dL -- 2.2 Cardiac Results from last 7 days Lab Units 10/25/25 1423 10/25/25 1124 HIGH SENSITIVITY TROPONIN I ng/L 5 5 BNP pcg/mL -- 70 LFT/other Results from last 7 days Lab Units 10/25/25 1423 10/25/25 1124 ALT unit/L -- 33 AST unit/L -- 19 ALK PHOS unit/L -- 97 BILIRUBIN TOTAL mg/dL -- 0.7 TOTAL PROTEIN g/dL -- 7.7 ALBUMIN g/dL -- 4.4 LIPASE unit/L -- 21 LACTATE mmol/L 1.2 -- Metabolic Results from last 7 days Lab Units 10/25/25 1124 CRP mg/dL 21.74* Glucose. Results from last 7 days Lab Units 10/26/25 0821 10/26/25 0615 10/25/25 1953 10/25/25 1714 10/25/25 1124 POCT GLUCOSE mg/dL 122* -- 173* 120* -- GLUCOSE mg/dL -- 109* -- -- 159* Scheduled Medications PRN Medications IV Medications acetaminophen, 1,000 mg, q8h CELSO amLODIPine, 5 mg, Daily atorvastatin, 20 mg, Nightly azithromycin, 500 mg, q24h cefTRIAXone, 1 g, q24h enoxaparin, 40 mg, q24h CELSO insulin lispro, 1-6 Units, TID with meals losartan, 25 mg, Daily montelukast, 10 mg, Nightly sertraline, 50 mg, Daily tamsulosin, 0.4 mg, Daily albuterol, 2.5 mg, q1h PRN bisacodyL, 10 mg, Daily PRN dextrose 50%, 12.5 g, q15 min PRN dextrose 50%, 25 g, q15 min PRN dextrose, 15 g, q15 min PRN dextrose, 30 g, q15 min PRN glucagon injection, 1 mg, Once PRN ondansetron (ZOFRAN-ODT) disintegrating tablet, 4 mg, q8h PRN Or ondansetron, 4 mg, q8h PRN lactated Ringer's, Last Rate: 100 mL/hr (10/26/25 0533) SUBJECTIVE : Patient complains of low back and, this is his main issue, he states he had [place], he states the main reason he came to the hospital was because he was having this back pain radiating to the chest and the abdomen, he has some cough but he denies any significant shortness of breath, he denies any fever or chills. No nausea or vomiting. I inquired him about any history of liver disease based on the incidental finding of a liver mass, he states he has some imaging done by his providers in [facility] and he was told he had a fat tumor in his liver. Patient feels weak and has difficulty ambulating because of his pain. Patient is voiding freely, no urinary symptoms, he had a normal bowel movement, nonbloody today. OBJECTIVE: Vitals: 10/25/25 1714 10/25/25 1951 10/26/25 0250 10/26/25 0819 BP: 110/65 107/66 118/78 118/75 BP Location: Left arm Left arm Left arm Left arm;Upper Patient Position: Lying Lying Lying Lying Pulse: 73 95 97 86 Resp: Temp: 36.3 ??C (97.4 ??F) 36.4 ??C (97.5 ??F) 36.5 ??C (97.7 ??F) 36.4 ??C (97.5 ??F) TempSrc: Temporal Oral Oral Temporal SpO2: 95% 96% 94% 97% Weight: Height: Temp (24hrs), Av.6 ??C (97.8 ??F), Min:36.3 ??C (97.4 ??F), Max:37.1 ??C (98.8 ??F) Intake/Output Summary (Last 24 hours) at 10/26/2025 0934 Last data filed at 10/25/2025 1800 Gross per 24 hour Intake 1036.67 ml Output -- Net 1036.67 ml Wt Readings from Last 1 Encounters: 10/25/25 1700 80.9 kg (178 lb 6.4 oz) 10/25/25 1326 81.6 kg (180 lb) PHYSICAL EXAM: Gen: Patient elderly male, NAD CV -RRR no MGR, no JVD. Lungs -CTAB, no creased work of breathing, Abd - Soft, non-tender, non-distended. Bowel sounds are present Back. Patient has tenderness in the lumbar spine to palpation as well as paravertebral muscles, no obvious skin lesions. Extremities - No LE edema Neuro - AO x3, speech is clear, face symmetric, no focal weakness or numbness. Imaging: CT Angio Chest wo and/or w Contrast Narrative: PROCEDURE: CT ANGIO CHEST INDICATION: hypoxia COMPARISON: None. TECHNIQUE: CT pulmonary angiogram performed following uneventful IV administration of ISOVUE contrast material with bolus timing technique from the thoracic inlet through the lung bases. 3-D multiplanar reformations were obtained by the technologist on an independent workstation. Volly VCT dose reduction utilizing iterative reconstruction. Total exam DLP 585 (mGy-cm) FINDINGS: There is no evidence for large central pulmonary embolism. Smaller pulmonary emboli cannot be excluded due to motion artifact. Coronary artery calcifications. Mild cardiomegaly. There is no pericardial effusion. The thoracic aorta is normal in caliber. There is no evidence for mediastinal or hilar lymphadenopathy. No concerning opacity. Atelectasis at the lung bases. There are no pleural effusions. Mass in the liver measuring 5 cm, recommend multiphasic MRI. Degenerative osseous changes. Impression: 1. There is no evidence for pulmonary embolism. 2. Mass in the liver measuring 5 cm, recommend multiphasic MRI. -------- FINAL REPORT -------- Dictated By: Ed Feldman Dictated Date: 10/25/2025 15:15 ET Assigned Physician: Ed Feldman Reviewed and Electronically Signed By: Ed Feldman Signed Date: 10/25/2025 15:32 ET Workstation ID: [id number] Transcribed By: Self Edit Transcribed Date: 10/25/2025 15:15 ET XR Chest 2 Views Narrative: XR CHEST 2 VIEWS INDICATION: chest pain TECHNIQUE: XR CHEST 2 VIEWS COMPARISON: None Impression: FINDINGS/IMPRESSION: Hypoventilatory examination with diffuse interstitial markings andatelectasis versus infiltrate at the lung bases. No significant pleural effusion. Degenerative osseous changes. -------- FINAL REPORT -------- Dictated By: Ed Feldman Dictated Date: 10/25/2025 12:02 ET Assigned Physician: Ed Feldman Reviewed and Electronically Signed By: Ed Feldman Signed Date: 10/25/2025 12:15 ET Workstation ID: [id number] Transcribed By: Self Edit Transcribed Date: 10/25/2025 12:02 ET [x] Code status: Full Code - Default [x] VTE Prophylaxis: Lovenox [x] Lines, tubes, drains: None Health Care proxy with Phone number: TOSHA SUAREZ (Spouse) * Lisa Carr RN - 10/25/2025 6:25 PM EST Goals: Pain management and feel not short of breath Identify possible barriers to meeting goals/advancing plan of care: none Stability of the patient: Moderately Stable - Low risk of patient condition declining or worsening End of Shift Summary: Patient VSS. Plan of care explained via barber or beauty shop manager. Care on going * Leigh Ann Russo RN - 10/25/2025 3:05 PM EST ED RN HANDOFF (All Francisco Below Must Be Completed) Reason/Diagnosis for Admission: Type of Admission: [x] Medsurg, [] Telemetry Already in a Hospital Bed: [] Yes / [x] No Room Considerations/Precautions (ex: fever, diarrhea, or any infectious concerns): [x] Yes / [] No Respiratory /covid r/o Photo Lab Technician: [] Yes / [x] No If YES, Cardiac Rhythm: [] NSR, [] SB, [] ST, [] A-FIB, [] A-Flutter, [] Pacemaker, [] 1st Degree HB, [] 2nd Degree HB, [] 3rd Degree HB Reason for Photo Lab Technician: O2 []Yes /[]No If YES, how many Liters: 3L - baseline RA VS: Visit Vitals BP 132/83 Pulse 102 Temp 37.1 ??C (98.8 ??F) (Oral) Resp 22 Ht 1.575 m (62 ) Wt 81.6 kg (180 lb) SpO2 95% BMI 32.92 kg/m?? BSA 1.83 m?? Current Mental Status: A/O x [x]4, []3, []2, []1 IV Access: [x] Yes / [] No Field IV present: [] Yes / [x] No Hx of Violence: [] Yes / [x] No / [] Unknown Current Ambulation Status: steady, standby by assist Fall Risk:[] Yes / [x] No Yellow Bracelet Applied [] Yes / [x] No Yellow Socks Applied [] Yes / [x] No Patient Belongings inventoried and BL completed: [x] Yes / [] No Patient belongings stored in the security closet: [] Yes (If Yes please supply Security bag #): [x] No Patient Medications stored in Pharmacy: [] Yes (If Yes please supply Medication Security bag #): [] No ED Summary of Care: Pt started requiring O 2,baseline RA. C/o back,neck and chest pain. IV fluids and Abx started. Tylenol given. Blood cultures sent. * Yadira Oconnell RN - 10/25/2025 10:53 AM EST Abd pain and chest pain since last night. Also c/o dry cough for the past few days. 130/90, hr 104, rr 17, 95% room air, poc 145 Pmh htn, hld, DM * Todd Elizalde MD - 10/25/2025 10:45 AM EST HPI Chief Complaint Patient presents with Abdominal Pain Chest Pain HPI enterprise sales executive Roberto assisted with history and physical exam. Patient is also accompanied by a healthcare first assistant who provide history today. Patient is a 70-year-old male with history of diabetes, hypertension presenting with diffuse myalgias, cough, chest pain and shortness of breath since yesterday. Chest pain history of so it is diffuse and nonspecific and nonradiating. Patient denies fever, chills, nausea, vomiting, diarrhea or urina ry symptoms. Triage note documented abdominal pain which patient denied on my interview. Patient states he has allergy to penicillin but does not know the reaction. No data recorded Patient History Medical History[1] Surgical History[2] Family History[3] Social History Tobacco Use Smoking status: Not on file Smokeless tobacco: Not on file Substance Use Topics Alcohol use: Not on file Drug use: Not on file Review of Systems Review of Systems Physical Exam ED Triage Vitals 10/25/25 1127 Temp Heart Rate Resp BP 37.1 ??C (98.8 ??F) 108 (!) 28 114/76 SpO2 Temp Source Heart Rate Source Patient Position 91 % Oral -- Sitting BP Location FiO2 (%) Left arm -- Physical Exam Vitals reviewed - General: Adult, awake & alert, resting comfortably, no acute distress - HEENT: grossly NC/AT, PERRLA, EOMI, OP clear without exudates or erythema, MMM - Neck: Moving normally. No obvious deformities. No tenderness - Pulm: Decreased airflow bilateral lung francisco, CTAB. Normal work of breathing liters nasal cannula - CV: Tachycardia, regular rhythm. No murmurs/rubs appreciated. - Chest wall: No chest wall bruising or lesions. - Abd/GI: Soft, ND. NTTP, no rebound or guarding. - Back/Flanks: No skin findings. No tenderness. - MSK: Radial and DP pulses 2+ bilaterally. No lower extremity edema. - Neuro: Alert. Grossly oriented. Normal fluent speech. Moves all extremities well. Grossly no acute focal exam findings. - Derm: Warm and dry. No rashes noted. - Psych: Calm, cooperative, appropriate Additional findings:_ ED Course & MDM Clinical Impressions as of 10/25/25 1617 Hypoxia Pneumonia due to infectious organism, unspecified laterality, unspecified part of lung Liver mass Medical Decision Making EKG sinus tachycardia 107 bpm, with future complexes, LVH morphology, intervals within normal limits, no sign of acute ischemia. EKG compared to prior and similar. My preliminary interpretation of chest x-ray per haziness of bilateral lung bases, no effusion or pneumothorax. Radiology interpretation FINDINGS/IMPRESSION: Hypoventilatory examination with diffuse interstitial markings and atelectasisversus infiltrate at the lung bases. No significant pleural effusion. Degenerative osseous changes. Labs reviewed notable for mild leukocytosis, no anemia, no significant electrolyte derangements, troponin negative, BNP negative, lipase negative. Lactate negative. CT chest IMPRESSION: 1. There is no evidence for pulmonary embolism. 2. Mass in the liver measuring 5 cm, recommend multiphasic MRI. enterprise sales executive Roberto present, I discussed all results and workup with patient including incidental finding liver mass recommendation for MRI. Patient states he has been aware that he had a gio his liver in the past. We discussed that a mass may be concerning for cancer and is very important he follows up with his primary care provider to discuss results soon as possible. All questions and concerns were answered. Patient is agreeable with plan admission. Clinical impression pneumonia and hypoxia. I considered a broad differential diagnosis including but not limited to ACS, CHF exacerbation, pneumothorax, effusion, COPD exacerbation, PE less likely given presentation and workup today. Patient is admitted to medicine for IV antibiotics for pneumonia in the setting of hypoxia. Procedures Todd Elizalde MD 10/25/25 1245 [1] Past Medical History: Diagnosis Date Anxiety Asthma Diabetes mellitus (CMS/HCC V24, CMS/HCC V28) HLD (hyperlipidemia) Hypertension [2] History reviewed. No pertinent surgical history. [3] No family history on file. Todd Elizalde MD 10/25/25 1620 documented in this encounter H&P Notes * Romeo Valencia MD - 10/25/2025 1:39 PM EST Images from the original note were not included. ANH HISTORY AND PHYSICAL Please contact author [JAMEL Avery] via [employer]. Patient: Raoul Garcia Admission Date/Time: 10/25/2025 11:30 AM : 1955 [70 y.o.] Patient's PCP: Myriam Paulson MD Attending Provider: Todd Elizalde MD CHIEF COMPLAINT Diffuse pain and shortness of breath HISTORY OF PRESENT ILLNESS Michael?? Jose is a 70-year-old Bhutanese-speaking male with a past medical history of hyperlipidemia, hypertension, CAD, type 2 diabetes, asthma, anxiety and BPH who presents to the ED due to with shortness of breath for 2 days. blue print control clerk Roberto assisted with H&P. He is seen with CONTACT CENTER SPECIALIST at bedside. He reports pain in his chest neck and back. He denies recent fall or injury. He reports shortness of breath without wheezing or cough. He reports slight improvement in symptoms when using hisinhaler. He denies sore throat, congestion, fevers or chills. He does endorse headache dizziness and lightheadedness. He denies abdominal pain nausea vomiting and diarrhea. He denies urinary symptoms. He walks with a walker at baseline. He has CONTACT CENTER SPECIALIST assistance 27 hours a week. Both patient and CONTACT CENTER SPECIALIST says he requires more assistance. Neck and back pain chronic both chronic. IN ED he was found to be hypoxic at 91% room air, tachypneic at 28 and tachycardic at 108 now on 3 L of O2. Normotensive at 114/76 and afebrile. Initial labs remarkable for leukocytosis of 12.6. Prolactin of 0.48, CRP of 21.74, and sed rate of 76. CHEM profile shows anion gap of 14 and glucose of 15 9. BNP of 70 and negative troponins. Lactate of 1.2. Coagulation studies show prothrombin time 18.6, INR 1.5 and a PTT of 30.4. Chest x-ray shows Hypoventilatory examination with diffuse interstitial markings and atelectasis versus infiltrate at the lung bases. No significant pleural effusion. Degenerative osseous changes. EKG showing sinus rhythm with premature atrial complexes. He was given ceftriaxone 2 g in ED. Review of Systems Negative unless otherwise noted in HPI Past Medical History Medical History[1] Anxiety Asthma Hypertension Hyperlipidemia Type 2 diabetes Enlarged prostate CAD Past Surgical History coronary angioplasty with insertion of stent Social History He reports he does not smoke tobacco, use alcohol or use drugs. Family History family history is not on file. Allergies is allergic to aspirin and penicillins. Home Medications Medications Ordered Prior to Encounter[2] Tamsulosin 0.4 mg Montelukast 10 mg Metformin 1000 mg Sertraline 50 mg Losartan 25 mg Calcium 500-D Amlodipine 5 mg Farxiga 10 mg Rybelsus 70 mg Atorvastatin 20 mg Tradjenta 5 mg Vitamin D 25 mg OBJECTIVE Vitals Visit Vitals BP 114/76 (BP Location: Left arm, Patient Position: Sitting) Pulse 108 Temp 37.1 ??C (98.8 ??F) (Oral) Resp 25 Temp (24hrs), Av.1 ??C (98.8 ??F), Min:37.1 ??C (98.8 ??F), Max:37.1 ??C (98.8 ??F) Body mass index is 32.92 kg/m??. No results found for: PTWT , PTHT Physical Examination General The patient is awake, alert, and oriented Appears well-developed and well-nourished, in no acute distress. HEENT Head is normocephalic and atraumatic Eyes: PERRLA. Sclera is white, conjunctiva are clear, and Extraocular movements are intact. Nose: Nasal mucosa is pink and moist, septum is midline. Mouth/Throat: Oral mucosa is pink and moist, tongue and dentition are normal, and pharynx is without erythema or exudate. Neck is Supple, symmetrical, and trachea is midline. Cardiovascular Regular rate and rhythm No murmurs, gallops, or rubs. No edema, cyanosis, or clubbing. Peripheral pulses are palpable Respiratory Respiratory effort is unlabored. Decreased lung sounds noted in bilateral lower lobes No wheezes rales or rhonchi Abdominal Soft, non-distended, and non-tender No masses or organomegaly. Musculoskeletal and Extremities Moving all extremities normally No deformities, swelling, or redness. Muscle strength is 5/5 bilaterally. Skin Warm, dry, and intact. No rashes, lesions, or abnormal pigmentation. Neurological No focal neurodeficits LAB RESULTS (most recent) HEMATOLOGY Lab Results Component Value Date WBC 12.6 (H) 10/25/2025 HGB 13.8 10/25/2025 HCT 43.4 10/25/2025 MCV 87.7 10/25/2025 PLT 228 10/25/2025 CHEMISTRY Lab Results Component Value Date GLUCOSE 159 (H) 10/25/2025 NA 140 10/25/2025 K 4.4 10/25/2025 CO2 26 10/25/2025 CL 100 10/25/2025 BUN 25 10/25/2025 CREATININE 1.21 10/25/2025 EGFR 65 10/25/2025 CALCIUM 9.5 10/25/2025 MG 2.2 10/25/2025 ANIONGAP 14 (H) 10/25/2025 Radiology XR Chest 2 Views Final Result FINDINGS/IMPRESSION: Hypoventilatory examination with diffuse interstitial markings and atelectasisversus infiltrate at the lung bases. No significant pleural effusion. Degenerative osseous changes. -------- FINAL REPORT -------- Dictated By: Ed Feldman Dictated Date: 10/25/2025 12:02 ET Assigned Physician: Ed Feldman Reviewed and Electronically Signed By: Ed Feldman Signed Date: 10/25/2025 12:15 ET Workstation ID: [id number] Transcribed By: Self Edit Transcribed Date: 10/25/2025 12:[address] Angio Chest wo and/or w Contrast (Results Pending) ASSESSMENT & PLAN This is a 70 year old amharic speaking male with pmh of T2DM, hypertension, hyperlipidemia, asthma,anxiety and BPH who presented to [facility] emergent department due chest pain for one day. He was found to be tachycardic, tachypneic and hypoxic on exam requiring 3L O2 NC. Chest Xray showed concern for pneumonia. Acute Hypoxic Respiratory failure Pneumonia - Noted leukocytosis of 12.6, elevated prolactin and CRP - continue Ceftriaxone and azithromycin - CTA pending to rule out PE - Blood cultures pending - PEP therapy - Continue with IV fluids - Continue with O2, wean as tolerated Hypertension - continue losartan and amlodipine Hyperlipidemia - continue statin Asthma - No concern for exacerbation on initial evaluation - Albuterol as needed T2DM - POC & Insulin sliding scale BPH - Continue Tamulosin Admission checklist [] Code status: Full code- Default [] VTE Prophylaxis: Lovenox [] Diet order on admission: Cardiac Diabetic diet [] Medication reconciliation: Provider complete Emergency Contact: Spouse, Tosha, Case discussed with Dr. Annie armijo With chart reviewed medication reviewed agree with plan of care as dictated above by Fidelina patientexamined reviewed discharge planning labs reviewed imaging reviewed discussed with the team and entire decison making was made by me discussed with team and documented by FRED spoke with blue print control clerk patient lives alone but the CONTACT CENTER SPECIALIST service who has been with her with him for last 4 months at baseline can walk with a walker to the bathroom by himself for 3 to 4 days he is feeling weak today was weak or short of breath required help going to the bathroom discussed this with blue print control clerk her healthcare proxy is her friend INCIDENTAL FINDING IN CT NEED FOLLOW UP TOMORROW 1. There is no evidence for pulmonary embolism. 2. Mass in the liver measuring 5 cm, recommend multiphasic MRI. [1] Past Medical History: Diagnosis Date ??? Anxiety ??? Asthma ??? Diabetes mellitus (CMS/HCC V24, CMS/HCC V28) ??? HLD (hyperlipidemia) ??? Hypertension [2] No current facility-administered medications on file prior to encounter. No current outpatient medications on file prior to encounter. documented in this encounter Plan of Treatment Scheduled Orders Name Type Priority Associated Diagnoses Orde r Schedule MR Abdomen wo and w Contrast Imaging Routine Liver mass Expected: 11/03/2025, Expires: 10/27/2026 Scheduled Referrals Name Type Priority Associated Diagnoses Order Schedule Ambulatory referral to Home Health Outpatient Referral Routine Acute bilateral low back pain without sciatica 1 Occurrences starting 10/27/2025 until 10/27/2026 documented as of this encounter Procedures Procedure Name Priority Date/Time Associated Diagnosis Comments POCT GLUCOSE BLOOD Routine 10/27/2025 4: 01 PM EST POCT GLUCOSE BLOOD Routine 10/27/2025 11 :32 AM EST POCT GLUCOSE BLOOD Routine 10/27/2025 7: 53 AM EST CBC WITH AUTO DIFFERENTIAL Routine 10/27/2025 7:11 AM EST CBC AND DIFFERENTIAL Routine 10/27/2025 7:11 AM EST PHOSPHORUS Routine 10/27/2025 7:11 AM EST MAGNESIUM Routine 10/27/2025 7:11 AM EST BASIC METABOLIC PANEL Routine 10/27/2025 7:11 AM EST POCT GLUCOSE BLOOD Routine 10/26/2025 4: 56 PM EST XR LUMBAR SPINE 2-3 VIEWS Routine 10/26/2025 2:45 PM EST POCT GLUCOSE BLOOD Routine 10/26/2025 11 :16 AM EST POCT GLUCOSE BLOOD Routine 10/26/2025 8: 21 AM EST ALPHA FETOPROTEIN TUMOR MARKER Add-On 10/26/2025 6:15 AM EST COMPLETE BLOOD COUNT Routine 10/26/2025 6:15 AM EST CARCINOEMBRYONIC ANTIGEN Add-On 10/26/2025 6:15 AM EST BASIC METABOLIC PANEL Routine 10/26/2025 6:15 AM EST PEP THERAPY Routine 10/26/2025 6:00 AM EST ECG ANNOTATED 10/26/2025 URINALYSIS WITH REFLEX MICROSCOPIC AND CULTURE Routine 10/25/2025 9:23 PM EST FREEMAN URINE CULTURE TUBE Routine 10/25/20 9:23 PM EST URINALYSIS WITH REFLEX MICROSCOPIC AND CULTURE Routine 10/25/2025 9:23 PM EST POCT GLUCOSE BLOOD Routine 10/25/2025 7: 53 PM EST POCT GLUCOSE BLOOD Routine 10/25/2025 5: 14 PM EST RESPIRATORY VIRUS PANEL MOLECULAR STUDY STAT 10/25/2025 2:54 PM EST MRSA PCR Routine 10/25/2025 2:54 PM EST CULTURE BLOOD STAT 10/25/2025 2:54 PM EST CULTURE BLOOD STAT 10/25/2025 2:[address] ANGIO CHEST WO AND/OR W CONTRAST STAT 10/25/2025 2:42 PM EST Hypoxia TROPONIN I HIGH SENSITIVITY Timed 10/25/2025 2:23 PM EST ACTIVATED PARTIAL THROMBOPLASTIN TIME STAT 10/25/2025 2:23 PM EST PROTHROMBIN TIME WITH INR STAT 10/25/2025 2:23 PM EST LACTATE STAT 10/25/2025 2:23 PM EST PEP THERAPY Routine 10/25/2025 2:12 PM EST PEP THERAPY Routine 10/25/2025 2:12 PM EST ECG 12-LEAD STAT 10/25/2025 1:01 PM EST XR CHEST 2 VIEWS STAT 10/25/2025 11:5 9 AM EST TROPONIN I HIGH SENSITIVITY Timed 10/25/2025 11:24 AM EST PROCALCITONIN STAT Add-on 10/25/2025 11:24 AM EST CBC WITH AUTO DIFFERENTIAL STAT 10/25/2025 11:24 AM EST SEDIMENTATION RATE Add-On 10/25/2025 11 :24 AM EST CBC AND DIFFERENTIAL STAT 10/25/2025 11:24 AM EST C-REACTIVE PROTEIN Add-On 10/25/2025 11 :24 AM EST B-TYPE NATRIURETIC PEPTIDE STAT 10/25/2025 11:24 AM EST MAGNESIUM STAT 10/25/2025 11:24 AM EST LIPASE STAT 10/25/2025 11:24 AM EST COMPREHENSIVE METABOLIC PANEL STAT 10/25/2025 11:24 AM EST ECG 12-LEAD STAT 10/25/2025 11:05 AM EST documented in this encounter Results * (ABNORMAL) POCT Glucose, blood (10/27/2025 4:01 PM EST) Glucose POCT 125(H) 70 - 100 mg/dL 10/27/2025 4:02 PM EST [facility] Blood Capillary blood specimen / Unknown 10/27/2025 4:01 PM EST 10/27/2025 4:03 PM EST us Abdelrahman Rollins MD LAB POINT OF C ARE TEST DOCKED DEVICE UNSOLICITED RESULTS Final Result [facility] [address] [place] [address], [place] [phone] * (ABNORMAL) POCT Glucose, blood (10/27/2025 11:32 AM EST) Glucose POCT 180(H) 70 - 100 mg/dL 10/27/2025 11:33 AM EST [facility] Blood Capillary blood specimen / Unknown 10/27/2025 11:32 AM EST 10/27/2025 11:34 AM EST us Abdelrahman Rollins MD LAB POINT OF ARE TEST DOCKED DEVICE UNSOLICITED RESULTS Final Result [facility] [address] [place] [address], [place] [phone] * (ABNORMAL) POCT Glucose, blood (10/27/2025 7:53 AM EST) Glucose POCT 139(H) 70 - 100 mg/dL 10/27/2025 7:53 AM EST [facility] Blood Capillary blood specimen / Unknown 10/27/2025 7:53 AM EST 10/27/2025 7:55 AM EST us Abdelrahman Rollins MD LAB POINT OF ARE TEST DOCKED DEVICE UNSOLICITED RESULTS Final Result [facility] [address] [place] [address], [place] [phone] * (ABNORMAL) CBC auto differential (10/27/2025 7:11 AM EST) WBC 8.9 4.8 - 10.8 K/[facility] HEMETOLOGY METHOD 10/27/2025 7:49 AM EST [facility] RBC 4.50 4.50 - 5.50 M/[facility] HEMETOLOGY METHOD 10/27/2025 7:49 AM EST [facility] Hemoglobin 12.4(L) 13.5 - 17.5 g/dL LAB HEMETOLOGY METHOD 10/27/2025 7:49 AM [facility] Hematocrit 39.6(L) 42.0 - 54.0 % LAB HEMETOLOGY METHOD 10/27/2025 7:49 AM [facility] MCV 87.8 79.0 - 98.0 FL LAB HEMETOLOGY METHOD 10/27/2025 7:49 AM [facility] MCH 27.5 27.0 - 32.0 pcg LAB HEMETOLOGY METHOD 10/27/2025 7:49 AM [facility] MCHC 31.3(L) 32.0 - 37.0 g/dL LAB HEMETOLOGY METHOD 10/27/2025 7:49 AM [facility] RDW 14.8 11.0 - 15.0 % LAB HEMETOLOGY METHOD 10/27/2025 7:49 AM [facility] Platelets 246 130 - 400 K/mcL LAB HEMETOLOGY METHOD 10/27/2025 7:49 AM [facility] MPV 11.5(H) 7.0 - 11.0 FL LAB HEMETOLOGY METHOD 10/27/2025 7:49 AM [facility] NRBC 0.0 <1.0 % LAB HEMETOLOGY METHOD 10/27/2025 7:49 AM [facility] NRBC Absolute 0.00 <0.10 K/mcL LAB HEMETOLOGY METHOD 10/27/2025 7:49 AM [facility] Neutrophils Relative 47.6 % LAB HEMETOLOGY METHOD 10/27/2025 7:49 AM [facility] Lymphocytes Relative 35.6 % LAB HEMETOLOGY METHOD 10/27/2025 7:49 AM [facility] Monocytes Relative 10.2 % LAB HEMETOLOGY METHOD 10/27/2025 7:49 AM EST [facility] Eosinophils Relative 5.8 % LAB HEMETOLOGY METHOD 10/27/2025 7:49 AM [facility] Basophils Relative 0.6 % LAB HEMETOLOGY METHOD 10/27/2025 7:49 AM [facility] Immature Granulocytes Relative 0.2 % LAB HEMETOLOGY METHOD 10/27/2025 7:49 AM EST [facility] Neutrophils Absolute 4.22 1.50 - 7.00 K/mcL LAB HEMETOLOGY METHOD 10/27/2025 7:49 AM [facility] Lymphocytes Absolute 3.15 1.00 - 5.00 K/mcL LAB HEMETOLOGY METHOD 10/27/2025 7:49 AM [facility] Monocytes Absolute 0.90 0.20 - 1.00 K/mcL LAB HEMETOLOGY METHOD 10/27/2025 7:49 AM EST [facility] Eosinophils Absolute 0.51(H) 0.00 - 0.50 K/mcL LAB HEMETOLOGY METHOD 10/27/2025 7:49 AM [facility] Basophils Absolute 0.05 0.00 - 0.20 K/mcL LAB HEMETOLOGY METHOD 10/27/2025 7:49 AM [facility] Immature Granulocytes Absolute 0.02 0.00 - 0.03 K/mcL LAB HEMETOLOGY METHOD 10/27/2025 7:49 AM [facility] Blood Venous blood specimen / Unknown Venipuncture / Unknown 10/27/2025 7:11 AM EST 10/27/2025 7:34 AM EST Abdelrahman Rollins MD LAB BLOOD ORDERABLES F inal Result [facility] [address] [place] [address], * Phosphorus (10/27/2025 7:11 AM EST) Phosphorus 3.3 2.5 - 4.5 mg/dL 10/27/2025 8:01 AM EST [facility] Blood Venous blood specimen / Unknown Venipuncture / Unknown 10/27/2025 7:11 AM EST 10/27/2025 7:34 AM EST us Abdelrahman Rollins MD LAB BLOOD ORDERABLES F inal Result [facility] [address] [place] [address], [place] [phone] * Magnesium (10/27/2025 7:11 AM EST) Pathologist [facility] Magnesium 2.0 1.9 - 2.6 mg/dL 10/27/2025 7:58 AM EST [facility] Blood Venous blood specimen / Unknown Venipuncture / Unknown 10/27/2025 7:11 AM EST 10/27/2025 7:34 AM EST us Abdelrahman Rollins MD LAB BLOOD ORDERABLES F inal Result [facility] [address] [place] [address], [place] [phone] * (ABNORMAL) Basic metabolic panel (10/27/2025 7:11 AM EST) Pathologist [facility] Sodium 142 133 - 145 mmol/L 10/27/2025 7:59 AM EST [facility] [facility] Potassium 3.8 3.5 - 5.5 mmol/L 10/27/2025 7:59 AM EST [facility] Chloride 104 96 - 110 mmol/L 10/27/2025 7:59 AM EST [facility] CO2 27 21 - 32 mmol/L 10/27/2025 7:59 AM [facility] Anion Gap 11 3 - 11 10/27/2025 7:59 AM [facility] Glucose 113(H) 70 - 100 mg/dL 10/27/2025 7:59 AM [facility] BUN 20 5 - 25 mg/dL 10/27/2025 7:59 AM [facility] Creatinine 0.90 0.70 - 1.30 mg/dL 10/27/2025 7:59 AM [facility] eGFR 93 >=60 mL/min/1. 73m2 10/27/2025 7:59 AM [facility] Comment:Calculation based on the Chronic Kidney Disease Epidemiology Collaboration (CKD-EPI) equation refit without adjustment for race. BUN/Creatinine Ratio 22.2 10/27/2025 7:59 AM [facility] Calcium 8.3(L) 8.5 - 10.5 mg/dL 10/27/2025 7:59 AM [facility] Blood Venous blood specimen / Unknown Venipuncture / Unknown 10/27/2025 7:11 AM EST 10/27/2025 7:34 AM EST us Abdelrahman Rollins MD LAB BLOOD ORDERABLES F inal Result [facility] [address] [place] [address], * (ABNORMAL) POCT Glucose, blood (10/26/2025 4:56 PM EST) Glucose POCT 135(H) 70 - 100 mg/dL 10/26/2025 4:57 PM [facility] POCT Comment RN Notified 10/26/2025 4:57 PM [facility] Blood Capillary blood specimen / Unknown 10/26/2025 4:56 PM EST 10/26/2025 4:58 PM EST Abdelrahman Rollins MD LAB POINT OF C ARE TEST DOCKED DEVICE UNSOLICITED RESULTS Final Result [facility] [address] [place] [address], * XR Lumbar Spine 2-3 Views (10/26/2025 2:45 PM EST) Anatomical Region Laterality Modality Spine, L-spine Radiographic Tawny ging 10/26/2025 3:51 PM EST Impressions 10/26/2025 3:51 PM EST FINDINGS/IMPRESSION: No acute fracture or traumatic malalignment. Mild degenerative changes of the spine. -------- FINAL REPORT -------- Dictated By: Ed Feldman Dictated Date: 10/26/2025 15:51 ET Assigned Physician: Ed Feldman Reviewed and Electronically Signed By: Ed Feldman Signed Date: 10/26/2025 15:51 ET Workstation ID: [id number] Transcribed By: Self Edit Transcribed Date: 10/26/2025 15:51 ET Narrative 10/26/2025 3:51 PM EST XR LUMBAR SPINE 2-3 VIEWS INDICATION: pain Recent fall,s evere low back pain. TECHNIQUE: XR LUMBAR SPINE 2-3 VIEWS COMPARISON: None Procedure Note Ed Feldman MD - 10/26/2025 XR LUMBAR SPINE 2-3 VIEWS INDICATION: pain Recent fall,s evere low back pain. TECHNIQUE: XR LUMBAR SPINE 2-3 VIEWS COMPARISON: None IMPRESSION: FINDINGS/IMPRESSION: No acute fracture or traumatic malalignment. Milddegenerative changes of the spine. -------- FINAL REPORT -------- Dictated By: Ed Feldman Dictated Date: 10/26/2025 15:51 ET Assigned Physician: Ed Feldman Reviewed and Electronically Signed By: Ed Feldman Signed Date: 10/26/2025 15:51 ET Workstation ID: [id number] Transcribed By: Self Edit Transcribed Date: 10/26/2025 15:51 ET us Abdelrahman Rollins MD IMG XR PROCEDURES Esthela l Result * (ABNORMAL) POCT Glucose, blood (10/26/2025 11:16 AM EST) Glucose POCT 252(H) 70 - 100 mg/dL 10/26/2025 11:17 AM EST [facility] POCT Comment RN Notified 10/26/2025 11:17 AM EST [facility] Blood Capillary blood specimen / Unknown 10/26/2025 11:16 AM EST 10/26/2025 11:19 AM EST us Abdelrahman Rollins MD LAB POINT OF ARE TEST DOCKED DEVICE UNSOLICITED RESULTS Final Result Performing Organization Address City/[facility]/ZIP Co de Phone Number [facility] [address] [place] [address], [place] [phone] * (ABNORMAL) POCT Glucose, blood (10/26/2025 8:21 AM EST) Glucose POCT 122(H) 70 - 100 mg/dL 10/26/2025 8:22 AM EST [facility] POCT Comment RN Notified 10/26/2025 8:22 AM EST [facility] Blood Capillary blood specimen / Unknown 10/26/2025 8:21 AM EST 10/26/2025 8:24 AM EST us Abdelrahman Rollins MD LAB POINT OF C ARE TEST DOCKED DEVICE UNSOLICITED RESULTS Final Result Performing Organization Address City/[facility]/ZIP Co de Phone Number [facility] [address] [place] [address], [place] [phone] * CEA (10/26/2025 6:15 AM EST) CEA <2.0 0.0 - 5.0 ng/mL 10/26/2025 9:56 AM EST [facility] Blood Venous blood specimen / Unknown Venipuncture / Unknown 10/26/2025 6:15 AM EST 10/26/2025 6:56 AM EST Narrative [facility] - 10/26/2025 9:56 AM EST The Siemens Atell[employer] IM Chemiluminescent Immunoassay is used. Results obtained with different assay methods or kits cannot be used interchangeably. Results cannot be interpreted as absolute evidence of the presence or absence of malignant disease. us Abdelrahman Rollins MD LAB BLOOD ORDERABLES F inal Result Performing Organization Address [facility]/ZIP Co de Phone Number [facility] [address] [place] [address], [place] [phone] * (ABNORMAL) Alpha fetoprotein tumor marker (10/26/2025 6:15 AM EST) AFP 732.3(H) 0.0 - 8.0 ng/mL 10/26/2025 9:53 AM EST [facility] Blood Venous blood specimen / Unknown Venipuncture / Unknown 10/26/2025 6:15 AM EST 10/26/2025 6:56 AM EST Narrative [facility] - 10/26/2025 9:53 AM EST The Siemens Atellica IM Chemiluminescent Immunoassay is used. Results obtained with different assay methods or kits cannot be used interchangeably. Results cannot be interpreted as absolute evidence of the presence or absence of malignant disease. us Abdelrahman Rollins MD LAB BLOOD ORDERABLES F inal Result Performing Organization Address City/[facility]/ZIP Co de Phone Number [facility] [address] [place] [address], [place] [phone] * (ABNORMAL) Complete blood count (10/26/2025 6:15 AM EST) [facility] WBC 10.8 4.8 - 10.8 K/mcL LAB HEMETOLOGY METHOD 10/26/2025 7:08 AM [facility] RBC 4.50 4.50 - 5.50 M/mcL LAB HEMETOLOGY METHOD 10/26/2025 7:08 AM [facility] Hemoglobin 12.4(L) 13.5 - 17.5 g/dL LAB HEMETOLOGY METHOD 10/26/2025 7:08 AM [facility] Hematocrit 39.8(L) 42.0 - 54.0 % LAB HEMETOLOGY METHOD 10/26/2025 7:08 AM [facility] MCV 89.0 79.0 - 98.0 FL LAB HEMETOLOGY METHOD 10/26/2025 7:08 AM [facility] MCH 27.7 27.0 - 32.0 pcg LAB HEMETOLOGY METHOD 10/26/2025 7:08 AM [facility] MCHC 31.2(L) 32.0 - 37.0 g/dL LAB HEMETOLOGY METHOD 10/26/2025 7:08 AM [facility] RDW 15.1(H) 11.0 - 15.0 % LAB HEMETOLOGY METHOD 10/26/2025 7:08 AM [facility] Platelets 231 130 - 400 K/mcL LAB HEMETOLOGY METHOD 10/26/2025 7:08 AM [facility] MPV 11.8(H) 7.0 - 11.0 FL LAB HEMETOLOGY METHOD 10/26/2025 7:08 AM [facility] NRBC 0.0 <1.0 % LAB HEMETOLOGY METHOD 10/26/2025 7:08 AM [facility] NRBC Absolute 0.00 <0.10 K/mcL LAB HEMETOLOGY METHOD 10/26/2025 7:08 AM [facility] Blood Venous blood specimen / Unknown Venipuncture / Unknown 10/26/2025 6:15 AM EST 10/26/2025 6:56 AM EST us Romeo Valencia MD LAB BLOOD ORDERABLES Final Resu lt [facility] [address] [place] [address], [place] [phone] * (ABNORMAL) Basic metabolic panel (10/26/2025 6:15 AM EST) Sodium 140 133 - 145 mmol/L 10/26/2025 7:28 AM [facility] Potassium 3.9 3.5 - 5.5 mmol/L 10/26/2025 7:28 AM [facility] Chloride 103 96 - 110 mmol/L 10/26/2025 7:28 AM [facility] CO2 24 21 - 32 mmol/L 10/26/2025 7:28 AM [facility] Anion Gap 13(H) 3 - 11 10/26/2025 7:28 AM [facility] Glucose 109(H) 70 - 100 mg/dL 10/26/2025 7:28 AM [facility] BUN 26(H) 5 - 25 mg/dL 10/26/2025 7:28 AM [facility] Creatinine 1.01 0.70 - 1.30 mg/dL 10/26/2025 7:28 AM [facility] eGFR 81 >=60 mL/min/1. 73m2 10/26/2025 7:28 AM [facility] Comment:Calculation based on the Chronic Kidney Disease Epidemiology Collaboration (CKD-EPI) equation refit without adjustment for race. BUN/Creatinine Ratio 25.7 10/26/2025 7:28 AM EST [facility] Calcium 8.5 8.5 - 10.5 mg/dL 10/26/2025 7:28 AM [facility] Blood Venous blood specimen / Unknown Venipuncture / Unknown 10/26/2025 6:15 AM EST 10/26/2025 6:56 AM EST Romeo Valencia MD LAB BLOOD ORDERABLES Final Resu lt Performing Organization Address [facility]/ZIP Co de Phone Number [facility] [address] [place] [address], [place] [phone] * ECG-Annotated (10/26/2025) Provider Onbase ECG ORDERABLES Final Result * Freeman urine culture tube (10/25/2025 9:23 PM EST) Pathologist [facility] Extra Tube Hold for add-ons. 10/25/2025 11:01 PM EST [facility] Comment:Auto resulted. Urine Urine specimen obtained by clean catch procedure / Unknown Non-blood Collection / Unknown 10/25/2025 9:23 PM EST 10/25/2025 9:57 PM EST Rashid MCCULLOUGH LAB URINE ORDERABLES Esthela l Result Performing Organization Address City/[facility]/ZIP Co de Phone Number [facility] [address] [place] [address], [place] [phone] * (ABNORMAL) Urinalysis with reflex microscopic and culture (10/25/2025 9:23 PM EST) Pathologist [facility] Specific [place] Urine >1.045(H) 1.003 - 1.030 LAB URINALYSIS - AUTOMATED METHOD 10/25/2025 10:02 PM EST [facility] pH, Urine 5.5 5.0 - 8.0 pH LAB URINALYSIS - AUTOMATED METHOD 10/25/2025 10:02 PM [facility] Leukocytes, Urine Negative Negative LAB URINALYSIS - AUTOMATED METHOD 10/25/2025 10:02 PM [facility] Nitrite, Urine Negative Negative LAB URINALYSIS - AUTOMATED METHOD 10/25/2025 10:02 PM [facility] Protein, Urine Trace <=Trace mg/dL LAB URINALYSIS - AUTOMATED METHOD 10/25/2025 10:02 PM [facility] Glucose, Urine >=1000(A) Negative mg/dL LAB URINALYSIS - AUTOMATED METHOD 10/25/2025 10:02 PM [facility] Ketones, Urine 15(A) Negative mg/dL LAB URINALYSIS - AUTOMATED METHOD 10/25/2025 10:02 PM [facility] Urobilinogen , Urine 1.0 0.2 - 1.0 mg/dL LAB URINALYSIS - AUTOMATED METHOD 10/25/2025 10:02 PM [facility] Bilirubin, Urine Negative Negative LAB URINALYSIS - AUTOMATED METHOD 10/25/2025 10:02 PM [facility] Blood, Urine Negative Negative LAB URINALYSIS - AUTOMATED METHOD 10/25/2025 10:02 PM [facility] Urine Urine specimen obtained by clean catch procedure / Unknown Non-blood Collection / Unknown 10/25/2025 9:23 PM EST 10/25/2025 9:57 PM EST us Rashid MCCULLOUGH LAB URINE ORDERABLES Esthela l Result [facility] [address] [place] [address], * (ABNORMAL) POCT Glucose, blood (10/25/2025 7:53 PM EST) [facility] Signature Glucose POCT 173(H) 70 - 100 mg/dL 10/25/2025 7:54 PM EST [facility] Blood Capillary blood specimen / Unknown 10/25/2025 7:53 PM EST 10/25/2025 7:55 PM EST us Romeo Valencia MD LAB POINT OF CARE TE ST DOCKED DEVICE UNSOLICITED RESULTS Final Result Performing Organization Address [facility]/ZIP Co de Phone Number [facility] [address] [place] [address], [place] [phone] * (ABNORMAL) POCT Glucose, blood (10/25/2025 5:14 PM EST) Glucose POCT 120(H) 70 - 100 mg/dL 10/25/2025 5:15 PM EST [facility] Blood Capillary blood specimen / Unknown 10/25/2025 5:14 PM EST 10/25/2025 5:16 PM EST us Romeo Valencia MD LAB POINT OF CARE TE ST DOCKED DEVICE UNSOLICITED RESULTS Final Result Performing Organization Address [facility] Co de Phone Number [facility] [address] [place] [address], [place] [phone] * Blood Culture, Peripheral Draw #2 (10/25/2025 2:54 PM EST) Culture, Blood No growth at 5 days 10/30/2025 4:01 PM EST [facility] Blood Venous blood specimen / Unknown Venipuncture / Unknown 10/25/2025 2:54 PM EST 10/25/2025 3:37 PM EST us Rashid MCCULLOUGH LAB MICROBIOLOGY - GENERA L ORDERABLES Final Result Performing Organization Address City/[facility]/ZIP Co de Phone Number [facility] [address] [place] [address], [place] [phone] * Blood Culture, Peripheral Draw #1 (10/25/2025 2:54 PM EST) [facility] Culture, Blood No growth at 5 days 10/30/2025 4:01 PM [facility] Blood Venous blood specimen / Unknown Venipuncture / Unknown 10/25/2025 2:54 PM EST 10/25/2025 3:37 PM EST Rashid MCCULLOUGH LAB MICROBIOLOGY - GENERA L ORDERABLES Final Result [facility] [address] [place] [address], * MRSA molecular study (10/25/2025 2:54 PM EST) [facility] MRSA Screen PCR Not Detected Not Detected LAB MICROBIOLOGY METHOD 10/25/2025 4:57 PM [facility] Swab Both anterior nares / Unknown Non-blood Collection / Unknown 10/25/2025 2:54 PM EST 10/25/2025 3:38 PM EST Rashid MCCULLOUGH LAB MICROBIOLOGY - GENERA L ORDERABLES Final Result [facility] [address] [place] [address], [place] [phone] * Respiratory virus panel molecular study (10/25/2025 2:54 PM EST) [facility] Adenovirus Detection by PCR Not Detected Not Detected LAB MICROBIOLOGY METHOD 10/25/2025 4:34 PM EST [facility] Influenza A PCR Not Detected Not Detected LAB MICROBIOLOGY METHOD 10/25/2025 4:34 PM [facility] Influenza B PCR Not Detected Not Detected LAB MICROBIOLOGY METHOD 10/25/2025 4:34 PM [facility] Coronavirus 229E Not Detected Not Detected LAB MICROBIOLOGY METHOD 10/25/2025 4:34 PM [facility] Coronavirus HKU1 Not Detected Not Detected LAB MICROBIOLOGY METHOD 10/25/2025 4:34 PM [facility] Coronavirus OC43 Not Detected Not Detected LAB MICROBIOLOGY METHOD 10/25/2025 4:34 PM [facility] Coronavirus NL63 Not Detected Not Detected LAB MICROBIOLOGY METHOD 10/25/2025 4:34 PM [facility] Parainfluenza Virus 1 Not Detected Not Detected LAB MICROBIOLOGY METHOD 10/25/2025 4:34 PM [facility] Parainfluenza Virus 2 Not Detected Not Detected LAB MICROBIOLOGY METHOD 10/25/2025 4:34 PM [facility] Parainfluenza Virus 3 Not Detected Not Detected LAB MICROBIOLOGY METHOD 10/25/2025 4:34 PM [facility] Parainfluenza Virus 4 Not Detected Not Detected LAB MICROBIOLOGY METHOD 10/25/2025 4:34 PM [facility] RSV PCR Not Detected Not Detected LAB MICROBIOLOGY METHOD 10/25/2025 4:34 PM [facility] Human Metapneumovirus A and B Not Detected Not Detected LAB MICROBIOLOGY METHOD 10/25/2025 4:34 PM [facility] Rhinovirus/Entero virus Not Detected Not Detected LAB MICROBIOLOGY METHOD 10/25/2025 4:34 PM [facility] Bordetella pertussis Not Detected Not Detected LAB MICROBIOLOGY METHOD 10/25/2025 4:34 PM [facility] Bordetella parapertussis Not Detected Not Detected LAB MICROBIOLOGY METHOD 10/25/2025 4:34 PM [facility] Mycoplasma pneumo by PCR Not Detected Not Detected LAB MICROBIOLOGY METHOD 10/25/2025 4:34 PM [facility] Chlamydia pneumoniae Not Detected Not Detected LAB MICROBIOLOGY METHOD 10/25/2025 4:34 PM EST [facility] SARS COV-2 Not Detected Not Detected LAB MICROBIOLOGY METHOD 10/25/2025 4:34 PM EST [facility] Swab Nasopharyngeal structure / Unknown Non-blood Collection / Unknown 10/25/2025 2:54 PM EST 10/25/2025 3:38 PM EST Narrative [facility] - 10/25/2025 4:34 PM EST Testing was performed using the [employer] Respiratory Pathogen PCR Assay. All results must be correlated with the clinical findings. Results should not be used as the sole basis for diagnosis. False Negative results may occur from the presence of sequence variants in the region targeted by the assay or the presence of inhibitors. Results may be affected by concurrent antiviral/antimicrobial therapy or levels of organisms that are below the limit of detection. Todd Elizalde MD LAB MICROBIOLOGY - GENERAL ORDER RITA Final Result [facility] [address] [place] [address], [place] [phone] * CT Angio Chest wo and/or w Contrast (10/25/2025 2:42 PM EST) Anatomical Region Laterality Modality Body Computed Tomogra phy 10/25/2025 3:15 PM EST Addenda Addendum by Gigi Price MD on 10/27/2025 4:20 PM EST Addendum: MRI performed at [facility] 04/07/25 has been up loaded into the [facility] PACS. Some of the images are able to be reviewed. Some images are unable to be reviewed. Specifically the precontrast series is not able to be viewed. Likely due to technical factors I cannot measure the mass in the left lobe of the liver on the previous MRI in our PACS system. (Caliper yields only pixels and not millimeters or centimeters). Given the early enhancing lesion with washout it is reasonable to consider tissue diagnosis in the presence of elevated alpha-fetoprotein. Focal nodular hyperplasia could give this appearance. If imaging is undertaken for follow-up, consider hepatobiliary contrast agent (Eovist). -------- ADDENDUM -------- Dictated By: Gigi rPice Dictated Date: 10/27/2025 16:03 ET Assigned Physician: Gigi Price Reviewed and Electronically Signed By: Gigi Price Signed Date: 10/27/2025 16:20 ET Workstation ID: [id number] Transcribed By: Self Edit Transcribed Date: 10/27/2025 16:03 ET Addendum by Gigi Price MD on 10/27/2025 1:41 PM EST Addendum: The study was reviewed with Dr. Pacheco There is a report of previous multiphasic MRI which described a 3.6 cm enhancing mass with a presumed central scar. The patient has an elevated alpha-fetoprotein. The patient underwent assessment for hepatic fibrosis. If there is an enlarging enhancing mass in a patient with elevated serum tumor markers and underlying chronic liver disease further evaluation may be warranted. I have offered to review the previous MRI if images become available -------- ADDENDUM -------- Dictated By: Gigi Price Dictated Date: 10/27/2025 13:39 ET Assigned Physician: Gigi Price Reviewed and Electronically Signed By: Gigi Price Signed Date: 10/27/2025 13:41 ET Workstation ID: [id number] Transcribed By: Self Edit Transcribed Date: 10/27/2025 13:39 ET Impressions 10/25/2025 3:32 PM EST 1. There is no evidence for pulmonary embolism. 2. Mass in the liver measuring 5 cm, recommend multiphasic MRI. -------- FINAL REPORT -------- Dictated By: Ed Feldman Dictated Date: 10/25/2025 15:15 ET Assigned Physician: Ed Feldman Reviewed and Electronically Signed By: Ed Feldman Signed Date: 10/25/2025 15:32 ET Workstation ID: [id number] Transcribed By: Self Edit Transcribed Date: 10/25/2025 15:15 ET Narrative 10/25/2025 3:32 PM EST PROCEDURE: CT ANGIO CHEST INDICATION: hypoxia COMPARISON: None. TECHNIQUE: CT pulmonary angiogram performed following uneventful IV administration of ISOVUE contrast material with bolus timing technique from the thoracic inlet through the lung bases. 3-D multiplanar reformations were obtained by the technologist on an independent workstation. GE Lightspeed VCT dose reduction utilizing iterative reconstruction. Total exam DLP 585 (mGy-cm) FINDINGS: There is no evidence for large central pulmonary embolism. Smaller pulmonary emboli cannot be excluded due to motion artifact. Coronary artery calcifications. Mild cardiomegaly. There is no pericardial effusion. The thoracic aorta is normal in caliber. There is no evidence for mediastinal or hilar lymphadenopathy. No concerning opacity. Atelectasis at the lung bases. There are no pleural effusions. Mass in the liver measuring 5 cm, recommend multiphasic MRI. Degenerative osseous changes. Procedure Note Ed Feldman MD / Gigi Price MD - 10/25/2025 PROCEDURE: CT ANGIO CHEST INDICATION: hypoxia COMPARISON: None. TECHNIQUE: CT pulmonary angiogram performed following uneventful IVadministration of ISOVUE contrast material with bolus timing techniquefrom the thoracic inlet through the lung bases. 3-D multiplanar reformations were obtained by the technologist on anindependent workstation. GE Lightspeed VCT dose reduction utilizing iterative reconstruction. Total exam DLP 585 (mGy-cm) FINDINGS: There is no evidence for large central pulmonary embolism. Smallerpulmonary emboli cannot be excluded due to motion artifact. Coronary artery calcifications. Mild cardiomegaly. There is no pericardialeffusion. The thoracic aorta is normal in caliber. There is no evidence for mediastinal or hilar lymphadenopathy. No concerning opacity. Atelectasis at the lung bases. There are no pleural effusions. Mass in the liver measuring 5 cm, recommend multiphasic MRI. Degenerative osseous changes. IMPRESSION: 1. There is no evidence for pulmonary embolism. 2. Mass in the liver measuring 5 cm, recommend multiphasic MRI. -------- FINAL REPORT -------- Dictated By: Ed Feldman Dictated Date: 10/25/2025 15:15 ET Assigned Physician: Ed Feldman Reviewed and Electronically Signed By: Ed Feldman Signed Date: 10/25/2025 15:32 ET Workstation ID: [id number] Transcribed By: Self Edit Transcribed Date: 10/25/2025 15:15 ET us Todd Elizalde MD IMG CT PROCEDURES Edited Result - Final * APTT (10/25/2025 2:23 PM EST) aPTT 30.4 24.1 - 39.3 sec LAB COAGULATION METHOD 10/25/2025 2:47 PM EST [facility] Blood Venous blood specimen / Unknown Venipuncture / Unknown 10/25/2025 2:23 PM EST 10/25/2025 2:33 PM EST us Todd lEizalde MD LAB BLOOD ORDERABLES Final Resul t Performing Organization Address [facility]/ZIP Co de Phone Number [facility] [address] [place] [address], [place] [phone] * (ABNORMAL) Protime-INR (10/25/2025 2:23 PM EST) Protime 18.7(H) 10.6 - 13.9 sec LAB COAGULATION METHOD 10/25/2025 2:47 PM EST [facility] INR 1.5 LAB COAGULATION METHOD 10/25/2025 2:47 PM EST [facility] Blood Venous blood specimen / Unknown Venipuncture / Unknown 10/25/2025 2:23 PM EST 10/25/2025 2:33 PM EST us Todd Elizalde MD LAB BLOOD ORDERABLES Final Resul t [facility] [address] [place] [address], [place] [phone] * Lactate (10/25/2025 2:23 PM EST) Lactate 1.2 0.4 - 2.0 mmol/L 10/25/2025 3:17 PM EST [facility] Blood Venous blood specimen / Unknown Venipuncture / Unknown 10/25/2025 2:23 PM EST 10/25/2025 2:33 PM EST us Todd Elizalde MD LAB BLOOD ORDERABLES Final Resul t Performing Organization Address [facility]/ZIP Co de Phone Number [facility] [address] [place] [address], [place] [phone] * Troponin I high sensitivity (10/25/2025 2:23 PM EST) Pathologist [facility] High Sensitivity Troponin I 5 <=53 ng/L 10/25/2025 3:08 PM EST [facility] Blood Venous blood specimen / Unknown Venipuncture / Unknown 10/25/2025 2:23 PM EST 10/25/2025 2:33 PM EST us Todd Elizalde MD LAB BLOOD ORDERABLES Final Resul t Performing Organization Address [facility] Co de Phone Number [facility] [address] [place] [address], [place] [phone] * ECG 12 lead (10/25/2025 1:01 PM EST) [facility] Signature Ventricular Rate ECG 99 BPM GEMUSE Atrial Rate 99 BPM GEMUSE P-R Interval 152 ms GEMUSE QRS Duration 88 ms GEMUSE Q-T Interval 338 ms GEMUSE QTc 433 ms GEMUSE P Wave Hutchins 55 degrees GEMUSE R Hutchins -21 degrees GEMUSE T Hutchins 32 degrees GEMUSE ECG Interpretation Sinus rhythm with Premature supraventricular complexes When compared with ECG of 25-OCT-2025 11:05, (unconfirmed) No significant change was found Confirmed by OTIS POSEY ([id number]) on 10/26/2025 11:01:22 PM GEMUSE 10/25/2025 1:01 PM EST 10/26/2025 11:01 PM EST us Todd Elizalde MD ECG ORDERABLES Final Result GEMUSE * XR Chest 2 Views (10/25/2025 11:59 AM EST) Anatomical Region Laterality Modality Body Radiographic Tawny ging 10/25/2025 12:0 2 PM EST Impressions 10/25/2025 12:15 PM EST FINDINGS/IMPRESSION: Hypoventilatory examination with diffuse interstitial markings and atelectasis versus infiltrate at the lung bases. No significant pleural effusion. Degenerative osseous changes. -------- FINAL REPORT -------- Dictated By: Ed Feldman Dictated Date: 10/25/2025 12:02 ET Assigned Physician: Ed Feldman Reviewed and Electronically Signed By: Ed Feldman Signed Date: 10/25/2025 12:15 ET Workstation ID: [id number] Transcribed By: Self Edit Transcribed Date: 10/25/2025 12:02 ET Narrative 10/25/2025 12:15 PM EST XR CHEST 2 VIEWS INDICATION: chest pain TECHNIQUE: XR CHEST 2 VIEWS COMPARISON: None Procedure Note Ed Feldman MD - 10/25/2025 XR CHEST 2 VIEWS INDICATION: chest pain TECHNIQUE: XR CHEST 2 VIEWS COMPARISON: None IMPRESSION: FINDINGS/IMPRESSION: Hypoventilatory examination with diffuse interstitialmarkings and atelectasis versus infiltrate at the lung bases. Nosignificant pleural effusion. Degenerative osseous changes. -------- FINAL REPORT -------- Dictated By: Ed Feldman Dictated Date: 10/25/2025 12:02 ET Assigned Physician: Ed Feldman Reviewed and Electronically Signed By: Ed Feldman Signed Date: 10/25/2025 12:15 ET Workstation ID: [id number] Transcribed By: Self Edit Transcribed Date: 10/25/2025 12:02 ET Todd Elizalde MD IMG XR PROCEDURES Final Result * (ABNORMAL) Sedimentation rate (10/25/2025 11:24 AM EST) Sed Rate 67(H) 0 - 20 mm/hr LAB HEMETOLOGY METHOD 10/25/2025 2:49 PM EST [facility] Blood Venous blood specimen / Unknown Venipuncture / Unknown 10/25/2025 11:24 AM EST 10/25/2025 11:42 AM EST AvrshaMeredith Flores [place] LAB BLOOD ORDERABLES Esthela l Result Performing Organization Address City/[facility]/ZIP Co de Phone Number [facility] [address] [place] [address], [place] [phone] * (ABNORMAL) C-reactive protein (10/25/2025 11:24 AM EST) C-Reactive Protein 21.74(H) <=0.50 mg/dL 10/25/2025 2:51 PM EST [facility] Blood Venous blood specimen / Unknown Venipuncture / Unknown 10/25/2025 11:24 AM EST 10/25/2025 11:42 AM EST Varsha-Arturobill Mark [place] LAB BLOOD ORDERABLES Esthela l Result Performing Organization Address City/[facility]/ZIP Co de Phone Number [facility] [address] [place] [address], [place] [phone] * (ABNORMAL) Procalcitonin (10/25/2025 11:24 AM EST) Procalcitonin 0.48(H) <=0.05 ng/mL 10/25/2025 2:14 PM EST [facility] Blood Venous blood specimen / Unknown Venipuncture / Unknown 10/25/2025 11:24 AM EST 10/25/2025 11:42 AM EST Narrative [facility] - 10/25/2025 2:14 PM EST Procalcitonin > 2.00 ng/ml: Procalcitonin Levels above 2.00 ng/ml, on the first day of ICU admission represent a high risk for progression to severe sepsis and/or septic shock. Procalcitonin < 0.50 ng/ml: Procalcitonin levels below 0.50 ng/ml on the first day of ICU admission represent a low risk for progression to severe sepsis and/or septic shock. Concentrations <0.5 ng/mL do not exclude an infection, on account of local ized infections (without systemic signs) which can be associated with such low concentrations, or a systemic infection in its initial stages (<6 hours). Furthermore, increased procalcitonin can occur without infection. PCT concentrations between 0.5 and 2.0 ng/mL should be interpreted taking into account the patient's history. It is recommended to retest PCT within 6-24 hours if any concentrations <2.0 ng/mL are obtained. Rashid MCCULLOUGH LAB BLOOD ORDERABLES Esthela andrews Result [facility] [address] [place] [address], * (ABNORMAL) CBC auto differential (10/25/2025 11:24 AM EST) WBC 12.6(H) 4.8 - 10.8 K/mcL LAB HEMETOLOGY METHOD 10/25/2025 11:52 AM EST [facility] RBC 5.00 4.50 - 5.50 M/mcL LAB HEMETOLOGY METHOD 10/25/2025 11:52 AM EST [facility] Hemoglobin 13.8 13.5 - 17.5 g/dL LAB HEMETOLOGY METHOD 10/25/2025 11:52 AM EST [facility] Hematocrit 43.4 42.0 - 54.0 % LAB HEMETOLOGY METHOD 10/25/2025 11:52 AM [facility] MCV 87.7 79.0 - 98.0 FL LAB HEMETOLOGY METHOD 10/25/2025 11:52 AM [facility] MCH 27.9 27.0 - 32.0 pcg LAB HEMETOLOGY METHOD 10/25/2025 11:52 AM [facility] MCHC 31.8(L) 32.0 - 37.0 g/dL LAB HEMETOLOGY METHOD 10/25/2025 11:52 AM [facility] RDW 15.1(H) 11.0 - 15.0 % LAB HEMETOLOGY METHOD 10/25/2025 11:52 AM [facility] Platelets 228 130 - 400 K/mcL LAB HEMETOLOGY METHOD 10/25/2025 11:52 AM [facility] MPV 11.6(H) 7.0 - 11.0 FL LAB HEMETOLOGY METHOD 10/25/2025 11:52 AM [facility] NRBC 0.0 <1.0 % LAB HEMETOLOGY METHOD 10/25/2025 11:52 AM [facility] NRBC Absolute 0.00 <0.10 K/mcL LAB HEMETOLOGY METHOD 10/25/2025 11:52 AM [facility] Neutrophils Relative 58.0 % LAB HEMETOLOGY METHOD 10/25/2025 11:52 AM [facility] Lymphocytes Relative 28.2 % LAB HEMETOLOGY METHOD 10/25/2025 11:52 AM [facility] Monocytes Relative 12.0 % LAB HEMETOLOGY METHOD 10/25/2025 11:52 AM [facility] Eosinophils Relative 0.8 % LAB HEMETOLOGY METHOD 10/25/2025 11:52 AM [facility] Basophils Relative 0.6 % LAB HEMETOLOGY METHOD 10/25/2025 11:52 AM [facility] Immature Granulocytes Relative 0.4 % LAB HEMETOLOGY METHOD 10/25/2025 11:52 AM [facility] Neutrophils Absolute 7.32(H) 1.50 - 7.00 K/mcL LAB HEMETOLOGY METHOD 10/25/2025 11:52 AM EST [facility] Lymphocytes Absolute 3.55 1.00 - 5.00 K/mcL LAB HEMETOLOGY METHOD 10/25/2025 11:52 AM EST [facility] Monocytes Absolute 1.51(H) 0.20 - 1.00 K/mcL LAB HEMETOLOGY METHOD 10/25/2025 11:52 AM EST [facility] Eosinophils Absolute 0.10 0.00 - 0.50 K/[facility] LAB HEMETOLOGY METHOD 10/25/2025 11:52 AM EST [facility] Basophils Absolute 0.07 0.00 - 0.20 K/[facility] LAB HEMETOLOGY METHOD 10/25/2025 11:52 AM EST [facility] Immature Granulocytes Absolute 0.05(H) 0.00 - 0.03 K/[facility] LAB HEMETOLOGY METHOD 10/25/2025 11:52 AM EST [facility] Blood Venous blood specimen / Unknown Venipuncture / Unknown 10/25/2025 11:24 AM EST 10/25/2025 11:42 AM EST Todd Elizalde MD LAB BLOOD ORDERABLES Final Resul t [facility] [address] [place] [address], * B-type natriuretic peptide (10/25/2025 11:24 AM EST) BNP 70 <=100 pcg/mL 10/25/2025 12:21 PM EST [facility] Blood Venous blood specimen / Unknown Venipuncture / Unknown 10/25/2025 11:24 AM EST 10/25/2025 11:42 AM EST Narrative [facility] - 10/25/2025 12:21 PM EST Over the counter supplements containing high doses of biotin may interfere with this assay. If interference is suspected, patients shoud be retested after refraining from biotin supplements for 72 hours. us Todd Elizalde MD LAB BLOOD ORDERABLES Final Resul t Performing Organization Address [facility] Co de Phone Number [facility] [address] [place] [address], [place] [phone] * Magnesium (10/25/2025 11:24 AM EST) Pathologist [facility] Magnesium 2.2 1.9 - 2.6 mg/dL 10/25/2025 12:14 PM EST [facility] Blood Venous blood specimen / Unknown Venipuncture / Unknown 10/25/2025 11:24 AM EST 10/25/2025 11:42 AM EST us Todd Elizalde MD LAB BLOOD ORDERABLES Final Resul t Performing Organization Address [facility] de Phone Number [facility] [address] [place] [address], [place] [phone] * Lipase (10/25/2025 11:24 AM EST) [facility] Lipase 21 12 - 53 unit/L 10/25/2025 12:14 PM EST [facility] Blood Venous blood specimen / Unknown Venipuncture / Unknown 10/25/2025 11:24 AM EST 10/25/2025 11:42 AM EST us Todd Elizalde MD LAB BLOOD ORDERABLES Final Resul t Performing Organization Address [facility] de Phone Number [facility] [address] [place] [address], [place] [phone] * (ABNORMAL) Comprehensive metabolic panel (10/25/2025 11:24 AM EST) Pathologist [facility] Sodium 140 133 - 145 mmol/L 10/25/2025 12:14 PM EST [facility] Potassium 4.4 3.5 - 5.5 mmol/L 10/25/2025 12:14 PM [facility] Chloride 100 96 - 110 mmol/L 10/25/2025 12:14 PM [facility] CO2 26 21 - 32 mmol/L 10/25/2025 12:14 PM [facility] Anion Gap 14(H) 3 - 11 10/25/2025 12:14 PM [facility] Glucose 159(H) 70 - 100 mg/dL 10/25/2025 12:14 PM [facility] BUN 25 5 - 25 mg/dL 10/25/2025 12:14 PM [facility] Creatinine 1.21 0.70 - 1.30 mg/dL 10/25/2025 12:14 PM [facility] eGFR 65 >=60 mL/min/1. 73m2 10/25/2025 12:14 PM [facility] Comment:Calculation based on the Chronic Kidney Disease Epidemiology Collaboration (CKD-EPI) equation refit without adjustment for race. BUN/Creatinine Ratio 20.7 10/25/2025 12:14 PM [facility] Calcium 9.5 8.5 - 10.5 mg/dL 10/25/2025 12:14 PM [facility] AST (SGOT) 19 10 - 42 unit/L 10/25/2025 12:14 PM [facility] ALT (SGPT) 33 10 - 60 unit/L 10/25/2025 12:14 PM [facility] Alkaline Phosphatase 97 42 - 121 unit/L 10/25/2025 12:14 PM [facility] Total Protein 7.7 6.0 - 8.0 g/dL 10/25/2025 12:14 PM [facility] Albumin 4.4 3.2 - 5.0 g/dL 10/25/2025 12:14 PM EST [facility] Total Bilirubin 0.7 0.0 - 1.4 mg/dL 10/25/2025 12:14 PM EST [facility] Blood Venous blood specimen / Unknown Venipuncture / Unknown 10/25/2025 11:24 AM EST 10/25/2025 11:42 AM EST us Todd Elizalde MD LAB BLOOD ORDERABLES Final Resul t [facility] [address] [place] [address], [place] [phone] * Troponin I high sensitivity (10/25/2025 11:24 AM EST) [facility] High Sensitivity Troponin I 5 <=53 ng/L 10/25/2025 12:20 PM EST [facility] Blood Venous blood specimen / Unknown Venipuncture / Unknown 10/25/2025 11:24 AM EST 10/25/2025 11:42 AM EST us Todd Elizalde MD LAB BLOOD ORDERABLES Final Resul t Performing Organization Address City/[facility]/ZIP Co de Phone Number [facility] [address] [place] [address], [place] [phone] * ECG 12 lead (10/25/2025 11:05 AM EST) [facility] Ventricular Rate ECG 107 BPM GEMUSE Atrial Rate 107 BPM GEMUSE P-R Interval 146 ms GEMUSE QRS Duration 86 ms GEMUSE Q-T Interval 326 ms GEMUSE QTc 435 ms GEMUSE P Wave Hutchins 47 degrees GEMUSE R Hutchins -25 degrees GEMUSE T Hutchins 36 degrees GEMUSE ECG Interpretation Sinus tachycardia with Premature atrial complexes Minimal voltage criteria for LVH, may be normal variant ( R in aVL ) When compared with ECG of 30-JUN-2014 08:40, Premature atrial complexes are now Present Vent. rate has increased BY 39 BPM Confirmed by OTIS POSEY ([id number]) on 10/26/2025 10:58:00 PM GEMUSE 10/25/2025 11:0 5 AM EST 10/26/2025 10:58 PM EST us Todd Elizalde MD ECG ORDERABLES Final Result GEMUSE documented in this encounter Visit Diagnoses Diagnosis Acute hypoxic respiratory failure (CMS/HCC V24, CMS/HCC V28)- Primary Hypoxia Hypoxemia Pneumonia due to infectious organism, unspecified laterality, unspecified part of lung Liver mass Unspecified disorder of liver Acute bilateral low back pain without sciatica Liver mass Unspecified disorder of liver Hypoxia Hypoxemia Low back pain Lumbago Abnormal alpha fetoprotein (AFP) level documented in this encounter Admitting Diagnoses Diagnosis Acute hypoxic respiratory failure (CMS/HCC V24, CMS/HCC V28) Liver mass Unspecified disorder of liver Hypoxia Hypoxemia documented in this encounter Administered Medications Inactive Administered Medications - up to 3 most recent administrations Medication Order MAR Action Action Date Dose Rate Site acetaminophen (TYLENOL) tablet 1,000 mg 1,000 mg, oral, Every 8 hours scheduled, First dose on Thu10/25/25 at 1430, Scheduled medication for mild pain Given 10/27/2025 1:57 PM EST 1,000 mg Given 10/26/2025 9:08 PM EST 1,000 mg Given 10/26/2025 2:59 PM EST 1,000 mg albuterol 2.5 mg /3 mL (0.083 %) nebulizer solution 2.5 mg 2.5 mg, nebulization, Every 1 hour PRN, wheezing, shortness of breath, Starting on Thu10/25/25 at 1418 amLODIPine (NORVASC) tablet 5 mg 5 mg, oral, Daily, First dose on Thu10/25/25 at 1706 Given 10/27/2025 8:36 AM EST 5 mg Given 10/26/2025 8:47 AM EST 5 mg atorvastatin (LIPITOR) tablet 20 mg 20 mg, oral, Nightly, First dose on Thu10/25/25 at 2100 Given 10/26/2025 9:08 PM EST 20 mg Given 10/25/2025 9:19 PM EST 20 mg azithromycin (ZITHROMAX) 500 mg in sodium chloride 0.9 % 250 mL IVPB 500 mg, intravenous, at 250 mL/hr, Administer over 60 Minutes, Every 24 hours, First dose on Thu10/25/25 at 1600, For 3 days, Indication: Pneumonia, Community Acquired New Bag 10/25/2025 5:31 PM EST 500 mg 250 mL/hr bisacodyL (DULCOLAX) EC tablet 10 mg 10 mg, oral, Daily PRN, constipation, Starting on Thu10/25/25 at 1411, 1st line for treatment of constipation - give scheduled if no bowel movement in past 24 hours. Do not crush, chew, or split. cefTRIAXone (ROCEPHIN) 2 g in sterile water 20 mL IV syringe 2 g, intravenous, Administer over 3 Minutes, Once, On Thu10/25/25 at 1300, For 1 dose, Do not administer simultaneously with any calcium containing solutions via a Y-site in any patient., Indication: Pneumonia, Community Acquired Given 10/25/2025 2:55 PM EST 2 g dextrose (D50W) 50% injection 12.5 g 12.5 g, intravenous, Every 15 min PRN, low blood sugar, moderate hypoglycemia *Patient is Unconscious, NPO, unable to swallow: BG 54 - 69 mg/dl*, Starting on Thu10/25/25 at 1433 dextrose (D50W) 50% injection 25 g 25 g, intravenous, Every 15 min PRN, low blood sugar, severe hypoglycemia *Patient is Unconscious, NPO, unable to swallow: BG LESS than 54 mg/dL*, Starting on Thu10/25/25 at 1433 dextrose 15 gram/60 mL oral solution 15 g 15 g, oral, Every 15 min PRN, low blood sugar, hypoglycemia *Patient conscious AND able to drink and swallow safely*, Starting on Thu10/25/25 at 1433 dextrose 15 gram/60 mL oral solution 30 g 30 g, oral, Every 15 min PRN, low blood sugar, hypoglycemia *Patient conscious AND able to drink and swallow safely*, Starting on Thu10/25/25 at 1433 enoxaparin (LOVENOX) injection 40 mg 40 mg, subcutaneous, Every 24 hours scheduled, First dose on Thu10/25/25 at 1610, Indication: VTE/PE Prophylaxis Given 10/27/2025 8:36 AM EST 40 mg Left Lower Abdomen Given 10/26/2025 8:48 AM EST 40 mg Ri ght Lower Abdomen Given 10/25/2025 5:31 PM EST 40 mg Ri ght Lower Abdomen glucagon HCL injection 1 mg 1 mg, intramuscular, Once as needed, low blood sugar, severe hypoglycemia, Starting on Thu10/25/25 at 1433, For 1 dose insulin lispro injection 1-6 Units 1-6 Units, subcutaneous, 3 times daily with meals, First dose on Thu10/25/25 at 1700, Indication: Total Daily Dose (TDD) LESS than 40 units Correction Scale: Low Dose Administer with meal and/or mealtime dose of insulin to correct high blood glucose If mealtime insulin dose not given (e.g. patient NPO or not eating), still administer correction factor for high blood glucose Given 10/27/2025 11:50 AM EST 1 Units Left Upper Arm (Back ) Given 10/26/2025 12:03 PM EST 3 Units L eft Upper Arm (Back) iopamidoL (ISOVUE-370) 370 mg iodine /mL (76 %) injection 90 mL 90 mL, intravenous, Once in imaging, Starting on Thu10/25/25 at 1434, For 1 dose Given 10/25/2025 2:37 PM EST 90 mL lactated Ringer's infusion 100 mL/hr, intravenous, Continuous, Starting on Thu10/25/25 at 1430 New Bag 10/26/2025 5:33 AM EST 100 mL/hr 100 mL/hr New Bag 10/25/2025 2:56 PM EST 100 mL/hr 100 mL/hr lidocaine 4 % patch 2 patch 2 patch, Topical, Administer over 12 Hours, Daily, First dose on Mayra 10/26/25 at 1445, Apply to Low back. Patch Applied 10/27/2025 8:37 AM EST 2 patches Back Patch Applied 10/26/2025 3:02 PM EST 2 patches Back losartan (COZAAR) tablet 25 mg 25 mg, oral, Daily, First dose on Thu10/25/25 at 1706 Given 10/27/2025 8:36 AM EST 25 mg Given 10/26/2025 8:47 AM EST 25 mg montelukast (SINGULAIR) tablet 10 mg 10 mg, oral, Nightly, First dose on Thu10/25/25 at 2100 Given 10/26/2025 9:08 PM EST 10 mg Given 10/25/2025 9:19 PM EST 10 mg ondansetron (PF) (ZOFRAN) injection 4 mg 4 mg, intravenous, Every 8 hours PRN, vomiting, nausea, Starting on Thu10/25/25 at 1412, -ONLY give IV if patient is unable to take orally. -If inadequate response within 30 minutes, proceed to next-line agent or contact provider if no further options ordered. ondansetron ODT (ZOFRAN-ODT) disintegrating tablet 4 mg 4 mg, oral, Every 8 hours PRN, vomiting, nausea, Starting on Thu10/25/25 at 1412, -Give IV if patient is unable to take orally. -If inadequate response within 30 minutes, proceed to next-line agent or contact provider if no further options ordered. For ODT tablets: -Do not remove from blister pack until just before administering. -Patient should allow tablet to dissolve on tongue. sertraline (ZOLOFT) tablet 50 mg 50 mg, oral, Daily, First dose on Thu10/25/25 at 1706 Given 10/27/2025 8:36 AM EST 50 mg Given 10/26/2025 8:48 AM EST 50 mg Given 10/25/2025 5:31 PM EST 50 mg sodium chloride 0.9 % flush 10 mL 10 mL, intravenous, Once, On Thu10/25/25 at 1435, For 1 dose Given 10/25/2025 2:36 PM EST 10 mL tamsulosin (FLOMAX) 24 hr capsule 0.4 mg 0.4 mg, oral, Daily, First dose on Thu10/25/25 at 1706, For oral administration: capsules should be swallowed whole (Do not crush, chew, or open). For tube administration: open capsule and administer with water (granules should NOT be crushed). Given 10/27/2025 8:36 AM EST 0.4 mg Given 10/26/2025 8:47 AM EST 0.4 mg Given 10/25/2025 5:31 PM EST 0.4 mg traMADoL (ULTRAM) tablet 50 mg 50 mg, oral, Every 6 hours PRN, severe pain, Starting on Mayra 10/26/25 at 1416, Given 10/27/2025 8:37 AM EST 50 mg Given 10/26/2025 3:03 PM EST 50 mg documented in this encounter Historical Medications * This list may reflect changes made after this encounter. calcium carbonate-vitamin D 500 mg-5 mcg (200 unit) per tablet Take 1 tablet by mouth 1 (one) time each day. 08/02/2025 dapagliflozin propanediol (FARXIGA) 10 mg tablet Take 1 tablet (10 mg total) by mouth 1 (one) time each day. 12/12/2020 albuterol 2.5 mg /3 mL (0.083 %) nebulizer solution Take 3 mL (2.5 mg total) by nebulization if needed for wheezing or shortness of breath. Tradjenta 5 mg tablet Take 1 tablet (5 mg total) by mouth 1 (one) time each day. 11/10/2024 sertraline (ZOLOFT) 50 mg tablet Take 1 tablet (50 mg total) by mouth 1 (one) time each day. tamsulosin (FLOMAX) 0.4 mg 24 hr capsule Take 1 capsule (0.4 mg total) by mouth 1 (one) time each day. 01/30/2022 Rybelsus 7 mg tablet Take 1 tablet (7 mg total) by mouth 1 (one) time each day. montelukast (SINGULAIR) 10 mg tablet Take 1 tablet (10 mg total) by mouth at bedtime. 06/09/2016 metFORMIN (GLUCOPHAGE) 1,000 mg tablet Take 0.5 tablets (500 mg total) by mouth 2 (two) times a day with meals. losartan (COZAAR) 25 mg tablet Take 1 tablet (25 mg total) by mouth 1 (one) time each day. 04/14/2025 FreeStyle Lite Meter monitoring kit 12/30/2024 blood sugar diagnostic (FreeStyle Lite Strips) test strip 10/18/2025 atorvastatin (LIPITOR) 20 mg tablet Take 1 tablet (20 mg total) by mouth at bedtime. 05/21/2022 amLODIPine (NORVASC) 5 mg tablet Take 1 tablet (5 mg total) by mouth 1 (one) time each day. 12/12/2020 added in this encounter Active and Recently Administered Medications Times are shown in EST. Scheduled Medication Order 10/25/2025 10/26/2025 10/27/2025 acetaminophen (TYLENOL) tablet 1,000 mg 1,000 mg, oral, Every 8 hours scheduled, First dose on Thu10/25/25 at 1430, Scheduled medication for mild pain 1459 (Given - Provider: Xochilt Jimenez RN)2118 (Given - Provider: Lisa Carr, SY) 0512 (Given - Provider: Jaz Joseph RN)1459 (Given - Provider: Staci Milian RN)2108 (Given - Provider: Kyra Sneed RN) 0540 (Not Given - Provider: Kyra Sneed RN - Reason: Patient/Resident/Agent refused - education provided )1357 (Given - Provider: Martín Linton, SY) amLODIPine (NORVASC) tablet 5 mg 5 mg, oral, Daily, First dose on Thu10/25/25 at 1706 1724 (Not Given - Provider: Lisa Carr RN - Reason: Other - Comment: low bp) 0847 (Given - Provider: Staci Milian RN) 0836 (Given - Provider: Martín Linton RN) atorvastatin (LIPITOR) tablet 20 mg 20 mg, oral, Nightly, First dose on Thu10/25/25 at 2100 2119 (Given - Provider: Lisa Carr RN) 2108 (Given - Provider: Kyra Sneed RN) azithromycin (ZITHROMAX) 500 mg in sodium chloride 0.9 % 250 mL IVPB (CANCELED) 500 mg, intravenous, at 250 mL/hr, Administer over 60 Minutes, Every 24 hours, First dose on Thu10/25/25 at 1600, For 3 days, Indication: Pneumonia, Community Acquired 1731 (New Bag - Provider: Lisa Carr, RN)1825 (Stopped - Provider: Lisa Carr, SY) cefTRIAXone (ROCEPHIN) 2 g in sterile water 20 mL IV syringe (COMPLETED) 2 g, intravenous, Administer over 3 Minutes, Once, On Thu10/25/25 at 1300, For 1 dose, Do not administer simultaneously with any calcium containing solutions via a Y-site in any patient., Indication: Pneumonia, Community Acquired 1455 (Given - Provider: Xochilt Jimenez, RN - Comment: iv access) enoxaparin (LOVENOX) injection 40 mg 40 mg, subcutaneous, Every 24 hours scheduled, First dose on Thu10/25/25 at 1610, Indication: VTE/PE Prophylaxis 1731 (Given - Provider: Lisa Carr RN) 0848 (Given - Provider: Staci Milian RN) 0836 (Given - Provider: Martín Linton RN) insulin lispro injection 1-6 Units 1-6 Units, subcutaneous, 3 times daily with meals, First dose on Thu10/25/25 at 1700, Indication: Total Daily Dose (TDD) LESS than 40 units Correction Scale: Low Dose Administer with meal and/or mealtime dose of insulin to correct high blood glucose If mealtime insulin dose not given (e.g. patient NPO or not eating), still administer correction factor for high blood glucose 1724 (Not Given - Provider: Lisa Carr RN - Reason: Order parameters not met) 0830 (Not Given - Provider: Staci Milian RN - Reason: Order parameters not met)1203 (Given - Provider: Staci Milian RN)1659 (Not Given - Provider: Staci Milian RN - Reason: Order parameters not met) 0830 (Not Given - Provider: Martín Linton RN - Reason: Order parameters not met)1150 (Given - Provider: Martín Linton RN)1630 (Not Given - Provider: Martín Linton RN - Reason: Order parameters not met) iopamidoL (ISOVUE-370) 370 mg iodine /mL (76 %) injection 90 mL (COMPLETED) 90 mL, intravenous, Once in imaging, Starting on Thu10/25/25 at 1434, For 1 dose 1437 (Given - Provider: Jahaira Victor) lidocaine 4 % patch 2 patch 2 patch, Topical, Administer over 12 Hours, Daily, First dose on Thu10/26/25 at 1445, Apply to Low back. 1502 (Patch Applied - Provider: Staci Milian RN) 0245 (Patch Removed - Provider: Kyra Sneed RN - Comment: self removed)0837 (Patch Applied - Provider: Martín Linton RN)1830 (Due: Patch Removed - Provider: Automatic Discharge Provider - Comment: Time automatically adjusted from order being discontinued) losartan (COZAAR) tablet 25 mg 25 mg, oral, Daily, First dose on Thu10/25/25 at 1706 1724 (Not Given - Provider: Lisa Carr RN - Reason: Order parameters not met - Comment: low bp) 0847 (Given - Provider: Staci Milian RN) 0836 (Given - Provider: Martín Linton, SY) montelukast (SINGULAIR) tablet 10 mg 10 mg, oral, Nightly, First dose on Thu10/25/25 at 2100 2119 (Given - Provider: Lisa Carr, RN) 2108 (Given - Provider: Kyra Sneed RN) sertraline (ZOLOFT) tablet 50 mg 50 mg, oral, Daily, First dose on Thu10/25/25 at 1706 1731 (Given - Provider: Lisa Carr RN) 0848 (Given - Provider: Staci Milian RN) 0836 (Given - Provider: Martín Linton RN) sodium chloride 0.9 % flush 10 mL (COMPLETED) 10 mL, intravenous, Once, On Thu10/25/25 at 1435, For 1 dose 1436 (Given - Provider: Jahaira Victro) tamsulosin (FLOMAX) 24 hr capsule 0.4 mg 0.4 mg, oral, Daily, First dose on Thu10/25/25 at 1706, For oral administration: capsules should be swallowed whole (Do not crush, chew, or open). For tube administration: open capsule and administer with water (granules should NOT be crushed). 1731 (Given - Provider: Lisa Carr RN) 0847 (Given - Provider: Staci Milian RN) 0836 (Given - Provider: Martín Linton RN) Continuous Medication Order 10/25/2025 10/26/2025 10/27/2025 lactated Ringer's infusion (CANCELED) 100 mL/hr, intravenous, Continuous, Starting on Thu10/25/25 at 1430 1456 (New Bag - Provider: Xochilt Jimenez RN) 0533 (New Bag - Provider: Jaz Joseph RN)1424 (Stopped - Provider: Staci Milian RN - Comment: [Order ends at this time. Document the following action when infusion is complete: Stopped]) PRN Medication Order 10/25/2025 10/26/2025 10/27/2025 albuterol 2.5 mg /3 mL (0.083 %) nebulizer solution 2.5 mg 2.5 mg, nebulization, Every 1 hour PRN, wheezing, shortness of breath, Starting on Thu10/25/25 at 1418 bisacodyL (DULCOLAX) EC tablet 10 mg 10 mg, oral, Daily PRN, constipation, Starting on Thu10/25/25 at 1411, 1st line for treatment of constipation - give scheduled if no bowel movement in past 24 hours. Do not crush, chew, or split. dextrose (D50W) 50% injection 12.5 g 12.5 g, intravenous, Every 15 min PRN, low blood sugar, moderate hypoglycemia *Patient is Unconscious, NPO, unable to swallow: BG 54 - 69 mg/dl*, Starting on Thu10/25/25 at 1433 dextrose (D50W) 50% injection 25 g 25 g, intravenous, Every 15 min PRN, low blood sugar, severe hypoglycemia *Patient is Unconscious, NPO, unable to swallow: BG LESS than 54 mg/dL*, Starting on Thu10/25/25 at 1433 dextrose 15 gram/60 mL oral solution 15 g 15 g, oral, Every 15 min PRN, low blood sugar, hypoglycemia *Patient conscious AND able to drink and swallow safely*, Starting on Thu10/25/25 at 1433 dextrose 15 gram/60 mL oral solution 30 g 30 g, oral, Every 15 min PRN, low blood sugar, hypoglycemia *Patient conscious AND able to drink and swallow safely*, Starting on Thu10/25/25 at 1433 glucagon HCL injection 1 mg 1 mg, intramuscular, Once as needed, low blood sugar, severe hypoglycemia, Starting on Thu10/25/25 at 1433, For 1 dose ondansetron (PF) (ZOFRAN) injection 4 mg(Linked Group 1) 4 mg, intravenous, Every 8 hours PRN, vomiting, nausea, Starting on Thu10/25/25 at 1412, -ONLY give IV if patient is unable to take orally. -If inadequate response within 30 minutes, proceed to next-line agent or contact provider if no further options ordered. ondansetron ODT (ZOFRAN-ODT) disintegrating tablet 4 mg(Linked Group 1) 4 mg, oral, Every 8 hours PRN, vomiting, nausea, Starting on 10/25/25 at 1412, -Give IV if patient is unable to take orally. -If inadequate response within 30 minutes, proceed to next-line agent or contact provider if no further options ordered. For ODT tablets: -Do not remove from blister pack until just before administering. -Patient should allow tablet to dissolve on tongue. traMADoL (ULTRAM) tablet 50 mg 50 mg, oral, Every 6 hours PRN, severe pain, Starting on Mayra 10/26/25 at 1416, 1503 (Given - Provider: Staci Milian, RN) 0837 (Given - Provider: Martín Linton RN) Linked Groups Order Group 1: ondansetron ODT (ZOFRAN-ODT) disintegrating tablet 4 mgJump to med 4 mg, oral, Every 8 hours PRN, vomiting, nausea, Starting on 10/25/25 at 1412, -Give IV if patient is unable to take orally. -If inadequate response within 30 minutes, proceed to next-line agent or contact provider if no further options ordered. For ODT tablets: -Do not remove from blister pack until just before administering. -Patient should allow tablet to dissolve on tongue. Or ondansetron (PF) (ZOFRAN) injection 4 mgJump to med 4 mg, intravenous, Every 8 hours PRN, vomiting, nausea, Starting on 10/25/25 at 1412, -ONLY give IV if patient is unable to take orally. -If inadequate response within 30 minutes, proceed to next-line agent or contact provider if no further options ordered. documented in this encounter Orders Medications Ordered That Musa ht Not Have Been Administered Count Last Ordered Date First Ordered Date albuterol 2.5 mg /3 mL (0.08 3 %) nebulizer solution 2.5 mg 1 10/25/2025 bisacodyL (DULCOLAX) EC tablet 10 mg 1 10/09 cefTRIAXone (ROCEPHIN) 1 g i n sterile water 10 mL IV syringe 3 10/25/2025 dextrose (D50W) 50% injection 12.5 g 1 10/09 dextrose (D50W) 50% injection 25 g 1 2024 dextrose 15 gram/60 mL oral solution 15 g 1 10/25/2025 dextrose 15 gram/60 mL oral solution 30 g 1 10/25/2025 doxycycline (MONODOX) capsule 100 mg 1 10/09 glucagon HCL injection 1 mg 1 10/25/2025 ondansetron (PF) (ZOFRAN) injection 4 mg 1 10/25/2025 ondansetron ODT (ZOFRAN-ODT) disintegrating tablet 4 mg 1 10/25/2025 Lab Orders Without Results Count Last Ordered D ate First Ordered Date POCT GLUCOSE, BLOOD 9 10/27/2025 10/25/20 25 Nursing Count Last Ordered Date First Orde red Date FOLLOW UP PRIMARY PHYSICIAN 1 10/27/2025 OTHER FOLLOW UP 1 10/27/2025 Respiratory Care Count Last Ordered Date First Ordered Date PEP THERAPY 3 10/26/2025 10/25/2025 Admission Count Last Ordered Date First Orde red Date ADMIT TO INPATIENT 1 10/26/2025 INITIATE OBSERVATION STATUS 1 10/25/2025 Transfer Count Last Ordered Date First Orde red Date ED TO FLOOR BED REQUEST 1 10/25/2025 Discharge Count Last Ordered Date First Orde red Date DISCHARGE PATIENT 1 10/27/2025 documented in this encounter Additional Health Concerns Infection Onset Date Last Indicated Resolved Time Respiratory Rule-Out 10/25/2025 10/25/2025 025 4:34 PM EST COVID-19 Rule-Out 10/25/2025 10/25/2025 10/25/2025 4:34 PM EST documented as of this encounter Care Teams Occasional Babysitter Relationship Specialty Start Date End Date Myriam Paulson MD 2 [facility] , [address] Physician [facility] D[facility]B/A: [facility] SHA Sawant PCP - General Internal Medicine 10/19/24 documented as of this encounter
--- NOTE | ~2025-11-01 | CT_ITS ---
EXAMINATION: CT HEAD WITHOUT IV CONTRAST HISTORY: G31.84 - Mild cognitive impairment of uncertain or unknown etiology. TECHNIQUE: Unenhanced helical CT of the head was performed per standard departmental protocol. Coronal and sagittal reformats of the head were also evaluated. One or more of the following techniques was used for dose reduction: Automated exposure control, adjustment of the mA and/or kV according to patient size, use of iterative reconstruction technique. DLP: 884 mGy-cm COMPARISON: There are no prior studies available for comparison. FINDINGS: BRAIN: There is diffuse prominence of the ventricular system and cortical sulci, consistent with atrophy. Periventricular and subcortical white matter hypodensities are noted which are nonspecific, but often seen in the setting of small vessel ischemic disease. There is no mass effect or midline shift. No intra- or extra-axial fluid collections are identified. SINUSES: The visualized paranasal sinuses are clear. The mastoid air cells and middle ear cavities are well pneumatized. ORBITS: The visualized orbits are unremarkable. BONES/SOFT TISSUES: The extracranial soft tissues are unremarkable. The calvarium is intact. No suspicious lytic or sclerotic lesions. CT/CT head/brain wo IV con IMPRESSION: Atrophy and findings consistent with small vessel ischemic disease of the white matter. Electronically signed by: Wali Justice MD 11/01/2025 10:10 AM [facility]
--- OUTSIDE RECORDS SUMMARY | 2025-11-01 09:42 | XMS_ITS | Data Portability ---
Author Organization [place] - [facility], Allergy Address [address] [facility] [address] [place] [address] Care Team Providers Care Nutrition Program Instructor Name Role Phone ROGE DAUGHERTY Primary Care [...] By Organization Details Last Modified Time 11/03/2024 [id number] nosebleed information [email or web address] Not available 11/03/2024 14:10:14 Reason for Referral None Reported. Problems Name Problem SNOMED Code Status Onset Date Resolution Date Notes Provider Name and Address Organization Details Recorded Time Disorder of right Eustachia n tube 76139821695 39907 Active 2015 Other specified disorders of Eustachia n tube, right ear; Note: Date Diagnosed : 05/07/2016 1:05 PM (H69.81) Not Available [facility] 4 03:10:58 Allergic rhinitis 38685302 Active 2015 Allergic rhinitis, unspecifi ed; Note: Date Diagnosed : 05/07/2016 1:05 PM (J30.9) Not Available [facility] 4 03:10:58 Mixed conductiv e and sensorine ural hearing loss of right ear 96661873256 105 Active 2015 Mixed conductiv e and sensorine ural hearing loss, unilatera l, right ear, with unrestric elton hearing on the contralat eral side; Note: Date Diagnosed : 05/07/2016 1:05 PM (H90.71) Not Available [facility] 4 03:10:59 Sensorine ural hearing loss 55306777 Active 2015 Sensorine ural hearing loss, unilatera l, left ear, with unrestric elton hearing on the contralat eral side; Note: Date Diagnosed : 05/07/2016 1:05 PM (H90.42) Not Available [facility] 4 03:10:57 Impacted cerumen of bilateral ears 58414641263 79442 Active 2021 Impacted cerumen, bilateral ; Note: Date Diagnosed : 04/03/2022 11:47 AM (H61.23) Not Available [facility] 4 03:10:57 Sensorine ural hearing loss of bilateral ears 846834791 Active 2021 Sensorine ural hearing loss, bilateral ; Note: Date Diagnosed : 04/03/2022 12:23 PM (H90.3) Not Available [facility] 4 03:10:58 Bleeding from nose 370607739 Active 2023 NAVEEN GOLDEN MD [address] [place] [address], [facility] [place], [phone] , [facility] - [facility] 4 14:10:01 Deviated nasal septum 908071927 Active 2023 NAVEEN GOLDEN MD [address] [address], [facility] [place], [address] , [facility] - [facility] 4 14:10:07 Problem Notes None recorded. Medical Equipment None Reported. Allergies Allergen ID Allergen Name Allergen Category Reaction Reaction Severity Criticality Documentation Date Start Date Code Code System Note Provider Name and Address Organization Details Recorded Time 712547 aspirin medicatio n other Not available Not available 03/22/2024 1191 RxNorm React ion: Unkno wn; Not Available [facility] 4 01:22:01 489554 penicilli n V potassium medicatio n other Not available Not available 03/22/202482220 5 RxNorm React ion: unkno wn, unspe zeferino d;; Not Available [facility] 4 01:22:02 Medications Name Sig Start Date Stop Date Status Note LastModified by Organization Details LastModified Time metformin 500 mg tablet 04/03 completed Medication ID: [id number] Dur ation Value: 30 Brand Name: metformin [...] 10 mg tablet 04/03 completed Medication ID: [id number] Dur ation Value: 30 Brand Name: atorvastat in Send Method: E-Prescrib ed Subs Allowed: subs OK Special Instructio n: TK 1 T PO QD Medicat ionGeneric Name: atorvastat in Not Available Not Available Not Available azithromyci n 250 mg tablet active Not Available Not Available Not Available FreeStyle Lancets 28 gauge 04/03 completed Medication ID: [id number] Dur ation Value: 30 Brand Name: FreeStyle Lancfritz Se nd Method: E-Prescrib ed Subs Allowed: [...] % topical cream 04/03 completed Medication ID: [id number] Dur ation Value: 15 Brand Name: triamcinol one acetonide Send Method: E-Prescrib ed Subs Allowed: subs OK Special Instructio n: FRED EXT AA BID FOR 14 DAYS PRN Medica tionGeneri cName: triamcinol one acetonide Not Available Not [...] 5 mg tablet 04/03 completed Medication ID: [id number] Dur ation Value: 30 Brand Name: lisinopril Send Method: E-Prescrib ed Subs Allowed: subs OK Special Instructio n: TK 1 T PO D Medicati onGenericN xander: lisinopril Not Available Not Available Not Available metoprolol succinate ER 25 mg tablet,exte nded release 24 hr active Medication ID: [id number] Madisyn nd Name: metoprolol succinate Send Method: E-Prescrib ed Subs Allowed: subs OK Special Instructio n: TAKE 1 TABLET BY MOUTH EVERY DAY Medica tionGeneri cName: metoprolol succinate Not Available Not Available [...] on aerosol inhaler 04/03 completed Medication ID: [id number] Dur ation Value: 30 Brand Name: Advair [...] (400 unit) tablet 04/03 completed Medication ID: [id number] Dur ation Value: 30 Brand Name: Calcium 600 + D(3) Send Method: E-Prescrib ed Subs Allowed: subs OK Special Instructio n: TK 1 T PO ONCE D Medicati onGenericN xander: Calcium 600 + D(3) Not Available Not Available Not Available Tradjenta 5 mg tablet active Not Available Not Available No t Available Brilinta 90 mg tablet 11/03 completed Medication ID: [id number] Bra nd Name: Brilinta S end Method: [...] 2.5 % lotion 04/03 completed Medication ID: [id number] Dur ation Value: 30 Brand Name: selenium [...] Updated DateTime 11/03/2024 152.4 cm 32.2 kg/m2 95305.74 g Mike Alvarado [place] - [facility] 11/03/2024 13:47:41 Social History None recorded. Functional Status None recorded. Mental Status None recorded. Family History Nothing Reported. Medical History Condition Response Diabetes Y Allergies/Hayfever Y Asthma Y Past Encounters Encounter ID Performer Location Encounter Start Date Encounter Closed Date Diagnosis/Indication Diagnosis SNOMED-CT Code Diagnosis ICD10 Code Diagnosis IMO Codes Diagnosis Note [id number] NAVEEN GOLDEN MD [facility] [address] [address] 11/03/2024 13:06:20 11/03/2024 14:16:11 Bleeding from nose 877051913 R04.0 Long-term current use of antiplatelet drug 9692708300 21831 Z79.02 Deviated nasal septum 12 9761596 J34.2 Health Concerns Section Related Observation LastModified by Organization Detai ls LastModified Time None Recorded Concern Status LastModified by Organization Details LastModified Time None Recorded Advance Directives Directive None Recorded Payers Insurance Date Sequence Insurance Name Policy Number Policy Mcmahon Covered Member ID Mcmahon Member ID Guarantor Name 11/03/2024 2 MEDICARE B-[place]: [facility] Raoul Rick [id number] Raoul Rick 11/03/2024 1 [facility] - DOS ON OR AFTER 2023 - ONE CARE (MEDICARE REPLACEMENT/AD VANTAGE - HMO) Raoul Rick [id number] Raoul Rick Notes Date Note Type Note [...] They have been stopped. NAVEEN VALLE MD [address] [place] [address], [place], [address], [facility] - [facility] 11/03/2024 14:11:35
--- OUTSIDE RECORDS SUMMARY | 2025-11-01 09:42 | XMS_ITS | Clinical Summary ---
Author Organization Formerly [facility] [employer] [facility] Facility Address [address] [address] Care Team Providers Care Tennis Director Name Role Phone Myiram Fernández MD Primary Care Provider [phone] Allergies No known active allergies Medications ciclopirox [...] AM EDT) Hemoglobin A1C 9.3(H) (4.0-5.6) % [facility] Comment: MONITORING: In known diabetic patients, hemoglobin A1c targets should be discussed with health care provider. DIAGNOSTIC USE: The [place] [employer] (ADA) and the World Health [...] Supplement 1 Testing performed or reported by [facility], a Service of [facility], [address] [place] [id number] Kristian Gerber MD, [employer] [facility]# [id number] 04/22/2023 9:23 AM EDT 04/22/2023 9:28 AM EDT us Kristofer Hurt MD LAB BLOOD ORDERABLES Final Re sult [facility] from Last 3 Months or Most Recently Relevant to Health Maintenance [place] [address] ([id number]) ([id number]) Care Teams Tennis Director Relationship Specialty Start Date End Date Myriam Fernández MD [address] [place], [place] PCP - General Internal Medicine 03/04/22
--- OUTSIDE RECORDS SUMMARY | 2025-11-01 09:42 | XMS_ITS | Data Portability ---
Author Organization [facility], [email or web address] Address [address] [place] [id number] Care Team Providers Care Plastic Sheeting Cutter Name Role Phone HIM CCA OTHER Assessment Encounter Date Assessment Date Assessment LastModified by Organization Details LastModified Time 02/29/2024 02/29/2024 I provided real -time medical direction via phone for this encounter, and was available for additional phone based assistance as needed. I have reviewed and agree with the Assessment and Plan as documented by the Equal Employment Opportunity Officer. We discussed the diagnostic uncertainty of home visits and the risk associated with this. The patient given the opportunity to ask questions via marine insulator Advised if develops CP/severe SOB/turning blue/uncontrolle d [...] respiratory specimen 2023 024 [email or web address], [address] 11:56:42 rapid flu (A+B) 2023 024 [email or web address], [address] 11:56:45 Referral None recorded. Procedures None recorded. Surgeries None recorded. Imaging None recorded. Medication Orders azithromyci n 250 mg tablet 2023 024 [email or web address] 0 Not available 11:56:37 azithromyci n 250 mg tablet 2023 024 [facility], [address], [id number], 4 11:58:39 albuterol sulfate 2.5 mg/3 mL (0.083 %) solution for nebulizatio n 2023 024 [facility], [address], [id number], 4 11:58:39 Patient TargetsNo targets recorded. Patient InstructionsNo instructions recorded. Reason for Referral None Reported. Results Created Date Observation Date Name Description Value Unit Range Abnormal Flag Note LastModifiedBy Organization Detail LastModifiedTime 02/29/20 24 02/29/2024 rapid flu (A+B) Flu negati ve Not Available [facility] ed [address] [place] [address], [phone] 02/29/2024 11:53:45 02/29/20 24 02/29/2024 rapid SARS CoV 2 Ag, QL IA, respi rator y speci men rapid SARS CoV 2 Ag, QL IA, respiratory specimen negati ve Not Available [facility] ed [address] [place] [address], [phone] 02/29/2024 11:53:44 Result Notes None recorded. Medical Equipment None Reported. Allergies Allergen ID Allergen Name Allergen Category Reaction Reaction Severity Criticality Documentation Date Start Date Code Code System Note Provider Name and Address Organization Details Recorded Time 4958 Product containin g penicilli n (product) medicatio n Not available Not available Not available 02/29/2024 64779 8001 SNOMED Not Available [facility] - production [...] height Heart rate Respiratory rate Oxygen saturation Body weight Body temperature Systolic And Diastolic Provider Name and Address Organization Details Last Updated DateTime 4 157.48 cm 80 /min 18 /min 97 % 04874.4 96 g 98.1 [degF] 131/81 mm[Hg] Not Available [facility] - production 4 11:49:48 Date Recorded Respiratory rate Oxygen saturation Body temperature Body weight Heart rate Systolic And Diastolic Provider Name and Address Organization Details Last Updated DateTime 2 12 /min 97 % 98 [degF] 38439.4 g 84 /min 131/81 mm[Hg] Not Available [facility] - production 2 13:17:16 Social History None recorded. Functional Status None recorded. Mental Status None recorded. Family History Nothing Reported. Medical History No medical history recorded. Past Encounters Encounter ID Performer Location Encounter Start Date Encounter Closed Date Diagnosis/Indication Diagnosis SNOMED-CT Code Diagnosis ICD10 Code Diagnosis IMO Codes Diagnosis Note [id number] Yoon Paulson MD [facility] - [address] [phone] 10/14/2022 13:17:12 10/16/2022 11:41:28 Viral upper respiratory tract infection 718020415 J06.9 67 year old male being evaluated for a week of cough in the setting of recent COVID exposure. Patient without difficulty breathing, or taking PO. Exam notable for normal vital signs, POC COVID negative. Reassuranc e offered, no further interventi on indicated. [id number] Joan Barnes MD [address] - [address] [address] 02/29/2024 11:49:45 02/29/2024 17:25:55 Upper respiratory infection 44343381 J06.9 medic left him his tubing for [...] with azithromyc in. Patient has no wheezing s teroids or not indicated. He may [...] Mcmahon Member ID Guarantor Name 02/29/2024 1 [facility] - DOS PRIOR TO 2023 - DUAL ELIGIBLE (MEDICARE REPLACEMENT/AD VANTAGE - HMO) Raoul Rick [id number] Raoul Rick 02/29/2024 1 [facility] - DOS ON OR AFTER 2023 - DUAL ELIGIBLE - SKILLED NURSING OPTIONS AND ONE CARE (MEDICARE REPLACEMENT/AD VANTAGE - HMO) Raoul Rick [id number] Raoul Rick Notes Date Note Type Note Provider Name and Address Organization Details Recorded Time 10/14/2022 text/html HPI: Neighbor reports member had positive COVID exposure from [facility], negative home test, symptomatic for URI. Reports productive cough, sneezing, itchy throat, afebrile. Would like to be assessed and tested for viral panel. No home pulse ox. ..................... ..................... ..................... ..................... ..................... ..................... ............... CRC Nursing Assessment: Comments: CRC RN DID NOT NEED FURTHER INFO ..................... ..................... ..................... ..................... ..................... ..................... ............... Equal Employment Opportunity Officer Note: [place]patch to home of 67-year-old male patient complaining of a cough times one week. Neighbor is here who speaks [place] and can interpret. Patient states he has a non productive cough when asked . Patient also relates that his pcp tested positive with Covid yesterday. Lungs present equal and clear in all otero vitals are as noted. Spi2 on room air is 97% . patient is afebrile. Both Covid and flu tests are performed and present negative. I will contact [facility] physician Dr. Pauslon further instructions. Dr. Paulson agrees that just supportive care at this time plenty of fluids and Robitussin DM. Should the patient developed for the symptoms were not get better he should contact his PCP. ..................... ..................... ..................... ..................... ..................... ..................... ............... Disposition: Fulfilled Yoon Paulson MD [address] [facility],[address], [place], [address], [employer] 10/14/2022 13:19:56 02/29/2024 text/html ROS as noted in the HPI HPI: Call transferred to [facility] from august [...] ED and requests for home visit. Advised [facility] referral can be submitted. Member is [place] Citizen speaking. HANDY Garrido speaks [place] but will not be at mbr's home for visit. PMH includes but not limited to: DM2, asthma, HLD, Atherosclerotic heart disease of [place] coronary artery without angina pectoris, Presence of coronary, angioplasty implant and graft, anxiety, depression, unsteadiness, BPH,incontinence, h/o TBI, h/o fall, fatty liver, scoliosis,HTN ..................... ..................... ..................... ..................... ..................... ..................... ............... CRC Nurse Triage Notes (Tiffany Mcclure): Comments: CRC RN DID NOT NEED FURTHER INFO ..................... ..................... ..................... ..................... ..................... ..................... ............... Equal Employment Opportunity Officer Note From Steven Tate: [facility] visit for male patient with multiple complaints. Arrived to home where pt answered the door and was ambulating without difficulty. Pt is [place] Citizen speaking only so assistant professor of mathematics services were utilized. Pt reports for the [...] past month while he was travelling in [place] and visiting family. V/S taken and WNL. [...] to having 13 years ago. Consulted with [facility] Dr. Barnes who prescribed azithromycin for suspected infection, in addition to sending script for albuterol nebs to pharmacy. Pt educated on how to use nebulizer since he had forgotten how to connect hoses and fill chamber. Reviewed red flags for ED. Patient education provided. [facility] Lab Orders: rapid SARS CoV 2 Ag, QL IA, respiratory specimen: Performed rapid flu (A+B): Performed ..................... ..................... ..................... ..................... ..................... ..................... ............... Disposition: FulfilledSEGMD: As above -Via assistant professor of mathematics patient denies any known fevers, chills or sweats however he takes 1 dose of Tylenol daily for chronic pain plus his Coricidin HBP has 325 mg of Tylenol. Patient states FLORES is improved with his MDI. He denies orthopnea other than he coughs when lying flat Joan Barnes MD [address] [facility], [place], [phone], [employer] 02/29/2024 15:26:55
--- OUTSIDE RECORDS SUMMARY | 2025-11-01 09:42 | XMS_ITS | Clinical Summary ---
Author Organization [facility] Address [address] [place] [address] Phone Care Team Providers Care Anvilsmith Name Role Phone Myriam Paulson MD Primary Care Provider [phone] Allergies Active Allergy Reactions Criticality Noted Date Comments Aspirin Unknown 10/25/2025 Penicillins Other 10/07/2024 Medications amLODIPine (NORVASC) 5 mg tablet Take 1 tablet (5 mg total) by mouth 1 (one) time each day. 12/12/19 21 Active atorvastatin (LIPITOR) 20 mg tablet Take 1 tablet (20 mg total) by mouth at bedtime. 05/21/20 22 Active blood sugar diagnostic (FreeStyle Lite Strips) test strip 10/18/20 25 Active FreeStyle Lite Meter monitoring kit 12/30/19 25 Active losartan (COZAAR) 25 mg tablet Take 1 tablet (25 mg total) by mouth 1 (one) time each day. 04/14/20 25 Active metFORMIN (GLUCOPHAGE) 1,000 mg tablet Take 0.5 tablets (500 mg total) by mouth 2 (two) times a day with meals. Active montelukast (SINGULAIR) 10 mg tablet Take 1 tablet (10 mg total) by mouth at bedtime. 06/09/20 16 Active Rybelsus 7 mg tablet Take 1 tablet (7 mg total) by mouth 1 (one) time each day. Active tamsulosin (FLOMAX) 0.4 mg 24 hr capsule Take 1 capsule (0.4 mg total) by mouth 1 (one) time each day. 01/31/20 22 Active sertraline (ZOLOFT) 50 mg tablet Take 1 tablet (50 mg total) by mouth 1 (one) time each day. Active Tradjenta 5 mg tablet Take 1 tablet (5 mg total) by mouth 1 (one) time each day. 11/10/19 25 Active albuterol 2.5 mg /3 mL (0.083 %) nebulizer solution Take 3 mL (2.5 mg total) by nebulization if needed for wheezing or shortness of breath. Active dapagliflozin propanediol (FARXIGA) 10 mg tablet Take 1 tablet (10 mg total) by mouth 1 (one) time each day. 12/12/19 21 Active calcium carbonate-vitamin D 500 mg-5 mcg (200 unit) per tablet Take 1 tablet by mouth 1 (one) time each day. 08/02/20 25 Active acetaminophen (TYLENOL) 500 mg tablet Take 2 tablets (1,000 mg total) by mouth every 8 (eight) hours for 7 days. 42 each 10/27/20 25 025 Active ondansetron ODT (ZOFRAN-ODT) 4 mg disintegrating tabletIndications: Liver mass Take 1 tablet (4 mg total) by mouth every 8 (eight) hours if needed for vomiting or nausea for up to 7 days. 20 tablet 10/27/20 25 025 Active lidocaine 4 % patch Apply 2 patches topically 1 (one) time each day. 60 each 10/28/20 25 026 Active traMADoL (ULTRAM) 50 mg tabletIndications: Acute bilateral low back pain without sciatica Take 1 tablet (50 mg total) by mouth every 6 (six) hours if needed for severe pain for up to 7 days. Max Daily Amount: 200 mg 15 tablet 10/27/20 25 025 Active Active Problems Problem Noted Date Diagnosed Date Low back pain 10/27/2025 Abnormal alpha fetoprotein (AFP) level Liver mass 10/26/2025 Overview (10/26/2025): 5 cm liver mass incidentally found during CTA chest. Hypoxia 10/26/2025 Acute hypoxic respiratory failure 10/25/2025 Encounters Date Type Department Care Team Description 10/25/2025 11:30 AM EST - 10/27/2025 6:30 PM [facility] Hospital Encounter [facility] Urology [address] [place] [address] Todd Elizalde MD Sondhi, Vikram, MD Santoyo-Pache co, Omar D, MD Hypoxia (Primary Dx); Pneumonia due to infectious organism, unspecified laterality, unspecified part of lung; Liver mass; Acute bilateral low back pain without sciatica Discharge Disposition: Home-Health Care [facility] from Last 3 Months Medical History Medical History Date Comments Diabetes mellitus (CMS/HCC V24, CMS/HCC V28) Hypertension HLD (hyperlipidemia) Anxiety Asthma Social History Tobacco Use Types Packs/Day Years Used Date Smoking Tobacco: Former Cigarettes 1967 Smokeless Tobacco: Never Tobacco Cessation:Counseling Given: [...] for your loved ones. For example, child care centre director or elderly care for an older adult? [...] PM EST Sexual Orientation Not on file Last Filed [...] Mass Index 31.6 10/25/2025 5:00 PM EST Plan of Treatment Health Maintenance Due Date Last Done Comments Colorectal Cancer Screening: Colonoscopy 1957 Diabetes: Annual Foot Exam 1967 Diabetes: Annual Retina Eye Exam 1967 DTaP,Tdap,and Td Vaccines (1 - Tdap) 01/18/1976 Hepatitis A Vaccines (1 of 2 - Risk 2-dose series) 01/18/1976 RSV Immunization Adult Patients (1 - Risk 50-74 years 1-dose series) 2007 Zoster Vaccines (1 of 2) 2007 Hepatitis B Vaccines (2 of 3 - Risk 3-dose series) 05/27/2010 04/29/2010 Abdominal Aortic Aneurysm (AAA) Screen 10/07/2024 Cholesterol Screening (Lipid Panel) 10/07/2024 Diabetes: Annual Urine Albumin-Creatinine Ratio (uACR) 10/07/2024 04/22/2023 Diabetes: Blood Sugar Contro l Test (HGBA1C) 10/07/2024 04/22/2023 Hepatitis C Screening 10/07/2024 Medicare Annual Wellness Visit 10/07/2024 Depression Screening 11/09/2024 COVID-19 Vaccine ( - 2024-2 6 season) 2025 10/18/2021, 01/31/2021, 01/10/2021 Influenza Vaccine (#1) 2025 , 07/31/2020 Social Influencers of Health Screening 10/25/2026 10/25/2025 Diabetes: Annual GFR (Glomerular Filtration Rate) 10/27/2026 10/27/2025, 10/26/2025, 10/25/2025 Falls Risk Assessment 10/27/2026 10/27/2025 Hypertension/CHF/CAD Annual BMP Blood Test 10/27/2026 10/27/2025, 10/26/2025, 10/25/2025 Pneumococcal Vaccine: 50+ Years Completed 04/04/2025, 08/17/2015 HIB Vaccines Aged Out No longer eligi [...] AUTO DIFFERENTIAL Routine 10/27/2025 7:11 AM EST PHOSPHORUS Routine 10/27/2025 7:11 AM EST MAGNESIUM Routine 10/27/2025 7:11 AM EST CBC AND DIFFERENTIAL Routine 10/27/2025 7:11 AM EST BASIC METABOLIC PANEL Routine 10/27/2025 7:11 AM EST POCT GLUCOSE BLOOD Routine 10/26/2025 4: 56 PM EST XR LUMBAR SPINE 2-3 VIEWS Routine 10/26/2025 2:45 PM EST POCT GLUCOSE BLOOD Routine 10/26/2025 11 :16 AM EST POCT GLUCOSE BLOOD Routine 10/26/2025 8: 21 AM EST CARCINOEMBRYONIC ANTIGEN Add-On 10/26/2025 6:15 AM EST ALPHA FETOPROTEIN TUMOR MARKER Add-On 10/26/2025 6:15 AM EST COMPLETE BLOOD COUNT Routine 10/26/2025 6:15 AM EST BASIC METABOLIC PANEL Routine 10/26/2025 6:15 AM EST PEP THERAPY Routine 10/26/2025 6:00 AM EST ECG ANNOTATED 10/26/2025 FREEMAN URINE CULTURE TUBE Routine 10/25/20 9:23 PM EST URINALYSIS WITH REFLEX MICROSCOPIC AND CULTURE Routine 10/25/2025 9:23 PM EST URINALYSIS WITH REFLEX MICROSCOPIC AND CULTURE Routine 10/25/2025 9:23 PM EST POCT GLUCOSE BLOOD Routine 10/25/2025 7: 53 PM EST POCT GLUCOSE BLOOD Routine 10/25/2025 5: 14 PM EST CULTURE BLOOD STAT 10/25/2025 2:54 PM EST CULTURE BLOOD STAT 10/25/2025 2:54 PM EST MRSA PCR Routine 10/25/2025 2:54 PM EST RESPIRATORY VIRUS PANEL MOLECULAR STUDY STAT 10/25/2025 2:[address] ANGIO CHEST WO AND/OR W CONTRAST STAT 10/25/2025 2:42 PM EST Hypoxia ACTIVATED PARTIAL THROMBOPLASTIN TIME STAT 10/25/2025 2:23 PM EST PROTHROMBIN TIME WITH INR STAT 10/25/2025 2:23 PM EST LACTATE STAT 10/25/2025 2:23 PM EST TROPONIN I HIGH SENSITIVITY Timed 10/25/2025 2:23 PM EST PEP THERAPY Routine 10/25/2025 2:12 PM EST PEP THERAPY Routine 10/25/2025 2:12 PM EST ECG 12-LEAD STAT 10/25/2025 1:01 PM EST XR CHEST 2 VIEWS STAT 10/25/2025 11:5 9 AM EST SEDIMENTATION RATE Add-On 10/25/2025 11 :24 AM EST C-REACTIVE PROTEIN Add-On 10/25/2025 11 :24 AM EST PROCALCITONIN STAT Add-on 10/25/2025 11:24 AM EST CBC WITH AUTO DIFFERENTIAL STAT 10/25/2025 11:24 AM EST B-TYPE NATRIURETIC PEPTIDE STAT 10/25/2025 11:24 AM EST MAGNESIUM STAT 10/25/2025 11:24 AM EST LIPASE STAT 10/25/2025 11:24 AM EST COMPREHENSIVE METABOLIC PANEL STAT 10/25/2025 11:24 AM EST CBC AND DIFFERENTIAL STAT 10/25/2025 11:24 AM EST TROPONIN I HIGH SENSITIVITY Timed 10/25/2025 11:24 AM EST ECG 12-LEAD STAT 10/25/2025 11:05 AM EST from Last 3 Months Results * (ABNORMAL) POCT Glucose, blood (10/27/2025 4:01 PM EST) Only the most recent of8 resultswithin the time period is included. [facility] Glucose POCT 125(H) 70 - 100 mg/dL 10/27/2025 4:02 PM EST [facility] Blood Capillary blood specimen / Unknown 10/27/2025 4:01 PM EST 10/27/2025 4:03 PM EST us Abdelrahman Rollins MD LAB POINT OF C ARE TEST DOCKED DEVICE UNSOLICITED RESULTS Final Result [facility] [address] [place] [address], [place] [phone] * (ABNORMAL) CBC auto differential (10/27/2025 7:11 AM EST) Only the most recent of2 resultswithin the time period is included. [facility] WBC 8.9 4.8 - 10.8 K/mcL LAB HEMETOLOGY METHOD 10/27/2025 7:49 AM [facility] RBC 4.50 4.50 - 5.50 M/mcL LAB HEMETOLOGY METHOD 10/27/2025 7:49 AM [facility] Hemoglobin 12.4(L) 13.5 - 17.5 g/dL LAB HEMETOLOGY METHOD 10/27/2025 7:49 AM [facility] Hematocrit 39.6(L) 42.0 - 54.0 % LAB HEMETOLOGY METHOD 10/27/2025 7:49 AM [facility] MCV 87.8 79.0 - 98.0 FL LAB HEMETOLOGY METHOD 10/27/2025 7:49 AM [facility] MCH 27.5 27.0 - 32.0 pcg LAB HEMETOLOGY METHOD 10/27/2025 7:49 AM [facility] MCHC 31.3(L) 32.0 - 37.0 g/dL LAB HEMETOLOGY METHOD 10/27/2025 7:49 AM [facility] RDW 14.8 11.0 - 15.0 % LAB HEMETOLOGY METHOD 10/27/2025 7:49 AM [facility] Platelets 246 130 - 400 K/mcL LAB HEMETOLOGY METHOD 10/27/2025 7:49 AM [facility] MPV 11.5(H) 7.0 - 11.0 FL LAB HEMETOLOGY METHOD 10/27/2025 7:49 AM [facility] NRBC 0.0 <1.0 % LAB HEMETOLOGY METHOD 10/27/2025 7:49 AM [facility] NRBC Absolute 0.00 <0.10 K/mcL LAB HEMETOLOGY METHOD 10/27/2025 7:49 AM [facility] Neutrophils Relative 47.6 % LAB HEMETOLOGY METHOD 10/27/2025 7:49 AM [facility] Lymphocytes Relative 35.6 % LAB HEMETOLOGY METHOD 10/27/2025 7:49 AM [facility] Monocytes Relative 10.2 % LAB HEMETOLOGY METHOD 10/27/2025 7:49 AM [facility] Eosinophils Relative 5.8 % LAB HEMETOLOGY METHOD 10/27/2025 7:49 AM [facility] Basophils Relative 0.6 % LAB HEMETOLOGY METHOD 10/27/2025 7:49 AM [facility] Immature Granulocytes Relative 0.2 % LAB HEMETOLOGY METHOD 10/27/2025 7:49 AM [facility] Neutrophils Absolute 4.22 1.50 - 7.00 K/mcL LAB HEMETOLOGY METHOD 10/27/2025 7:49 AM [facility] Lymphocytes Absolute 3.15 1.00 - 5.00 K/mcL LAB HEMETOLOGY METHOD 10/27/2025 7:49 AM [facility] Monocytes Absolute 0.90 0.20 - 1.00 K/mcL LAB HEMETOLOGY METHOD 10/27/2025 7:49 AM [facility] Eosinophils Absolute 0.51(H) 0.00 - 0.50 K/mcL LAB HEMETOLOGY METHOD 10/27/2025 7:49 AM [facility] Basophils Absolute 0.05 0.00 - 0.20 K/mcL LAB HEMETOLOGY METHOD 10/27/2025 7:49 AM [facility] Immature Granulocytes Absolute 0.02 0.00 - 0.03 K/mcL LAB HEMETOLOGY METHOD 10/27/2025 7:49 AM [facility] Blood Venous blood specimen / Unknown Venipuncture / Unknown 10/27/2025 7:11 AM EST 10/27/2025 7:34 AM EST us Abdelrahman Rollins MD LAB BLOOD ORDERABLES F inal Result [facility] [address] [place] [address], [place] [phone] * Phosphorus (10/27/2025 7:11 AM EST) Phosphorus 3.3 2.5 - 4.5 mg/dL 10/27/2025 8:01 AM EST [facility] Blood Venous blood specimen / Unknown Venipuncture / Unknown 10/27/2025 7:11 AM EST 10/27/2025 7:34 AM EST us Abdelrahman Rollins MD LAB BLOOD ORDERABLES F inal Result Performing Organization Address City/[facility] [address]/ZIP Co de Phone Number [facility] [address] [place] [address], [place] [phone] * Magnesium (10/27/2025 7:11 AM EST) Only the most recent of2 resultswithin the time period is included. Pathologist [facility] Magnesium 2.0 1.9 - 2.6 mg/dL 10/27/2025 7:58 AM EST [facility] Blood Venous blood specimen / Unknown Venipuncture / Unknown 10/27/2025 7:11 AM EST 10/27/2025 7:34 AM EST us Abdelrahman Rollins MD LAB BLOOD ORDERABLES F inal Result [facility] [address] [place] [address], [place] [phone] * (ABNORMAL) Basic metabolic panel (10/27/2025 7:11 AM EST) Only the most recent of2 resultswithin the time period is included. Sodium 142 133 - 145 mmol/L 10/27/2025 7:59 AM [facility] Potassium 3.8 3.5 - 5.5 mmol/L 10/27/2025 7:59 AM [facility] Chloride 104 96 - 110 mmol/L 10/27/2025 7:59 AM [facility] CO2 27 21 - 32 mmol/L 10/27/2025 7:59 AM [facility] Anion Gap 11 3 - 11 10/27/2025 7:59 AM [facility] Glucose 113(H) 70 - 100 mg/dL 10/27/2025 7:59 AM [facility] BUN 20 5 - 25 mg/dL 10/27/2025 7:59 AM [facility] Creatinine 0.90 0.70 - 1.30 mg/dL 10/27/2025 7:59 AM [facility] eGFR 93 >=60 mL/min/1. 73m2 10/27/2025 7:59 AM [facility] Comment:Calculation based on the Chronic Kidney Disease Epidemiology Collaboration (CKD-EPI) equation refit without adjustment for race. BUN/Creatinine Ratio 22.2 10/27/2025 7:59 AM [facility] Calcium 8.3(L) 8.5 - 10.5 mg/dL 10/27/2025 7:59 AM [facility] Blood Venous blood specimen / Unknown Venipuncture / Unknown 10/27/2025 7:11 AM EST 10/27/2025 7:34 AM EST us Abdelrahman Rollins MD LAB BLOOD ORDERABLES F inal Result [facility] [address] [place] [address], * XR Lumbar Spine 2-3 Views (10/26/2025 [...] Signed Date: 10/26/2025 15:51 ET Workstation ID: [id number] Transcribed By: Self Edit Transcribed Date: 10/26/2025 [...] Signed Date: 10/26/2025 15:51 ET Workstation ID: [id number] Transcribed By: Self Edit Transcribed Date: 10/26/2025 15:51 ET Abdelrahman Rollins MD IMG XR PROCEDURES Esthela l Result * (ABNORMAL) Alpha fetoprotein tumor marker (10/26/2025 6:15 AM EST) AFP 732.3(H) 0.0 - 8.0 ng/mL 10/26/2025 9:53 AM [facility] Blood Venous blood specimen / Unknown Venipuncture / Unknown 10/26/2025 6:15 AM EST 10/26/2025 6:[address] [facility] - 10/26/2025 9:53 AM EST The Siemens AtellREM ENTERPRISE IM Chemiluminescent Immunoassay is used. Results obtained with different assay methods or kits cannot be used interchangeably. Results cannot be interpreted as absolute evidence of the presence or absence of malignant disease. us Abdelrahman Rollins MD LAB BLOOD ORDERABLES F inal Result [facility] [address] [place] [address], * (ABNORMAL) Complete blood count (10/26/2025 6:15 AM EST) WBC 10.8 4.8 - 10.8 K/mcL LAB HEMETOLOGY METHOD 10/26/2025 7:08 AM [facility] RBC 4.50 4.50 - 5.50 M/[facility] LAB HEMETOLOGY METHOD 10/26/2025 7:08 AM [facility] Hemoglobin 12.4(L) 13.5 - 17.5 g/dL LAB HEMETOLOGY METHOD 10/26/2025 7:08 AM [facility] Hematocrit 39.8(L) 42.0 - 54.0 % LAB HEMETOLOGY METHOD 10/26/2025 7:08 AM [facility] MCV 89.0 79.0 - 98.0 FL LAB HEMETOLOGY METHOD 10/26/2025 7:08 AM [facility] MCH 27.7 27.0 - 32.0 pcg LAB HEMETOLOGY METHOD 10/26/2025 7:08 AM [facility] MCHC 31.2(L) 32.0 - 37.0 g/dL LAB HEMETOLOGY METHOD 10/26/2025 7:08 AM EST [facility] RDW 15.1(H) 11.0 - 15.0 % LAB HEMETOLOGY METHOD 10/26/2025 7:08 AM EST [facility] Platelets 231 130 - 400 K/mcL LAB HEMETOLOGY METHOD 10/26/2025 7:08 AM EST [facility] MPV 11.8(H) 7.0 - 11.0 FL LAB HEMETOLOGY METHOD 10/26/2025 7:08 AM EST [facility] NRBC 0.0 <1.0 % LAB HEMETOLOGY METHOD 10/26/2025 7:08 AM EST [facility] NRBC Absolute 0.00 <0.10 K/mcL LAB HEMETOLOGY METHOD 10/26/2025 7:08 AM EST [facility] Blood Venous blood specimen / Unknown Venipuncture / Unknown 10/26/2025 6:15 AM EST 10/26/2025 6:56 AM EST Romoe Valencia MD LAB BLOOD ORDERABLES Final Resu lt [facility] [address] [place] [address], * CEA (10/26/2025 6:15 AM EST) CEA <2.0 0.0 - 5.0 ng/mL 10/26/2025 9:56 AM EST [facility] Blood Venous blood specimen / Unknown Venipuncture / Unknown 10/26/2025 6:15 AM EST 10/26/2025 6:56 AM EST Narrative [facility] - 10/26/2025 9:56 AM EST The Siemens Moment.UsllREM ENTERPRISE IM Chemiluminescent Immunoassay is used. Results obtained with different assay methods or kits cannot be used interchangeably. Results cannot be interpreted as absolute evidence of the presence or absence of malignant disease. us Abdelrahman Rollins MD LAB BLOOD ORDERABLES F inal Result [facility] [address] [place] [address], [place] [phone] * ECG-Annotated (10/26/2025) Provider Onbase ECG ORDERABLES Final Result * (ABNORMAL) Urinalysis with reflex microscopic and culture (10/25/2025 9:23 PM EST) Specific [place] Urine >1.045(H) 1.003 - 1.030 LAB URINALYSIS - AUTOMATED METHOD 10/25/2025 10:02 PM [facility] pH, Urine 5.5 5.0 - 8.0 pH LAB URINALYSIS - AUTOMATED METHOD 10/25/2025 10:02 PM [facility] Leukocytes, Urine Negative Negative LAB URINALYSIS - AUTOMATED METHOD 10/25/2025 10:02 PM [facility] Nitrite, Urine Negative Negative LAB URINALYSIS - AUTOMATED METHOD 10/25/2025 10:02 PM [facility] Protein, Urine Trace <=Trace mg/dL LAB URINALYSIS - AUTOMATED METHOD 10/25/2025 10:02 PM [facility] Glucose, Urine >=1000(A) Negative mg/dL LAB URINALYSIS - AUTOMATED METHOD 10/25/2025 10:02 PM [facility] Ketones, Urine 15(A) Negative mg/dL LAB URINALYSIS - AUTOMATED METHOD 10/25/2025 10:02 PM [facility] Urobilinogen , Urine 1.0 0.2 - 1.0 mg/dL LAB URINALYSIS - AUTOMATED METHOD 10/25/2025 10:02 PM [facility] Bilirubin, Urine Negative Negative LAB URINALYSIS - AUTOMATED METHOD 10/25/2025 10:02 PM [facility] Blood, Urine Negative Negative LAB URINALYSIS - AUTOMATED METHOD 10/25/2025 10:02 PM [facility] Urine Urine specimen obtained by clean catch procedure / Unknown Non-blood Collection / Unknown 10/25/2025 9:23 PM EST 10/25/2025 9:57 PM EST [facility] URINE ORDERABLES Esthela l Result [facility] [address] [place] [address], [place] [phone] * Freeman urine culture tube (10/25/2025 9:23 PM EST) Pathologist [facility] Extra Tube Hold for add-ons. 10/25/2025 11:01 PM [facility] Comment:Auto resulted. Urine Urine specimen obtained by clean catch procedure / Unknown Non-blood Collection / Unknown 10/25/2025 9:23 PM EST 10/25/2025 9:57 PM EST Rashid MCCULLOUGH LAB URINE ORDERABLES Esthela l Result [facility] [address] [place] [address], [place] [phone] * Respiratory virus panel molecular study (10/25/2025 2:54 PM EST) Pathologist [facility] Adenovirus Detection by PCR Not Detected Not Detected LAB MICROBIOLOGY METHOD 10/25/2025 4:34 PM [facility] Influenza A PCR Not Detected Not Detected LAB MICROBIOLOGY METHOD 10/25/2025 4:34 PM [facility] Influenza B PCR Not Detected Not Detected LAB MICROBIOLOGY METHOD 10/25/2025 4:34 PM [facility] Coronavirus 229E Not Detected Not Detected LAB MICROBIOLOGY METHOD 10/25/2025 4:34 PM [facility] Coronavirus HKU1 Not Detected Not Detected LAB MICROBIOLOGY METHOD 10/25/2025 4:34 PM [facility] Coronavirus OC43 Not Detected Not Detected LAB MICROBIOLOGY METHOD 10/25/2025 4:34 PM [facility] Coronavirus NL63 Not Detected Not Detected LAB MICROBIOLOGY METHOD 10/25/2025 4:34 PM [facility] Parainfluenza Virus 1 Not Detected Not Detected LAB MICROBIOLOGY METHOD 10/25/2025 4:34 PM [facility] Parainfluenza Virus 2 Not Detected Not Detected LAB MICROBIOLOGY METHOD 10/25/2025 4:34 PM [facility] Parainfluenza Virus 3 Not Detected Not Detected LAB MICROBIOLOGY METHOD 10/25/2025 4:34 PM [facility] Parainfluenza Virus 4 Not Detected Not Detected LAB MICROBIOLOGY METHOD 10/25/2025 4:34 PM [facility] RSV PCR Not Detected Not Detected LAB MICROBIOLOGY METHOD 10/25/2025 4:34 PM [facility] Human Metapneumovirus A and B Not Detected Not Detected LAB MICROBIOLOGY METHOD 10/25/2025 4:34 PM [facility] Rhinovirus/Entero virus Not Detected Not Detected LAB MICROBIOLOGY METHOD 10/25/2025 4:34 PM [facility] Bordetella pertussis Not Detected Not Detected LAB MICROBIOLOGY METHOD 10/25/2025 4:34 PM [facility] Bordetella parapertussis Not Detected Not Detected LAB MICROBIOLOGY METHOD 10/25/2025 4:34 PM [facility] Mycoplasma pneumo by PCR Not Detected Not Detected LAB MICROBIOLOGY METHOD 10/25/2025 4:34 PM [facility] Chlamydia pneumoniae Not Detected Not Detected LAB MICROBIOLOGY METHOD 10/25/2025 4:34 PM EST [facility] SARS COV-2 Not Detected Not Detected LAB MICROBIOLOGY METHOD 10/25/2025 4:34 PM EST [facility] Swab Nasopharyngeal structure / Unknown Non-blood Collection / Unknown 10/25/2025 2:54 PM EST 10/25/2025 3:38 PM EST Narrative [facility] - 10/25/2025 4:34 PM EST Testing was performed using the [employer] Respiratory Pathogen PCR Assay. All results must [...] MICROBIOLOGY - GENERAL ORDER RITA Final Result Performing Organization Address City/[facility] [address]/ZIP Co de Phone Number [facility] [address] [place] [address], [place] [phone] * MRSA molecular study (10/25/2025 2:54 PM EST) [facility] MRSA Screen PCR Not Detected Not Detected LAB MICROBIOLOGY METHOD 10/25/2025 4:57 PM EST [facility] Swab Both anterior nares / Unknown Non-blood Collection / Unknown 10/25/2025 2:54 PM EST 10/25/2025 3:38 PM EST Rashid MCCULLOUGH LAB MICROBIOLOGY - GENERA L ORDERABLES Final Result Performing Organization Address [facility] [address]/ZIP Co de Phone Number [facility] [address] [place] [address], [place] [phone] * Blood Culture, Peripheral Draw #2 (10/25/2025 2:54 PM EST) Only the most recent of2 resultswithin the time period is included. [facility] Culture, Blood No growth at 5 days 10/30/2025 4:01 PM EST [facility] Blood Venous blood specimen / Unknown Venipuncture / Unknown 10/25/2025 2:54 PM EST 10/25/2025 3:37 PM EST us Rashid MCCULLOUGH LAB MICROBIOLOGY - GENERA L ORDERABLES Final Result [facility] [address] [place] [address], [place] [phone] * CT Angio Chest wo and/or w Contrast (10/25/2025 2:42 PM EST) Anatomical Region Laterality Modality Body Computed Tomogra phy 10/25/2025 3:15 PM EST Addenda Addendum by Gigi Price MD on 10/27/2025 4:20 PM EST Addendum: MRI performed at [facility] 04/07/25 has been up loaded into the [facility] PACS. Some of the images are able [...] Signed Date: 10/27/2025 16:20 ET Workstation ID: [id number] Transcribed By: Self Edit Transcribed Date: 10/27/2025 [...] Signed Date: 10/27/2025 13:41 ET Workstation ID: [id number] Transcribed By: Self Edit Transcribed Date: 10/27/2025 [...] Signed Date: 10/25/2025 15:32 ET Workstation ID: [id number] Transcribed By: Self Edit Transcribed Date: 10/25/2025 15:15 ET Narrative 10/25/2025 3:32 PM EST PROCEDURE: CT ANGIO CHEST INDICATION: hypoxia COMPARISON: None. TECHNIQUE: CT pulmonary angiogram performed following uneventful IV administration of ISOVUE contrast material with bolus timing technique from the thoracic inlet through the lung bases. 3-D multiplanar reformations were obtained by the technologist on an independent workstation. Travel DesiyaT dose reduction utilizing iterative reconstruction. Total exam [...] obtained by the technologist on anindependent workstation. Travel DesiyaT dose reduction utilizing iterative reconstruction. Total exam [...] Signed Date: 10/25/2025 15:32 ET Workstation ID: [id number] Transcribed By: Self Edit Transcribed Date: 10/25/2025 15:15 ET Todd Elizalde MD [facility] [place] PROCEDURES Edited Result - Final * Troponin I high sensitivity (10/25/2025 2:23 PM EST) Only the most recent of2 resultswithin the time period is included. High Sensitivity Troponin I 5 <=53 ng/L 10/25/2025 3:08 PM EST [facility] Blood Venous blood specimen / Unknown Venipuncture / Unknown 10/25/2025 2:23 PM EST 10/25/2025 2:33 PM EST us Todd Elizalde MD LAB BLOOD ORDERABLES Final Resul t Performing Organization Address [facility] [address]/ZIP Co de Phone Number [facility] [address] [place] [address], [place] [phone] * APTT (10/25/2025 2:23 PM EST) aPTT 30.4 24.1 - 39.3 sec LAB COAGULATION METHOD 10/25/2025 2:47 PM EST [facility] Blood Venous blood specimen / Unknown Venipuncture / Unknown 10/25/2025 2:23 PM EST 10/25/2025 2:33 PM EST us Todd Elizalde MD LAB BLOOD ORDERABLES Final Resul t Performing Organization Address [facility] [address]/[facility] de Phone Number [facility] [address] [place] [address], [place] [phone] * (ABNORMAL) Protime-INR (10/25/2025 2:23 PM EST) Protime 18.7(H) 10.6 - 13.9 sec LAB COAGULATION METHOD 10/25/2025 2:47 PM EST [facility] INR 1.5 LAB COAGULATION METHOD 10/25/2025 2:47 PM EST [facility] Blood Venous blood specimen / Unknown Venipuncture / Unknown 10/25/2025 2:23 PM EST 10/25/2025 2:33 PM EST us Todd Elizalde MD LAB BLOOD ORDERABLES Final Resul t Performing Organization Address City/[facility] [address]/ZIP Co de Phone Number [facility] [address] [place] [address], [place] [phone] * Lactate (10/25/2025 2:23 PM EST) Lactate 1.2 0.4 - 2.0 mmol/L 10/25/2025 3:17 PM EST [facility] Blood Venous blood specimen / Unknown Venipuncture / Unknown 10/25/2025 2:23 PM EST 10/25/2025 2:33 PM EST us Todd Elizalde MD LAB BLOOD ORDERABLES Final Resul t [facility] [address] [place] [address], * ECG 12 lead (10/25/2025 1:01 PM EST) Only the most recent of2 resultswithin the time period is included. Ventricular Rate ECG 99 BPM GEMUSE Atrial Rate 99 BPM GEMUSE P-R Interval 152 ms GEMUSE QRS Duration 88 ms GEMUSE Q-T Interval 338 ms GEMUSE QTc 433 ms GEMUSE P Wave [place] 55 degrees GEMUSE R [place] -21 degrees GEMUSE T [place] 32 degrees GEMUSE ECG Interpretation Sinus rhythm [...] Signed Date: 10/25/2025 12:15 ET Workstation ID: [id number] Transcribed By: Self Edit Transcribed Date: 10/25/2025 [...] Signed Date: 10/25/2025 12:15 ET Workstation ID: [id number] Transcribed By: Self Edit Transcribed Date: 10/25/2025 12:02 ET Todd Elizalde MD IMG XR PROCEDURES Final Result * (ABNORMAL) Procalcitonin (10/25/2025 11:24 AM EST) Procalcitonin 0.48(H) <=0.05 ng/mL 10/25/2025 2:14 PM EST [facility] Blood Venous blood specimen / Unknown Venipuncture / Unknown 10/25/2025 11:24 AM EST 10/25/2025 11:[address] [facility] - 10/25/2025 2:14 PM EST Procalcitonin [...] obtained. Rashid MCCULLOUGH LAB BLOOD ORDERABLES Esthela l Result Performing Organization Address [facility] [address]/[facility] Co de Phone Number [facility] [address] [place] [address], [place] [phone] * (ABNORMAL) Sedimentation rate (10/25/2025 11:24 AM EST) [facility] Sed Rate 67(H) 0 - 20 mm/hr LAB HEMETOLOGY METHOD 10/25/2025 2:49 PM EST [facility] Blood Venous blood specimen / Unknown Venipuncture / Unknown 10/25/2025 11:24 AM EST 10/25/2025 11:42 AM EST VarshaRadha MCCULLOUGH LAB BLOOD ORDERABLES Esthela l Result Performing Organization Address [facility] [address]/[facility] Co de Phone Number [facility] [address] [place] [address], [place] [phone] * (ABNORMAL) C-reactive protein (10/25/2025 11:24 AM EST) Pathologist [facility] C-Reactive Protein 21.74(H) <=0.50 mg/dL 10/25/2025 2:51 PM EST [facility] Blood Venous blood specimen / Unknown Venipuncture / Unknown 10/25/2025 11:24 AM EST 10/25/2025 11:42 AM EST Rashid MCCULLOUGH LAB BLOOD ORDERABLES Esthela l Result Performing Organization Address [facility] [address]/[facility] Co de Phone Number [facility] [address] [place] [address], * B-type natriuretic peptide (10/25/2025 11:24 AM EST) BNP 70 <=100 pcg/mL 10/25/2025 12:21 PM EST [facility] Blood Venous blood specimen / Unknown Venipuncture / Unknown 10/25/2025 11:24 AM EST 10/25/2025 11:42 AM EST Narrative [facility] - 10/25/2025 12:21 PM EST Over the counter supplements containing high doses of biotin may interfere with this assay. If interference is suspected, patients shoud be retested after refraining from biotin supplements for 72 hours. us Todd Elizalde MD LAB BLOOD ORDERABLES Final Resul t Performing Organization Address [facility] [address]/[facility] Co de Phone Number [facility] [address] [place] [address], * Lipase (10/25/2025 11:24 AM EST) Lipase 21 12 - 53 unit/L 10/25/2025 12:14 PM EST [facility] Blood Venous blood specimen / Unknown Venipuncture / Unknown 10/25/2025 11:24 AM EST 10/25/2025 11:42 AM EST us Todd Elizalde MD LAB BLOOD ORDERABLES Final Resul t [facility] [address] [place] [address], * (ABNORMAL) Comprehensive metabolic panel (10/25/2025 11:24 AM EST) Sodium 140 133 - 145 mmol/L 10/25/2025 12:14 PM [facility] Potassium 4.4 3.5 - 5.5 mmol/L 10/25/2025 12:14 PM [facility] Chloride 100 96 - 110 mmol/L 10/25/2025 12:14 PM [facility] CO2 26 21 - 32 mmol/L 10/25/2025 12:14 PM [facility] Anion Gap 14(H) 3 - 11 10/25/2025 12:14 PM [facility] Glucose 159(H) 70 - 100 mg/dL 10/25/2025 12:14 PM [facility] BUN 25 5 - 25 mg/dL 10/25/2025 12:14 PM [facility] Creatinine 1.21 0.70 - 1.30 mg/dL 10/25/2025 12:14 PM [facility] eGFR 65 >=60 mL/min/1. 73m2 10/25/2025 12:14 PM [facility] Comment:Calculation based on the Chronic Kidney Disease Epidemiology Collaboration (CKD-EPI) equation refit without adjustment for race. BUN/Creatinine Ratio 20.7 10/25/2025 12:14 PM [facility] Calcium 9.5 8.5 - 10.5 mg/dL 10/25/2025 12:14 PM [facility] AST (SGOT) 19 10 - 42 unit/L 10/25/2025 12:14 PM [facility] ALT (SGPT) 33 10 - 60 unit/L 10/25/2025 12:14 PM [facility] Alkaline Phosphatase 97 42 - 121 unit/L 10/25/2025 12:14 PM [facility] Total Protein 7.7 6.0 - 8.0 g/dL 10/25/2025 12:14 PM [facility] Albumin 4.4 3.2 - 5.0 g/dL 10/25/2025 12:14 PM [facility] Total Bilirubin 0.7 0.0 - 1.4 mg/dL 10/25/2025 12:14 PM [facility] Blood Venous blood specimen / Unknown Venipuncture / Unknown 10/25/2025 11:24 AM EST 10/25/2025 11:42 AM EST us Todd Elizalde MD LAB BLOOD ORDERABLES Final Resul t [facility] [address] [place] [address], [place] [phone] from Last 3 Months Insurance [facility] MEDICARE Member Subscriber Plan / Payer (Ef fective 2022-Present) Name:Raoul Rojo Relation to Subscriber:Self Name:Raoul Garcia Payer ID:[id number] Group ID:[id number] Type:Not on file Address: [place] [address] [address] [id number] Advance Directives * Full Code - Default (Latest Code Status on File) Date Activated Date Inactivated Comments 10/25/2025 2:12 PM 10/27/2025 9:03 PM This is or jud is used when code status has not been discussed with the patient, or code status is otherwise unknown/unconfirmed To update the patient's code status, place a code status order. Do not modify or discontinue any currently active code status orders. Care Teams Anvilsmith Relationship Specialty Start Date End Date Myriam Paulson MD [address] [place] [address] , [address] [facility] D/B/A: [facility] [place], [place] PCP - General Internal Medicine 10/19/24
== END 2025-11-01 09:37 | disposition home or self-care (01) ==
LOC: HO.CT 09:36
PROVIDERS: PCP Internal Medicine; Visit Provider Psychiatry & Neurology Neurology
DX: G31.84 Mild cognitive impairment of uncertain or unknown etiology (principal)
CPT/HCPCS: 70450

== ENCOUNTER → 2025-11-01 09:39 | Outpatient (BNV) | payer OTHER, SELFPAY | PROVIDERS: PCP Internal Medicine; Visit Provider Radiology Diagnostic Radiology | DX: G31.84 Mild cognitive impairment of uncertain or unknown etiology (principal) | CPT/HCPCS: 70450 ==

== ENCOUNTER 2025-11-07 10:26 | Outpatient (AMB) | payer OTHER, SELFPAY ==
[2025-11-07 10:30] VITALS: BP 98/62; PULSE 94; O2SAT 94; BMI 31.8
--- NOTE | 2025-11-07 10:30 | MHC.OFFVIS ---
Vital Signs 11/07/25 10:30 Height 5 ft 2 in Weight 173 lb 11.588 oz BMI 31.8 BP 98/62 Blood Pressure Location Lt brachial Position Sitting Pulse 94 Pulse Source Pulse Oximeter Pulse Oximetry (%) 94 Oxygen Delivery Method Room Air Intake Visit Reasons: T2DM Intake Note: Patient present today for Type 2 Diabetes Mellitus Last Diabetic eye exam: Last exam was 10/18/25 Last Podiatry Visit: Last visit was on 10/30/25 Random Glucose: 140 mg/dl HgA1C: 7.9% Sales Representative Trainee Required: Yes Sales Representative Trainee Language: A And P Mechanic Services: Sales Representative Trainee Present Sales Representative Trainee Name: Kelvin [id number] Information Interpreted: non-clinical & clinical Accompanied by: MANAGER EMERGENCY DEPARTMENT Allergies Penicillins Allergy (Verified 11/07/25 10:38) Hives HPI Comments Details: This is a 70-year-old male with a past medical history of type 2 diabetes, former smoker, CAD, anxiety, hypertension and asthma presenting for diabetic management. He is with his MANAGER EMERGENCY DEPARTMENT. Patient was seen at the emergency department at [facility] on 10/25/25 for pneumonia for 2 days. X-ray showed hypoventilatory examination with diffuse interstitial markings and atelectasis versus infiltrate at the lung bases. Blood culture negative. Respiratory panel negative. BP is 98/62. Weight is down 7 lb since 10/11/2025. Pulse ox 94%. Today endorses pain and chest pressure on both sides of his chest since last night. Endorses shortness of breath. Pain is 8/10 at rest currently. Endorses nausea and sweating since last night. Denies dizziness or syncope. Endorses left side neck pain, upper back pain since last night. Denies falls. Delivery Architect is Dr. Lloyd. He was diagnosed with diabetes several years ago. POC 140. Hemoglobin a1c 7.9%. Patient says right pinky toe was also hurting. ROS: Constitutional: +weight loss. Denies fever. Endorses sweats. Denies chills. Respiratory: Denies cough and hemoptysis. Cardiovascular: Endorses chest pain per hpi. Gastrointestinal: No anorexia, vomiting or diarrhea. No abdominal pain Neurologic: No headache today but had one yesterday, Denies dizziness, syncope, numbness or tingling Physical exam: Constitutional: Alert, in no distress. Appears somewhat tired. Eyes: Pupils are equal, round and reactive to light. Extraocular muscles intact. Neck: Supple, Full range of motion. No lymphadenopathy. No palpable thyroid masses. Respiratory: No crackles or rales. Mildly decreased breath sounds through out bilateral lung otero (per patient hurts to take a deep breath) Cardiovascular: S1 S2 regular. No murmurs. Abdomen: Soft, nontender Extremities: Warm and well perfused. No edema. Right 5th digit appears normal with no deformity, swelling, erythema or wound. 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 Father No problems noted. Social History Housing: Apartment Alcohol intake: former Patient Tobacco Use Status: Former Tobacco user e-Cigarette/Vaping Use: Never Used Second Hand Smoke Exposure: Yes service: No Current occupational status: disabled Cognitive needs: No (cane) Hearing needs: Yes Vision needs: Yes (glasses) Physical Exam Vital Signs: Last Vital Signs Pulse 94 11/07/25 10:30 BP 98/62 11/07/25 10:30 Pulse Ox 94 11/07/25 10:30 Oxygen Delivery Method Room Air 11/07/25 10:30 BMI result Body Mass Index 31.8 Results AMB Hemoglobin A1c AMB Hemoglobin A1c 7.9 % Last Edit by JODY Gibson on 11/07/25 11:01 Results Reviewed Results Reviewed: Laboratory Last Values Glucose (Clinic) 140 mg/dL (60-115) H 11/07/25 10:39 Assessment & Plan Assessment & Plan (1) Type 2 diabetes mellitus, without long-term current use of insulin: Code(s): E11.9 - Type 2 diabetes mellitus without complications Category: Medical Qualifiers: Diabetes mellitus complication status: with neurologic complications Diabetes mellitus complication detail: with polyneuropathy Qualified Code(s): E11.42 - Type 2 diabetes mellitus with diabetic polyneuropathy (2) Chest pain: Code(s): R07.9 - Chest pain, unspecified Category: Medical Qualifiers: Chest pain type: precordial pain Qualified Code(s): R07.2 - Precordial pain (3) Dyspnea: Code(s): R06.00 - Dyspnea, unspecified Category: Medical Plan 70-year-old male presenting today for routine diabetic follow up, but he complains of 8/10 bilateral chest discomfort, upper back pain, left-sided neck pain, sweating and shortness of breath since last night. Patient says he was feeling better after hospitalization up until yesterday. Patient will need to be evaluated at the emergency department to rule out acute cardiopulmonary pathology. EMS arrived to transport patient. Diabetes is suboptimally controlled. We will arrange follow up once discharged. Orders: Orders AMB Hemoglobin A1c Today E11.42 - Type 2 diabetes mellitus with diabetic polyneuropathy, Z13.9 - Encounter for screening, unspecified Coding Level of Care Code Est Pt Level 5 (24898) Add On Problem Visit Only Diagnoses Type 2 diabetes mellitus with diabetic polyneuropathy, without long-term current use of insulin E11.42 Diabetes mellitus complication status: with neurologic complications Diabetes mellitus complication detail: with polyneuropathy Precordial pain R07.2 Chest pain type: precordial pain Dyspnea R06.00
[2025-11-07 10:45] LABS: Glucose, Whole Blood 140 mg/dL (60-115)
--- OUTSIDE RECORDS SUMMARY | 2025-11-07 13:58 | XMS_ITS | Clinical Summary ---
Author Organization [facility] Facility Address [address] [address] Care Team Providers Care Ssds Mk 2 Advanced Operator Name Role Phone Myriam Fernández MD Primary Care Provider [phone] Allergies No known active allergies Medications ciclopirox [...] AM EDT) Hemoglobin A1C 9.3(H) (4.0-5.6) % [facility] Comment: MONITORING: In known diabetic patients, hemoglobin A1c targets should be discussed with health care provider. DIAGNOSTIC USE: The [place] [employer] (ADA) and the World Health [...] Supplement 1 Testing performed or reported by [facility], a Service of [facility], [address] [place] [id number] Kristian Gerber MD, [facility] [employer]# [id number] 04/22/2023 9:23 AM EDT 04/22/2023 9:28 AM EDT us Kristofer Hurt MD LAB BLOOD ORDERABLES Final Re sult [facility] from Last 3 Months or Most Recently Relevant to Health Maintenance [place] [address] ([id number]) ([id number]) Care Teams Ssds Mk 2 Advanced Operator Relationship Specialty Start Date End Date Myriam Fernández MD [address] [place], [place] PCP - General Internal Medicine 03/04/22
--- OUTSIDE RECORDS SUMMARY | 2025-11-07 13:58 | XMS_ITS | Clinical Summary ---
Author Organization [facility] Address [address] [place] [address] Phone Care Team Providers Care Yoga Teacher Name Role Phone Myriam Paulson MD Primary Care Provider [phone] Allergies Active Allergy Reactions Criticality Noted Date [...] (one) time each day. 08/02/20 25 Active lidocaine 4 % patch Apply 2 patches topically 1 (one) time each day. 60 each 10/28/20 25 026 Active acetaminophen (TYLENOL) 500 mg tablet Take 2 tablets (1,000 mg total) by mouth every 8 (eight) hours for 7 days. 42 each 10/27/20 25 025 ondansetron ODT (ZOFRAN-ODT) 4 mg disintegrating tabletIndications: Liver mass Take 1 tablet (4 mg total) by mouth every 8 (eight) hours if needed for vomiting or nausea for up to 7 days. 20 tablet 10/27/20 25 025 traMADoL (ULTRAM) 50 mg tabletIndications: Acute bilateral low back pain without sciatica Take 1 tablet (50 mg total) by mouth every 6 (six) hours if needed for severe pain for up to 7 days. Max Daily Amount: 200 mg 15 tablet 10/27/20 25 025 Active Problems Problem Noted Date Diagnosed Date Low back pain 10/27/2025 Abnormal alpha fetoprotein (AFP) level Liver mass 10/26/2025 Overview (10/26/2025): 5 cm liver mass incidentally found during CTA chest. Hypoxia 10/26/2025 Acute hypoxic respiratory failure 10/25/2025 Encounters Date Type Department Care Team Description 10/25/2025 11:30 AM EST - 10/27/2025 6:30 PM EST Hospital Encounter [facility] Urology Unit [address] [place] [address] Todd Elizalde MD Sondhi, Vikram, MD [place], Abdelrahman Gagnon MD Hypoxia (Primary Dx); Pneumonia due to infectious organism, unspecified laterality, unspecified part of lung; Liver mass; Acute bilateral low back pain without sciatica; Abnormal alpha fetoprotein (AFP) level Discharge Disposition: [place]-Health [place] [facility] [place] Last 3 Months Medical History Medical [...] your loved ones. For example, child care center administrator or elderly care for an older adult? [...] 10/25/2025 5:00 PM EST Plan of Treatment Upcoming Encounters Date Type Department Care Team (Late st Contact Info) Description 11/15/2025 1:00 PM EST Office Visit [facility] Hematology Oncology [address] [place] [address] Chirag Rivas MD [address] [place] [phone] Health Maintenance Due Date Last Done Comments [...] Visit 10/07/2024 Depression Screening 11/09/2024 COVID-19 Vaccine (4 - 2024-2 6 season) 2025 10/18/2021, 01/31/2021, [...] PM EST POCT GLUCOSE BLOOD Routine 10/25/2025 7 :53 PM EST POCT GLUCOSE BLOOD Routine 10/25/2025 [...] of8 resultswithin the time period is included. Glucose POCT 125(H) 70 - 100 mg/dL 10/27/2025 4:02 PM EST [facility] Blood Capillary blood specimen / Unknown 10/27/2025 4:01 PM EST 10/27/2025 4:03 PM EST us Abdelrahman Rollins MD LAB POINT OF C ARE TEST DOCKED DEVICE UNSOLICITED RESULTS Final Result [facility] [address] [place] [address], * (ABNORMAL) CBC auto differential (10/27/2025 7:11 AM EST) Only the most recent of2 resultswithin the time period is included. WBC 8.9 4.8 - 10.8 K/mcL LAB HEMETOLOGY METHOD 10/27/2025 7:[address] [facility] RBC 4.50 4.50 - 5.50 M/mcL LAB HEMETOLOGY METHOD 10/27/2025 7:[address] [facility] Hemoglobin 12.4(L) 13.5 - 17.5 g/dL LAB HEMETOLOGY METHOD 10/27/2025 7:[address] [facility] Hematocrit 39.6(L) 42.0 - 54.0 % LAB HEMETOLOGY METHOD 10/27/2025 7:[address] [facility] MCV 87.8 79.0 - 98.0 FL LAB HEMETOLOGY METHOD 10/27/2025 7:[address] [facility] MCH 27.5 27.0 - 32.0 pcg LAB HEMETOLOGY METHOD 10/27/2025 7:[address] [facility] MCHC 31.3(L) 32.0 - 37.0 g/dL LAB HEMETOLOGY METHOD 10/27/2025 7:[address] [facility] RDW 14.8 11.0 - 15.0 % LAB HEMETOLOGY METHOD 10/27/2025 7:[address] [facility] Platelets 246 130 - 400 K/mcL LAB HEMETOLOGY METHOD 10/27/2025 7:[address] [facility] MPV 11.5(H) 7.0 - 11.0 FL LAB HEMETOLOGY METHOD 10/27/2025 7:[address] [facility] NRBC 0.0 <1.0 % LAB HEMETOLOGY METHOD 10/27/2025 7:[address] [facility] NRBC Absolute 0.00 <0.10 K/mcL LAB HEMETOLOGY METHOD 10/27/2025 7:[address] [facility] Neutrophils Relative 47.6 % LAB HEMETOLOGY METHOD 10/27/2025 7:[address] [facility] Lymphocytes Relative 35.6 % LAB HEMETOLOGY METHOD 10/27/2025 7:[address] [facility] Monocytes Relative 10.2 % LAB HEMETOLOGY METHOD 10/27/2025 7:[address] [facility] Eosinophils Relative 5.8 % LAB HEMETOLOGY METHOD 10/27/2025 7:[address] [facility] Basophils Relative 0.6 % LAB HEMETOLOGY METHOD 10/27/2025 7:[address] [facility] Immature Granulocytes Relative 0.2 % LAB HEMETOLOGY METHOD 10/27/2025 7:[address] [facility] Neutrophils Absolute 4.22 1.50 - 7.00 K/mcL LAB HEMETOLOGY METHOD 10/27/2025 7:[address] [facility] Lymphocytes Absolute 3.15 1.00 - 5.00 K/mcL LAB HEMETOLOGY METHOD 10/27/2025 7:[address] [facility] Monocytes Absolute 0.90 0.20 - 1.00 K/mcL LAB HEMETOLOGY METHOD 10/27/2025 7:[address] [facility] Eosinophils Absolute 0.51(H) 0.00 - 0.50 K/mcL LAB HEMETOLOGY METHOD 10/27/2025 7:[address] [facility] Basophils Absolute 0.05 0.00 - 0.20 K/mcL LAB HEMETOLOGY METHOD 10/27/2025 7:[address] [facility] Immature Granulocytes Absolute 0.02 0.00 - 0.03 K/mcL LAB HEMETOLOGY METHOD 10/27/2025 7:[address] [facility] Blood Venous blood specimen / Unknown Venipuncture / Unknown 10/27/2025 7:11 AM EST 10/27/2025 7:34 AM EST us Abdelrahman Rollins MD LAB BLOOD ORDERABLES F inal Result [facility] [address] [place] [address], [place] [phone] * Phosphorus (10/27/2025 7:11 AM EST) Phosphorus 3.3 2.5 - 4.5 mg/dL 10/27/2025 8:[address] [facility] Blood Venous blood specimen / Unknown Venipuncture / Unknown 10/27/2025 7:11 AM EST 10/27/2025 7:34 AM EST us Abdelrahman Rollins MD LAB BLOOD ORDERABLES F inal Result [facility] [address] [place] [address], [place] [phone] * Magnesium (10/27/2025 7:11 AM EST) Only the most recent of2 resultswithin the time period is included. Magnesium 2.0 1.9 - 2.6 mg/dL 10/27/2025 7:[address] [facility] Blood Venous blood specimen / Unknown Venipuncture / Unknown 10/27/2025 7:11 AM EST 10/27/2025 7:34 AM EST us Abdelrahman Rollins MD LAB BLOOD ORDERABLES F inal Result [facility] [address] [place] [address], * (ABNORMAL) Basic metabolic panel (10/27/2025 7:11 AM EST) Only the most recent of2 resultswithin the time period is included. Sodium 142 133 - 145 mmol/L 10/27/2025 7:[address] [facility] Potassium 3.8 3.5 - 5.5 mmol/L 10/27/2025 7:[address] [facility] Chloride 104 96 - 110 mmol/L 10/27/2025 7:[address] [facility] CO2 27 21 - 32 mmol/L 10/27/2025 7:[address] [facility] Anion Gap 11 3 - 11 10/27/2025 7:[address] [facility] Glucose 113(H) 70 - 100 mg/dL 10/27/2025 7:[address] [facility] BUN 20 5 - 25 mg/dL 10/27/2025 7:[address] [facility] Creatinine 0.90 0.70 - 1.30 mg/dL 10/27/2025 7:[address] [facility] eGFR 93 >=60 mL/min/1. 73m2 10/27/2025 7:[address] [facility] Comment:Calculation based on the Chronic Kidney Disease Epidemiology Collaboration (CKD-EPI) equation refit without adjustment for race. BUN/Creatinine Ratio 22.2 10/27/2025 7:[address] [facility] Calcium 8.3(L) 8.5 - 10.5 mg/dL 10/27/2025 7:[address] [facility] Blood Venous blood specimen / Unknown Venipuncture / Unknown 10/27/2025 7:11 AM EST 10/27/2025 7:34 AM EST us Abdelrahman Rollins MD LAB BLOOD ORDERABLES F inal Result [facility] [address] [place] [address], [place] [phone] * XR Lumbar Spine 2-3 Views (10/26/2025 [...] Signed Date: 10/26/2025 15:51 ET Workstation ID: [id number] Transcribed By: Self Edit Transcribed Date: 10/26/2025 [...] Signed Date: 10/26/2025 15:51 ET Workstation ID: [id number] Transcribed By: Self Edit Transcribed Date: 10/26/2025 15:51 ET us Abdelrahman Rollins MD IMG XR PROCEDURES Esthela l Result * (ABNORMAL) Alpha fetoprotein tumor marker (10/26/2025 6:15 AM EST) Pathologist [facility] AFP 732.3(H) 0.0 - 8.0 ng/mL 10/26/2025 9:[address] [facility] Blood Venous blood specimen / Unknown Venipuncture / Unknown 10/26/2025 6:15 AM EST 10/26/2025 6:56 AM EST [facility] - 10/26/2025 9:53 AM EST The [employer] IM Chemiluminescent Immunoassay is used. Results obtained with different assay methods or kits cannot be used interchangeably. Results cannot be interpreted as absolute evidence of the presence or absence of malignant disease. us Abdelrahman Rollins MD LAB BLOOD ORDERABLES F inal Result [facility] [address] [place] [address], [place] [phone] * (ABNORMAL) Complete blood count (10/26/2025 6:15 AM EST) Pathologist [facility] WBC 10.8 4.8 - 10.8 K/mcL LAB HEMETOLOGY METHOD 10/26/2025 7:[address] [facility] RBC 4.50 4.50 - 5.50 M/mcL LAB HEMETOLOGY METHOD 10/26/2025 7:[address] [facility] Hemoglobin 12.4(L) 13.5 - 17.5 g/dL LAB HEMETOLOGY METHOD 10/26/2025 7:[address] [facility] Hematocrit 39.8(L) 42.0 - 54.0 % LAB HEMETOLOGY METHOD 10/26/2025 7:[address] [facility] MCV 89.0 79.0 - 98.0 FL LAB HEMETOLOGY METHOD 10/26/2025 7:[address] [facility] MCH 27.7 27.0 - 32.0 pcg LAB HEMETOLOGY METHOD 10/26/2025 7:[address] [facility] MCHC 31.2(L) 32.0 - 37.0 g/dL LAB HEMETOLOGY METHOD 10/26/2025 7:[address] [facility] RDW 15.1(H) 11.0 - 15.0 % LAB HEMETOLOGY METHOD 10/26/2025 7:[address] [facility] Platelets 231 130 - 400 K/mcL LAB HEMETOLOGY METHOD 10/26/2025 7:[address] [facility] MPV 11.8(H) 7.0 - 11.0 FL LAB HEMETOLOGY METHOD 10/26/2025 7:[address] [facility] NRBC 0.0 <1.0 % LAB HEMETOLOGY METHOD 10/26/2025 7:[address] [facility] NRBC Absolute 0.00 <0.10 K/mcL LAB HEMETOLOGY METHOD 10/26/2025 7:[address] [facility] Blood Venous blood specimen / Unknown Venipuncture / Unknown 10/26/2025 6:15 AM EST 10/26/2025 6:56 AM EST us Romeo Valencia MD LAB BLOOD ORDERABLES Final Resu lt [facility] [address] [place] [address], * CEA (10/26/2025 6:15 AM EST) CEA <2.0 0.0 - 5.0 ng/mL 10/26/2025 9:[address] [facility] Blood Venous blood specimen / Unknown Venipuncture / Unknown 10/26/2025 6:15 AM EST 10/26/2025 6:[address] [facility] - 10/26/2025 9:56 AM EST The [employer] IM Chemiluminescent Immunoassay is used. Results obtained with different assay methods or kits cannot be used interchangeably. Results cannot be interpreted as absolute evidence of the presence or absence of malignant disease. us Abdelrahman Rollins MD LAB BLOOD ORDERABLES F inal Result [facility] [address] [place] [address], [place] [phone] * ECG-Annotated (10/26/2025) us Provider Onbase ECG ORDERABLES Final Result * (ABNORMAL) Urinalysis with reflex microscopic and culture (10/25/2025 9:23 PM EST) Specific Reading Urine >1.045(H) 1.003 - 1.030 LAB URINALYSIS - AUTOMATED METHOD 10/25/2025 10:[address] [facility] pH, Urine 5.5 5.0 - 8.0 pH LAB URINALYSIS - AUTOMATED METHOD 10/25/2025 10:[address] [facility] Leukocytes, Urine Negative Negative LAB URINALYSIS - AUTOMATED METHOD 10/25/2025 10:[address] [facility] Nitrite, Urine Negative Negative LAB URINALYSIS - AUTOMATED METHOD 10/25/2025 10:[address] [facility] Protein, Urine Trace <=Trace mg/dL LAB URINALYSIS - AUTOMATED METHOD 10/25/2025 10:[address] [facility] Glucose, Urine >=1000(A) Negative mg/dL LAB URINALYSIS - AUTOMATED METHOD 10/25/2025 10:[address] [facility] Ketones, Urine 15(A) Negative mg/dL LAB URINALYSIS - AUTOMATED METHOD 10/25/2025 10:[address] [facility] Urobilinogen , Urine 1.0 0.2 - 1.0 mg/dL LAB URINALYSIS - AUTOMATED METHOD 10/25/2025 10:[address] [facility] Bilirubin, Urine Negative Negative LAB URINALYSIS - AUTOMATED METHOD 10/25/2025 10:[address] [facility] Blood, Urine Negative Negative LAB URINALYSIS - AUTOMATED METHOD 10/25/2025 10:[address] [facility] Urine Urine specimen obtained by clean catch procedure / Unknown Non-blood Collection / Unknown 10/25/2025 9:23 PM EST 10/25/2025 9:57 PM EST Rashid MCCULLOUHG LAB URINE ORDERABLES Esthela l Result Performing Organization Address City/[facility]/ZIP Co de Phone Number [facility] [address] [place] [address], [place] [phone] * Freeman urine culture tube (10/25/2025 9:23 PM EST) Extra Tube Hold for add-ons. 10/25/2025 11:[address] [facility] Comment:Auto resulted. Urine Urine specimen obtained by clean catch procedure / Unknown Non-blood Collection / Unknown 10/25/2025 9:23 PM EST 10/25/2025 9:57 PM EST VarshaRadha MCCULLOUGH LAB URINE ORDERABLES Esthela l Result [facility] [address] [place] [address], [place] [phone] * Respiratory virus panel molecular study (10/25/2025 2:54 PM EST) [facility] Adenovirus Detection by PCR Not Detected Not Detected LAB MICROBIOLOGY METHOD 10/25/2025 4:[address] [facility] Influenza A PCR Not Detected Not Detected LAB MICROBIOLOGY METHOD 10/25/2025 4:[address] [facility] Influenza B PCR Not Detected Not Detected LAB MICROBIOLOGY METHOD 10/25/2025 4:[address] [facility] Coronavirus 229E Not Detected Not Detected LAB MICROBIOLOGY METHOD 10/25/2025 4:[address] [facility] Coronavirus HKU1 Not Detected Not Detected LAB MICROBIOLOGY METHOD 10/25/2025 4:[address] [facility] Coronavirus OC43 Not Detected Not Detected LAB MICROBIOLOGY METHOD 10/25/2025 4:[address] [facility] Coronavirus NL63 Not Detected Not Detected LAB MICROBIOLOGY METHOD 10/25/2025 4:[address] [facility] Parainfluenza Virus 1 Not Detected Not Detected LAB MICROBIOLOGY METHOD 10/25/2025 4:[address] [facility] Parainfluenza Virus 2 Not Detected Not Detected LAB MICROBIOLOGY METHOD 10/25/2025 4:[address] [facility] Parainfluenza Virus 3 Not Detected Not Detected LAB MICROBIOLOGY METHOD 10/25/2025 4:[address] [facility] Parainfluenza Virus 4 Not Detected Not Detected LAB MICROBIOLOGY METHOD 10/25/2025 4:[address] [facility] RSV PCR Not Detected Not Detected LAB MICROBIOLOGY METHOD 10/25/2025 4:[address] [facility] Human Metapneumovirus A and B Not Detected Not Detected LAB MICROBIOLOGY METHOD 10/25/2025 4:[address] [facility] Rhinovirus/Entero virus Not Detected Not Detected LAB MICROBIOLOGY METHOD 10/25/2025 4:[address] [facility] Bordetella pertussis Not Detected Not Detected LAB MICROBIOLOGY METHOD 10/25/2025 4:[address] [facility] Bordetella parapertussis Not Detected Not Detected LAB MICROBIOLOGY METHOD 10/25/2025 4:[address] [facility] Mycoplasma pneumo by PCR Not Detected Not Detected LAB MICROBIOLOGY METHOD 10/25/2025 4:[address] [facility] Chlamydia pneumoniae Not Detected Not Detected LAB MICROBIOLOGY METHOD 10/25/2025 4:[address] [facility] SARS COV-2 Not Detected Not Detected LAB MICROBIOLOGY METHOD 10/25/2025 4:[address] [facility] Swab Nasopharyngeal structure / Unknown Non-blood Collection / Unknown 10/25/2025 2:54 PM EST 10/25/2025 3:[address] [facility] - 10/25/2025 4:34 PM EST Testing was performed using the [employer] Respiratory Pathogen PCR Assay. All results must [...] MICROBIOLOGY - GENERAL ORDER RITA Final Result [facility] [address] [place] [address], * MRSA molecular study (10/25/2025 2:54 PM EST) Pathologist [facility] MRSA Screen PCR Not Detected Not Detected LAB MICROBIOLOGY METHOD 10/25/2025 4:[address] [facility] Swab Both anterior nares / Unknown Non-blood Collection / Unknown 10/25/2025 2:54 PM EST 10/25/2025 3:38 PM EST [facility] DC LAB MICROBIOLOGY - GENERA L ORDERABLES Final Result Performing Organization Address City/[facility]/ZIP Co de Phone Number [facility] [address] [place] [address], [place] [phone] * Blood Culture, Peripheral Draw #2 (10/25/2025 2:54 PM EST) Only the most recent of2 resultswithin the time period is included. Culture, Blood No growth at 5 days 10/30/2025 4:[address] [facility] Blood Venous blood specimen / Unknown Venipuncture / Unknown 10/25/2025 2:54 PM EST 10/25/2025 3:37 PM EST [facility] MICROBIOLOGY - GENERA L ORDERABLES Final Result Performing Organization Address [facility] Co de Phone Number [facility] [address] [place] [address], [place] [phone] * CT Angio Chest wo and/or w Contrast (10/25/2025 2:42 PM EST) Anatomical Region Laterality Modality Body Computed Tomogra phy 10/25/2025 3:15 PM EST Addenda Addendum by Gigi Price MD on 10/27/2025 4:20 PM EST Addendum: MRI performed at [facility] 04/07/25 has been up loaded into the [facility] PACS. Some of the images are [...] Signed Date: 10/27/2025 16:20 ET Workstation ID: [id number] Transcribed By: Self Edit Transcribed Date: 10/27/2025 [...] Signed Date: 10/27/2025 13:41 ET Workstation ID: [id number] Transcribed By: Self Edit Transcribed Date: 10/27/2025 [...] Signed Date: 10/25/2025 15:32 ET Workstation ID: [id number] Transcribed By: Self Edit Transcribed Date: 10/25/2025 [...] Signed Date: 10/25/2025 15:32 ET Workstation ID: [id number] Transcribed By: Self Edit Transcribed Date: 10/25/2025 15:15 ET us Todd Elizalde MD IMG CT PROCEDURES Edited Result - Final * Troponin I high sensitivity (10/25/2025 2:23 PM EST) Only the most recent of2 resultswithin the time period is included. Pathologist [facility] High Sensitivity Troponin I 5 <=53 ng/L 10/25/2025 3:[address] [facility] Blood Venous blood specimen / Unknown Venipuncture / Unknown 10/25/2025 2:23 PM EST 10/25/2025 2:33 PM EST us Todd Elizalde MD LAB BLOOD ORDERABLES Final Resul t Performing Organization Address [facility]/ZIP Co de Phone Number [facility] [address] [place] [address], [place] [phone] * APTT (10/25/2025 2:23 PM EST) [facility] aPTT 30.4 24.1 - 39.3 sec LAB COAGULATION METHOD 10/25/2025 2:[address] [facility] Blood Venous blood specimen / Unknown Venipuncture / Unknown 10/25/2025 2:23 PM EST 10/25/2025 2:33 PM EST us Todd Elizalde MD LAB BLOOD ORDERABLES Final Resul t Performing Organization Address City/[facility]/ZIP Co de Phone Number [facility] [address] [place] [address], [place] [phone] * (ABNORMAL) Protime-INR (10/25/2025 2:23 PM EST) Pathologist [facility] Protime 18.7(H) 10.6 - 13.9 sec LAB COAGULATION METHOD 10/25/2025 2:[address] [facility] INR 1.5 LAB COAGULATION METHOD 10/25/2025 2:[address] [facility] Blood Venous blood specimen / Unknown Venipuncture / Unknown 10/25/2025 2:23 PM EST 10/25/2025 2:33 PM EST us Todd Elizalde MD LAB BLOOD ORDERABLES Final Resul t Performing Organization Address [facility]/ZIP Co de Phone Number [facility] [address] [place] [address], [place] [phone] * Lactate (10/25/2025 2:23 PM EST) Pathologist [facility] Lactate 1.2 0.4 - 2.0 mmol/L 10/25/2025 3:[address] [facility] Blood Venous blood specimen / Unknown Venipuncture / Unknown 10/25/2025 2:23 PM EST 10/25/2025 2:33 PM EST us Todd Elizalde MD LAB BLOOD ORDERABLES Final Resul t Performing Organization Address [facility] Co de Phone Number [facility] [address] [place] [address], [place] [phone] * ECG 12 lead (10/25/2025 1:01 PM EST) Only the most recent of2 resultswithin the time period is included. Ventricular Rate ECG 99 BPM GEMUSE Atrial Rate 99 BPM GEMUSE P-R Interval 152 ms GEMUSE QRS Duration 88 ms GEMUSE Q-T Interval 338 ms GEMUSE QTc 433 ms GEMUSE P Wave Irons 55 degrees GEMUSE R Irons -21 degrees GEMUSE T Irons 32 degrees GEMUSE ECG Interpretation Sinus rhythm with Premature supraventricular complexes When compared with ECG of 25-OCT-2025 11:05, (unconfirmed) No significant change was found Confirmed by OTIS POSEY ([id number]) on 10/26/2025 11:01:22 PM GEMUSE 10/25/2025 1:01 PM EST 10/26/2025 11:01 PM EST Todd Elizalde MD ECG ORDERABLES Final Result [...] Signed Date: 10/25/2025 12:15 ET Workstation ID: [id number] Transcribed By: Self Edit Transcribed Date: 10/25/2025 [...] Signed Date: 10/25/2025 12:15 ET Workstation ID: [id number] Transcribed By: Self Edit Transcribed Date: 10/25/2025 12:02 ET Todd Elizalde MD IMG XR PROCEDURES Final Result * (ABNORMAL) Procalcitonin (10/25/2025 11:24 AM EST) Procalcitonin 0.48(H) <=0.05 ng/mL 10/25/2025 2:[address] [facility] Blood Venous blood specimen / Unknown Venipuncture / Unknown 10/25/2025 11:24 AM EST 10/25/2025 11:[address] [facility] - 10/25/2025 2:14 PM EST Procalcitonin [...] MCCULLOUGH LAB BLOOD ORDERABLES Esthela l Result [facility] [address] [place] [address], * (ABNORMAL) Sedimentation rate (10/25/2025 11:24 AM EST) Sed Rate 67(H) 0 - 20 mm/hr LAB HEMETOLOGY METHOD 10/25/2025 2:[address] [facility] Blood Venous blood specimen / Unknown Venipuncture / Unknown 10/25/2025 11:24 AM EST 10/25/2025 11:42 AM EST Rashid Flores DC LAB BLOOD ORDERABLES Esthela l Result Performing Organization Address City/[facility]/ZIP Co de Phone Number [facility] [address] [place] [address], * (ABNORMAL) C-reactive protein (10/25/2025 11:24 AM EST) C-Reactive Protein 21.74(H) <=0.50 mg/dL 10/25/2025 2:[address] [facility] Blood Venous blood specimen / Unknown Venipuncture / Unknown 10/25/2025 11:24 AM EST 10/25/2025 11:42 AM EST VarshaMeredith Flores DC LAB BLOOD ORDERABLES Esthela l Result Performing Organization Address [facility] Co de Phone Number [facility] [address] [place] [address], [place] [phone] * B-type natriuretic peptide (10/25/2025 11:24 AM EST) Pathologist [facility] BNP 70 <=100 pcg/mL 10/25/2025 12:[address] [facility] Blood Venous blood specimen / Unknown Venipuncture / Unknown 10/25/2025 11:24 AM EST 10/25/2025 11:[address] [facility] - 10/25/2025 12:21 PM EST Over the counter supplements containing high doses of biotin may interfere with this assay. If interference is suspected, patients shoud be retested after refraining from biotin supplements for 72 hours. Todd Elizalde MD LAB BLOOD ORDERABLES Final Resul t Performing Organization Address City/[facility]/ZIP Co de Phone Number [facility] [address] [place] [address], * Lipase (10/25/2025 11:24 AM EST) Lipase 21 12 - 53 unit/L 10/25/2025 12:[address] [facility] Blood Venous blood specimen / Unknown Venipuncture / Unknown 10/25/2025 11:24 AM EST 10/25/2025 11:42 AM EST us Todd Elizalde MD LAB BLOOD ORDERABLES Final Resul t [facility] [address] [place] [address], [place] [phone] * (ABNORMAL) Comprehensive metabolic panel (10/25/2025 11:24 AM EST) Sodium 140 133 - 145 mmol/L 10/25/2025 12:[address] [facility] Potassium 4.4 3.5 - 5.5 mmol/L 10/25/2025 12:[address] [facility] Chloride 100 96 - 110 mmol/L 10/25/2025 12:[address] [facility] CO2 26 21 - 32 mmol/L 10/25/2025 12:[address] [facility] Anion Gap 14(H) 3 - 11 10/25/2025 12:[address] [facility] Glucose 159(H) 70 - 100 mg/dL 10/25/2025 12:[address] [facility] BUN 25 5 - 25 mg/dL 10/25/2025 12:[address] [facility] Creatinine 1.21 0.70 - 1.30 mg/dL 10/25/2025 12:[address] [facility] eGFR 65 >=60 mL/min/1. 73m2 10/25/2025 12:[address] [facility] Comment:Calculation based on the Chronic Kidney Disease Epidemiology Collaboration (CKD-EPI) equation refit without adjustment for race. BUN/Creatinine Ratio 20.7 10/25/2025 12:[address] [facility] Calcium 9.5 8.5 - 10.5 mg/dL 10/25/2025 12:[address] [facility] AST (SGOT) 19 10 - 42 unit/L 10/25/2025 12:[address] [facility] ALT (SGPT) 33 10 - 60 unit/L 10/25/2025 12:[address] [facility] Alkaline Phosphatase 97 42 - 121 unit/L 10/25/2025 12:[address] [facility] Total Protein 7.7 6.0 - 8.0 g/dL 10/25/2025 12:[address] [facility] Albumin 4.4 3.2 - 5.0 g/dL 10/25/2025 12:[address] [facility] Total Bilirubin 0.7 0.0 - 1.4 mg/dL 10/25/2025 12:[address] [facility] Blood Venous blood specimen / Unknown Venipuncture / Unknown 10/25/2025 11:24 AM EST 10/25/2025 11:42 AM EST us Todd Elizalde MD LAB BLOOD ORDERABLES Final Resul t [facility] [address] [place] [address], from Last 3 Months Insurance [employer] MEDIC[employer] Member Subscriber Plan / Payer (Ef fective 2022-Present) Name:Raoul Rojo Relation to Subscriber:Self Name:Raoul Garcia Payer ID:[id number] Group ID:[id number] Type:Not on file Address: [address] [place] [phone] Advance Directives * Full Code - Default [...] currently active code status orders. Care Teams Yoga Teacher Relationship Specialty Start Date End Date Myriam Paulson MD [address] [place] [address] , [address] [place] [address] Physician Associ D/B/A: [facility] [place] PCP - General Internal Medicine 10/19/24
--- OUTSIDE RECORDS SUMMARY | 2025-11-07 13:58 | XMS_ITS | Data Portability ---
Author Organization [place] - [facility], Allergy Address [address] [facility] [address] [place] [address] Care Team Providers Care Washer Operator Name Role Phone ROGE DAUGHERTY Primary [...] By Organization Details Last Modified Time 11/03/2024 [id number] nosebleed information arthuribstein Not available 11/03/2024 14:10:14 Reason for Referral None Reported. Problems Name Problem SNOMED Code Status Onset Date Resolution Date Notes Provider Name and Address Organization Details Recorded Time Disorder of right Eustachia n tube 53573280747 37256 Active 2015 Other specified disorders of Eustachia n tube, right ear; Note: Date Diagnosed : 05/07/2016 1:05 PM (H69.81) Not Available [facility] 4 03:10:58 Allergic rhinitis 85985024 Active 2015 Allergic rhinitis, unspecifi ed; Note: Date Diagnosed : 05/07/2016 1:05 PM (J30.9) Not Available [facility] 4 03:10:58 Mixed conductiv e and sensorine ural hearing loss of right ear 82043892244 105 Active 2015 Mixed conductiv e and sensorine ural hearing loss, unilatera l, right ear, with unrestric elton hearing on the contralat eral side; Note: Date Diagnosed : 05/07/2016 1:05 PM (H90.71) Not Available [facility] 4 03:10:59 Sensorine ural hearing loss 09471868 Active 2015 Sensorine ural hearing loss, unilatera l, left ear, with unrestric elton hearing on the contralat eral side; Note: Date Diagnosed : 05/07/2016 1:05 PM (H90.42) Not Available [facility] 4 03:10:57 Impacted cerumen of bilateral ears 87576825920 73337 Active 2021 Impacted cerumen, bilateral ; Note: Date Diagnosed : 04/03/2022 11:47 AM (H61.23) Not Available [facility] 4 03:10:57 Sensorine ural hearing loss of bilateral ears 261325134 Active 2021 Sensorine ural hearing loss, bilateral ; Note: Date Diagnosed : 04/03/2022 12:23 PM (H90.3) Not Available [facility] 4 03:10:58 Bleeding from nose 792389179 Active 2023 NAVEEN GOLDEN MD [address] [place] [address], [facility] [place], [phone] , [facility] - [facility] 4 14:10:01 Deviated nasal septum 813509446 Active 2023 NAVEEN GOLDEN MD [address] [address], [facility] [place], [address] , [facility] - [facility] 4 14:10:07 Problem Notes None recorded. Medical Equipment None Reported. Allergies Allergen ID Allergen Name Allergen Category Reaction Reaction Severity Criticality Documentation Date Start Date Code Code System Note Provider Name and Address Organization Details Recorded Time 645878 aspirin medicatio n other Not available Not available 03/22/2024 1191 RxNorm React ion: Unkno wn; Not Available [facility] 4 01:22:01 136711 penicilli n V potassium medicatio n other Not available Not available 03/22/202448755 5 RxNorm React ion: unkno wn, unspe zeferino d;; Not Available [facility] 4 01:22:02 Medications Name Sig Start Date Stop Date Status Note LastModified by Organization Details LastModified Time metformin 500 mg tablet 04/03 completed Medication ID: [id number] Dur ation Value: 30 Brand Name: metformin [...] 10 mg tablet 04/03 completed Medication ID: [id number] Dur ation Value: 30 Brand Name: atorvastat in Send Method: E-Prescrib ed Subs Allowed: subs OK Special Instructio n: TK 1 T PO QD Medicat ionGeneric Name: atorvastat in Not Available Not Available Not Available azithromyci n 250 mg tablet active Not Available Not Available Not Available FreeStyle Lancets 28 gauge 04/03 completed Medication ID: [id number] Dur ation Value: 30 Brand Name: FreeStyle [...] % topical cream 04/03 completed Medication ID: [id number] Dur ation Value: 15 Brand Name: triamcinol [...] 5 mg tablet 04/03 completed Medication ID: [id number] Dur ation Value: 30 Brand Name: lisinopril Send Method: E-Prescrib ed Subs Allowed: subs OK Special Instructio n: TK 1 T PO D Medicati onGenericN xander: lisinopril Not Available Not Available Not Available metoprolol succinate ER 25 mg tablet,exte nded release 24 hr active Medication ID: [id number] Madisyn nd Name: metoprolol succinate Send Method: [...] on aerosol inhaler 04/03 completed Medication ID: [id number] Dur ation Value: 30 Brand Name: Advair [...] (400 unit) tablet 04/03 completed Medication ID: [id number] Dur ation Value: 30 Brand Name: Calcium 600 + D(3) Send Method: E-Prescrib ed Subs Allowed: subs OK Special Instructio n: TK 1 T PO ONCE D Medicati onGenericN xander: Calcium 600 + D(3) Not Available Not Available Not Available Tradjenta 5 mg tablet active Not Available Not Available No t Available Brilinta 90 mg tablet 11/03 completed Medication ID: [id number] Bra nd Name: Brilinta S end Method: [...] 2.5 % lotion 04/03 completed Medication ID: [id number] Dur ation Value: 30 Brand Name: selenium [...] Updated DateTime 11/03/2024 152.4 cm 32.2 kg/m2 58996.74 g Mike Alvarado [place] - [facility] 11/03/2024 13:47:41 Social History None recorded. Functional Status None recorded. Mental Status None recorded. Family History Nothing Reported. Medical History Condition Response Allergies/Hayfever Y Diabetes Y Asthma Y Past Encounters Encounter ID Performer Location Encounter Start Date Encounter Closed Date Diagnosis/Indication Diagnosis SNOMED-CT Code Diagnosis ICD10 Code Diagnosis IMO Codes Diagnosis Note [id number] NAVEEN GOLDEN MD [facility] [address] [address] 11/03/2024 13:06:20 11/03/2024 14:16:11 Bleeding from nose 758604748 R04.0 Long-term current use of antiplatelet drug 8075620521 06778 Z79.02 Deviated nasal septum 12 0565299 J34.2 Health Concerns Section Related Observation LastModified by Organization Detai ls LastModified Time None Recorded Concern Status LastModified by Organization Details LastModified Time None Recorded Advance Directives Directive None Recorded Payers Insurance Date Sequence Insurance Name Policy Number Policy Mcmahon Covered Member ID Mcmahon Member ID Guarantor Name 11/03/2024 2 [place]ARE [place]: [facility] Raoul Rick [id number] Raoul Rick 11/03/2024 1 [facility] - DOS ON OR AFTER 2023 - ONE CARE (MEDICARE REPLACEMENT/AD VANTAGE - HMO) Raoul Rick [id number] Raoul Rick Notes Date Note Type Note [...] They have been stopped. NAVEEN VALLE MD [address] [place] [address], [place], [address], [facility] - [facility] 11/03/2024 14:11:35
--- OUTSIDE RECORDS SUMMARY | 2025-11-17 19:00 | XMS_ITS | Clinical Summary ---
Author Organization Unknown Care Team Providers Care Handling Tech Name Role Phone PJ JUNG MD, ROGE Unavailable Unavailable CESARIO DAN, CARMITA Unavailable Unavailable Payers Payer Name Policy Type Policy Number Effective Date Expira tion Date [facility] [id number] MEDICAID [facility] - [place] [id number] MEDICARE - [place] - [place] [id number] Problems Condition Name Condition Details Condition Category [...] 03-31 00:00: 00 11-18 23:59 :00 No [id number] 1 capsule 2 TIMES DAILY 1 capsule 2 TIMES DAILY (route: oral) Med Classific ation: Electroly te Balance-N utritiona l Products Farxiga 10 mg tablet 12-22 00:00: 00 07-19 23:59 :00 No [id number] 1 tablet QD 1 tablet QD (route: oral) Alternate Route: PO. Med Classific ation: Endocrine Flovent HFA 220 mcg/actuati on aerosol inhaler 2019-0 2-14 00:00: 00 11-18 23:59 :00 No [id number] 2 puff BID EACH DAY 2 puff BID EACH DAY (route: inhalation ) Alternate Route: BY MOUTH. Med Classific ation: Respirato ry Therapy Agents lisinopril 5 mg tablet 03-31 00:00: 00 12-12 23:59 :00 No [id number] 1 tablet DAILY 1 tablet DAILY (route: oral) Med Classific ation: Cardiovas cular Therapy Agents metformin 1,000 mg tablet 03-31 00:00: 00 11-18 23:59 :00 No [id number] 1 tablet DAILY 1 tablet DAILY (route: oral) Med Classific ation: Endocrine montelukast 10 mg tablet 03-31 00:00: 00 09-18 23:59 :00 No [id number] 1 tablet DAILY 1 tablet DAILY (route: oral) Med Classific ation: Respirato ry Therapy Agents nystatin 100,000 unit/gram topical cream 03-31 00:00: 00 07-17 23:59 :00 No [id number] Per instruc tions 3 TIMES DAILY Per instructio ns 3 TIMES DAILY (route: topical) Med Classific ation: Dermatolo gical terbinafine HCl 250 mg tablet 02-07 00:00: 00 05-23 23:59 :00 No [id number] 1 tablet DAILY 1 tablet DAILY (route: oral) Med Classific ation: Anti-Infe ctive Agents dulaglutide 1.5 mg/0.5 mL subcutaneou s pen injector 12-17 00:00: 00 03-31 23:59 :00 No [id number] 0.5 mL Q WEEK 0.5 mL Q WEEK (route: subcutaneo us) Alternate Route: 1 SYRINGE UNDER THE SKIN. Med Classific ation: Endocrine Farxiga 10 mg tablet 08-01 00:00: 00 11-18 23:59 :00 No [id number] 1 tablet DAILY 1 tablet DAILY (route: oral) Med Classific ation: Endocrine Advair HFA 230 mcg-21 mcg/actuati on aerosol inhaler 11-20 00:00: 00 05-21 23:59 :00 No [id number] 2 puff DAILY 2 puff DAILY (route: inhalation ) Med Classific ation: Respirato ry Therapy Agents atorvastati n 10 mg tablet 11-20 00:00: 00 07-17 23:59 :00 No [id number] 1 tablet BEDTIME 1 tablet BEDTIME (route: oral) Med Classific ation: Cardiovas cular Therapy Agents Calcium 600 mg calcium (1,500 mg) tablet 11-20 00:00: 00 11-13 00:00 :00 No [id number] 1 tablet DAILY 1 tablet DAILY (route: oral) Med Classific ation: Electroly te Balance-N utritiona l Products fluticasone prop.50 mcg spray,suspe n-sod.chlor fede 0.9% nasal spray kit 11-20 00:00: 00 05-21 23:59 :00 No [id number] 2 spray DAILY 2 spray DAILY (route: nasal) Med Classific ation: Respirato ry Therapy Agents melatonin 5 mg tablet 11-20 00:00: 00 07-17 23:59 :00 No [id number] 1 tablet BEDTIME 1 tablet BEDTIME (route: oral) Med Classific ation: Central Nervous System Agents metformin 500 mg tablet 11-20 00:00: 00 09-21 23:59 :00 No [id number] 1 tablet DAILY 1 tablet DAILY (route: oral) Med Classific ation: Endocrine ProAir RespiClick 90 mcg/actuati on breath activated 11-20 00:00: 00 09-18 23:59 :00 No [id number] 2 puff EVERY 4 HOURS 2 puff EVERY 4 HOURS (route: inhalation ) Med Classific ation: Respirato ry Therapy Agents amlodipine 5 mg tablet - 00:00: 00 09-18 23:59 :00 No [id number] 1 tablet DAILY 1 tablet DAILY (route: oral) Med Classific ation: Cardiovas cular Therapy Agents Farxiga 10 mg tablet 2- 00:00: 00 09-18 23:59 :00 No [id number] 1 tablet DAILY 1 tablet DAILY (route: oral) Med Classific ation: Endocrine tamsulosin 0.4 mg capsule -17 00:00: 00 09-18 23:59 :00 No [id number] 1 capsule BEDTIME 1 capsule BEDTIME (route: oral) Med Classific ation: Genitouri nary Therapy Oyster Shell Calcium-Vit mccarty D3 500 mg (1,250 mg)-200 unit tablet - 00:00: 00 09-21 23:59 :00 No [id number] 1 tablet DAILY 1 tablet DAILY (route: oral) Med Classific ation: Electroly te Balance-N utritiona l Products cinnamon bark-chromi um picolinate- ALA 500 mg-100 mcg-150 mg capsule - 00:00: 00 09-21 23:59 :00 No [id number] 1000 mg DAILY 1000 mg DAILY (route: oral) Med Classific ation: Alternati ve Therapy multivitami n tablet 12-04 00:00: 00 09-18 23:59 :00 No [id number] 1 tablet DAILY 1 tablet DAILY (route: oral) Med Classific ation: Electroly te Balance-N utritiona l Products Vitamin C 500 mg tablet 12-04 00:00: 00 09-21 23:59 :00 No [id number] 1 tablet DAILY 1 tablet DAILY (route: oral) Med Classific ation: Electroly te Balance-N utritiona l Products Aspirin Low Dose 81 mg tablet,[place] yed release 01-21 00:00: 00 11-23 23:59 :00 No [id number] 1 tablet DAILY 1 tablet DAILY (route: oral) Med Classific ation: Hematolog ical Agents metoprolol succinate ER 25 mg tablet,exte nded release 24 hr 15 00:00: 00 09-18 23:59 :00 No [id number] 1 tablet DAILY 1 tablet DAILY (route: oral) Med Classific ation: Cardiovas cular Therapy Agents atorvastati n 20 mg tablet 05-21 00:00: 00 09-18 23:59 :00 No [id number] 1 tablet BEDTIME 1 tablet BEDTIME (route: oral) Med Classific ation: Cardiovas cular Therapy Agents losartan 25 mg tablet 05-21 00:00: 00 09-18 23:59 :00 No [id number] 1 tablet DAILY 1 tablet DAILY (route: oral) Med Classific ation: Cardiovas cular Therapy Agents Symbicort 160 mcg-4.5 mcg/actuati on HFA aerosol inhaler 05-21 00:00: 00 09-18 23:59 :00 No [id number] 2 puff 2 TIMES DAILY 2 puff 2 TIMES DAILY (route: inhalation ) Med Classific ation: Respirato ry Therapy Agents Brilinta 90 mg tablet 05-21 00:00: 00 03-25 23:59 :00 No [id number] 1 tablet 2 TIMES DAILY 1 tablet 2 TIMES DAILY (route: oral) Med Classific ation: Hematolog ical Agents Brilinta 90 mg tablet 07-30 00:00: 00 03-25 23:59 :00 No [id number] 90 mg 2 TIMES DAILY 90 mg 2 TIMES DAILY (route: oral) Med Classific ation: Hematolog ical Agents sertraline 25 mg tablet 2021-11 00:00: 00 09-21 23:59 :00 No [id number] 1 tablet DAILY 1 tablet DAILY (route: oral) Med Classific ation: Central Nervous System Agents hydroxyzine HCl 10 mg tablet 05-13 00:00: 00 05-17 23:59 :00 No [id number] 1 tablet 3 TIMES DAILY 1 tablet 3 TIMES DAILY (route: oral) Med Classific ation: Central Nervous System Agents prednisone 20 mg tablet 05-13 00:00: 00 05-17 23:59 :00 No [id number] 2 tablet DAILY 2 tablet DAILY (route: oral) Med Classific ation: Endocrine ciclopirox 0.77 % topical cream 07-15 00:00: 00 09-21 23:59 :00 No [id number] 1 inch 2 TIMES DAILY 1 inch 2 TIMES DAILY (route: topical) Med Classific ation: Dermatolo gical nystatin-tr iamcinolone 100,000 unit/g-0.1 % topical cream 07-15 00:00: 00 09-21 23:59 :00 No [id number] 1 cm DAILY 1 cm DAILY (route: topical) Med Classific ation: Dermatolo gical Igo 3-6-9 1,200 mg capsule 2022-11 00:00: 00 09-21 23:59 :00 No [id number] 1 capsule DAILY 1 capsule DAILY (route: oral) Med Classific ation: Cardiovas cular Therapy Agents doxycycline hyclate 100 mg capsule 2022-11 00:00: 00 10-07 23:59 :00 No [id number] 1 capsule 2 TIMES DAILY 1 capsule 2 TIMES DAILY (route: oral) Med Classific ation: Anti-Infe ctive Agents ciclopirox 0.77 % topical cream 07 00:00: 00 12-30 23:59 :00 No [id number] Per instruc tions 2 TIMES DAILY Per instructio ns 2 TIMES DAILY (route: topical) Med Classific ation: Dermatolo gical Tradjenta 5 mg tablet 01-12 00:00: 00 03-31 23:59 :00 No [id number] 1 tablet DAILY 1 tablet DAILY (route: oral) Med Classific ation: Endocrine Trulicity 1.5 mg/0.5 mL subcutaneou s pen injector 03-31 00:00: 00 07-27 23:59 :00 No [id number] Per instruc tions WEEKLY Per instructio ns WEEKLY (route: subcutaneo us) Med Classific ation: Endocrine Trulicity 3 mg/0.5 mL subcutaneou s pen injector 07-27 00:00: 00 09-21 23:59 :00 No [id number] 3 mg WEEKLY 3 mg WEEKLY (route: subcutaneo us) Med Classific ation: Endocrine metformin 1,000 mg tablet 2023-11 00:00: 00 09-18 23:59 :00 No [id number] 1 tablet 2 TIMES DAILY 1 tablet 2 TIMES DAILY (route: oral) Med Classific ation: Endocrine Rybelsus 7 mg tablet 2023-11 00:00: 00 01-18 23:59 :00 No [id number] 1 tablet DAILY 1 tablet DAILY (route: oral) Med Classific ation: Endocrine sertraline 50 mg tablet 2023-11 00:00: 00 09-18 23:59 :00 No [id number] 1 tablet DAILY 1 tablet DAILY (route: oral) Med Classific ation: Central Nervous System Agents Rybelsus 14 mg tablet 01-23 00:00: 00 09-18 23:59 :00 No [id number] 1 tablet DAILY 1 tablet DAILY (route: oral) Med Classific ation: Endocrine amlodipine 5 mg tablet 2024-11 00:00: 00 Yes [id number] 1 tablet EVERY AM 1 tablet EVERY AM (route: oral) Med Classific ation: Cardiovas cular Therapy Agents atorvastati n 20 mg tablet 2024-11 00:00: 00 Yes [id number] 1 tablet EVERY PM 1 tablet EVERY PM (route: oral) Med Classific ation: Cardiovas cular Therapy Agents Farxiga 10 mg tablet 2024-11 00:00: 00 Yes [id number] 1 tablet EVERY AM 1 tablet EVERY AM (route: oral) Med Classific ation: Endocrine losartan 25 mg tablet 2024-11 00:00: 00 Yes [id number] 1 tablet EVERY AM 1 tablet EVERY AM (route: oral) Med Classific ation: Cardiovas cular Therapy Agents metformin 1,000 mg tablet 2024-11 0 00:00: 00 Yes [id number] 1 tablet 2 TIMES DAILY 1 tablet 2 TIMES DAILY (route: oral) Med Classific ation: Endocrine metoprolol succinate ER 25 mg tablet,exte nded release 24 hr 2024-11 00:00: 00 Yes [id number] 1 tablet EVERY AM 1 tablet EVERY AM (route: oral) Med Classific ation: Cardiovas cular Therapy Agents montelukast 10 mg tablet 2024-11 00:00: 00 Yes [id number] 1 tablet EVERY PM 1 tablet EVERY PM (route: oral) Med Classific ation: Respirato ry Therapy Agents multivitami n tablet 2024-11 00:00: 00 Yes [id number] 1 tablet EVERY AM 1 tablet EVERY AM (route: oral) Med Classific ation: Electroly te Balance-N utritiona l Products ProAir RespiClick 90 mcg/actuati on breath activated 2024-11 0 00:00: 00 Yes [id number] 2 puff NEEDED 2 puff NEEDED (route: inhalation ) Med Classific ation: Respirato ry Therapy Agents Rybelsus 14 mg tablet 2024-11 00:00: 00 Yes [id number] 1 tablet EVERY AM 1 tablet EVERY AM (route: oral) Med Classific ation: Endocrine sertraline 50 mg tablet 2024-11 00:00: 00 Yes [id number] 1 tablet EVERY AM 1 tablet EVERY AM (route: oral) Med Classific ation: Central Nervous System Agents Symbicort 160 mcg-4.5 mcg/actuati on HFA aerosol inhaler 2024-11 00:00: 00 Yes [id number] 2 puff NEEDED 2 puff NEEDED (route: inhalation ) Med Classific ation: Respirato ry Therapy Agents tamsulosin 0.4 mg capsule 2024-11 00:00: 00 Yes [id number] 1 capsule EVERY PM 1 capsule EVERY PM (route: oral) Med Classific ation: Genitouri nary Therapy tramadol 50 mg tablet 2024-11 00:00: 00 Yes [id number] 1 tablet EVERY 4-6 HOURS NEEDED 1 tablet EVERY 4-6 HOURS NEEDED (route: oral) Med Classific ation: Analgesic , Anti-infl ammatory or Antipyret ic Tylenol 325 mg tablet 2024-11 00:00: 00 Yes [id number] 1 tablet EVERY 4-6 HOURS NEEDED 1 tablet EVERY 4-6 HOURS NEEDED (route: oral) Med Classific ation: Analgesic , Anti-infl ammatory or Antipyret ic Vital Signs Vital Name Observation Time Observation Value Commen ts Temperature 2025-10-31 11:27:00.000 97.9 [degF] Temperature 2025-10-18 13:00:00.000 97.6 [degF] Temperature 2025-10-11 11:58:00.000 97.9 [degF] Temperature 2025-10-04 10:35:00.000 97.6 [degF] Temperature 2025-09-27 11:53:00.000 97.9 [degF] Temperature 2025-09-22 13:03:00.000 97.6 [degF] BMI (%) 2025-10-31 11:27:00.000 43 kg/m2 Height 2025-10-31 11:27:00.000 62 [in_us] Pulse 2025-10-31 11:27:00.000 67 /min Pulse 2025-10-18 13:00:00.000 73 /min Pulse 2025-10-11 11:58:00.000 76 /min Pulse 2025-10-04 10:35:00.000 76 /min Pulse 2025-09-27 11:53:00.000 75 /min Pulse 2025-09-22 13:03:00.000 76 /min O2 Saturation (%) 2025-10-18 13:00:00.000 97 % O2 Saturation (%) 2025-10-11 11:59:00.000 97 % Respirations 2025-10-31 11:27:00.000 18 /min Respirations 2025-10-18 13:00:00.000 20 /min Respirations 2025-10-11 11:58:00.000 18 /min Respirations 2025-10-04 10:35:00.000 20 /min Respirations 2025-09-27 11:53:00.000 18 /min Respirations 2025-09-22 13:03:00.000 20 /min Weight (lbs) 2025-10-31 11:27:00.000 240 [lb_av] Systolic Blood Pressure 2025-10-31 11:27:00.000 124 mm [Hg] Systolic Blood Pressure 2025-10-18 13:00:00.000 127 mm [Hg] Systolic Blood Pressure 2025-10-11 11:58:00.000 121 mm [Hg] Systolic Blood Pressure 2025-10-04 10:35:00.000 128 mm [Hg] Systolic Blood Pressure 2025-09-27 11:53:00.000 134 mm [Hg] Systolic Blood Pressure 2025-09-22 13:03:00.000 128 mm [Hg] Diastolic Blood Pressure 2025-10-31 11:27:00.000 71 mm [Hg] Diastolic Blood Pressure 2025-10-18 13:00:00.000 71 mm [Hg] Diastolic Blood Pressure 2025-10-11 11:58:00.000 67 mm [Hg] Diastolic Blood Pressure 2025-10-04 10:35:00.000 76 mm [Hg] Diastolic Blood Pressure 2025-09-27 11:53:00.000 76 mm [Hg] Diastolic Blood Pressure 2025-09-22 13:03:00.000 76 mm [Hg] Plan of Treatment Planned Activity Planned Date Details Comments Future Scheduled Test SKILLED NU RSE TO EVALUATE PATIENT, IDENTIFY PRIMARY AND CO-MORBID CONDITIONS CODED PER CODING GUIDELINES, AND DEVELOP PATIENT SPECIFIC PLAN OF CARE THAT INCLUDES PATIENT GOAL FOR HOME HEALTH. PLAN OF CARE TO INCLUDE 3 PRN VISIT(S) FOR OASIS DATA COLLECTION/COMPREHENSIVE ASSESSMENT AT TIMEPOINTS PER FEDERAL REGULATIONS. THIS INCLUDES VISITS FOR XAVIER, RECERT, SCIC, AND/OR DC. [code = SKILLED NURSE TO EVALUATE PATIENT, IDENTIFY PRIMARY AND CO-MORBID CONDITIONS CODED PER CODING GUIDELINES, AND DEVELOP PATIENT SPECIFIC PLAN OF CARE THAT INCLUDES PATIENT GOAL FOR HOME HEALTH. PLAN OF CARE TO INCLUDE 3 PRN VISIT(S) FOR OASIS DATA COLLECTION/COMPREHENSIVE ASSESSMENT AT TIMEPOINTS PER FEDERAL REGULATIONS. THIS INCLUDES VISITS FOR XAVIER, RECERT, SCIC, AND/OR DC.] Future Scheduled Test SKILLED NU RSE TO PRE-POUR MEDICATION PER MEDICATION LIST (FREQUENCY). [code = SKILLED NURSE TO PRE-POUR MEDICATION PER MEDICATION LIST (FREQUENCY).] Future Scheduled Test PATIENT MA Y HAVE ONE SET OF EMERGENCY MEDICATION NOT TO BE PRE-POURED ANY SOONER THAN 24 HOURS BEFORE SEVERE INCLEMENT WEATHER OR EMERGENT EVENT AND FOLLOWING SKILLED NURSE EVALUATION OF PATIENT SAFETY. [code = PATIENT MAY HAVE ONE SET OF EMERGENCY MEDICATION NOT TO BE PRE-POURED ANY SOONER THAN 24 HOURS BEFORE SEVERE INCLEMENT WEATHER OR EMERGENT EVENT AND FOLLOWING SKILLED NURSE EVALUATION OF PATIENT SAFETY.] Future Scheduled Test SKILLED NU RSE TO O/A OF PATIENTS MENTAL/BEHAVIORAL STATUS, ASSESS VITAL SIGNS ALLOW 2 PRNS FOR MEDICATION MANAGEMENT. [code = SKILLED NURSE TO O/A OF PATIENTS MENTAL/BEHAVIORAL STATUS, ASSESS VITAL SIGNS ALLOW 2 PRNS FOR MEDICATION MANAGEMENT.] Future Scheduled Test SKILLED NU RSE FOR O/A OF NEUROCOGNITIVE AND BEHAVIORAL STATUS [code = SKILLED NURSE FOR O/A OF NEUROCOGNITIVE AND BEHAVIORAL STATUS] Future Scheduled Test SKILLED NU RSE FOR O/A OF GENERAL HEALTH STATUS OF PAIN, CARDIAC, RESPIRATORY, GASTROINTESTINAL, GENITOURINARY, SKIN, NEUROLOGIC, ENDOCRINE SYSTEMS TO IDENTIFY CHANGES ASSOCIATED WITH EXACERBATION FOR EARLY INTERVENTION OF COMPLICATIONS WEEKLY. [code = SKILLED NURSE FOR O/A OF GENERAL HEALTH STATUS OF PAIN, CARDIAC, RESPIRATORY, GASTROINTESTINAL, GENITOURINARY, SKIN, NEUROLOGIC, ENDOCRINE SYSTEMS TO IDENTIFY CHANGES ASSOCIATED WITH EXACERBATION FOR EARLY INTERVENTION OF COMPLICATIONS WEEKLY.] Future Scheduled Test SKILLED NU RSE FOR [...] Future Scheduled Test SKILLED NU RSE TO OBTAIN BLOOD SUGAR PRN FOR SIGNS AND SYMPTOMS OF HYPO/HYPERGLYCEMIA. IF OBTAINED BY PATIENT/CAREGIVER PRIOR TO VISIT AND PATIENT IS NOT SYMPTOMATIC, SKILLED NURSE TO RECORD READING FROM PATIENT LOG. [code = SKILLED NURSE TO OBTAIN BLOOD SUGAR PRN FOR SIGNS AND SYMPTOMS OF HYPO/HYPERGLYCEMIA. IF OBTAINED BY PATIENT/CAREGIVER PRIOR TO VISIT AND PATIENT IS NOT SYMPTOMATIC, SKILLED NURSE TO RECORD READING FROM PATIENT LOG.] Future Scheduled Test SKILLED NU RSE TO PROVIDE TEACHING ON SIGNS AND SYMPTOMS AND MANAGEMENT OF HYPERTENSION. [code = SKILLED NURSE TO PROVIDE TEACHING ON SIGNS AND SYMPTOMS AND MANAGEMENT OF HYPERTENSION.] Future Scheduled Test SKILLED NU RSE TO [...] PROBLEMS.] Future Scheduled Test SKILLED NU RSE FOR [...] SERVICES.] Future Scheduled Test SKILLED NU RSE WILL MAINTAIN SITUATIONAL AWARENESS FOR SAFETY AND WILL NOTIFY CLINICAL CANCER REGISTRY MANAGER AND PHYSICIAN/PROVIDER WITH ANY CHANGE IN CONDITION. [code = SKILLED NURSE WILL MAINTAIN SITUATIONAL AWARENESS FOR SAFETY AND WILL NOTIFY CLINICAL CANCER REGISTRY MANAGER AND PHYSICIAN/PROVIDER WITH ANY CHANGE IN CONDITION.] [...] Goal - I MPROVE MEDICATION COMPLIANCE Goal 2025-09-18 Patient Goal - I MPROVE MEDICATION COMPLIANCE Goal 2025-07-19 Patient Goal - I MPROVE MEDICATION COMPLIANCE Goal 2025-05-18 Patient Goal - I MPROVE MEDICATION COMPLIANCE Goal Provider Goal - A PLAN OF CARE WILL BE ESTABLISHED THAT MEETS PATIENT'S RETIREMENT NEEDS AND INCLUDES PATIENT GOAL FOR HOME HEALTH. Goal Provider Goal - PATIENT WILL COMPLY WITH MEDICATION WHEN SKILLED NURSE PRE-POURS MEDICATION THROUGHOUT CERTIFICATION PERIOD. Goal Provider Goal - MEDICATION WILL BE AVAILABLE DURING INCLEMENT WEATHER OR EMERGENT EVENT THROUGHOUT CERTIFICATION PERIOD. Goal Provider Goal - ALTERED MENTAL/BEHAVIORAL STATUS WILL BE IDENTIFIED PROMPTLY AND INTERVENTION INITIATED QUICKLY TO MINIMIZE ASSOCIATED RISKS THROUGHOUT CERTIFICATION PERIOD. Goal Provider Goal - PATIENT WILL BE ABLE TO PERFORM DAILY FUNCTIONS AND MAINTAIN OPTIMAL BEHAVIORAL/NEUROCOGNITIVE STATUS THROUGHOUT CERTIFICATION PERIOD. Goal Provider Goal - CHANGE IN GENERAL HEALTH STATUS WILL BE IDENTIFIED AND REPORTED TO PHYSICIAN FOR PROMPT INTERVENTION TO MINIMIZE ASSOCIATED RISKS THROUGHOUT CERTIFICATION PERIOD. Goal Provider Goal - PATIENT WILL REMAIN SAFE WITHOUT DECOMPENSATION IN DEPRESSIVE CONDITION, WHILE MAINTAINING OPTIMAL LEVEL OF MENTAL HEALTH AND WELL BEING THROUGHOUT CERTIFICATION PERIOD. Goal Provider Goal - BLOOD [...] OF THIS CERTIFICATION. Goal Provider Goal - PSYCHOSOCIAL NEEDS WILL BE IDENTIFIED AND PLAN IMPLEMENTED TO MINIMIZE RISK THROUGHOUT CERTIFICATION PERIOD. Goal Provider Goal - PATIENT WILL REMAIN SAFE IN THE COMMUNITY AND WILL BE FREE OF DANGER TO SELF AND OTHERS THROUGHOUT THE CERTIFICATION PERIOD. Encounters Start Date/Time End Date/Time Encounter Type Admission Type Attending [facility] Care Department Encounter ID Discharge Date Discharge Status Discharge Condition Discharge Reason Percent Goals Met 2025-09-20 00:00:00 2025-11-18 00:00:00 Outpatient RECERTIFIC ATION [facility] [id number]
== END 2025-11-07 11:15 | disposition home or self-care (01) ==
LOC: HO.ENCR 10:26
PROVIDERS: PCP Internal Medicine; Visit Provider Physician Assistant Medical
DX: E11.42 Type 2 diabetes mellitus with diabetic polyneuropathy (principal); R07.2 Precordial pain; R06.00 Dyspnea, unspecified; Z13.9 Encounter for screening, unspecified

== ENCOUNTER → 2025-11-07 10:26 | Outpatient (BNVA) | payer OTHER, SELFPAY | PROVIDERS: PCP Internal Medicine; Visit Provider Physician Assistant Medical | DX: E11.42 Type 2 diabetes mellitus with diabetic polyneuropathy (principal); R06.00 Dyspnea, unspecified; R07.2 Precordial pain; R07.89 Other chest pain; M54.6 Pain in thoracic spine; M54.2 Cervicalgia; R06.2 Wheezing; R61 Generalized hyperhidrosis | CPT/HCPCS: 82947; 83036; 99212 ==

== ENCOUNTER → 2025-11-07 11:41 | Outpatient (BNV) | payer OTHER, SELFPAY | PROVIDERS: Admitting Provider Student in an Organized Health Care Education/Training Program; Emergency Provider Emergency Medicine; PCP Internal Medicine; Visit Provider Internal Medicine | DX: R94.31 Abnormal electrocardiogram [ECG] [EKG] (principal); R07.9 Chest pain, unspecified | CPT/HCPCS: 93010 ==

== ENCOUNTER → 2025-11-07 11:48 | Outpatient (BNV) | payer OTHER, SELFPAY | PROVIDERS: Emergency Provider Emergency Medicine; Visit Provider Radiology Diagnostic Radiology | DX: N28.1 Cyst of kidney, acquired (principal); J98.11 Atelectasis; I31.39 Other pericardial effusion (noninflammatory); R07.9 Chest pain, unspecified | CPT/HCPCS: 71045; 71275; 74177 ==

== ENCOUNTER 2025-11-07 18:25 | Outpatient (BNV) | payer OTHER, SELFPAY | END 2025-11-08 07:00 | PROVIDERS: Admitting Provider Student in an Organized Health Care Education/Training Program; Emergency Provider Emergency Medicine; PCP Internal Medicine; Visit Provider Internal Medicine | DX: I31.39 Other pericardial effusion (noninflammatory) (principal) | CPT/HCPCS: 93306 ==

== ENCOUNTER → 2025-11-07 18:25 | Outpatient (BNV) | payer OTHER, SELFPAY | PROVIDERS: Admitting Provider Student in an Organized Health Care Education/Training Program; Emergency Provider Emergency Medicine; PCP Internal Medicine; Visit Provider Family Medicine | DX: F41.1 Generalized anxiety disorder (principal); I31.39 Other pericardial effusion (noninflammatory) | CPT/HCPCS: 99222; 99232; 99239; 99499 ==

== ENCOUNTER → 2025-11-07 18:25 | Outpatient (BNV) | payer OTHER, SELFPAY | PROVIDERS: Admitting Provider Student in an Organized Health Care Education/Training Program; Emergency Provider Emergency Medicine; PCP Internal Medicine; Visit Provider Internal Medicine | DX: I31.39 Other pericardial effusion (noninflammatory) (principal); I25.10 Atherosclerotic heart disease of native coronary artery without angina pectoris | CPT/HCPCS: 99233 ==